=== PATIENT | female | born 1950 | race Caucasian/White ===

== ENCOUNTER 2017-09-22 09:17 | Outpatient (CLI) | payer MEDICARE, OTHER ==
--- NOTE | 2017-09-22 09:46 | RAD ---
CHEST TWO VIEWS: History: Dyspnea. FINDINGS: Cardiac silhouette is enlarged. Pulmonary vasculature is predominately obscured by extremely coarsene d interstitial thickening throughout each lung. Component of underlying airspace opacity could also b e present. Mediastinum is midline. No pneumothorax or pleural fluid are visible. Metallic clips overl ie the gallbladder fossa. IMPRESSION: 1. Extensive widespread interstitial thickening. 2. Cardiomegaly. POS: [facility]
== END 2017-09-22 09:18 | disposition home or self-care (01) ==
LOC: EDBD → RAD 09:17
PROVIDERS: ATTEND Internal Medicine Critical Care Medicine
DX: R06.00 Dyspnea, unspecified (principal); I51.7 Cardiomegaly; R91.8 Other nonspecific abnormal finding of lung field
CPT/HCPCS: 71046

== ENCOUNTER 2017-10-21 11:49 | Outpatient (CLI) | payer MEDICARE, MEDICAID ==
--- NOTE | 2017-10-21 14:46 | CT ---
NONCONTRAST AND HIGH RESOLUTION PROTOCOL CT CHEST: INDICATIONS: Interstitial lung disease. Idiopathic pulmonary fibrosis. COMPARISON: Reference is made to a 09/22/2017 chest radiograph. FINDINGS: There are diffuse, multifocal, nodular areas of consolidation throughout each lung, with associated b ronchiectasis and scattered ground glass alveolar opacities. There is associated interstitial septal thickening and multifocal areas of pleural based irregularity. Incidental note of moderate pericardial effusion. There is an enlarged, heterogeneous right thyroid lobe, partially visualized. There are prominent sized cysts of the lungs bilaterally, predominantly at the apices, which may be related to associated pneumatocele formation. Regional soft tissue limit s assessment by the technique of the exam. Nonspecific, mildly enlarged mediastinal lymph nodes are present. IMPRESSION: 1. Multifocal nodular parenchymal opacities throughout each lung, favoring an atypical infectious pr ocess. 2. There is diffuse bilateral bronchiectasis, at least a portion of which is favored to reflect trac tion bronchiectasis. In addition, there are prominent sized cysts of each lung, likely related to as sociated pneumatoceles. 3. Incidental note of thyroid gland enlargement and heterogeneity. Followup may be obtained with th yroid ultrasound when clinically feasible. 4. Moderate pericardial effusion is partially visualized. 5. Nonspecific thoracic adenopathy, incompletely assessed by the technique of the exam. POS: [facility]
[2017-10-21 15:21] LABS: Bilirubin Small (Negative); Blood, Urine Trace (Negative); Clarity CLOUDY (Clear); Glucose, Urine (Dipstick) 100 mg/dL (Negative); Leukocyte Moderate (Negative); Nitrite Positive (Negative); Protein, Urine (Dipstick) 30 mg/dL (Neg-Trace); Specific Gravity, Urine 1.025 (1.002-1.036)
[2017-10-21 15:23] LABS: Bacteria/HPF 4+ HPF (None Seen); Pathc Cast-AUWi Flag 1.77 (0-2.49); RBC/HPF 0-3 HPF (0-3); Squamous Epithelial 0-3 HPF (0-3); WBC/HPF 21-50 HPF (0-3)
[2017-10-21 15:28] LABS: Hyaline Casts/LPF 0-3 HYALINE CAST LPF (0-3 Hyaline)
[2017-10-21 15:32] LABS: ALT (SGPT) 8 U/L (8-55); AST (SGOT) 15 U/L (5-34); Albumin 4.4 g/dL (3.4-4.8); Alkaline Phosphatase 96 U/L (40-150); Anion Gap 13 mmol/L (10-20); BUN (Urea Nitrogen) 13 mg/dL (9.8-20.1); Bilirubin, Total 0.6 mg/dL (0.2-1.2); Calc. Creatinine Clearance 0 mL/min (70-130); Calcium 9.7 mg/dL (7.8-10.44); Carbon Dioxide 27 mmol/L (23-31); Chloride 103 mmol/L (98-107); Estimated GFR-MDRD 78; Globulin 3.6 g/dL (2.4-3.5); Glucose 140 mg/dL (80-115); Potassium 3.9 mmol/L (3.5-5.1); Sodium 139 mmol/L (136-145)
[2017-10-21 15:35] LABS: #Eosinphils 0.1 thou/uL (0.0-0.7); #Lymphocytes 1.4 thou/uL (1.20-3.40); #Monocytes 0.8 thou/uL (0.11-0.59); #Neutrophils 7.2 thou/uL (1.40-6.50); %Basophils 0.3 % (0.0-1.0); %Eosinophils 1.5 % (0.0-10.0); %Lymphocytes 14.5 % (21.0-51.0); %Monocytes 8.6 % (0.0-10.0); %Neutrophils 75.1 % (42.0-75.0); Anisocytosis SLIGHT = 6-15 cells (100X) (0-5/hpf); Hemoglobin 13.7 g/dL (12.0-16.0); MDiff Complete? YES; Mean Corpuscular HGB CONC 31.1 g/dL (32.0-36.0); Mean Corpuscular Hemoglobin 22.6 pg (27.0-31.0); Mean Corpuscular Volume 72.8 fl (81.0-99.0); Mean Platelet Volume 8.1 fL (7.4-10.4); Ovalocytes SLIGHT = 2-5 cells (100X) (0-1/hpf); PLT Morphology Comment Appears Adequate; Platelet Count 286 thou/uL (130-400); RBC Distribution Width 15.1 % (11.5-14.5); Red Blood Cell (RBC) Count 6.04 mill/uL (4.20-5.40); White Blood Cell (WBC) Count 9.6 thou/uL (4.8-10.8)
--- NOTE | 2017-10-22 10:20 | PFT ---
PATIENT HISTORY: HEIGHT: 66 IN WEIGHT:148 SMOKER: NO QUIT 3 YRS AGO HOW LON YEARS PACKS PER DAY: 1 PRODUCTIVE COUGH: LUNG DISEASE: PHYSICIAN INTERPRETATION FINAL REPORT: Generator Switchboard Operator comments: patient perform these studies on 1 liter nasal cannula. PFT data: FVC 1.39 (42%), FEV1 1.03 (43%), FEV1/FVC 0.74. Total expiratory time 6.1 seconds. TLC 2.10 (38%), FRC 1.28 (39%), RV 1.10 (49%). Diffusion 5.77 (30%) There is were severe reduction in both the FEV1 and the FVC. The ratio was suggestive of a restrictive profile. Volume are severe volume restriction is confirmed on lung volumes. Diffusion capacity is severely impaired. There is no significant improvement following administration of bronchodilator. IMPRESSION: Overall, these pulmonary function studies are consistent with severe restrictive lung disease with severe reduction in gas exchange. Clinical correlation for interstitial process is suggested. Generator Switchboard Operator: CODY Marketing Consultant: CODY SANTANA
[2017-10-23 16:16] LABS: Anti-Striation AB Negative (Neg:<1:40); Antinuclear AB Negative (Negative); Antiparietal Cell Ab 68.8 Units (0.0-20.0); Complement C4 46 mg/dL (14-44); DSDNA AutoAb Less than 1 IU/mL (0-9); SCL-70 IgG AutoAb <0.2 AI (0.0-0.9); Smith IgG AutoAb <0.2 AI (0.0-0.9); Smooth Muscle AB 37 Units (0-19); Thyroid Peroxidase Abs 415 IU/mL (0-34); U1 RNP/SNRNP IgG AutoAb <0.2 AI (0.0-0.9)
== END 2017-10-21 11:50 | disposition home or self-care (01) ==
LOC: CT 11:49 → EDBD 12:30
PROVIDERS: ATTEND Internal Medicine Critical Care Medicine
DX: J84.9 Interstitial pulmonary disease, unspecified (principal); J47.9 Bronchiectasis, uncomplicated; R91.8 Other nonspecific abnormal finding of lung field; E04.9 Nontoxic goiter, unspecified; I31.3 Pericardial effusion (noninflammatory); R59.0 Localized enlarged lymph nodes
CPT/HCPCS: 71250; 80053; 81001; 83516; 85025; 86160; 86225; 86235; 86256; 86376; 86431; 86480; 86606; 86612; 86635; 86698; 94060; 94727; 94729

== ENCOUNTER 2017-11-12 06:34 | Inpatient (IN) | payer MEDICARE, MEDICAID ==
[2017-11-12] MEDS ORDERED: Fentanyl 250 MCG/5 ML VIAL ONE (07:00)
[2017-11-12] MEDS ORDERED: Glycopyrrolate 0.2 MG/ML 5 ML SYRINGE ONE (08:13)
[2017-11-12] MEDS ORDERED: PHENYLEPHRINE-NS 100 MCG/ML 10 ML SYRINGE ONE (08:13)
[2017-11-12] MEDS ORDERED: Lidocaine 1% PF 5 ML VIAL ONE (08:13)
[2017-11-12] MEDS ORDERED: Propofol 200 MG/20 ML VIAL ONE (08:13)
[2017-11-12] MEDS ORDERED: Sodium Chloride 0.9% 1,000 ML IV SCH (08:15)
[2017-11-12] MEDS ORDERED: LIDOCAINE HCL 4% Topical Sol (4 ML SOLN.PK.G.) TP SCH (08:15)
[2017-11-12] MEDS ORDERED: Lidocaine 2% PF 5 ML VIAL ONE (08:31)
--- NOTE | 2017-11-12 09:05 | HP ---
11/11/2017 HISTORY OF PRESENT ILLNESS: Ms. Diego is a very pleasant woman referred for "pneumonia." She was seen by me at the end of August with a history of being told she had COPD and being placed on oxygen. She has been seen in the [place] emergency room, given a diagnosis of pneumonia and then sent home. She had no old radiographs for me to compare to. She did have a history of being told by [place] physician 3-4 years prior that she had COPD. A year ago, she said she was fine, but the past 6 months, she has been having progressive shortness of breath. She has had no weight loss or hemoptysis with just mainly dyspnea on exertion. Serological workup has not revealed anything but a positive QuantiFERON. The duration of this abnormality is unknown. Her vasculitis workup was negative. Her hypersensitivity pneumonitis panel was negative. Her fungal antibody panel was negative. Her antineutrophil cytoplasmic antibody panel was negative. Her lupus panel was negative with the exception of a thyroid peroxidase auto- antibody which is noncontributory. Her exam has been nonrevealing. She had normal complement levels. Her electrolytes were normal. She was not hypercalcemic. She did have an elevated globulin fraction. Her urinalysis showed some white cells, but no microhematuria. She is tentatively scheduled for bronchial washings and possible transbronchial biopsies. PAST MEDICAL HISTORY: Remarkable for hypertension, osteoporosis, lipid disorder and diabetes. SOCIAL HISTORY: She is nonsmoker for the last year. She is not a daily drinker. She does not use drugs. FAMILY HISTORY: Negative for lung disease in early age. She has history of vascular disease. REVIEW OF SYSTEMS: Ten points otherwise negative. PHYSICAL EXAMINATION: VITAL SIGNS: Blood pressure in the office is 138/80, pulse 96, respiratory rate is 18, oximetry is 96% on 2 liters. HEENT: Pupils are equal. Sclerae anicteric. NECK: Supple. She has no lymphadenopathy. LUNGS: Remarkable for crackles at both lung bases. HEART: Regular rhythm. S1 and S2 are normal. ABDOMEN: Soft and nontender. EXTREMITIES: Without clubbing, cyanosis, or edema. IMPRESSION AND PLAN: My first impression was that she had pulmonary fibrosis, but CT scanning by high resolution protocol was not suggestive of that. There is no way around trying to get some tissue and some specimens for culture. I doubt this is a disseminated fungal process, but it is in the differential. This has been atypical presentation for malignant process, but it is also in the differential. Bronchoscopy was explained to the patient, the daughter. Risks of bleeding, infection, lung collapse, and least likely were explained. This will need to be done with anesthesia assistance. MAX
--- NOTE | 2017-11-12 11:55 | RAD ---
PORTABLE CHEST: HISTORY: Dyspnea. COMPARISON: 09/22/2017 FINDINGS: Heart size is markedly enlarged. Interstitial fibrotic lung changes, which have a confluent appearan ce in some of the areas, is again noted. It is fairly similar to the previous examination. Some of the right upper lobe parenchymal changes appear more confluent, toward the right suprahilar region, a s do some of the changes in the right base. I cannot exclude the possibility that there is some coex istent infiltrative change. IMPRESSION: Cardiomegaly with interstitial fibrotic lung change. Slightly more confluent change of the right upp er and lower lung glover than on the prior study. POS: [facility]
--- NOTE | 2017-11-12 13:31 | RAD ---
PORTABLE AP CHEST X-RAY: 11/12/2017 HISTORY: Post bronchoscopy. COMPARISON: 11/12/2017 at 1024 hours. FINDINGS: Again noted are diffuse increased interstitial and patchy parenchymal opacities seen throughout the l ungs bilaterally. There has been interval development of a moderate sized right pneumothorax. No pl eural effusion is seen. There is osteopenia. The cardiac silhouette does appear enlarged and stable in size. No other interval change. IMPRESSION: 1. Moderate size right pneumothorax occupying greater than 15% of the volume of the right hemithorax . 2. Persistent increased interstitial and alveolar opacities throughout the lungs bilaterally. The above findings were discussed with Dr. Jones in the PACU on 10/23/2017 at 1121 hours, in regards t o the right-sided pneumothorax. CODE CR POS: [facility]
--- NOTE | 2017-11-12 14:20 | RAD ---
AP VIEW CHEST: 11/12/2017 HISTORY: Status post pneumothorax valve placement. COMPARISON: Exam done earlier in the day on 11/12/2017. FINDINGS: An AP view chest demonstrates placement of a right-sided pneumothorax catheter, in the right pleural space. The previously visualized pneumothorax has significantly decreased in size. Diffuse interstitial air space opacity is again seen throughout the lung parenchyma. Surgical clips are seen in the gallbladder fossa. IMPRESSION: Placement of a right-sided pneumothorax catheter in the right-sided pneumothorax POS: [facility]
[2017-11-12] MEDS ORDERED: Lidocaine 1% (PF) 30 ML VIAL ONE (14:52)
[2017-11-12 14:53] LABS: BF Color Pink; Body Fluid Source Bronchial Washings; Clarity Cloudy/Turbid (Clear); RBC Background Count 0.004; Tube # EDTA; WBC/NonHematic-Auto 2390 /cumm
[2017-11-12 14:54] LABS: RBC Count-Automated 27000 /cumm
--- NOTE | 2017-11-12 15:35 | CON ---
DATE OF CONSULTATION: 11/12/2017 HISTORY OF PRESENT ILLNESS: Ms. Diego is a 67-year-old woman she is post- chest biopsy with resultant pneumothorax, which has been resistant to small bore catheter placement reexpansion. I have been asked to see her to place a larger bore chest tube. PAST MEDICAL HISTORY: 1. Hypertension. 2. Osteoporosis. 3. Lipid disorder. 4. Diabetes mellitus. 5. Malignant pulmonary process vs interstitial disease SOCIAL HISTORY: She quit smoking about a year ago. REVIEW OF SYSTEMS: Not performed due to acuity of the situation. PHYSICAL EXAMINATION: VITAL SIGNS: Heart rate is 80 and regular, blood pressure is 95/76. LUNGS: Have depressed breath sounds bilaterally, but more so on the right. There is a small bore catheter in the anterior mid clavicular line approximately the second interspace. Oxygen saturations are 90% on 4 liters nasal cannula. ABDOMEN: Soft and nontender. EXTREMITIES: No edema. Chest x-ray series has been reviewed. ASSESSMENT AND PLAN: Status post percutaneous biopsy at the right chest with resultant pneumothorax for chest tube placement. MIND
--- NOTE | 2017-11-12 15:38 | OP ---
PREOPERATIVE DIAGNOSIS: Right pneumothorax. POSTOPERATIVE DIAGNOSIS: Right pneumothorax. PROCEDURE PERFORMED: Right chest tube placement. SURGEON: Aayush Santiago M.D. ANESTHESIA: 1% lidocaine for local. DESCRIPTION OF PROCEDURE: Right chest wall was prepped and draped in usual sterile fashion. Skin wa s anesthetized with 1% lidocaine. The subcutaneous tissue and pericostal tissue was anesthetized wit h 1% lidocaine. The chest was entered percutaneously. This was all infiltrated with 1% lidocaine. Skin incision was made. Sharp dissection was used to enter the chest. A 28 Tajik chest tube was pl aced to 12 cm and secured to skin with silk suture. There was a good burst of air on entering the ch est. Chest tube was connected to the atrium and initially had an air leak, which resolved with cough . Chest x-ray on followup shows complete reexpansion of the right lung.
--- NOTE | 2017-11-12 15:45 | RAD ---
PORTABLE UPRIGHT FRONTAL CHEST RADIOGRAPH 11/12/17 at 1:52 p.m. COMPARISON: 11/12/17, 10:50 a.m. HISTORY: Evaluate pneumothorax. FINDINGS: There is a small caliber chest tube overlying the right upper hemithorax. The tubing may be kinked ov erlying the region of the right 7th rib. The right sided pneumothorax is moderate/large on this exam, increased in size when compared to the most recent prior examination. There is extensive abnormal interstitial opacity seen throughout both lungs, right greater than left, not well assessed on this examination. The pulmonary parenchymal opacity throughout the right lung h as worsened secondary to volume loss from the enlarging right sided pneumothorax. There is some shift of the mediastinal structures to the left suggesting a degree of tension. There is small volume subc utaneous gas in the right chest wall. IMPRESSION: Enlarging right pneumothorax. There is some shift of the mediastinal structures to the left suggestin g a tension component. Results were called to Dr. Teixeira at 2:50 p.m., 11/12/17. POS: [facility]
[2017-11-12] MEDS: traMADol HCl 50 MG TAB PO PRN (15:47)
[2017-11-12 15:48] LABS: Cell Count Non Hematic 23 %; Eosinophils 1 %
[2017-11-12 15:50] LABS: BF Segmented Neutrophils 75 %
--- NOTE | 2017-11-12 16:16 | RAD ---
CHEST ONE VIEW: 11/12/17 HISTORY: 67-year-old female with history of post 28 Indonesian chest tube insertion. COMPARISON: 11/12/17. There has been considerable improvement in the previously noted moderate sized right sided pneumothor ax. There is some minimal subcutaneous emphysema. Extensive alveolar and interstitial parenchymal easton nges are noted throughout both lungs as well as cardiomegaly. IMPRESSION: Very small residual right sided pneumothorax following right chest tube placement. Stable extensive b ilateral pulmonary parenchymal changes. Continued short term followup. POS: [facility]
[2017-11-12] MEDS ORDERED: Morphine 10 MG/ML VIAL SLOW IVP PRN (18:14)
[2017-11-12] MEDS ORDERED: Dextrose 5% in Water 1,000 ML IV PRN (19:51)
[2017-11-12] MEDS ORDERED: Dextrose 50% Abboject 50 ML SYRINGE IVP PRN (19:51)
[2017-11-12] MEDS: Sodium Chloride 0.45% 1,000 ML IV SCH (20:31)
[2017-11-12] MEDS: Gabapentin 300 MG CAP PO SCH (20:32)
[2017-11-12] MEDS: Atorvastatin Calcium 20 MG TAB PO SCH (20:32)
[2017-11-12] MEDS: Insulin Regular 300 UNITS/3 ML VIAL SC PRN (21:42)
--- NOTE | 2017-11-12 22:54 | OP ---
Ms. Francoords scheduled for bronchoscopy today. She was taken to the endoscopy suite. She was intubate d by Anesthesia. She was sedated, bronchoscope was introduced via endotracheal tube. Her main mike a was sharp. The left lower lobe, left upper lobe were remarkable for no endobronchial lesions. Her right upper lobe, right lower lobe, right middle lobe were inspected. Her right middle lobe bronchu s was anatomic variant and was in the 9 o'clock position is opposed to 12 o'clock position when enter ing the bronchus intermedius. I was able to enter the right middle lobe bronchus and lavage, the rig ht middle lobe with 30 mL of saline 20 mL was returned. There were some lumpy granulomas looking mucosal lesions in her right lower lobe bronchus, one of the se was biopsied twice. Four transbronchial biopsies were obtained in different segments of the right lower lobe. After the procedure, fluoroscopy showed no pneumothorax. She was taken to the PACU and extubated.
--- NOTE | 2017-11-12 23:14 | OP ---
11/12/2017 POSTPROCEDURE BRONCHOSCOPY INDICATION: Chest radiograph showed no obvious pneumothorax, although there was a density at the apex suggestive of maybe an early pneumothorax. After this film was done, she started developing progressive shortness of breath. A repeat radiograph clearly showed a pneumothorax. I obtained verbal consent for placement of a Heimlich valve, 8-Persian pneumothorax catheter. She agreed. Her right anterior chest was prepped with Betadine followed by chlorhexidine. A small incision was made with an 11 blade after 10 mL of 1% lidocaine anesthesia. The catheter was easily inserted and sewn in place x1 and connected to a Heimlich valve. Within 5 minutes, respiratory status was back to normal. We then connected this to a Pleur-evac. She is scheduled to transfer to the Critical Care Unit. After arrival in the Critical Care Unit, she became short of breath again. A repeat radiograph was remarkable for a recurrence of her pneumothorax. I recommend placement of a larger chest tube. Dr. Santiago was gracious enough to place a chest tube. She had immediate relief of her recurring dyspnea. Chest radiograph showed inflation of her right lung. I met with the daughter multiple times today and answered all of her questions. Her preliminary acid fast smears are positive. At this point in time, based on her radiographic presentation and her clinical presentation, my index of suspicion is more towards a non-tuberculous mycobacterium than tuberculosis, but in the morning, we will probably start her antituberculous therapy until we have the preliminary culture results in the PCR. MAX
[2017-11-13] MEDS: Insulin Regular 300 UNITS/3 ML VIAL SC PRN ×4 (05:55→20:58)
--- NOTE | 2017-11-13 08:19 | RAD ---
UPRIGHT PORTABLE CHEST ONE VIEW: History: 67-year-old female with respiratory insufficiency. Comparison: 11-12-17 FINDINGS: Right chest tube remains in place with some residual subcutaneous emphysema on the right side. Stable cardiomegaly and extensive alveolar nodular and interstitial and reticular parenchymal changes throu ghout both lungs, also stable. Probable very tiny residual pneumothorax on the right. IMPRESSION: Right chest tube in place with probable very tiny residual right sided pneumothorax as well as some p ersistent subcutaneous emphysema. Stable cardiomegaly and extensive bilateral pulmonary opacities. POS: [facility]
[2017-11-13] MEDS: traMADol HCl 50 MG TAB PO PRN ×2 (09:23→16:46)
[2017-11-13] MEDS: Sodium Chloride 0.45% 1,000 ML IV SCH ×2 (09:23→21:19)
[2017-11-13] MEDS: Gabapentin 300 MG CAP PO SCH ×3 (09:23→20:58)
[2017-11-13] MEDS: Amlodipine 10 MG TAB PO SCH (09:25)
[2017-11-13] MEDS ORDERED: Cosyntropin 250 MCG VIAL SLOW IVP SCH (11:45)
--- NOTE | 2017-11-13 11:53 | PRG ---
DATE OF SERVICE: 11/13/2017 SUBJECTIVE: Ms. Diego says she feels better. She has no air leak looking at her chest tube. OBJECTIVE: VITAL SIGNS: Heart rate 104, respiratory 20, oximetry is 99, and blood pressure 114/70. LUNGS: Her lungs are remarkable for crackles bilaterally as before. HEART: Regular rhythm. ABDOMEN: Soft. Chest radiograph reviewed by me shows a very tiny pneumothorax on the right. There is no lab today other than Accu-Cheks. IMPRESSION: 1. Iatrogenic pneumothorax as a result transbronchial biopsies. 2. 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 Biopsies are pending. Acid fast bacilli were is olated. The radiograph in the clinical picture is not consistent with Mycobacterium tuberculosis. 3. History of a positive QuantiFERON. At this time, I believe, it is old. We will continue daily c hest radiographs. She will probably need to be started on anti-tuberculosis therapy until we have sp eciation of the acid fast bacilli. I have discussed the case with Dr. Boyer, we will check a CBC and Chem-7 in the morning. She should probably stay in the ICU for at least another day until her chest tubes to water seal.
[2017-11-13] MEDS: Atorvastatin Calcium 20 MG TAB PO SCH (20:58)
--- NOTE | 2017-11-14 00:48 | CON ---
DATE OF CONSULTATION: 11/13/2017 REASON FOR CONSULTATION: Pulmonary findings and sputum results. HISTORY OF PRESENT ILLNESS: A 67-year-old with a history of COPD given elsewhere about 6 years prior to admission was in her usual state until about 4-6 months before admission when she developed cough with sputum production. She was seen at a hospital in [place], [place] given diagnosed with pneumon ia and discharged on antimicrobial therapy. Despite treatment, she progressed with worsening dyspnea . She denied any headaches. No visual symptoms, sore throat, odynophagia, dysphagia. No back pain. No abdominal pain or diarrhea. No genitourinary symptoms. No joint symptoms. No skin disorder. She was eventually referred to Dr. Teixeira and he completed an extensive workup. The only positive fin dings included a positive QuantiFERON and some autoimmune antibody panel for certain glands and certa in in the gastric area with thyroid peroxidase oral antibody positivity and parietal cell autoantibod y. She had a CT scan with high-resolution protocol, which was not suggestive of pulmonary fibrosis. She was then recommended bronchoscopy and she was admitted for that to do with anesthesia assistance . She developed pneumothorax on the right side and was admitted to the ICU with a chest tube placeme nt. The chest tube had to be replaced by Dr. Das I believe. Currently, she is in the ICU. She is awake, oriented. Ten-point review of systems is only positive for dyspnea, some chest pain at the chest tube site. PAST MEDICAL HISTORY: COPD. Reportedly, she had pulmonary function test done on 10/21/2017, which s howed severe restrictive lung disease with possible interstitial process. CT of chest done the same date with multifocal nodular parenchymal opacities favoring an atypical infectious process; diffuse b ilateral bronchiectasis; cysts in each lung, likely related to pneumatoceles; thyroid enlargement and heterogeneity; moderate pericardial effusion, partially visualized; nonspecific thoracic adenopathy. ALLERGIES: Negative. CURRENT MEDICATIONS: DuoNeb, Norvasc, Lipitor, Cortrosyn, dextrose, Neurontin, glucagon, insulin, mo rphine, Ultram. FAMILY HISTORY: Noncontributory. SOCIAL HISTORY: She is a former smoker. She lived in another city in [place]. PHYSICAL EXAMINATION: GENERAL: She is voiding spontaneously. She has a chest tube. VITAL SIGNS: T-max 98.6, blood pressure 97/66, pulse 97, respirations 18, O2 sat 95%. SKIN: No areas of skin breakdown. Peripheral IV access. HEENT: Ocular movements conjugate. Conjunctivae normal. Oral cavity unremarkable. NECK: Supple. No jugular vein distention. LUNGS: With diminished breath sounds in the right side. HEART: S1, S2 regular rate. No crackles noted. ABDOMEN: Soft. Not distended or tender. No ascites. No bladder distention. EXTREMITIES: No joint inflammatory activity. Pulses are 1+ in dorsalis pedis. Moves all extremitie s equally. NEUROLOGIC: Cognitive function appears to be intact. LABORATORY DATA: White cell count ranging from 9.6, hemoglobin 13.7, platelets 286, MCV 72, 75% neut rophils, 0.1 eosinophils. Sodium 139, creatinine 0.74, glucose 140. Liver profile is normal. Globu alon 3.6 and she had a cortisol response, which is felt to be normal. Immunology studies included aty pical ANCA negative, antinuclear antibody negative, and a number of autoimmune antibodies negative. Anti-smooth muscle antibody is 37. Thyroid peroxidase antibody is 415, antiparietal cell antibody is 68. She had a number of antibodies against fungi negative and QuantiFERON was positive. Microbiolo gy with positive acid fast 1+, pending identification. Pathology of the lung biopsy with benign bron chial and peribronchial tissue, no malignancy, no granulomata, and no significant inflammatory infilt rates identified. The cytology showed benign respiratory columnar epithelial cells, no acid fast chiquita illi or fungal organism identified. ASSESSMENT: History of chronic obstructive pulmonary disease, now with progression of pulmonary infi ltrates, predominantly interstitial but also alveolar with cystic changes and bronchiectasis with AFB positivity from the bronchoscopy. 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 DISCUSSION: The differential diagnosis includes atypical infection including atypical mycobacterial versus Mycobacterium tuberculosis infection, fungal organisms. Vasculitis appears to be less likely in process with negative serology related to autoimmune glandular syndrome is another possibility, al though less likely. We will wait for the identification of the organism and then decide on treatment , cryptogenic organizing pneumonia appears to be less likely in view of the findings in the pathology from the bronchoscopy specimen. She may have a noncystic fibrosis bronchiectasis, which was not harley ntified until recently due to progression. In that case, the diagnosis of COPD given 4-6 years ago jefferson mckeon was not accurate.
[2017-11-14 04:42] LABS: Anion Gap 11 mmol/L (10-20); BUN (Urea Nitrogen) 11 mg/dL (9.8-20.1); Calc. Creatinine Clearance 93 mL/min (70-130); Carbon Dioxide 25 mmol/L (23-31); Chloride 99 mmol/L (98-107); Estimated GFR-MDRD Greater than 90; Glucose 148 mg/dL (80-115); Sodium 131 mmol/L (136-145)
[2017-11-14 05:14] LABS: Band 8 % (5-11); Hemoglobin 11.5 g/dL (12.0-16.0); Lymphocytes 11 % (21-51); MDiff Complete? YES; Mean Corpuscular HGB CONC 30.5 g/dL (32.0-36.0); Mean Corpuscular Hemoglobin 22.5 pg (27.0-31.0); Mean Corpuscular Volume 73.8 fl (81.0-99.0); Monocytes 18 % (0-10); Neutrophil 63 % (42-75); PLT Morphology Comment Appears Adequate; Platelet Count 182 thou/uL (130-400); RBC Distribution Width 15.4 % (11.5-14.5); Red Blood Cell (RBC) Count 5.11 mill/uL (4.20-5.40); White Blood Cell (WBC) Count 6.5 thou/uL (4.8-10.8)
[2017-11-14] MEDS: Gabapentin 300 MG CAP PO SCH ×3 (08:30→19:32)
[2017-11-14] MEDS: traMADol HCl 50 MG TAB PO PRN ×2 (08:30→14:41)
[2017-11-14] MEDS: Amlodipine 10 MG TAB PO SCH (08:31)
--- NOTE | 2017-11-14 08:43 | PRG ---
DATE OF SERVICE: 11/14/2017 SUBJECTIVE: She is complaining of cough, but otherwise says she is doing okay. PHYSICAL EXAMINATION: VITAL SIGNS: On exam, temperature is 100.0, pulse 108, blood pressure 133/74, O2 sat 92%, 24-hour in take 2628 and output 1605. HEENT EXAM: Unremarkable. NECK: No JVD, no bruits. LUNGS: Coarse breath sounds. CARDIOVASCULAR: S1 and S2, regular. ABDOMEN: Soft and nontender. EXTREMITIES: No clubbing, cyanosis, or edema. IMAGING: Her chest x-ray shows resolved pneumothorax. Chest tube did not demonstrate any air leak t tawana. LABORATORY DATA: White blood cell count 6.5, hematocrit 37.7, platelet count 182. Sodium 131, potas sium 4, chloride 99, CO2 of 25, BUN 11, creatinine 0.6, glucose 148. ASSESSMENT: 1. Diffuse bilateral pulmonary changes with positive AFB. This could be either Mycobacterium avium complex or mycobacterium tuberculosis. 2. Post-procedure pneumothorax with resolved air leak. PLAN: 1. Chest tube to water seal. 2. Up in a chair. 3. Add Lovenox for DVT prophylaxis. 4. Awaiting further results regarding the AFB.
[2017-11-14] MEDS: guaiFENesin/Dextromethorphan 10 ML UDCUP PO PRN ×2 (08:45→14:43)
[2017-11-14] MEDS: Enoxaparin Sodium 40 MG/0.4 ML SYRINGE SC SCH (08:56)
--- NOTE | 2017-11-14 09:32 | RAD ---
PORTABLE CHEST: Date: 11/14/17 PROVIDED CLINICAL HISTORY: Respiratory insufficiency. FINDINGS: Comparison with 11/13/17. Significant interval change with respect to the prior examination is not apparent. IMPRESSION: As above. POS: [facility]
[2017-11-14] MEDS: Insulin Regular 300 UNITS/3 ML VIAL SC PRN ×3 (12:03→20:16)
--- NOTE | 2017-11-14 18:27 | EKG ---
Test Reason : PREOP Blood Pressure : / mmHG Vent. Rate : 100 BPM Atrial Rate : 100 BPM P-R Int : 166 ms QRS Dur : 066 ms QT Int : 352 ms P-R-T Axes : 047 -33 030 degrees QTc Int : 454 ms Normal sinus rhythm Left axis deviation Inferior infarct , age undetermined Abnormal ECG No previous ECGs available Confirmed by DR. Clarissa ALLEN MD ([id number]) on 11/14/2017 6:26:54 PM Referred By: SHIVANI Confirmed By:DR. Clarissa ALLEN MD
[2017-11-14] MEDS: Atorvastatin Calcium 20 MG TAB PO SCH (19:36)
[2017-11-14] MEDS: Guaifenesin DM 100-10/5 ML UDCUP PO PRN (22:11)
[2017-11-15 04:34] LABS: Anion Gap 11 mmol/L (10-20); BUN (Urea Nitrogen) 12 mg/dL (9.8-20.1); Calc. Creatinine Clearance 90 mL/min (70-130); Calcium 8.8 mg/dL (7.8-10.44); Carbon Dioxide 29 mmol/L (23-31); Chloride 96 mmol/L (98-107); Estimated GFR-MDRD 86; Glucose 136 mg/dL (80-115); Potassium 3.9 mmol/L (3.5-5.1); Sodium 132 mmol/L (136-145)
[2017-11-15 04:37] LABS: Band 1 % (5-11); Eosinophils 2 % (0-10); Hemoglobin 11.2 g/dL (12.0-16.0); Lymphocytes 19 % (21-51); MDiff Complete? YES; Mean Corpuscular Hemoglobin 22.7 pg (27.0-31.0); Mean Corpuscular Volume 73.3 fl (81.0-99.0); Monocytes 13 % (0-10); Neutrophil 65 % (42-75); PLT Morphology Comment Appears Adequate; Platelet Count 178 thou/uL (130-400); RBC Distribution Width 15.3 % (11.5-14.5); Red Blood Cell (RBC) Count 4.91 mill/uL (4.20-5.40); White Blood Cell (WBC) Count 6.4 thou/uL (4.8-10.8)
[2017-11-15] MEDS: Sodium Chloride 0.45% 1,000 ML IV SCH (06:48)
--- NOTE | 2017-11-15 07:41 | PRG ---
DATE OF SERVICE: 11/15/2017 SUBJECTIVE: The patient is doing reasonably well today, had no complaints. PHYSICAL EXAMINATION: VITAL SIGNS: Temperature is 98.3, pulse 102, blood pressure 106/63, O2 sat 92%. HEENT: Unremarkable. NECK: No adenopathy or JVD. LUNGS: Coarse rhonchi bilaterally. CARDIOVASCULAR: S1 and S2 regular. ABDOMEN: Soft, nontender. EXTREMITIES: No edema. LABORATORY DATA: White blood count is 6.4, hemoglobin 11.2, hematocrit 36, platelet count 178. Sodi um 132, potassium 3.9, chloride 96, CO2 of 29, BUN 12, creatinine 0.6, glucose 136. Chest x-ray show s what appears to be a very small right apical pneumothorax. A chest tube is currently on waterseal. The Pleur-Evac was almost impossible to decipher because it looks like it to being kicked over duri ng the night and I am currently having it changed out to a different unit. ASSESSMENT: 1. Positive AFB on bronchoscopy -- not defined as atypical Mycobacterium or Mycobacterium tuberculos is as of yet. 2. Post-procedure pneumothorax which seems to have resolved. PLAN: 1. She can probably be transferred to the floor just as long as we can find a negative pressure room . Pleur-Evac has been changed out. 2. Deferring on antimicrobial therapy at this time until further test results come back.
[2017-11-15] MEDS: traMADol HCl 50 MG TAB PO PRN ×2 (07:50→18:01)
[2017-11-15] MEDS: Gabapentin 300 MG CAP PO SCH ×3 (07:51→19:58)
[2017-11-15] MEDS: Enoxaparin Sodium 40 MG/0.4 ML SYRINGE SC SCH (07:52)
--- NOTE | 2017-11-15 09:21 | RAD ---
PORTABLE CHEST: Date: 11/15/17 PROVIDED CLINICAL HISTORY: Respiratory insufficiency. FINDINGS: Comparison with 11/14/17. Significant interval change with respect to the prior examination is not apparent. IMPRESSION: As above. POS: [facility]
[2017-11-15] MEDS: Insulin Regular 300 UNITS/3 ML VIAL SC PRN ×3 (12:28→20:44)
[2017-11-15] MEDS: Amlodipine 10 MG TAB PO SCH (13:04)
[2017-11-15] MEDS: Guaifenesin DM 100-10/5 ML UDCUP PO PRN (19:58)
[2017-11-15] MEDS: Atorvastatin Calcium 20 MG TAB PO SCH (19:58)
--- NOTE | 2017-11-16 07:55 | RAD ---
PORTABLE SEMIUPRIGHT FRONTAL CHEST RADIOGRAPH: 11/16/2017 HISTORY: Respiratory insufficiency. COMPARISON: 11/15/2017 FINDINGS: There is a stable right-sided chest tube in place. Heart and mediastinal contours are stable. There is coarse interstitial and alveolar opacity, right greater than left, with a perihilar and upper lob e predominance, similar when compared to the prior examination. No discrete pneumothorax is noted. IMPRESSION: Stable appearance of the chest. POS: [facility]
[2017-11-16] MEDS: Amlodipine 10 MG TAB PO SCH (08:59)
[2017-11-16] MEDS: Gabapentin 300 MG CAP PO SCH ×3 (08:59→20:41)
[2017-11-16] MEDS: Enoxaparin Sodium 40 MG/0.4 ML SYRINGE SC SCH (09:00)
[2017-11-16] MEDS: Guaifenesin DM 100-10/5 ML UDCUP PO PRN (09:56)
[2017-11-16] MEDS: Insulin Regular 300 UNITS/3 ML VIAL SC PRN ×3 (11:57→20:44)
--- NOTE | 2017-11-16 14:50 | PRG ---
DATE OF SERVICE: 11/16/2017 SUBJECTIVE: Christine Diego has no air leak. It is anticipated her chest tube will be removed this afte rnoon. Given the isolation of acid fast bacilli, I would prefer to wait for a surgical lung biopsy. I suppose there is a possibility that this is non-tuberculous Mycobacterium on top of an underlying lung process, it is a completely different diagnosis, but it is also possible that this is all infect ion related on top of some structural bronchiectasis and COPD that was preexisting. OBJECTIVE: LUNGS: Clear. She is not wheezing. HEART: Regular rhythm. ABDOMEN: Soft. LABORATORY DATA: Glucoses have been for the most part less than 200. IMPRESSION: Pneumothorax, iatrogenic. Chest tubes removed and if she looks good in the morning, we may discharge her home. She can be isolated at home until we have a diagnosis of a pathogen hopefull y this week., but I would think definitely within 2 weeks.
[2017-11-16 15:21] LABS: Fungus Stain Final report (.)
[2017-11-16] MEDS: Atorvastatin Calcium 20 MG TAB PO SCH (20:41)
[2017-11-17] MEDS: Insulin Regular 300 UNITS/3 ML VIAL SC PRN ×4 (05:31→21:03)
--- NOTE | 2017-11-17 07:12 | PRG ---
DATE OF SERVICE: DATE 11/16/2017 HISTORY: Ms. Diego is awake. She is oriented, denies any headaches, a little bit of cough, less dy spnea, no chest pain, no abdominal pain. PHYSICAL EXAMINATION: VITAL SIGNS: Temperature max 99.7, blood pressure 109/63, pulse 101, respirations 26 with 94%. GENERAL: Awake, alert, oriented. LUNGS: With scattered inspiratory crackles. HEART: S1, S2, regular rate. ABDOMEN: Soft. EXTREMITIES: Moves all extremities equally. LABORATORY DATA: White cell count 6.4, hemoglobin 11, platelets 178. Sodium 132, creatinine 0.68. The identification of the mycobacterial pathogen is pending at this time. ASSESSMENT AND DISCUSSION: Chronic obstructive pulmonary disease, progression of pulmonary infiltrat es predominantly interstitial but some alveolar component and cystic changes, bronchiectasis with AFB positivity pending identification. She does have some autoimmune endocrine findings noticeable. Th e identification of the organism will be pursued and then define a treatment regimen.
--- NOTE | 2017-11-17 08:42 | RAD ---
CHEST ONE VIEW: History: Dyspnea. Intubated. Follow up. Comparison: 11-16-17 FINDINGS: Cardiac silhouette is magnified by projection. Pulmonary vasculature remains engorged. Multifocal mix ed interstitial and alveolar infiltrate throughout each lung is similar in appearance to the previous exam. Right thoracostomy tube remains in place. At the right lung apex, irregular linear densities o f uncertain origin extends beyond what appears to be the pleural surface of the right lung apex. This is similar in appearance to the prior study. Small right residual apical pneumothorax is favored. Th e electronic device monitor leads overlie the chest. IMPRESSION: 1. Stable radiographic appearance of the chest, with probable small residual right apical pneumothora x. Continued radiographic follow up is suggested. 2. Multifocal airspace/interstitial infiltrates are stable. POS: [facility]
[2017-11-17] MEDS: Enoxaparin Sodium 40 MG/0.4 ML SYRINGE SC SCH (08:51)
[2017-11-17] MEDS: Gabapentin 300 MG CAP PO SCH ×3 (08:51→21:01)
[2017-11-17] MEDS: Amlodipine 10 MG TAB PO SCH (08:51)
[2017-11-17 08:52] VITALS: BP 115/74
[2017-11-17] MEDS: traMADol HCl 50 MG TAB PO PRN ×3 (11:11→23:47)
[2017-11-17] MEDS ORDERED: pyridOXINE 50 MG (B6) TAB PO SCH (12:30)
[2017-11-17] MEDS ORDERED: Pyrazinamide 500 MG TAB PO SCH (12:30)
[2017-11-17] MEDS ORDERED: Rifampin 300 MG CAP PO SCH (12:30)
[2017-11-17] MEDS ORDERED: Ethambutol HCl 400 MG TAB PO SCH (12:30)
[2017-11-17] MEDS ORDERED: Isoniazid 100 MG TAB PO SCH (14:00)
--- NOTE | 2017-11-17 16:40 | PRG ---
DATE OF SERVICE: 11/17/2017 Doing clinically well. She has had a tiny apical pneumothorax. Her bronchial lavage showed Mycobacterium tuberculosis DNA. She has been started on 4 drugs today. I met with the family, answered all their questions. She will stay in the ICU for chest tube managem ent for now. There are no new problems.
[2017-11-17] MEDS: Atorvastatin Calcium 20 MG TAB PO SCH (21:01)
[2017-11-18] MEDS: Insulin Regular 300 UNITS/3 ML VIAL SC PRN ×3 (06:10→21:46)
[2017-11-18] MEDS: Enoxaparin Sodium 40 MG/0.4 ML SYRINGE SC SCH (08:47)
[2017-11-18] MEDS: Ethambutol HCl 400 MG TAB PO SCH (08:47)
[2017-11-18] MEDS: Rifampin 300 MG CAP PO SCH (08:48)
[2017-11-18] MEDS: Pyrazinamide 500 MG TAB PO SCH (08:48)
[2017-11-18] MEDS: pyridOXINE 50 MG (B6) TAB PO SCH (08:48)
[2017-11-18] MEDS: Gabapentin 300 MG CAP PO SCH ×3 (08:49→19:54)
[2017-11-18] MEDS: Amlodipine 10 MG TAB PO SCH (08:49)
[2017-11-18] MEDS: Isoniazid 100 MG TAB PO SCH (08:49)
--- NOTE | 2017-11-18 09:28 | RAD ---
CHEST ONE VIEW: History: Ventilated patient. CCU. Comparison: Chest radiograph prior day. FINDINGS: There is scarring in both upper lobes. Opacities throughout the lungs are similar. Volume loss in the right lung. Thoracostomy tube is place. No pneumothorax is appreciated. IMPRESSION: 1. No significant apical pneumothorax is appreciated. 2. No significant change in numerous airspace opacities throughout both lungs. POS: [facility]
[2017-11-18] MEDS: Atorvastatin Calcium 20 MG TAB PO SCH (19:53)
[2017-11-18] MEDS: traMADol HCl 50 MG TAB PO PRN (19:54)
--- NOTE | 2017-11-19 00:43 | PRG ---
DATE OF SERVICE: 11/18/2017 SUBJECTIVE: Ms. Diego remains in the ICU. She still has small air leak. She is still on suction. OBJECTIVE: She is in no distress. She is resting comfortably. Her vital signs remained stable. Th e remainder of her exam is unremarkable. She is tolerating her therapy so far. We will continue with chest tube management. Hopefully, this will all heal up shortly.
[2017-11-19] MEDS: Insulin Regular 300 UNITS/3 ML VIAL SC PRN ×3 (06:07→20:53)
[2017-11-19] MEDS: Enoxaparin Sodium 40 MG/0.4 ML SYRINGE SC SCH (08:37)
[2017-11-19] MEDS: Amlodipine 10 MG TAB PO SCH (08:37)
[2017-11-19] MEDS: Gabapentin 300 MG CAP PO SCH ×3 (08:37→20:50)
[2017-11-19] MEDS: Rifampin 300 MG CAP PO SCH (08:37)
[2017-11-19] MEDS: Ethambutol HCl 400 MG TAB PO SCH (08:38)
[2017-11-19] MEDS: Pyrazinamide 500 MG TAB PO SCH (08:38)
[2017-11-19] MEDS: Isoniazid 100 MG TAB PO SCH (08:38)
[2017-11-19] MEDS: pyridOXINE 50 MG (B6) TAB PO SCH (08:38)
--- NOTE | 2017-11-19 08:46 | RAD ---
AP CHEST: Indication: Daily CCU evaluation. Intubation. Comparison: 11-18-17 IMPRESSION: Dense parenchymal opacities are stable. Right sided thoracostomy tube is unchanged. Small right apica l pneumothorax is stable. Osseous structures are similar. POS: [facility]
[2017-11-19 09:36] VITALS: BMI 25.2
--- NOTE | 2017-11-19 14:26 | RAD ---
AP CHEST: Indication: Follow up chest tube. Comparison: 11-19-17 FINDINGS: Right sided thoracostomy tube is unchanged in position. There has been no appreciable change in the s mall right apical pneumothorax. Diffuse parenchymal opacities are stable. Chronic osseous change are similar. IMPRESSION: 1. Stable right apical pneumothorax. 2. Stable diffuse parenchymal opacities suspicious for pneumonia. 3. Right thoracotomy tube is not appreciably changed. POS: [facility]
--- NOTE | 2017-11-19 18:42 | PRG ---
DATE OF SERVICE: 11/19/2017 SUBJECTIVE: Ms. Diego is in no distress. Chest tube was removed today. She has a tiny apical pneu mothorax. OBJECTIVE: LUNGS: Clear anteriorly. She has crackles in both lung bases. HEART: Regular rhythm. ABDOMEN: Soft. IMPRESSION AND PLAN: Mycobacterium tuberculosis, pneumonia. She is a candidate to go home hopefully tomorrow if the chest radiograph remains stable. It was also told to set up in a tuberculous therapy until she can get plugged in with a local [facility] in a tuberculous therapy.
[2017-11-19] MEDS: traMADol HCl 50 MG TAB PO PRN (20:50)
[2017-11-19] MEDS: Atorvastatin Calcium 20 MG TAB PO SCH (20:51)
[2017-11-20 04:13] LABS: ALT (SGPT) 11 U/L (8-55); AST (SGOT) 18 U/L (5-34); Albumin 3.2 g/dL (3.4-4.8); Alkaline Phosphatase 100 U/L (40-150); Bilirubin, Direct 0.6 mg/dL (0.1-0.3); Bilirubin, Total 0.8 mg/dL (0.2-1.2); Protein, Total 6.4 g/dL (6.0-8.3)
[2017-11-20 04:19] LABS: Band 10 % (5-11); Hemoglobin 11.9 g/dL (12.0-16.0); Lymphocytes 21 % (21-51); MDiff Complete? YES; Mean Corpuscular HGB CONC 31.4 g/dL (32.0-36.0); Mean Corpuscular Hemoglobin 22.9 pg (27.0-31.0); Mean Corpuscular Volume 72.8 fl (81.0-99.0); Mean Platelet Volume 8.2 fL (7.4-10.4); Neutrophil 58 % (42-75); Platelet Count 234 thou/uL (130-400); RBC Distribution Width 15.9 % (11.5-14.5); White Blood Cell (WBC) Count 7.3 thou/uL (4.8-10.8)
[2017-11-20 04:20] LABS: Monocytes 9 % (0-10)
[2017-11-20 07:22] VITALS: TEMP 98
--- NOTE | 2017-11-20 07:31 | PRG ---
DATE OF SERVICE: 11/19/2017 Ms. Diego is awake, alert, oriented, coughing intermittently, less dyspneic. No headaches, no chest pain, no abdominal pain. Voiding without difficulty. PHYSICAL EXAMINATION: VITAL SIGNS: T-max 98, blood pressure 103/65, pulse 96, O2 sat 96%. SKIN: Unremarkable. Patient has peripheral IV access. No lymphadenopathy. HEENT: Ocular movements are conjugate. LUNGS: Lungs with symmetric air entry with scattered inspiratory crackles, a little bit of wheezing on the right side. CARDIOVASCULAR: S1, S2, regular rate. No S3, S4. ABDOMEN: Soft and not distended or tender. No ascites. No bladder distention. EXTREMITIES: Moves extremities equally. LABORATORY DATA: White cell count 7.3, hemoglobin 11, platelets 234 and the last chemistries from with creatinine 0.68. The microbiology remarkable for identification of the acid fast organis m as Mycobacterium tuberculosis. Last chest x-ray demonstrates stable right apical pneumothorax, diffuse parenchymal opacities. The c hest tube has been removed. No apparent leak remains. ASSESSMENT AND DISCUSSION: Chronic obstructive pulmonary disease with progression of pulmonary infil trates for the past 6 months, previous admissions for treatment of pneumonia without improvement and evidence of cystic changes, infiltrates and bronchiectasis with AFB positivity, now identified as Myc obacterium tuberculosis. Proper epidemiological investigation will be carried out by the Health Department to manage the expos ures. She will continue with 4-drug regimen plus pyridoxine for the usual treatment course assuming leal susceptibility to the drugs which is likely. Sometimes patients with parenchymal lung involvemen t or tuberculosis and pleural involvement may develop bronchopleural fistulas, which may be hard to m anage because of persistence of leakage, but hopefully, this case is not going to tube turner to be that kind of situation.
[2017-11-20] MEDS: Pyrazinamide 500 MG TAB PO SCH (08:17)
[2017-11-20] MEDS: Rifampin 300 MG CAP PO SCH (08:17)
[2017-11-20] MEDS: pyridOXINE 50 MG (B6) TAB PO SCH (08:18)
[2017-11-20] MEDS: Ethambutol HCl 400 MG TAB PO SCH (08:18)
[2017-11-20] MEDS: Gabapentin 300 MG CAP PO SCH (08:18)
[2017-11-20] MEDS: Isoniazid 100 MG TAB PO SCH (08:18)
[2017-11-20] MEDS: Enoxaparin Sodium 40 MG/0.4 ML SYRINGE SC SCH (08:18)
[2017-11-20] MEDS: Amlodipine 10 MG TAB PO SCH (08:19)
--- NOTE | 2017-11-20 09:26 | RAD ---
PORTABLE CHEST 1 VIEW: Date: 11/20/17 Time: 0506 hours HISTORY: Respiratory distress. FINDINGS/IMPRESSION: There has been interval removal of the right-sided chest tube. A tiny pneumothorax is present. Diffus e bilateral parenchymal opacities are unchanged. POS: [facility]
[2017-11-20] MEDS ORDERED: Pyrazinamide 500 MG TAB PO SCH (09:45)
--- NOTE | 2017-11-20 10:06 | PRG ---
DATE OF SERVICE: 11/20/2017 SERVICE: Pulmonary Medicine. INTERVAL HISTORY: The patient feels like she is doing fantastic this morning. She has no dyspnea. She is on 2 liters nasal cannula. She feels that her breathing is actually much improved. She had a chest x-ray this morning demonstrating a stable, very small apical pneumothorax. Outside of this, t here has been no interval change to her condition. She really wants to go home today. If we can charmaine e that happen it is safe from a public health perspective, we will do so. We called around multiple pharmacies. Nobody has the PZA. As such, we talked to the Health Department about giving her 3 time s a dose this evening and sending her home. They will take custody of her on Thursday and get her star mayra on appropriate medications. PHYSICAL EXAMINATION: VITAL SIGNS: Afebrile, pulse 95, blood pressure 141/92, respirations 22, saturation 91% on 2 liters nasal cannula. GENERAL: The patient is awake, alert, no apparent distress. LUNGS: Crackles are present bilaterally. No rhonchi are present. There is a prolonged expiratory p hase with a little bit of wheezing. HEART: Normal rate, regular. ABDOMEN: Soft, nontender, nondistended. Bowel sounds are positive. MUSCULOSKELETAL: No cyanosis or clubbing. No pitting in the bilateral lower extremities. NEUROLOGIC: Grossly nonfocal. LABORATORY DATA: WBC 7.3, hemoglobin 11.9, platelets 234,000. Liver function studies are essentiall y unremarkable with normal AST and ALT. Microbacterium tuberculosis is growing. ASSESSMENT: 1. Acute on chronic hypoxic respiratory failure, improving. 2. Mycobacterium tuberculosis infection. 3. Pneumothorax, iatrogenic, resolved. PLAN: At this point, we are going to transition the patient out of the hospital. She will go home o n 3 antibiotic drugs. She will get an additional dose of the [employer] today. She will be met by [facility] at her house on Thursday so that they can get her back on the PZA moving forward. If she rem ains inhouse for any reason, I will continue to follow, but hopefully will be able to get her out of the hospital today.
[2017-11-20] MEDS ORDERED: Isoniazid 100 MG TAB PO SCH (10:30)
[2017-11-20] MEDS ORDERED: Ethambutol HCl 400 MG TAB PO SCH (10:30)
[2017-11-20] MEDS ORDERED: Rifampin 300 MG CAP PO SCH (10:30)
--- NOTE | 2017-11-20 11:04 | DIS ---
DATE OF ADMISSION: 11/12/2017 DATE OF DISCHARGE: 11/20/2017 CONSULTS: 1. Infectious Disease. 2. Pulmonary Medicine. PROCEDURES: 1. Bronchoscopy. 2. Chest tube placement with subsequent removal. BRIEF SUMMARY: The patient had multiple recurrent episodes of pneumonia and/or chronic obstructive p ulmonary disease exacerbation. This time, she underwent bronchoscopy. Interestingly, she ended up h aving Mycobacterium tuberculosis. She was placed in isolation, and started on a 3-drug therapy. She has been here for a total of 8 days. She had a complication of an iatrogenic pneumothorax associate d with transbronchial biopsies. Chest tube was placed and subsequently discontinued. She had multip le chest x-rays throughout the hospital stay. She has a very small pneumothorax that is still left i n the right apex. On the date of discharge; however, she had no shortness of breath and was on 1.5 l iters nasal cannula (she is on home O2 at home). Originally, we are having trouble setting her up wi th antibiotics at home. She is going to see the Health Department first thing on Thursday. We were ab le to talk to our pharmacy and she got a 72 hours supply of all 5 medications including 4 antibiotics , and her vitamin B6. All other home medications are going to be resumed on discharge from the [facility]. DISCHARGE INSTRUCTIONS: 1. The patient has been asked to return to the emergency department with any increase in shortness o f breath. 2. She is to avoid going out in public for the next 72 hours until cleared by the Health Department. 3. She is to wear a mask whenever she is around other people as she is infectious and can spread thi s disease to those individuals. FOLLOWUP: The patient will follow up with Dr. Teixeira in 3-4 weeks with a pre-clinic chest x-ray. She will also follow up with her primary care physician in 3-4 weeks. DISPOSITION: Home. ACTIVITY: As tolerated. DISCHARGE DIET: Diabetic diet. DISCHARGE CONDITION: Stable.
[2017-11-21] MEDS ORDERED: Pyrazinamide 500 MG TAB PO SCH ×2 (09:00)
== END 2017-11-20 11:53 | disposition home or self-care (01) | DRG 166 ==
LOC: SDC 06:34 → CCU 11:53
PROVIDERS: ADMIT Internal Medicine Critical Care Medicine; ATTEND Internal Medicine Critical Care Medicine
PROC: 0W9930Z Drainage of Right Pleural Cavity with Drainage Device, Percutaneous Approach (ICD-10-PCS; principal; 2017-11-12)
PROC: 0B9D8ZX Drainage of Right Middle Lung Lobe, Via Natural or Artificial Opening Endoscopic, Diagnostic (ICD-10-PCS; 2017-11-12)
PROC: 0BB68ZX Excision of Right Lower Lobe Bronchus, Via Natural or Artificial Opening Endoscopic, Diagnostic (ICD-10-PCS; 2017-11-12)
PROC: 0W9930Z Drainage of Right Pleural Cavity with Drainage Device, Percutaneous Approach (ICD-10-PCS; 2017-11-12)
DX: A15.0 Tuberculosis of lung (principal); J96.21 Acute and chronic respiratory failure with hypoxia; J95.811 Postprocedural pneumothorax; J44.0 Chronic obstructive pulmonary disease with (acute) lower respiratory infection; E11.9 Type 2 diabetes mellitus without complications; E78.5 Hyperlipidemia, unspecified; J18.9 Pneumonia, unspecified organism; I10 Essential (primary) hypertension; M81.0 Age-related osteoporosis without current pathological fracture; Z87.891 Personal history of nicotine dependence
CPT/HCPCS: 36415; 36416; 71045; 80048; 80076; 80400; 82607; 85007; 85027; 85060; 87070; 87102; 87116; 87205; 87206; 88112; 88305; 88312; 88313; 89051; 93005; 93010; 93306; 94640; J0834; J1650; J1815; J2001; J2270; J2704; J3010; J7620

== ENCOUNTER 2017-12-01 11:40 | Inpatient (IN) | payer MEDICARE, MEDICAID ==
[~2017-12-01 11:40] MED LIST: ISOVUE-370 76%-LOCM 1 ML ONE
[2017-12-01 12:41] LABS: Hemoglobin 16.6 g/dL (12.0-16.0); Mean Corpuscular HGB CONC 30.1 g/dL (32.0-36.0); Mean Corpuscular Hemoglobin 22.2 pg (27.0-31.0); Mean Corpuscular Volume 73.8 fl (81.0-99.0); Mean Platelet Volume 10.5 fL (7.4-10.4); Platelet Count 165 thou/uL (130-400); RBC Distribution Width 17.7 % (11.5-14.5); Red Blood Cell (RBC) Count 7.46 mill/uL (4.20-5.40); White Blood Cell (WBC) Count 6.2 thou/uL (4.8-10.8)
[2017-12-01 12:55] LABS: Platelet Count 165 thou/uL (130-400)
[2017-12-01 12:58] LABS: Band 30 % (5-11); Hypochromia SLIGHT = 6-15 cells (100X) (0-5/hpf); Lymphocytes 1 % (21-51); MDiff Complete? YES; Microcytosis SLIGHT = 6-15 cells (100X) (0-5/hpf); Monocytes 4 % (0-10); Neutrophil 65 % (42-75); PLT Morphology Comment Appears Adequate; Polychromasia SLIGHT = 2-3 cells (100X) (0-2/hpf); Vacuoles SLIGHT
[2017-12-01 13:00] LABS: ALT (SGPT) 628 U/L (8-55); AST (SGOT) 1092 U/L (5-34); Albumin 3.8 g/dL (3.4-4.8); Alkaline Phosphatase 163 U/L (40-150); Anion Gap 18 mmol/L (10-20); BUN (Urea Nitrogen) 23 mg/dL (9.8-20.1); Bilirubin, Total 2.8 mg/dL (0.2-1.2); Calc. Creatinine Clearance 0 mL/min (70-130); Calcium 9.2 mg/dL (7.8-10.44); Carbon Dioxide 22 mmol/L (23-31); Chloride 96 mmol/L (98-107); Estimated GFR-MDRD 71; Globulin 3.7 g/dL (2.4-3.5); Glucose 173 mg/dL (80-115); Potassium 4.7 mmol/L (3.5-5.1); Protein, Total 7.5 g/dL (6.0-8.3); Sodium 131 mmol/L (136-145)
[2017-12-01 13:02] LABS: Fibrinogen 330 mg/dL (253-463); INR-International Normal Ratio 1.6; PTT 41.7 SEC (22.9-36.1)
--- NOTE | 2017-12-01 13:14 | RAD ---
PORTABLE CHEST 1 VIEW: DATE: 12/01/17. TIME: 12:51 p.m. HISTORY: Cough. FINDINGS: Comparison is made with the exam of 11/20/17. The heart size is stable. The aorta is tortuous. Bilateral parenchymal opacities are again seen. A tiny apical pneumothorax is redemonstrated. POS: [facility]
[2017-12-01 13:17] LABS: D-Dimer Test 10.06 *mcg/mL (0.27-0.43)
[2017-12-01] MEDS ORDERED: Ibuprofen 200 MG TAB ONE (13:27)
[2017-12-01] MEDS ORDERED: Promethazine HCl 25 MG/ML VIAL ONE (13:31)
[2017-12-01 13:36] LABS: FSP-Qualitative ABNORMAL (Normal); FSP-Semiquantitative >=20 & <40 mcg/mL (Less than 5)
--- NOTE | 2017-12-01 15:11 | CT ---
CT ABDOMEN AND PELVIS WITH CONTRAST: COMPARISON: None. HISTORY: Nausea and vomiting and possible urinary tract infection. Abdominal pain. TECHNIQUE: Multiple contiguous axial images were obtained in a CT of the abdomen and pelvis with contrast. Paul nal reformats were performed. FINDINGS: The patient is status post cholecystectomy and hysterectomy. The liver, kidneys, adrenal glands, spl een, and pancreas are unremarkable. No free air, free fluid, or stranding changes are seen in the ab domen or pelvis. There are a few scattered diverticula in the colon. The small bowel is unremarkable. No abdominal o r pelvic lymphadenopathy are seen. Atherosclerotic calcifications are seen in the aorta. Degenerative changes are seen in the spine. There is pleural thickening anteriorly in the right thor ax with multifocal areas of airspace opacity bilaterally. There is also air adjacent to the heart wh ich may be in the pleural space. IMPRESSION: 1. No evidence of acute intraabdominal/pelvic abnormality. 2. Bilateral lower lobe infiltrates. 3. A small amount of air adjacent to the heart which likely resides in the right pleural space. POS: [facility]
[2017-12-01] MEDS ORDERED: Sodium Chloride 0.9% 1,000 ML IV SCH (15:30)
[2017-12-01] MEDS ORDERED: Ondansetron HCl/PF 4 MG/2 ML Vial IVP PRN ×2 (15:31→17:20)
[2017-12-01 16:23] LABS: Bilirubin Moderate (Negative); Blood, Urine Small (Negative); Clarity CLOUDY (Clear); Glucose, Urine (Dipstick) Negative (Negative); Protein, Urine (Dipstick) Trace mg/dL (Neg-Trace)
[2017-12-01 16:25] LABS: Bacteria/HPF 4+ HPF (None Seen); RBC/HPF 0-3 HPF (0-3); Squamous Epithelial 0-3 HPF (0-3)
[2017-12-01 16:26] LABS: Leukocyte Moderate (Negative); Nitrite Negative (Negative); Pathc Cast-AUWi Flag 2.76 (0-2.49); Yeast-AUWi Flag 29.5 (0-25.0)
[2017-12-01 16:36] LABS: Hyaline Casts/LPF 7-10 HYALINE CAST LPF (0-3 Hyaline); Other Casts/LPF None Seen LPF (0-3 Hyaline); Yeast-All Forms None Seen HPF (None Seen)
[2017-12-01] MEDS ORDERED: Dextrose 5% in Water 1,000 ML IV PRN (17:20)
[2017-12-01] MEDS ORDERED: Dextrose 50% Abboject 50 ML SYRINGE SLOW IVP PRN (17:20)
[2017-12-01 17:48] LABS: Lactic Acid 2.5 mmol/L (0.5-2.2)
[2017-12-01] MEDS ORDERED: Vasopressin 40 UNIT, Admixture Fee 1 EACH in Sodium Chloride 0.9% 100 ML IV PRN (17:48)
[2017-12-01] MEDS: Sodium Chloride 0.9% 1,000 ML IV SCH ×3 (17:54→22:02)
--- NOTE | 2017-12-01 18:13 | NM ---
EXAM: NUCLEAR MEDICINE LUNG VQ SCAN 12/01/17 HISTORY: Pulmonary embolism. Nausea and vomiting. Elevated D-dimer. TB medication. COMPARISON: None. TECHNIQUE: The patient was administered 16 millicuries of Xenon gas for ventilation imaging and 6.2 millicuries of technetium 99m MAA for perfusion imaging. FINDINGS: There is decreased ventilation in both upper lobes. There is matched decreased perfusion. There is no evidence of a VQ mismatch. Correlation made with chest radiograph demonstrates fibrotic changes in both upper lobes. IMPRESSION: No evidence of a ventilation perfusion mismatch. The perfusion defects are nonsegmental. The radiogra phic findings extend beyond the degree of perfusion mismatch. Therefore, there is a low probability. POS: [facility]
[2017-12-01] MEDS ORDERED: Norepinephrine 8 MG/250 ML BAG IVPB PRN (18:35)
--- NOTE | 2017-12-01 18:43 | CON ---
DATE OF CONSULTATION: 12/01/2017 CONSULTING PHYSICIAN: Dr. Zaamrripa. REASON FOR CONSULTATION: INH or rifampin induced hepatitis. HISTORY OF PRESENT ILLNESS: This patient is a 67-year-old female who is a patient of Dr. Teixeira. She was admitted to the hospital on 11/13/2017 with the diagnosis of bilateral atypical infiltrates. She underwent bronchoscopy with findings of positive AFB. Eventually, the rapid TB PCR test demonstrated material consistent with diagnosed tuberculosis. She was started on a 4-drug therapy including INH, rifampin, pyrazinamide, and ethambutol. She has been taking the medication without interruption. Over the last 48 hours, she has developed nausea and vomiting. She is unable to take any type of food or liquid secondary to the nausea or vomiting. Her LFTs are profoundly elevated. PAST MEDICAL HISTORY: 1. COPD. 2. Tuberculosis. 3. Pneumatocele. 4. Recent pneumothorax after the transbronchial biopsy. 5. Thyroid enlargement. 6. Moderate pericardial effusion. ALLERGIES: None. FAMILY MEDICAL HISTORY: Unremarkable. SOCIAL HISTORY: Former smoker, does not consume alcohol. REVIEW OF SYSTEMS: Remarkable for nausea, vomiting. She denies any pain. She is short of breath. PHYSICAL EXAMINATION: VITAL SIGNS: Heart rate 131, temperature 97, blood pressure 97/67, O2 sat 92% on 2 liters, respiratory rate in the mid 20s. GENERAL: The patient is awake and alert, appears to be ill. HEENT: I do not see icteric sclerae. Pupils reactive. Oropharynx dry. NECK: No JVD. LUNGS: Clear without wheezing or rhonchi. CARDIOVASCULAR: S1, S2 tachycardic. No murmur. ABDOMEN: Soft, nontender. No palpable liver. EXTREMITIES: No clubbing, cyanosis, or edema. NEUROLOGIC: Grossly intact throughout. LABORATORY DATA: White blood cell count 6.2, hematocrit 55.1, platelet count 165. INR 1.6, PTT 41.7. D-dimer 10.0. Sodium 131, potassium 4.7, chloride 96 , CO2 of 22, BUN 23, creatinine 0.8, glucose 173. Lactate 4.9, AST 1092, ALT 628, total bilirubin 2.8. Abdominal CT does not show any acute abdominal abnormality. Chest x-ray demonstrates bilateral upper lobe infiltrates, right greater than left, very small residual right pneumothorax present. D-dimer is greater than 10. ASSESSMENT: 1. Nausea and vomiting which are likely from INH induced hepatitis. 2. Tuberculosis. 3. Underlying chronic obstructive pulmonary disease. 4. Grossly elevated D-dimer -- this may be secondary to hepatitis, but given her recent bedbound state. She is also at risk for pulmonary emboli. RECOMMENDATIONS: 1. She has already had a CT with contrast today. Therefore, we will proceed with a ventilation perfusion scanning and start her on anticoagulation if that is abnormal. The anticoagulation will have to be judicious given that her INR is also partially elevated at 1.6 at this time. 2. Discussed with Dr. Zamarripa. We will withhold TB medications until her LFTs are reduced. 3. Nebulization treatments for her chronic obstructive pulmonary disease. 4. I appreciate help from Dr. Zamarripa. I will notify Dr. Teixeira of the patient' s admission. 70 min time was spent on this consult. Of that time, >50% was spent with the patient and/or on the patients unit. MAX
[2017-12-01 19:19] LABS: Anion Gap 10 mmol/L (10-20); BUN (Urea Nitrogen) 21 mg/dL (9.8-20.1); Calc. Creatinine Clearance 81 mL/min (70-130); Carbon Dioxide 18 mmol/L (23-31); Chloride 106 mmol/L (98-107); Estimated GFR-MDRD 82; Glucose 171 mg/dL (80-115); Potassium 3.9 mmol/L (3.5-5.1); Sodium 130 mmol/L (136-145)
[2017-12-01] MEDS ORDERED: Famotidine/PF 20 mg/2ml Vial SLOW IVP SCH (21:00)
[2017-12-01] MEDS: Hydrocortisone Sod Succ/PF 100 mg/2 ml Vial IVP SCH ×2 (21:15→23:14)
[2017-12-01] MEDS: Pantoprazole 40 MG VIAL IVP SCH (21:15)
[2017-12-01] MEDS: HumaLOG 300 UNITS/3 ML VIAL SC PRN (21:59)
[2017-12-02 04:37] LABS: #Lymphocytes 0.3 thou/uL (1.20-3.40); #Monocytes 0.3 thou/uL (0.11-0.59); #Neutrophils 4.2 thou/uL (1.40-6.50); %Eosinophils 0.3 % (0.0-10.0); %Monocytes 5.7 % (0.0-10.0); Hemoglobin 12.6 g/dL (12.0-16.0); Mean Corpuscular HGB CONC 30.7 g/dL (32.0-36.0); Mean Corpuscular Volume 74.9 fl (81.0-99.0); Mean Platelet Volume 10.5 fL (7.4-10.4); Platelet Count 109 thou/uL (130-400); RBC Distribution Width 17.6 % (11.5-14.5); Red Blood Cell (RBC) Count 5.47 mill/uL (4.20-5.40); White Blood Cell (WBC) Count 4.8 thou/uL (4.8-10.8)
[2017-12-02 05:12] LABS: ALT (SGPT) 419 U/L (8-55); AST (SGOT) 403 U/L (5-34); Albumin 2.7 g/dL (3.4-4.8); Alkaline Phosphatase 119 U/L (40-150); Anion Gap 14 mmol/L (10-20); BUN (Urea Nitrogen) 15 mg/dL (9.8-20.1); Calc. Creatinine Clearance 87 mL/min (70-130); Calcium 7.2 mg/dL (7.8-10.44); Carbon Dioxide 17 mmol/L (23-31); Chloride 105 mmol/L (98-107); Estimated GFR-MDRD 87; Globulin 2.6 g/dL (2.4-3.5); Glucose 273 mg/dL (80-115); Potassium 4.1 mmol/L (3.5-5.1); Protein, Total 5.3 g/dL (6.0-8.3); Sodium 132 mmol/L (136-145)
[2017-12-02] MEDS: Hydrocortisone Sod Succ/PF 100 mg/2 ml Vial IVP SCH ×3 (05:36→21:04)
[2017-12-02] MEDS: Sodium Chloride 0.9% 1,000 ML IV SCH ×5 (05:37→21:04)
[2017-12-02] MEDS: HumaLOG 300 UNITS/3 ML VIAL SC PRN ×5 (05:38→21:05)
--- NOTE | 2017-12-02 10:52 | PQF ---
CLINICAL DOCUMENTATION IMPROVEMENT CLARIFICATION FORM: ICD-10 Updated PLEASE DO AN ADDENDUM TO THE PROGRESS NOTE WITH ANY DOCUMENTATION UPDATES OR ADDITIONS AND CARRY THROUGH TO DC SUMMARY. THANK YOU. DATE: 12/02/17 ATTN: DR. RIGGINS Please exercise your independent, professional judgment in responding to the clarification form. Clinical indicators are provided on the bottom of this form for your review Please check appropriate box(es): [ ] Sepsis due to: (Pna, UTI, gangrenous gall bladder, etc.) Due to: [ ] Device (please specify) [ ] Implant [ ] Graft [ ] Infusion [ x ] SIRS due to non-infectious process (please specify etiology) __ hypersensitivity reaction to Anti-TB drug [ ] with organ dysfunction [ ] without organ dysfunction [ ] Severe sepsis with acute organ dysfunction of: (Examples: respiratory failure, encephalopathy, acute kidney failure, other) [ ] Septic Shock [ ] Localized infection without sepsis [ ] Other diagnosis [ ] Unable to determine In addition, please specify: Present on Admission (POA): [ x ] Yes [ ] No [ ] Unable to determine For continuity of documentation, please document condition throughout progress notes and discharge summary. Thank You. CLINICAL INDICATORS - SIGNS / SYMPTOMS / LABS ER NOTE: "SEPSIS" RISKS: HEPATITIS TUBERCULOSIS BP 78/57 PULSE 149 RR 38 BANDS 30 LACTIC ACID 4.9 TREATMENT: IV FLUIDS NOREPINEPHRINE (12/01-PRESENT) VASOPRESSIN (10-PRESENT) IV VANCOMYCIN (ER) IV LEVAQUIN (12/01-PRESENT) CRITICAL CARE MONITORING (This form is maintained as a part of the permanent medical record) 2014 [employer]. All Rights Reserved [email or web address] Office: [phone] [facility] HOSPITALAngel[facility]
[2017-12-02 14:14] VITALS: BMI 24.7
--- NOTE | 2017-12-02 17:50 | PRG ---
DATE OF SERVICE: 12/02/2017 SUBJECTIVE: Ms. Diego is afebrile, heart rate is 97, respiratory rate 25, oximetry is 99% on 2 lite rs. She very quickly told me she was tired of being quarantined. I suspect she is no longer infectious, but CDC guidelines suggest until she is culture negative, she is isolated. OBJECTIVE: LUNGS: Remarkable for crackles. HEART: Regular rhythm. ABDOMEN: Soft. Her exam is essentially unchanged compared to last time I saw her. She does have a gram negative in her urine. She is treated with a quinolone. She is no longer hypotensive and I suspect this is all intravascular volume depletion. LABORATORY DATA: White count is 4.8, hemoglobin 12.6, platelets 109,000. Sodium 132, potassium 4.1, chloride 105, bicarbonate 17, BUN 15, creatinine 0.6. AST is down to 403, ALT is down to 413, alkaline phosphatase is normal. Albumin is 2.7. IMPRESSION AND PLAN: 1. ?hepatotoxicity associated with treatment of tuberculosis. 2. Pulmonary tuberculosis, status post several weeks of treatment. 3. Cystitis, which is an incidental finding. I do not believe that she is septic from urinary tract infections. Her blood cultures are negative. But the nausea and vomiting is most likely all just i ntravascular volume depletion. Her daughter told me that she had been throwing up for many days, valeri ost continuously, although she is still trying to take her antituberculous therapy. She is stable to move out of the Critical Care Unit to a medical bed.
[2017-12-02] MEDS: Pantoprazole 40 MG VIAL IVP SCH (21:04)
[2017-12-03] MEDS: Sodium Chloride 0.9% 1,000 ML IV SCH (05:00)
[2017-12-03] MEDS: HumaLOG 300 UNITS/3 ML VIAL SC PRN ×3 (05:58→16:33)
[2017-12-03] MEDS: Hydrocortisone Sod Succ/PF 100 mg/2 ml Vial IVP SCH ×2 (08:37→20:58)
[2017-12-03 09:31] LABS: #Eosinphils 0.1 thou/uL (0.0-0.7); #Lymphocytes 1.4 thou/uL (1.20-3.40); #Monocytes 0.7 thou/uL (0.11-0.59); #Neutrophils 3.9 thou/uL (1.40-6.50); %Basophils 0.1 % (0.0-1.0); %Eosinophils 1.3 % (0.0-10.0); %Lymphocytes 22.7 % (21.0-51.0); %Monocytes 10.9 % (0.0-10.0); Hemoglobin 12.3 g/dL (12.0-16.0); Mean Corpuscular HGB CONC 30.1 g/dL (32.0-36.0); Mean Corpuscular Hemoglobin 22.7 pg (27.0-31.0); Mean Corpuscular Volume 75.6 fl (81.0-99.0); Mean Platelet Volume 10.7 fL (7.4-10.4); Platelet Count 106 thou/uL (130-400); RBC Distribution Width 17.7 % (11.5-14.5); Red Blood Cell (RBC) Count 5.41 mill/uL (4.20-5.40)
[2017-12-03 09:49] LABS: ALT (SGPT) 354 U/L (8-55); AST (SGOT) 147 U/L (5-34); Albumin 2.8 g/dL (3.4-4.8); Alkaline Phosphatase 154 U/L (40-150); Anion Gap 13 mmol/L (10-20); BUN (Urea Nitrogen) 11 mg/dL (9.8-20.1); Calc. Creatinine Clearance 90 mL/min (70-130); Calcium 7.8 mg/dL (7.8-10.44); Carbon Dioxide 21 mmol/L (23-31); Chloride 105 mmol/L (98-107); Estimated GFR-MDRD 90; Globulin 2.5 g/dL (2.4-3.5); Glucose 255 mg/dL (80-115); Potassium 3.7 mmol/L (3.5-5.1); Protein, Total 5.3 g/dL (6.0-8.3); Sodium 135 mmol/L (136-145)
--- NOTE | 2017-12-03 10:50 | PRG ---
DATE OF SERVICE: 12/03/2017 Ms. Diego says she is feeling better. She has not had any vomiting. She denies shortness of breath or cough. LUNGS: Her lungs are unchanged. Her crackles are improved compared to when I met her. HEART: Regu lar rhythm. ABDOMEN: Abdomen is soft. LABORATORY DATA: White count 6, hemoglobin 12.3, platelets 106. Sodium 135, potassium 3.7, chloride 105, bicarbonate 21, BUN 11, creatinine 0.65. IMPRESSION: 1. Tuberculosis unlikely to still be contagious after 2 weeks of therapy. 2. Hepatitis likely drug related. 3. Intravascular volume depletion on admission. Blood cultures remain negative. She was treated empirically for cystitis. She does have a Klebsiell a cystitis. Her current antimicrobial therapy should be more than adequate. She can be switched to p.o. Levaquin. We will continue to follow with the other physicians caring for her. Dr. Zamarripa's in put is appreciated.
--- NOTE | 2017-12-03 16:07 | PDOC.PN ---
- Subjective Encounter Start Date: 12/03/17 Encounter Start Time: 08:30 Pt feeling much better, no nausea, june po. No fevers or chills, no n/v/D/c. 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 Induced sputum ordered. No jaundice or icterus, no f/C, noCP or SOb 10 point ROS performed and neg for all systems except as above. Case discussed with Dr Teixeira face to face - Objective Resuscitation Status: Resuscitation Status FULL:Full Resuscitation MAR Reviewed: Yes Vital Signs & Weight: Vital Signs (12 hours) Temp Pulse Resp BP Pulse Ox 12/03/17 10:50 94 20 100 12/03/17 08:00 98.1 F 94 20 12/03/17 07:44 98.1 F 94 18 137/86 100 12/03/17 07:24 92 22 H 98 12/03/17 04:41 97.6 F 88 20 135/87 97 Weight Admit Weight 153 lb Weight 153 lb 7.068 oz Most Recent Monitor Data Heart Rate from ECG 101 NIBP 108/69 NIBP BP-Mean 86 Respiration from ECG 27 SpO2 99 I&O: 12/02/17 12/03/17 12/04/17 06:59 06:59 06:59 Intake Total 2380 3221 Output Total 1140 2060 450 Balance 1240 1161 -450 Result Diagrams: 12/03/17 09:19 12/03/17 09:19 Additional Labs: Accuchecks 12/03/17 12/03/17 12/02/17 11:17 04:47 20:29 POC Glucose 251 H 306 H 281 H 12/02/17 17:28 POC Glucose 281 H Radiology Reviewed by me: Yes EKG Reviewed by me: Yes Phys Exam - Physical Examination Constitutional: NAD HEENT: PERRLA, moist MMs, sclera anicteric, oral pharynx no lesions Neck: no nodes, no JVD, supple, full ROM Respiratory: no wheezing, no rales, no rhonchi coarse BS bilaterally, good air movement Cardiovascular: RRR, no significant murmur, no rub Gastrointestinal: soft, non-tender, no distention, positive bowel sounds Musculoskeletal: no edema, pulses present Neurological: non-focal, normal sensation, moves all 4 limbs Lymphatic: no nodes Psychiatric: normal affect, A&O x 3 Skin: no rash, normal turgor, cap refill <2 seconds Dx/Plan (1) Drug-induced liver injury Code(s): K71.9 - TOXIC LIVER DISEASE, UNSPECIFIED Status: Acute Comment: AST and ALt and AlkPhos better. feeling much better. Repeat in Am, restart TB meds, INH then RFP, then PZa and monitor LFTs (2) Active tuberculosis Code(s): A15.9 - RESPIRATORY TUBERCULOSIS UNSPECIFIED Status: Acute Comment : Dx on Bronch wash stain 11/12, NAAT positive on culture 11/17, started on RIPE+ B6. took 5 days per week plus weekends from 11/17 until 11/30, unable to keep down on DOA. Was clincially improving prior to this. minimal to no cough. isolate per [facility] demands until we have 3 neg induced sputums (3) Septic shock Code(s): A41.9 - SEPSIS, UNSPECIFIED ORGANISM; R65.21 - SEVERE SEPSIS WITH SEPTIC SHOCK Status: Resolved Comment: WBC normal, hypotension resolved off of pressors. (4) Severe dehydration Code(s): E86.0 - DEHYDRATION Status: Resolved Comment: S/P 7-8 liters of fluids (5) Intractable nausea and vomiting Code(s): R11.2 - NAUSEA WITH VOMITING, UNSPECIFIED Status: Resolved Comment : due to acute liver injury (6) DIC (disseminated intravascular coagulation) Code(s): D65 - DISSEMINATED INTRAVASCULAR COAGULATION Status: Acute (7) DM2 (diabetes mellitus, type 2) Status: Chronic Qualifiers: Diabetes mellitus senior care insulin use: unspecified terminal superintendent insulin use status Diabetes mellitus complication status: with unspecified complications Qualified Code(s): E11.8 - Type 2 diabetes mellitus with unspecified complications (8) HTN (hypertension) Code(s): I10 - ESSENTIAL (PRIMARY) HYPERTENSION Status: Acute Qualifiers: Hypertension type: essential hypertension Qualified Code(s): I10 - Essential (primary) hypertension (9) HLD (hyperlipidemia) Code(s): E78.5 - HYPERLIPIDEMIA, UNSPECIFIED Status: Acute Qualifiers: Hyperlipidemia type: unspecified Qualified Code(s): E78.5 - Hyperlipidemia , unspecified - Plan cont current plan of care, PT/OT, social service coordinator, out of bed/ambulate * .
--- NOTE | 2017-12-03 16:16 | PDOC.PN ---
- Subjective Encounter Start Date: 12/02/17 Encounter Start Time: 09:00 Pt feeling better, weaned off of vasopressin and levophed afer getting more fluis. No F/C, no N/V/D/C, no CP or SOB, no other complaints 10 point rOS performed and neg for all systems except as per HPI - Objective Resuscitation Status: Resuscitation Status FULL:Full Resuscitation MAR Reviewed: Yes Vital Signs & Weight: Vital Signs (12 hours) Temp Pulse Resp BP Pulse Ox 12/03/17 10:50 94 20 100 12/03/17 08:00 98.1 F 94 20 12/03/17 07:44 98.1 F 94 18 137/86 100 12/03/17 07:24 92 22 H 98 12/03/17 04:41 97.6 F 88 20 135/87 97 Weight Admit Weight 153 lb Weight 153 lb 7.068 oz Most Recent Monitor Data Heart Rate from ECG 101 NIBP 108/69 NIBP BP-Mean 86 Respiration from ECG 27 SpO2 99 I&O: 12/02/17 12/03/17 12/04/17 06:59 06:59 06:59 Intake Total 2380 3221 Output Total 1140 2060 450 Balance 1240 1161 -450 Result Diagrams: 12/03/17 09:19 12/03/17 09:19 Additional Labs: Accuchecks 12/03/17 12/03/17 12/02/17 11:17 04:47 20:29 POC Glucose 251 H 306 H 281 H 12/02/17 17:28 POC Glucose 281 H Radiology Reviewed by me: Yes EKG Reviewed by me: Yes Phys Exam - Physical Examination Constitutional: NAD HEENT: PERRLA, moist MMs, oral pharynx no lesions mild icterus Neck: no nodes, no JVD, supple, full ROM Respiratory: no wheezing, no rales, no rhonchi coarse bilateral breath sounds Cardiovascular: RRR, no significant murmur, no rub Gastrointestinal: soft, no distention, positive bowel sounds mild RUQ tenderness Musculoskeletal: no edema, pulses present Neurological: non-focal, normal sensation, moves all 4 limbs Lymphatic: no nodes Psychiatric: normal affect, A&O x 3 Skin: no rash, normal turgor, cap refill <2 seconds Dx/Plan (1) Drug-induced liver injury Code(s): K71.9 - TOXIC LIVER DISEASE, UNSPECIFIED Status: Acute Comment: AST and ALt and AlkPhos better. feeling better. Repeat in Am, restart TB meds , INH then RFP, then PZa and monitor LFTs (2) Active tuberculosis Code(s): A15.9 - RESPIRATORY TUBERCULOSIS UNSPECIFIED Status: Acute Comment : Dx on Bronch wash stain 11/12, NAAT positive on culture 11/17, started on RIPE+ B6. took 5 days per week plus weekends from 11/17 until 11/30, unable to keep down on DOA. Was clincially improving prior to this. minimal to no cough. (3) Septic shock Code(s): A41.9 - SEPSIS, UNSPECIFIED ORGANISM; R65.21 - SEVERE SEPSIS WITH SEPTIC SHOCK Status: Resolved Comment: WBC normal, hypotension resolved off of pressors. (4) Severe dehydration Code(s): E86.0 - DEHYDRATION Status: Resolved Comment: S/P 7-8 liters of fluids (5) Intractable nausea and vomiting Code(s): R11.2 - NAUSEA WITH VOMITING, UNSPECIFIED Status: Resolved Comment : due to acute liver injury (6) DIC (disseminated intravascular coagulation) Code(s): D65 - DISSEMINATED INTRAVASCULAR COAGULATION Status: Acute (7) DM2 (diabetes mellitus, type 2) Status: Chronic Qualifiers: Diabetes mellitus mcc insulin use: unspecified dedicated intermodal truck driver insulin use status Diabetes mellitus complication status: with unspecified complications Qualified Code(s): E11.8 - Type 2 diabetes mellitus with unspecified complications (8) HTN (hypertension) Code(s): I10 - ESSENTIAL (PRIMARY) HYPERTENSION Status: Acute Qualifiers: Hypertension type: essential hypertension Qualified Code(s): I10 - Essential (primary) hypertension (9) HLD (hyperlipidemia) Code(s): E78.5 - HYPERLIPIDEMIA, UNSPECIFIED Status: Acute Qualifiers: Hyperlipidemia type: unspecified Qualified Code(s): E78.5 - Hyperlipidemia , unspecified - Plan * .
[2017-12-03] MEDS: Pantoprazole 40 MG VIAL IVP SCH (20:58)
[2017-12-04 05:45] LABS: ALT (SGPT) 307 U/L (8-55); AST (SGOT) 134 U/L (5-34); Albumin 2.9 g/dL (3.4-4.8); Alkaline Phosphatase 148 U/L (40-150); Anion Gap 9 mmol/L (10-20); BUN (Urea Nitrogen) 9 mg/dL (9.8-20.1); Bilirubin, Total 1.1 mg/dL (0.2-1.2); Calc. Creatinine Clearance 96 mL/min (70-130); Carbon Dioxide 28 mmol/L (23-31); Chloride 101 mmol/L (98-107); Estimated GFR-MDRD Greater than 90; Globulin 2.4 g/dL (2.4-3.5); Glucose 254 mg/dL (80-115); Protein, Total 5.3 g/dL (6.0-8.3); Sodium 135 mmol/L (136-145)
[2017-12-04 05:50] LABS: Potassium 2.9 mmol/L (3.5-5.1)
[2017-12-04 06:31] LABS: Band 4 % (5-11); Eosinophils 1 % (0-10); Hemoglobin 11.9 g/dL (12.0-16.0); Hypochromia SLIGHT = 6-15 cells (100X) (0-5/hpf); Lymphocytes 14 % (21-51); MDiff Complete? YES; Mean Corpuscular HGB CONC 31.1 g/dL (32.0-36.0); Mean Corpuscular Hemoglobin 22.8 pg (27.0-31.0); Mean Corpuscular Volume 73.2 fl (81.0-99.0); Mean Platelet Volume 10.7 fL (7.4-10.4); Microcytosis SLIGHT = 6-15 cells (100X) (0-5/hpf); Monocytes 2 % (0-10); Neutrophil 79 % (42-75); PLT Morphology Comment Appears Decreased; Platelet Count 118 thou/uL (130-400); RBC Distribution Width 17.6 % (11.5-14.5); Red Blood Cell (RBC) Count 5.21 mill/uL (4.20-5.40); White Blood Cell (WBC) Count 5.6 thou/uL (4.8-10.8)
[2017-12-04] MEDS ORDERED: Potassium Chloride 20 MEQ TAB PO SCH ×2 (06:45→12:00)
[2017-12-04] MEDS: HumaLOG 300 UNITS/3 ML VIAL SC PRN ×4 (06:57→22:17)
[2017-12-04] MEDS: Hydrocortisone Sod Succ/PF 100 mg/2 ml Vial IVP SCH ×2 (09:53→22:04)
[2017-12-04] MEDS ORDERED: Sodium Chloride 3% (15 ML) NEB NEB SCH (12:00)
--- NOTE | 2017-12-04 12:36 | PDOC.PN ---
- Subjective Encounter Start Date: 12/04/17 Encounter Start Time: 11:30 Pt gettign cabin fever. remains in resp isolation. induced sputum x 3 q AM ordered yesterday. First not done, apparently hypertonic saline needs o be ordered, but i was not contacted to correct. I have ordere done stat now and QAM for two more mornings. Pt DID have na induced sputum on 11/27 via [facility] and 6 days later on 12/03 reported as POSITIVE. no f/C, no N/V/D/C, abd muscles sore, but no belly ain, very hungry. LFTS markedly imrpoved 10 point ROS peformed and neg for all systems except as per HPI - Objective Resuscitation Status: Resuscitation Status FULL:Full Resuscitation MAR Reviewed: Yes Vital Signs & Weight: Vital Signs (12 hours) Temp Pulse Resp BP Pulse Ox Pulse Ox Pulse Ox 12/04/17 10:52 103 H 18 100 12/04/17 09:18 98 90 L 12/04/17 07:37 97.5 F L 99 18 158/97 H 99 12/04/17 07:33 102 H 16 100 12/04/17 02:38 96 16 Weight Admit Weight 153 lb Weight 153 lb 7.068 oz Most Recent Monitor Data Heart Rate from ECG 101 NIBP 108/69 NIBP BP-Mean 86 Respiration from ECG 27 SpO2 99 I&O: 12/03/17 12/04/17 12/05/17 06:59 06:59 06:59 Intake Total 3221 Output Total 2060 450 Balance 1161 -450 Result Diagrams: 12/04/17 04:31 12/04/17 04:31 Additional Labs: Accuchecks 12/04/17 12/04/17 12/03/17 11:02 04:30 19:52 POC Glucose 208 H 218 H 164 H 12/03/17 16:16 POC Glucose 261 H Phys Exam - Physical Examination Constitutional: NAD HEENT: PERRLA, moist MMs, sclera anicteric, oral pharynx no lesions Neck: no nodes, no JVD, supple, full ROM Respiratory: no wheezing, no rales, no rhonchi, clear to auscultation bilateral Cardiovascular: RRR, no significant murmur, no rub Gastrointestinal: soft, non-tender, no distention, positive bowel sounds Musculoskeletal: no edema, pulses present Neurological: non-focal, normal sensation, moves all 4 limbs Lymphatic: no nodes Psychiatric: normal affect, A&O x 3 Skin: no rash, normal turgor, cap refill <2 seconds Dx/Plan (1) Drug-induced liver injury Code(s): K71.9 - TOXIC LIVER DISEASE, UNSPECIFIED Status: Acute Comment: AST and ALt better, AlkPhos normal. feeling better. Repeat in Am, restart TB meds, INH then RFP, then PZa and monitor LFTs. start if ASt and LFT further improved tomorrow (2) Active tuberculosis Code(s): A15.9 - RESPIRATORY TUBERCULOSIS UNSPECIFIED Status: Acute Comment : Dx on Bronch wash stain 11/12, NAAT positive on culture 11/17, started on RIPE+ B6. took 5 days per week plus weekends from 11/17 until 11/30, unable to keep down on DOA. Was clincially improving prior to this. minimal to no cough. Pt had positive induced sputum on 11/27, but this wasonly 10-11 days into rx. repeat sputum x 3 pending (3) Septic shock Code(s): A41.9 - SEPSIS, UNSPECIFIED ORGANISM; R65.21 - SEVERE SEPSIS WITH SEPTIC SHOCK Status: Resolved Comment: WBC normal, hypotension resolved off of pressors. (4) Severe dehydration Code(s): E86.0 - DEHYDRATION Status: Resolved Comment: S/P 7-8 liters of fluids (5) Intractable nausea and vomiting Code(s): R11.2 - NAUSEA WITH VOMITING, UNSPECIFIED Status: Resolved Comment : due to acute liver injury (6) DIC (disseminated intravascular coagulation) Code(s): D65 - DISSEMINATED INTRAVASCULAR COAGULATION Status: Acute (7) DM2 (diabetes mellitus, type 2) Status: Chronic Qualifiers: Diabetes mellitus alf insulin use: unspecified oysterman insulin use status Diabetes mellitus complication status: with unspecified complications Qualified Code(s): E11.8 - Type 2 diabetes mellitus with unspecified complications (8) HTN (hypertension) Code(s): I10 - ESSENTIAL (PRIMARY) HYPERTENSION Status: Acute Qualifiers: Hypertension type: essential hypertension Qualified Code(s): I10 - Essential (primary) hypertension (9) HLD (hyperlipidemia) Code(s): E78.5 - HYPERLIPIDEMIA, UNSPECIFIED Status: Acute Qualifiers: Hyperlipidemia type: unspecified Qualified Code(s): E78.5 - Hyperlipidemia , unspecified - Plan * .
[2017-12-04] MEDS: Ondansetron ODT 4 MG TAB PO PRN (13:16)
--- NOTE | 2017-12-04 17:31 | HP ---
DATE OF ADMISSION: 12/01/2017. PRIMARY CARE PHYSICIAN: Dr. Adam. PRIMARY DOOR TRIMMER: Dr. Jake Teixeira. TIME OF SERVICE: 1500. CHIEF COMPLAINT: Nausea and vomiting, recent tuberculosis diagnosed. HISTORY OF PRESENT ILLNESS: Ms. Diego is a pleasant 67-year-old female with a history of diabetes, hypertension, hyperlipidemia, who was diagnosed with pulmonary TB back in October. Patient had a 6-7 months prodromal history of respiratory issues and abnormal imaging. She had ranulfo p for pulmonary fibrosis, etc and was subsequently negative, so she was referred to Dr. Teixeira. He set her up for a bronchoscopy and she developed a post-procedure pneumothorax and was subsequently admitted on 11/11/2017. On 11/12, while she was inpatient, her initial smear came back positive for AFB. Due to her chronic l mary issues, it was felt that this might be atypical microbacteria and thus she continued to be watche d. She remained in the hospital dealing with the pneumothorax with subsequent issues and on 11/17/2017, culture positive and nucleic acid amplification test positive for Mycobacterium tuberculosis. At [facility] t point, she was started on a 4-drug therapy with rifampin, isoniazid, pyrazinamide, ethambutol and v itamin B6 and DOT was arranged. She was stable for discharge and was sent home from the hospital on 11/20/2017 with DOT. Per the patient, she received DOT 5 days a week witnessed and took her medicine on the weekend as pre scribed. About 3-4 days prior to admission, she started having some nausea and vomiting and really h ad not been bowel movement in several days. She did have some abdominal pain associated with that an d ultimately presented to her primary care physician on 11/30. After that point, she had been taking and keeping down her TB medications. She had labs drawn and was notified on 12/01/2017. She was unable to keep her TB medications down on 12/01/2017, so presented to the emergency department. There, her AST was noted to be 1092, ALT of 628, DIC panel positive and lactic acid of 4.9. She rece ived 2 liters of IV fluids and we are consulted. On my evaluation, she was still hypotensive and tachycardic. She was placed in inpatient status in t he IMCU in order to get 2 more liters of fluids and then continuous fluids at 200 mL per hour. Her T B medicines were held. On arrival to the ICU this evening, she is hypotensive and tachycardic. She was moved from [facility] to [facility], started on Levophed, vasopressin by Pulmonary Critical Care and continuing on fluids. PAST MEDICAL HISTORY: 1. Diabetes mellitus type 2. 2. Hyperlipidemia. 3. Hypertension. 4. Pulmonary tuberculosis, lung cavitary. 5. Osteoporosis. PAST SURGICAL HISTORY: 1. Cholecystectomy. 2. Hysterectomy. HOME MEDICATIONS: 1. RIPE plus B6, starting on 11/17/2017. 2. Blood pressure medications, she cannot recall. 4. Diabetes medications, she cannot recall. 5. Cholesterol medication, she cannot recall. ALLERGIES: No known drug allergies. FAMILY HISTORY: Negative for clotting or bleeding disorder, no immune dysfunction. SOCIAL HISTORY: Significant for past tobacco, but quit some 10+ years ago. Negative for habits x3 c urrently. REVIEW OF SYSTEMS: A 10-point review of systems was performed and was negative for all systems excep t stated as per HPI. PHYSICAL EXAMINATION: VITAL SIGNS: Temperature is 99.7, pulse 139, blood pressure 103/78, respiratory rate 22, satting 97% on 2 liters. GENERAL: She is awake. She is alert. She is oriented x3. She is an acutely ill-appearing female. She is not in any acute distress, but certainly looks like she does not feel well. HEENT: Normocephalic, atraumatic. Pupils equal, round and reactive to light bilaterally. Mucous me mbranes are dry. No visible lesions or thrush. NECK: Supple. There is no lymphadenopathy, no JVD or thyromegaly. She has normal carotid upstrokes . I did not appreciated bruits, but she is suddenly very tachycardic. LUNGS: Clear. She has good air movement. Symmetric chest excursion. She is not tachypneic. She h as good breath sounds bilaterally. CARDIOVASCULAR: She is tachycardic, but regular. I do not appreciate murmurs. ABDOMEN: Soft, it is diffusely tender primarily in the right upper quadrant, but there is no rebound , rigidity or guarding. She has normoactive bowel sounds in all 4 quadrants. EXTREMITIES: Reveal no cyanosis, no clubbing, and no edema. She does have some mild scleral icterus . SKIN: Otherwise warm, moist and well perfused. She has no rashes or lesion. No jaundice. MUSCULOSKELETAL: Normal to inspection. Her large joints appear uninflamed. There is a good range o f motion. NEUROLOGIC: Cranial nerves II through XII are grossly intact. She has no focal neurologic deficits. She has a 5/5 strength. She has normal speech pattern. LABORATORY DATA AND IMAGING: Sodium 131, potassium 4.7, chloride 96, bicarbonate 22, BUN 23, creatin ine 0.80, glucose 173, and calcium 9.2. Alkaline phosphatase is 163, AST 1092, ALT 628, total protei n is 7.5, albumin 3.8. CBC showed a white count of 6.2, hemoglobin 16.6, hematocrit 55.1, platelet c ount 165,000. She has 65% granulocytes and 30% bands. Lactic acid 4.9. INR is 1.6. D-dimer was 10 .06, DIC panel certainly abnormal. Chest x-ray was stable with bilateral opacities. CT scan of the abdomen and pelvis showed no acute intra-abdominal disease. ASSESSMENT AND PLAN: 1. Drug-induced liver injury, secondary to TB therapy. We will hold her drugs at present. We will let her liver functions trend down and restart her medicines one at a time. We will likely start wit h rifampin, then isoniazid, and then PZA. Historically, INH has been associated most often with a dr ug-induced liver injury, and recent studies suggest that a PZA may be more intermittently involved du e to increased drug levels in the blood stream. She does have a risk factor of hypoalbuminemia or sl ight decreased albumin from the normal. 2. Septic shock: Patient received now 4 liters of fluid, still in the systolic 60s. We will go ahe ad and start her on Levophed to titrate to MAP of 60. We will give her 2 more liters of fluids and t hen continue at 200 mL per hour. 3. Intractable nausea and vomiting, secondary to acute drug-induced hepatitis. We will hydrate, ant iemetics, and muttering when she is feeling. 4. Hypertension, I will hold her medications as she does not know what they are and she is currently hypotensive. 5. History of pulmonary TB, she has had about 15 days of therapy now. Clinically, she was getting b perry until she developed this syndrome. At this point, I do not feel like she needs to be in isolat ion. We will leave her out of isolation as she has completed 2 weeks of therapy and is improving. 6. Osteoporosis, not active at present.
--- NOTE | 2017-12-04 21:42 | PRG ---
DATE OF SERVICE: 12/04/2017 SUBJECTIVE: Silvia Diego continues to improve. She actually is comfortable, now the idea being in [facility] longer. Liver enzymes are down to 134 AST and 307 ALT. LABORATORY DATA: White count 5.6, hemoglobin 11.9, and platelets 118,000. There is no clinical change in her exam. IMPRESSION: 1. Pulmonary tuberculosis. 2. Hepatotoxicity most likely related to her medicines probably be restarted on some of her antitube rculous medications in the morning.
[2017-12-04] MEDS: Pantoprazole 40 MG VIAL IVP SCH (22:10)
[2017-12-04] MEDS: Milk Of Magnesia 30 ML UDCUP PO PRN (23:59)
[2017-12-05 05:02] LABS: Fibrinogen 221 mg/dL (253-463); INR-International Normal Ratio 1.2; PTT 34.7 SEC (22.9-36.1); Prothrombin Time 15.1 SEC (12.0-14.7)
[2017-12-05 05:03] LABS: D-Dimer Test 1.93 *mcg/mL (0.27-0.43)
[2017-12-05 05:19] LABS: ALT (SGPT) 276 U/L (8-55); AST (SGOT) 74 U/L (5-34); Albumin 3.2 g/dL (3.4-4.8); Alkaline Phosphatase 154 U/L (40-150); Anion Gap 11 mmol/L (10-20); BUN (Urea Nitrogen) 8 mg/dL (9.8-20.1); Bilirubin, Total 1.3 mg/dL (0.2-1.2); Calc. Creatinine Clearance 99 mL/min (70-130); Calcium 8.1 mg/dL (7.8-10.44); Carbon Dioxide 34 mmol/L (23-31); Chloride 96 mmol/L (98-107); Estimated GFR-MDRD Greater than 90; Globulin 2.9 g/dL (2.4-3.5); Glucose 223 mg/dL (80-115); Potassium 3.6 mmol/L (3.5-5.1); Protein, Total 6.1 g/dL (6.0-8.3); Sodium 137 mmol/L (136-145)
[2017-12-05 06:44] LABS: FSP-Qualitative ABNORMAL (Normal); FSP-Semiquantitative >=5 & <20 mcg/mL (Less than 5)
[2017-12-05 06:49] LABS: Platelet Count 130 thou/uL (130-400)
[2017-12-05] MEDS: Docusate 100 MG CAP PO SCH ×2 (08:37→20:25)
[2017-12-05] MEDS: Ondansetron ODT 4 MG TAB PO PRN (08:37)
[2017-12-05] MEDS: Hydrocortisone Sod Succ/PF 100 mg/2 ml Vial IVP SCH ×2 (09:53→20:25)
[2017-12-05] MEDS: Rifampin 300 MG CAP PO SCH (10:54)
[2017-12-05] MEDS: Sodium Chloride 3% (15 ML) NEB NEB SCH (12:11)
--- NOTE | 2017-12-05 12:25 | PDOC.PN ---
- Subjective Encounter Start Date: 12/05/17 Encounter Start Time: 10:50 Pt continues to do well. refused hypertonic neb thsi AM because it makes her nauseated and cough. trying to produce enough, but discussed at length need to obtain via induced sputum today and in AM. Will proceed no F/C, no N/V/D/C, n CP or SOb, slight abdominal pain earlier to RLQ 10 point ROS performed and neg for all systems except as per HPI - Objective Resuscitation Status: Resuscitation Status FULL:Full Resuscitation MAR Reviewed: Yes Vital Signs & Weight: Vital Signs (12 hours) Temp Pulse Resp BP Pulse Ox 12/05/17 08:03 97.7 F 117 H 16 120/80 92 L 12/05/17 07:59 88 16 12/05/17 01:16 98 Weight Admit Weight 153 lb Weight 153 lb 0.013 oz Most Recent Monitor Data Heart Rate from ECG 101 NIBP 108/69 NIBP BP-Mean 86 Respiration from ECG 27 SpO2 99 I&O: 12/04/17 12/05/17 12/06/17 06:59 06:59 06:59 Output Total 450 Balance -450 Result Diagrams: 12/05/17 04:14 12/05/17 04:14 Additional Labs: Accuchecks 12/04/17 12/04/17 20:13 16:15 POC Glucose 232 H 350 H Phys Exam - Physical Examination Constitutional: NAD HEENT: PERRLA, moist MMs, sclera anicteric, oral pharynx no lesions Neck: no nodes, no JVD, supple, full ROM Respiratory: no wheezing, no rales, no rhonchi, clear to auscultation bilateral Cardiovascular: RRR, no significant murmur, no rub Gastrointestinal: soft, non-tender, no distention, positive bowel sounds Musculoskeletal: no edema, pulses present Neurological: non-focal, normal sensation, moves all 4 limbs Lymphatic: no nodes Psychiatric: normal affect, A&O x 3 Skin: no rash, normal turgor, cap refill <2 seconds Dx/Plan (1) Drug-induced liver injury Code(s): K71.9 - TOXIC LIVER DISEASE, UNSPECIFIED Status: Acute Comment: AST and ALt better, AlkPhos normal. feeling better. Repeat in Am, restart TB meds, RFP then INHm then PZA, and monitor LFTs. LFts better, Rifampin ordered to start today, AM labs (2) Active tuberculosis Code(s): A15.9 - RESPIRATORY TUBERCULOSIS UNSPECIFIED Status: Acute Comment : Dx on Bronch wash stain 11/12, NAAT positive on culture 11/17, started on RIPE+ B6. took 5 days per week plus weekends from 11/17 until 11/30, unable to keep down on DOA. Was clincially improving prior to this. minimal to no cough. Pt had positive induced sputum on 11/27, but this wasonly 10-11 days into rx. repeat sputum x 3 pending (3) Septic shock Code(s): A41.9 - SEPSIS, UNSPECIFIED ORGANISM; R65.21 - SEVERE SEPSIS WITH SEPTIC SHOCK Status: Resolved Comment: WBC normal, hypotension resolved off of pressors. 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
[2017-12-05] MEDS: HumaLOG 300 UNITS/3 ML VIAL SC PRN ×2 (18:33→20:32)
[2017-12-05] MEDS: Pantoprazole 40 MG VIAL IVP SCH (20:26)
--- NOTE | 2017-12-05 20:56 | PRG ---
DATE OF SERVICE: 12/05/2017 SUBJECTIVE: Ms. Diego has no new complaints. As the nurse put put a mask on her and let her roll o utside. Risk of being contagious with the mask on is close to zero especially if she is not coughing which she is not. She can sit outside when the weather is nice tomorrow with her daughter and get some fresh air. She is unable to produce any sputum even with saline induction. OBJECTIVE: VITAL SIGNS: She is afebrile, heart rate is 96 to 115, respiratory rates in the teens, oximetry is 9 6 on 2 liters, blood pressure 122/81. LUNGS: Unchanged. HEART: Unchanged. ABDOMEN: Unchanged. PLAN: Antituberculous therapy has been restarted with rifampin first. She has had several days of a ntimicrobial therapy for her cystitis. We will stop the Levaquin.
[2017-12-06 04:58] LABS: #Basophils 0.1 thou/uL (0.0-0.2); #Eosinphils 0.1 thou/uL (0.0-0.7); #Lymphocytes 1.3 thou/uL (1.20-3.40); #Monocytes 0.4 thou/uL (0.11-0.59); #Neutrophils 4.3 thou/uL (1.40-6.50); %Lymphocytes 20.9 % (21.0-51.0); %Monocytes 6.5 % (0.0-10.0); %Neutrophils 70.6 % (42.0-75.0); Hemoglobin 12.7 g/dL (12.0-16.0); Mean Corpuscular HGB CONC 31.2 g/dL (32.0-36.0); Mean Corpuscular Hemoglobin 23.2 pg (27.0-31.0); Mean Corpuscular Volume 74.4 fl (81.0-99.0); Mean Platelet Volume 10.1 fL (7.4-10.4); Platelet Count 145 thou/uL (130-400); Red Blood Cell (RBC) Count 5.47 mill/uL (4.20-5.40); White Blood Cell (WBC) Count 6.1 thou/uL (4.8-10.8)
[2017-12-06 05:22] LABS: ALT (SGPT) 200 U/L (8-55); AST (SGOT) 37 U/L (5-34); Albumin 3.2 g/dL (3.4-4.8); Alkaline Phosphatase 130 U/L (40-150); Anion Gap 10 mmol/L (10-20); BUN (Urea Nitrogen) 9 mg/dL (9.8-20.1); Bilirubin, Total 1.7 mg/dL (0.2-1.2); Calc. Creatinine Clearance 89 mL/min (70-130); Calcium 8.3 mg/dL (7.8-10.44); Carbon Dioxide 33 mmol/L (23-31); Chloride 98 mmol/L (98-107); Estimated GFR-MDRD 90; Globulin 2.8 g/dL (2.4-3.5); Glucose 206 mg/dL (80-115); Potassium 4.1 mmol/L (3.5-5.1); Sodium 137 mmol/L (136-145)
[2017-12-06] MEDS: HumaLOG 300 UNITS/3 ML VIAL SC PRN ×4 (06:27→20:43)
[2017-12-06] MEDS: Sodium Chloride 3% (15 ML) NEB NEB SCH (06:39)
[2017-12-06] MEDS: Rifampin 300 MG CAP PO SCH (08:57)
[2017-12-06] MEDS: Docusate 100 MG CAP PO SCH ×2 (08:57→20:34)
[2017-12-06] MEDS: Hydrocortisone Sod Succ/PF 100 mg/2 ml Vial IVP SCH ×2 (08:57→20:34)
[2017-12-06] MEDS ORDERED: hydrOXYzine 25 MG TAB PO PRN (11:37)
[2017-12-06] MEDS ORDERED: Polyethylene Glycol 3350 17 GM Packet PO PRN (11:38)
--- NOTE | 2017-12-06 12:57 | PDOC.PN ---
- Subjective Encounter Start Date: 12/06/17 Encounter Start Time: 08:40 Pt seen for followup re: active tuberculosis. Reports occ cough, no sputum. Denies fevers. No nausea or vomiting. Reports itching and rash on arms. Reports constipation. - Objective Resuscitation Status: Resuscitation Status FULL:Full Resuscitation MAR Reviewed: Yes Vital Signs & Weight: Vital Signs (12 hours) Temp Pulse Resp BP Pulse Ox 12/06/17 08:00 97.8 F 96 16 96 12/06/17 07:59 97.8 F 96 16 143/84 H 96 Weight Admit Weight 153 lb Weight 153 lb 0.013 oz Most Recent Monitor Data Heart Rate from ECG 101 NIBP 108/69 NIBP BP-Mean 86 Respiration from ECG 27 SpO2 99 I&O: 12/05/17 12/06/17 12/07/17 06:59 06:59 06:59 Intake Total 150 Balance 150 Result Diagrams: 12/10/17 05:14 12/10/17 05:14 Additional Labs: Accuchecks 12/06/17 12/06/17 12/05/17 11:09 05:26 20:08 POC Glucose 290 H 229 H 306 H 12/05/17 12/05/17 12/05/17 17:26 11:52 04:44 POC Glucose 391 H 187 H 220 H Phys Exam - Physical Examination Constitutional: NAD HEENT: moist MMs Neck: supple, full ROM Respiratory: clear to auscultation bilateral Cardiovascular: RRR Gastrointestinal: soft, non-tender Neurological: moves all 4 limbs Psychiatric: normal affect Deviation from normal: Rash over both upper arms and upper back Dx/Plan (1) Active tuberculosis Code(s): A15.9 - RESPIRATORY TUBERCULOSIS UNSPECIFIED Status: Acute Comment : On rifampin, ethambutol and pyrazinamide. Awaiting input from Dept of [facility]. (2) Drug-induced liver injury Code(s): K71.9 - TOXIC LIVER DISEASE, UNSPECIFIED Status: Acute Comment: LFTs improving today (3) HLD (hyperlipidemia) Code(s): E78.5 - HYPERLIPIDEMIA, UNSPECIFIED Status: Chronic Qualifiers: Hyperlipidemia type: unspecified Qualified Code(s): E78.5 - Hyperlipidemia , unspecified Comment: on statin, continue (4) HTN (hypertension) Code(s): I10 - ESSENTIAL (PRIMARY) HYPERTENSION Status: Chronic Qualifiers: Hypertension type: essential hypertension Qualified Code(s): I10 - Essential (primary) hypertension Comment: Stable (5) DM2 (diabetes mellitus, type 2) Status: Chronic Qualifiers: Diabetes mellitus marine oil terminal superintendent insulin use: unspecified care home insulin use status Diabetes mellitus complication status: with unspecified complications Qualified Code(s): E11.8 - Type 2 diabetes mellitus with unspecified complications Comment: accuchecks, insulin sliding scale (6) Septic shock Code(s): A41.9 - SEPSIS, UNSPECIFIED ORGANISM; R65.21 - SEVERE SEPSIS WITH SEPTIC SHOCK Status: Resolved - Plan * . Review of Systems - Review of Systems Constitutional: negative: fever, chills, sweats, weakness, malaise Respiratory: Cough, Dry. negative: Hemoptysis Cardiovascular: negative: chest pain, palpitations Gastrointestinal: Constipation Genitourinary: negative: Dysuria, Frequency, Incontinence Skin: Rash - Medications/Allergies Allergies/Adverse Reactions: Allergies Allergy/AdvReac Type Severity Reaction Status Date / Time No Known Allergies Allergy Unverified 12/08/17 17:41 Medications: Current Medications Albuterol/Ipratropium (Duoneb) 3 ml NEB QID PRN PRN Reason: SOB &/or Wheezing Dextrose/Water (Dextrose 50%) 25 gm SLOW IVP PRN PRN PRN Reason: Hypoglycemia Docusate Sodium (Colace) 100 mg PO BID [facility] Last Admin: 12/06/17 08:57 Dose: 100 mg Glucagon (Glucagon) 1 mg IM PRN PRN PRN Reason: Hypoglycemia Hydrocortisone Sodium Succinate (Solu-Cortef) 100 mg IVP Q12HR [facility] Last Admin: 12/06/17 08:57 Dose: 100 mg Hydroxyzine HCl (Atarax) 25 mg PO TIDPRN PRN PRN Reason: itching Last Admin: 12/06/17 12:43 Dose: 25 mg Dextrose/Water (D5w) 1,000 mls @ 0 mls/hr IV .Q0M PRN; As Directed PRN Reason: Hypoglycemia Insulin Human Lispro (Humalog) 0 units SC .MODERATE SLIDING SC PRN PRN Reason: Moderate Correctional Scale Last Admin: 12/06/17 12:38 Dose: 6 unit Magnesium Hydroxide (Milk Of Magnesium) 30 ml PO Q6H PRN PRN Reason: Constipation Last Admin: 12/04/17 23:59 Dose: 30 ml Ondansetron HCl (Zofran Odt) 4 mg PO Q6H PRN PRN Reason: Nausea/Vomiting Last Admin: 12/05/17 08:37 Dose: 4 mg Ondansetron HCl (Zofran) 4 mg IVP Q6H PRN PRN Reason: Nausea/Vomiting Pantoprazole Sodium (Protonix) 40 mg IVP 2100 NANCY Last Admin: 12/05/17 20:26 Dose: 40 mg Polyethylene Glycol (Miralax) 17 gm PO DAILYPRN PRN PRN Reason: Constipation Last Admin: 12/06/17 12:43 Dose: 17 gm Rifampin (Rifadin) 600 mg PO 1000 NANCY Last Admin: 12/06/17 08:57 Dose: 600 mg
[2017-12-06] MEDS: Pantoprazole 40 MG VIAL IVP SCH (20:35)
[2017-12-07 05:45] LABS: ALT (SGPT) 145 U/L (8-55); AST (SGOT) 38 U/L (5-34); Albumin 3.2 g/dL (3.4-4.8); Alkaline Phosphatase 118 U/L (40-150); Bilirubin, Direct 0.5 mg/dL (0.1-0.3); Protein, Total 6.2 g/dL (6.0-8.3)
[2017-12-07] MEDS: HumaLOG 300 UNITS/3 ML VIAL SC PRN ×3 (06:46→21:18)
[2017-12-07] MEDS: Hydrocortisone Sod Succ/PF 100 mg/2 ml Vial IVP SCH ×2 (08:27→21:17)
[2017-12-07] MEDS: Docusate 100 MG CAP PO SCH ×2 (08:28→21:17)
--- NOTE | 2017-12-07 08:30 | PRG ---
DATE OF SERVICE: 12/06/2017 SUBJECTIVE: She has had no nausea and vomiting since the rifampin was restarted. OBJECTIVE: VITAL SIGNS: Ms. Christine Diego is afebrile, heart rate is 96, respiratory rate is 16, oximetry is 96, blood pressure 143/84. LABORATORY DATA: White count 6.1, hemoglobin 12.7, platelets 145. Electrolytes are unremarkable. H er AST is down to 37, ALT is down to 200, bilirubin is 1.7, alkaline phosphatase is 130. IMPRESSION: 1. Tuberculosis. 2. ? Underlying obstructive lung disease. 3. Hepatic likely secondary to antituberculosis therapy. We are restarting drugs one at a pamela e. PLAN: Continue supportive care. She is unable to produce any sputum even with saline induction, so this can be discontinued.
[2017-12-07] MEDS: Rifampin 300 MG CAP PO SCH (09:46)
[2017-12-07] MEDS ORDERED: Isoniazid 100 MG TAB PO SCH (12:00)
--- NOTE | 2017-12-07 12:36 | PRG ---
DATE OF SERVICE: 12/07/2017 Ms. Diego did well overnight. She is having her isoniazid started today. She tolerated the rifampi n with no nausea or vomiting. So far today she has had no problems. Lungs, heart, and abdomen are unchanged. Vital signs remain stable. She is no longer on oxygen, which I have explained to her is a big plus. This is a strong argument d ue to the inflammatory process involving her lungs is improving. Given that when I met her, she was unable to ambulate and was oxygen dependent. We will continue to follow her on a daily basis. Hopefully, she will be a candidate for discharge in 24-48 hours. Hopefully, she will tolerate the isoniazid and the rifampin combination.
--- NOTE | 2017-12-07 13:13 | PDOC.PN ---
- Subjective Encounter Start Date: 12/07/17 Encounter Start Time: 08:20 Pt seen for followup re; active tuberculosis. Denies cough, fevers or chills. - Objective Resuscitation Status: Resuscitation Status FULL:Full Resuscitation MAR Reviewed: Yes Vital Signs & Weight: Vital Signs (12 hours) Temp Pulse Resp BP Pulse Ox 12/07/17 08:00 98.1 F 100 18 149/97 H 98 12/07/17 05:26 92 L Weight Admit Weight 153 lb Weight 153 lb 0.013 oz Most Recent Monitor Data Heart Rate from ECG 101 NIBP 108/69 NIBP BP-Mean 86 Respiration from ECG 27 SpO2 99 I&O: 12/06/17 12/07/17 12/08/17 06:59 06:59 06:59 Intake Total 150 Balance 150 Result Diagrams: 12/06/17 04:21 12/06/17 04:21 Additional Labs: Accuchecks 12/07/17 12/07/17 12/06/17 10:41 04:49 19:58 POC Glucose 376 H 180 H 285 H 12/06/17 16:09 POC Glucose 293 H Phys Exam - Physical Examination Constitutional: NAD HEENT: moist MMs Neck: supple Respiratory: clear to auscultation bilateral Cardiovascular: RRR Gastrointestinal: soft Neurological: moves all 4 limbs Psychiatric: normal affect Dx/Plan (1) Active tuberculosis Code(s): A15.9 - RESPIRATORY TUBERCULOSIS UNSPECIFIED Status: Acute Comment : Will add INH and pyridoxine today, pt already on rifampin (2) Drug-induced liver injury Code(s): K71.9 - TOXIC LIVER DISEASE, UNSPECIFIED Status: Acute Comment: LFTs improving, repeat lab tomorrow (3) HLD (hyperlipidemia) Code(s): E78.5 - HYPERLIPIDEMIA, UNSPECIFIED Status: Chronic Qualifiers: Hyperlipidemia type: unspecified Qualified Code(s): E78.5 - Hyperlipidemia , unspecified Comment: On statin (4) HTN (hypertension) Code(s): I10 - ESSENTIAL (PRIMARY) HYPERTENSION Status: Chronic Qualifiers: Hypertension type: essential hypertension Qualified Code(s): I10 - Essential (primary) hypertension Comment: titrate antihypertensives as needed (5) DM2 (diabetes mellitus, type 2) Status: Chronic Qualifiers: Diabetes mellitus detention insulin use: unspecified manager terminal insulin use status Diabetes mellitus complication status: with unspecified complications Qualified Code(s): E11.8 - Type 2 diabetes mellitus with unspecified complications Comment: accuchecks, insulin sliding scale (6) Septic shock Code(s): A41.9 - SEPSIS, UNSPECIFIED ORGANISM; R65.21 - SEVERE SEPSIS WITH SEPTIC SHOCK Status: Resolved - Plan * . Likely home 2-3 days. Review of Systems - Review of Systems Constitutional: negative: fever, chills, sweats, weakness, malaise Respiratory: negative: Cough, Shortness of Breath, SOB with Excertion, Pleuritic Pain, Wheezing - Medications/Allergies Allergies/Adverse Reactions: Allergies Allergy/AdvReac Type Severity Reaction Status Date / Time No Known Allergies Allergy Unverified 11/11/17 16:20 Medications: Current Medications Albuterol/Ipratropium (Duoneb) 3 ml NEB QID PRN PRN Reason: SOB &/or Wheezing Dextrose/Water (Dextrose 50%) 25 gm SLOW IVP PRN PRN PRN Reason: Hypoglycemia Docusate Sodium (Colace) 100 mg PO BID [facility] Last Admin: 12/07/17 08:28 Dose: 100 mg Glucagon (Glucagon) 1 mg IM PRN PRN PRN Reason: Hypoglycemia Hydrocortisone Sodium Succinate (Solu-Cortef) 100 mg IVP Q12HR [facility] Last Admin: 12/07/17 08:27 Dose: 100 mg Hydroxyzine HCl (Atarax) 25 mg PO TIDPRN PRN PRN Reason: itching Last Admin: 12/06/17 12:43 Dose: 25 mg Dextrose/Water (D5w) 1,000 mls @ 0 mls/hr IV .Q0M PRN; As Directed PRN Reason: Hypoglycemia Insulin Human Lispro (Humalog) 0 units SC .MODERATE SLIDING SC PRN PRN Reason: Moderate Correctional Scale Last Admin: 12/07/17 11:34 Dose: 10 unit Isoniazid (Isoniazid) 300 mg PO 1200 NANCY Stop: 12/07/17 14:00 Isoniazid (Isoniazid) 300 mg PO 1000 NANCY Magnesium Hydroxide (Milk Of Magnesium) 30 ml PO Q6H PRN PRN Reason: Constipation Last Admin: 12/04/17 23:59 Dose: 30 ml Ondansetron HCl (Zofran Odt) 4 mg PO Q6H PRN PRN Reason: Nausea/Vomiting Last Admin: 12/05/17 08:37 Dose: 4 mg Ondansetron HCl (Zofran) 4 mg IVP Q6H PRN PRN Reason: Nausea/Vomiting Pantoprazole Sodium (Protonix) 40 mg IVP 2100 NANCY Last Admin: 12/06/17 20:35 Dose: 40 mg Polyethylene Glycol (Miralax) 17 gm PO DAILYPRN PRN PRN Reason: Constipation Last Admin: 12/06/17 12:43 Dose: 17 gm Rifampin (Rifadin) 600 mg PO 1000 NANCY Last Admin: 12/07/17 09:46 Dose: 600 mg
[2017-12-07] MEDS ORDERED: pyridOXINE 50 MG (B6) TAB PO SCH (13:15)
--- NOTE | 2017-12-07 15:12 | RAD ---
CHEST: Date: 12/07/17 HISTORY: TB pneumonia. COMPARISON: 12/01/17 and 11/20/17. FINDINGS: There are increased interstitial opacities seen within the upper lobes bilaterally. The interstitial opacity appeared more confluent on the prior study with associated patchy densities, but this may anand ve been removed to a more shallow depth of inspiration on prior exam. There is elevation of the right hemidiaphragm with tenting of the mid portion of the left hemidiaphragm which may be related to scar ring at the left lung base. There is symmetric biapical pleural thickening noted. Right apical pneumo thorax previously seen on the prior exam is not seen on today's study. Cardiac silhouette is stable i n size. Degenerative changes of the spine. There is osteopenia. Surgical clips overlie the right uppe r quadrant. IMPRESSION: Persistent increased interstitial opacities throughout the lungs bilaterally, much greater in the upp er lung zones. Similar findings were seen on the prior study. Interstitial opacities were also seen o n the study of 09/22/17, and findings may be related to chronic interstitial lung changes. Superimpos ed more acute process or atypical pneumonia cannot be entirely excluded. POS: PAUL
[2017-12-07] MEDS ORDERED: EPINEPHrine 1 MG/ML AMP IM SCH (17:30)
--- NOTE | 2017-12-07 17:31 | PDOC.EVN ---
Event Note - Event Note Event Note: Pt had Code Green called due to hypotension. Neuro exam was normal. Pt shivering. Hypotensive, tachycardic. S1, S2, tachy Lungs CTA. Discussed with Dr Zamarripa, he thinks it is a hypersensitivity reaction to INH. Pt transferred to ICU for further management (no negative pressure rooms on IMCU ). Notified Dr. Das. Pt received one dose of 0.2 mg epinephrine IM, Dr. Das recommends phenylephrine or vasopressin instead due to tachycardia. Pt is being started on phenylephrine drip per protocol. Discontinue INH. Updated patient's daughter over telephone.
[2017-12-07] MEDS ORDERED: Acetaminophen 325 MG TAB PO PRN (19:26)
[2017-12-07] MEDS ORDERED: Sodium Chloride 0.9% 250 ML 250 ML IVPB SCH (19:30)
[2017-12-07] MEDS: Sodium Chloride 0.9% 1,000 ML IV SCH (19:52)
[2017-12-07] MEDS ORDERED: Sodium Chloride 0.9% 1,000 ML IV SCH (20:30)
[2017-12-07] MEDS ORDERED: Vasopressin 40 UNIT, Admixture Fee 1 EACH in Sodium Chloride 0.9% 100 ML IV SCH (20:30)
[2017-12-07] MEDS: Pantoprazole 40 MG VIAL IVP SCH (21:17)
[2017-12-08] MEDS: Sodium Chloride 0.9% 1,000 ML IV SCH ×3 (04:30→20:21)
[2017-12-08 05:30] LABS: ALT (SGPT) 103 U/L (8-55); AST (SGOT) 45 U/L (5-34); Albumin 2.8 g/dL (3.4-4.8); Alkaline Phosphatase 116 U/L (40-150); Bilirubin, Direct 2.7 mg/dL (0.1-0.3); Protein, Total 5.2 g/dL (6.0-8.3)
[2017-12-08] MEDS: HumaLOG 300 UNITS/3 ML VIAL SC PRN ×4 (07:45→20:36)
[2017-12-08] MEDS: Hydrocortisone Sod Succ/PF 100 mg/2 ml Vial IVP SCH (08:42)
[2017-12-08] MEDS: Milk Of Magnesia 30 ML UDCUP PO PRN (08:42)
[2017-12-08] MEDS: Docusate 100 MG CAP PO SCH ×2 (08:42→20:20)
[2017-12-08] MEDS ORDERED: pyridOXINE 50 MG (B6) TAB PO SCH (09:00)
[2017-12-08] MEDS ORDERED: Isoniazid 100 MG TAB PO SCH (10:00)
[2017-12-08] MEDS: Rifampin 300 MG CAP PO SCH (11:18)
--- NOTE | 2017-12-08 14:39 | PDOC.PN ---
- Subjective Encounter Start Date: 12/08/17 Encounter Start Time: 08:00 Pt seen for followup re: hypotension. Reports feeling better. No chills. No nausea or vomiting. No fevers. No chest pain or shortness of breath. - Objective Resuscitation Status: Resuscitation Status FULL:Full Resuscitation MAR Reviewed: Yes Vital Signs & Weight: Vital Signs (12 hours) Temp Pulse Resp Pulse Ox 12/08/17 12:00 97.9 F 12/08/17 08:00 98 F 88 21 H 100 12/08/17 07:00 98 F 12/08/17 05:08 93 L 12/08/17 04:00 97.8 F Weight Admit Weight 153 lb Weight 153 lb 0.013 oz Most Recent Monitor Data Heart Rate from ECG 95 NIBP 94/68 NIBP BP-Mean 78 Respiration from ECG 23 SpO2 100 I&O: 12/07/17 12/08/17 12/09/17 06:59 06:59 06:59 Intake Total 5002.7 1560 Output Total 720 375 Balance 4282.7 1185 Result Diagrams: 12/06/17 04:21 12/06/17 04:21 Additional Labs: Accuchecks 12/08/17 12/08/17 12/07/17 11:44 06:01 20:12 POC Glucose 320 H 294 H 233 H 12/07/17 17:02 POC Glucose 282 H EKG Reviewed by me: Yes (Tele: NSR) Phys Exam - Physical Examination Constitutional: NAD HEENT: moist MMs Neck: supple Respiratory: clear to auscultation bilateral Cardiovascular: RRR Gastrointestinal: soft Neurological: moves all 4 limbs Psychiatric: normal affect Dx/Plan (1) Hypotension Status: Acute Comment: Etiology unclear. Dr. Zamarripa felt yesterday that it was likely a hypersensitivity reaction to INH. Pt is on phenylephrine drip now , weaned off of vasopressin. Consult ID service for help with managing anti-TB regimen. (2) Active tuberculosis Code(s): A15.9 - RESPIRATORY TUBERCULOSIS UNSPECIFIED Status: Acute Comment : Still on rifampin, INH discontinued (3) Drug-induced liver injury Code(s): K71.9 - TOXIC LIVER DISEASE, UNSPECIFIED Status: Acute Comment: LFTs worse today, INH discontinued, check LFTs tomorrow (4) HLD (hyperlipidemia) Code(s): E78.5 - HYPERLIPIDEMIA, UNSPECIFIED Status: Chronic Qualifiers: Hyperlipidemia type: unspecified Qualified Code(s): E78.5 - Hyperlipidemia , unspecified Comment: continue statin (5) HTN (hypertension) Code(s): I10 - ESSENTIAL (PRIMARY) HYPERTENSION Status: Chronic Qualifiers: Hypertension type: essential hypertension Qualified Code(s): I10 - Essential (primary) hypertension Comment: Pt was hypotensive, on phenylephrine drip (6) DM2 (diabetes mellitus, type 2) Status: Chronic Qualifiers: Diabetes mellitus nursing home insulin use: unspecified nursing home insulin use status Diabetes mellitus complication status: with unspecified complications Qualified Code(s): E11.8 - Type 2 diabetes mellitus with unspecified complications Comment: Continue accuchecks, insulin sliding scale (7) Septic shock Code(s): A41.9 - SEPSIS, UNSPECIFIED ORGANISM; R65.21 - SEVERE SEPSIS WITH SEPTIC SHOCK Status: Resolved - Plan * . Review of Systems - Review of Systems Constitutional: weakness. negative: fever, chills, sweats, malaise Respiratory: negative: Cough, Shortness of Breath, SOB with Excertion, Pleuritic Pain, Wheezing Cardiovascular: negative: chest pain, palpitations, edema, light headedness - Medications/Allergies Allergies/Adverse Reactions: Allergies Allergy/AdvReac Type Severity Reaction Status Date / Time No Known Allergies Allergy Unverified 11/11/17 16:20 Medications: Current Medications Acetaminophen (Tylenol) 650 mg PO Q4H PRN PRN Reason: Fever or Pain Last Admin: 12/07/17 20:01 Dose: 650 mg Albuterol/Ipratropium (Duoneb) 3 ml NEB QID PRN PRN Reason: SOB &/or Wheezing Dextrose/Water (Dextrose 50%) 25 gm SLOW IVP PRN PRN PRN Reason: Hypoglycemia Docusate Sodium (Colace) 100 mg PO BID [facility] Last Admin: 12/08/17 08:42 Dose: 100 mg Glucagon (Glucagon) 1 mg IM PRN PRN PRN Reason: Hypoglycemia Hydrocortisone Sodium Succinate (Solu-Cortef) 100 mg IVP Q12HR [facility] Last Admin: 12/08/17 08:42 Dose: 100 mg Hydroxyzine HCl (Atarax) 25 mg PO TIDPRN PRN PRN Reason: itching Last Admin: 12/06/17 12:43 Dose: 25 mg Dextrose/Water (D5w) 1,000 mls @ 0 mls/hr IV .Q0M PRN; As Directed PRN Reason: Hypoglycemia Sodium Chloride (Normal Saline 0.9%) 1,000 mls @ 100 mls/hr IV .Q10H [facility] Last Admin: 12/08/17 07:46 Dose: 1,000 mls Insulin Human Lispro (Humalog) 0 units SC .MODERATE SLIDING SC PRN PRN Reason: Moderate Correctional Scale Last Admin: 12/08/17 11:43 Dose: 8 unit Magnesium Hydroxide (Milk Of Magnesium) 30 ml PO Q6H PRN PRN Reason: Constipation Last Admin: 12/08/17 08:42 Dose: 30 ml Ondansetron HCl (Zofran Odt) 4 mg PO Q6H PRN PRN Reason: Nausea/Vomiting Last Admin: 12/05/17 08:37 Dose: 4 mg Ondansetron HCl (Zofran) 4 mg IVP Q6H PRN PRN Reason: Nausea/Vomiting Pantoprazole Sodium (Protonix) 40 mg IVP 2100 NANCY Last Admin: 12/07/17 21:17 Dose: 40 mg Polyethylene Glycol (Miralax) 17 gm PO DAILYPRN PRN PRN Reason: Constipation Last Admin: 12/06/17 12:43 Dose: 17 gm Rifampin (Rifadin) 600 mg PO 1000 NANCY Last Admin: 12/08/17 11:18 Dose: 600 mg
[2017-12-08] MEDS ORDERED: Pyrazinamide 500 MG TAB PO SCH ×2 (17:00)
--- NOTE | 2017-12-08 18:33 | PRG ---
DATE OF SERVICE: 12/08/2017 SUBJECTIVE: She got hypotensive yesterday. I am told it was several hours after receiving INH, it is felt that her liver reaction was a hypersen sitivity reaction and so I suppose it has to be assumed that this also was a reaction of INH. We camila l not rechallenge her. 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 She is in no distress now. She received a liter of saline this morning and then the pressors were we aned off. Her lungs are clear. Heart is regular rhythm. Abdomen is soft. LABORATORY DATA: Bilirubin is 2.7. Her AST is down to 45, ALT is down to 103, alkaline phosphatase is normal. No lab was done yesterday or today other than that did CBC in the morning and basic metab olic profile in the morning given her transient hypotension. Restart SECRET CODE EXPERT. She was on 1500 mg last dose and we will start her with 1000 mg, although we had already started with 1500 mg. If she tolerates today's dose, then increase the dose tomorrow. Hopefully, we can get her home soon, but obviously she is not going home today.
--- NOTE | 2017-12-08 19:58 | CON ---
DATE OF CONSULTATION: 12/08/2017 REASON FOR CONSULTATION: Hepatitis secondary to tuberculosis treatment. HISTORY OF PRESENT ILLNESS: A 67-year-old who has a history of recently diagnosed Mycobacterium tuberculosis and pneumonia associated with chronic obstructive pulmonary disease and had been started on anti-tuberculosis therapy with directly observed therapy for the past three and half weeks approximately when she developed abdominal pain in right upper quadrant, vomiting, and fever. The patient had been visited by the [facility] nurse the Thursday before the development of symptoms. She became ill during the weekend and still took her medications and then finally saw her personal physician because of persistence of symptoms on Thursday any he called her back on Thursday in view of normal findings and lab results and directed her to be admitted. She was admitted and the initial exam showed a temperature 99.7, pulse 139, BP 103/78, respiratory rate 22, O2 sat 97%. She was oriented, no acute distress. Pertinent findings in the physical exam included clear lungs. Abdomen was diffusely tender. Sodium 131, creatinine 0.8, glucose 173, alkaline phosphatase 163, AST 1092, ALT 628, and albumin 3.8. The patient quickly improved in her transaminases and looks like rifampin has been restarted. She had INH and PZA given back to her yesterday and she developed hypotension and was transferred to the unit. She is back to normal blood pressure ranges. She denies headaches. No visual symptoms, sore throat, odynophagia, or dysphagia. No cough. Mild pain in the right upper quadrant. No joint symptoms. The patient has Cardona catheter inserted. PAST MEDICAL HISTORY: Type 2 diabetes, hyperlipidemia, hypertension, COPD, pulmonary tuberculosis, restrictive lung disease, bronchiectasis. ALLERGIES: None. CURRENT MEDICATIONS: Inhalers, dextrose, Myambutol, insulin, rifampin, pyrazinamide. SOCIAL HISTORY: Former smoker. PHYSICAL EXAMINATION: VITAL SIGNS: T-max 102.7, blood pressure 97/54, pulse 136 and now 88. SKIN: Shows a peripheral IV access. She has a Cardona catheter in place. NECK: No jugular vein distention. No lymphadenopathy. Supple. HEENT: Ocular movements conjugate. Moist mucosa. LUNGS: Symmetric breath sounds. No crackles or wheezing. HEART: S1, S2, regular rate. ABDOMEN: Mildly distended and mildly tender right upper quadrant. No bladder distention. EXTREMITIES: No joint inflammatory activity. Moves extremities equally. LABORATORY DATA: White cell count 6.1, hemoglobin 12.7, platelets 147 with 20% lymphocytes, 70% neutrophils. The AST peaked at 10,092 and is down to 45. The ALT peaked at 628 and is down to 103, alkaline phosphatase was 163 and now is 116, and bilirubin was 2.8 and it was 3.0, bilirubin direct 0.5 and it was 2.7. Urinalysis greater than 50 wbc's. Microbiology with Klebsiella pneumo in urine. Repeat acid fast smear pending as well as cultures. Chest x-ray with increased interstitial opacities throughout the lungs bilaterally. ASSESSMENT: 1. Chronic obstructive pulmonary disease, diabetes mellitus type 2, and hypertension. 2. Pulmonary tuberculosis with treatment started about 3-1/2 weeks ago. 3. 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 DISCUSSION: The patient has fortunately rapidly improved after discontinuation of the TB meds. She had a relapse of symptoms after INH and pyrazinamide were restarted. She continues to receive rifampin though without problems. The rifampin, INH, and pyrazinamide are the most likely antimycobacterial drugs to be associated with hepatotoxicity of which INH by far most common association with liver disease. She does meet criteria for severe hepatotoxicity. In those cases usually withholding anti-mycobacterial therapy and then starting one drug at a time with rifampin being the first one in addition to the ethambutol. It looks like she is tolerating rifampin well and pyrazinamide has been restarted. She should be able to complete her treatment with ethambutol, pyrazinamide, and rifampin since this regimen has very similar success rates as the INH containing regimens, and she already got almost 1 month worth of INH. I have contacted the [facility] nurse and she will be taking over the directly observed therapy course. Since the patient interrupted for a brief period of time, it should be able to resume treatment. She may have to start all over since she had been more than 3 months from the end of therapy completion. MTDD
[2017-12-08] MEDS: Ethambutol HCl 400 MG TAB PO SCH (20:20)
[2017-12-08] MEDS: Pantoprazole 40 MG VIAL IVP SCH (20:21)
[2017-12-09 04:33] LABS: Anion Gap 9 mmol/L (10-20); BUN (Urea Nitrogen) 21 mg/dL (9.8-20.1); Calc. Creatinine Clearance 89 mL/min (70-130); Calcium 7.4 mg/dL (7.8-10.44); Carbon Dioxide 25 mmol/L (23-31); Chloride 105 mmol/L (98-107); Estimated GFR-MDRD 90; Glucose 148 mg/dL (80-115); Potassium 3.4 mmol/L (3.5-5.1); Sodium 136 mmol/L (136-145)
[2017-12-09 04:38] LABS: ALT (SGPT) 90 U/L (8-55); AST (SGOT) 47 U/L (5-34); Albumin 2.7 g/dL (3.4-4.8); Alkaline Phosphatase 98 U/L (40-150); Bilirubin, Direct 1.3 mg/dL (0.1-0.3); Bilirubin, Total 1.6 mg/dL (0.2-1.2)
[2017-12-09 04:45] LABS: Anisocytosis SLIGHT = 6-15 cells (100X) (0-5/hpf); Band 10 % (5-11); Elliptocytes SLIGHT = 2-5 cells (100X) (0-1/hpf); Eosinophils 2 % (0-10); Hemoglobin 11.4 g/dL (12.0-16.0); Lymphocytes 23 % (21-51); MDiff Complete? YES; Mean Corpuscular HGB CONC 30.4 g/dL (32.0-36.0); Mean Corpuscular Volume 75.8 fl (81.0-99.0); Mean Platelet Volume 10.5 fL (7.4-10.4); Monocytes 3 % (0-10); Neutrophil 62 % (42-75); PLT Morphology Comment Appears Decreased; Platelet Count 107 thou/uL (130-400); RBC Distribution Width 18.1 % (11.5-14.5); Red Blood Cell (RBC) Count 4.97 mill/uL (4.20-5.40); White Blood Cell (WBC) Count 7.9 thou/uL (4.8-10.8)
[2017-12-09] MEDS: Docusate 100 MG CAP PO SCH ×2 (08:45→20:36)
[2017-12-09] MEDS ORDERED: Pyrazinamide 500 MG TAB PO SCH ×2 (09:00→17:00)
[2017-12-09] MEDS: Sodium Chloride 0.9% 1,000 ML IV SCH ×3 (10:20→21:24)
[2017-12-09] MEDS ORDERED: Rifampin 300 MG CAP PO SCH ×2 (10:45→12:45)
--- NOTE | 2017-12-09 12:31 | PDOC.PN ---
- Subjective Encounter Start Date: 12/09/17 Encounter Start Time: 08:00 Pt seen for followup re: active tuberculosis. Denies chest pain, shortness of breath, fevers, chills or cough. - Objective Resuscitation Status: Resuscitation Status FULL:Full Resuscitation MAR Reviewed: Yes Vital Signs & Weight: Vital Signs (12 hours) Temp Pulse Resp BP Pulse Ox 12/09/17 11:16 98.8 F 93 16 121/83 97 12/09/17 08:00 98.1 F 95 16 97 12/09/17 07:29 98.1 F 95 16 118/78 97 Weight Admit Weight 153 lb Weight 167 lb 9.6 oz Most Recent Monitor Data Heart Rate from ECG 102 NIBP 129/86 NIBP BP-Mean 107 Respiration from ECG 29 SpO2 90 I&O: 12/08/17 12/09/17 12/10/17 06:59 06:59 06:59 Intake Total 5002.7 4271 Output Total 720 1400 Balance 4282.7 2871 Result Diagrams: 12/09/17 03:49 12/09/17 03:49 Additional Labs: Accuchecks 12/09/17 12/09/17 12/08/17 11:17 04:53 20:35 POC Glucose 221 H 139 H 235 H 12/08/17 17:29 POC Glucose 252 H Phys Exam - Physical Examination Constitutional: NAD HEENT: moist MMs Neck: supple Respiratory: clear to auscultation bilateral Cardiovascular: RRR Gastrointestinal: soft Neurological: moves all 4 limbs Psychiatric: normal affect Dx/Plan (1) Active tuberculosis Code(s): A15.9 - RESPIRATORY TUBERCULOSIS UNSPECIFIED Status: Acute Comment : On rifampin, ethambutol and pyrazinamide. Check LFTs, observe patient (2) Drug-induced liver injury Code(s): K71.9 - TOXIC LIVER DISEASE, UNSPECIFIED Status: Acute Comment: LFTs improving (3) HLD (hyperlipidemia) Code(s): E78.5 - HYPERLIPIDEMIA, UNSPECIFIED Status: Chronic Qualifiers: Hyperlipidemia type: unspecified Qualified Code(s): E78.5 - Hyperlipidemia , unspecified Comment: continue statin (4) HTN (hypertension) Code(s): I10 - ESSENTIAL (PRIMARY) HYPERTENSION Status: Chronic Qualifiers: Hypertension type: essential hypertension Qualified Code(s): I10 - Essential (primary) hypertension Comment: Monitor vital signs, titrate antihypertensives as needed. (5) DM2 (diabetes mellitus, type 2) Status: Chronic Qualifiers: Diabetes mellitus lobsterman insulin use: unspecified lobsterman insulin use status Diabetes mellitus complication status: with unspecified complications Qualified Code(s): E11.8 - Type 2 diabetes mellitus with unspecified complications Comment: accuchecks, insulin sliding scale (6) Septic shock Code(s): A41.9 - SEPSIS, UNSPECIFIED ORGANISM; R65.21 - SEVERE SEPSIS WITH SEPTIC SHOCK Status: Resolved (7) Hypotension Status: Resolved - Plan * . Review of Systems - Review of Systems Constitutional: negative: fever, chills, sweats, weakness, malaise Respiratory: negative: Cough, Shortness of Breath, SOB with Excertion, Pleuritic Pain, Wheezing - Medications/Allergies Allergies/Adverse Reactions: Allergies Allergy/AdvReac Type Severity Reaction Status Date / Time No Known Allergies Allergy Unverified 12/08/17 17:41 Medications: Current Medications Acetaminophen (Tylenol) 650 mg PO Q4H PRN PRN Reason: Fever or Pain Last Admin: 12/07/17 20:01 Dose: 650 mg Albuterol/Ipratropium (Duoneb) 3 ml NEB QID PRN PRN Reason: SOB &/or Wheezing Dextrose/Water (Dextrose 50%) 25 gm SLOW IVP PRN PRN PRN Reason: Hypoglycemia Docusate Sodium (Colace) 100 mg PO BID [facility] Last Admin: 12/09/17 08:45 Dose: 100 mg Ethambutol HCl (Myambutol) 1,200 mg PO 2100 [facility] Last Admin: 12/08/17 20:20 Dose: 1,200 mg Glucagon (Glucagon) 1 mg IM PRN PRN PRN Reason: Hypoglycemia Hydroxyzine HCl (Atarax) 25 mg PO TIDPRN PRN PRN Reason: itching Last Admin: 12/06/17 12:43 Dose: 25 mg Dextrose/Water (D5w) 1,000 mls @ 0 mls/hr IV .Q0M PRN; As Directed PRN Reason: Hypoglycemia Sodium Chloride (Normal Saline 0.9%) 1,000 mls @ 100 mls/hr IV .Q10H [facility] Last Admin: 12/09/17 10:20 Dose: Not Given Insulin Human Lispro (Humalog) 0 units SC .MODERATE SLIDING SC PRN PRN Reason: Moderate Correctional Scale Last Admin: 12/08/17 20:36 Dose: 4 unit Magnesium Hydroxide (Milk Of Magnesium) 30 ml PO Q6H PRN PRN Reason: Constipation Last Admin: 12/08/17 08:42 Dose: 30 ml Ondansetron HCl (Zofran Odt) 4 mg PO Q6H PRN PRN Reason: Nausea/Vomiting Last Admin: 12/05/17 08:37 Dose: 4 mg Ondansetron HCl (Zofran) 4 mg IVP Q6H PRN PRN Reason: Nausea/Vomiting Pantoprazole Sodium (Protonix) 40 mg IVP 2100 [facility] Last Admin: 12/08/17 20:21 Dose: 40 mg Polyethylene Glycol (Miralax) 17 gm PO DAILYPRN PRN PRN Reason: Constipation Last Admin: 12/06/17 12:43 Dose: 17 gm Pyrazinamide (Pyrazinamide) 1,500 mg PO 1700 [facility] Rifampin (Rifadin) 600 mg PO 1000 [facility] Rifampin (Rifadin) 600 mg PO ONE [facility] Sodium Chloride (Flush - Normal Saline) 10 ml IVF Q12HR [facility] Sodium Chloride (Flush - Normal Saline) 10 ml IVF PRN PRN PRN Reason: Saline Flush
[2017-12-09] MEDS: HumaLOG 300 UNITS/3 ML VIAL SC PRN ×2 (13:04→17:26)
[2017-12-09] MEDS ORDERED: Potassium Chloride 20 MEQ TAB PO SCH (13:15)
--- NOTE | 2017-12-09 18:57 | PRG ---
DATE OF SERVICE: 12/09/2017 SUBJECTIVE: Ms. Diego is in no distress. She is tolerating the addition of her pyrazinamide so far . PHYSICAL EXAMINATION: VITAL SIGNS: She is afebrile, heart rate 74, respiratory rate 16, oximetry 97% on 2 liter cannula. LUNGS: Unchanged. HEART: Unchanged. ABDOMEN: Unchanged. IMPRESSION: 1. Tuberculosis with gradually improving gas exchange with treatment. 2. Elevated liver enzymes, felt to be INH toxicity. 3. Status post hypotension felt also be INH reaction. PLAN: Continue antituberculous therapy. Hopefully, she will be a candidate for discharge in 24-48 h ours.
[2017-12-09] MEDS: Pantoprazole 40 MG VIAL IVP SCH (20:35)
[2017-12-09] MEDS: Ethambutol HCl 400 MG TAB PO SCH (20:35)
[2017-12-10 06:01] LABS: ALT (SGPT) 62 U/L (8-55); AST (SGOT) 20 U/L (5-34); Albumin 2.6 g/dL (3.4-4.8); Alkaline Phosphatase 93 U/L (40-150); Bilirubin, Direct 1.1 mg/dL (0.1-0.3); Bilirubin, Total 1.5 mg/dL (0.2-1.2); Protein, Total 4.8 g/dL (6.0-8.3)
[2017-12-10 06:02] LABS: Anion Gap 8 mmol/L (10-20); BUN (Urea Nitrogen) 12 mg/dL (9.8-20.1); Calc. Creatinine Clearance 116 mL/min (70-130); Calcium 7.6 mg/dL (7.8-10.44); Carbon Dioxide 24 mmol/L (23-31); Chloride 105 mmol/L (98-107); Estimated GFR-MDRD Greater than 90; Glucose 110 mg/dL (80-115); Potassium 3.7 mmol/L (3.5-5.1); Sodium 133 mmol/L (136-145)
[2017-12-10 06:07] LABS: Anisocytosis SLIGHT = 6-15 cells (100X) (0-5/hpf); Band 1 % (5-11); Hemoglobin 11.1 g/dL (12.0-16.0); Hypochromia SLIGHT = 6-15 cells (100X) (0-5/hpf); Lymphocytes 25 % (21-51); MDiff Complete? YES; Mean Corpuscular HGB CONC 31.1 g/dL (32.0-36.0); Mean Corpuscular Hemoglobin 23.4 pg (27.0-31.0); Mean Corpuscular Volume 75.2 fl (81.0-99.0); Mean Platelet Volume 11.1 fL (7.4-10.4); Monocytes 6 % (0-10); Neutrophil 63 % (42-75); Ovalocytes SLIGHT = 2-5 cells (100X) (0-1/hpf); PLT Morphology Comment Appears Decreased; Platelet Count 105 thou/uL (130-400); RBC Distribution Width 18.2 % (11.5-14.5); Reactive Lymphocytes 5 % (0-10); Red Blood Cell (RBC) Count 4.74 mill/uL (4.20-5.40); White Blood Cell (WBC) Count 7.2 thou/uL (4.8-10.8)
[2017-12-10] MEDS: Sodium Chloride 0.9% 1,000 ML IV SCH (07:30)
[2017-12-10] MEDS: Docusate 100 MG CAP PO SCH (08:47)
[2017-12-10 08:49] VITALS: BP 111/73; TEMP 98.2
[2017-12-10] MEDS ORDERED: Rifampin 300 MG CAP PO SCH (10:00)
--- NOTE | 2017-12-10 13:53 | PDOC.PN ---
- Subjective Encounter Start Date: 12/10/17 Encounter Start Time: 10:20 Pt seen for followup re: actve tuberculosis. Denies cough, chills, fever or shortness of breath. - Objective Resuscitation Status: Resuscitation Status FULL:Full Resuscitation MAR Reviewed: Yes Vital Signs & Weight: Vital Signs (12 hours) Temp Pulse Resp BP Pulse Ox 12/10/17 08:00 98.2 F 99 20 111/73 97 12/10/17 04:00 98.9 F 95 24 H 115/74 96 Weight Admit Weight 153 lb Weight 167 lb 9.6 oz Most Recent Monitor Data Heart Rate from ECG 102 NIBP 129/86 NIBP BP-Mean 107 Respiration from ECG 29 SpO2 90 I&O: 12/09/17 12/10/17 12/11/17 06:59 06:59 06:59 Intake Total 4271 1720 480 Output Total 1400 1000 Balance 2871 720 480 Result Diagrams: 12/10/17 05:14 12/10/17 05:14 Additional Labs: Accuchecks 12/10/17 12/10/17 12/09/17 11:21 05:17 21:04 POC Glucose 150 H 106 141 H 12/09/17 16:20 POC Glucose 174 H Phys Exam - Physical Examination Constitutional: NAD HEENT: moist MMs Neck: supple Respiratory: clear to auscultation bilateral Cardiovascular: RRR Gastrointestinal: soft Neurological: moves all 4 limbs Psychiatric: normal affect Dx/Plan (1) Active tuberculosis Code(s): A15.9 - RESPIRATORY TUBERCULOSIS UNSPECIFIED Status: Acute Comment : On rifampin, ethambutol and pyrazinamide. Awaiting input from [facility]. (2) Drug-induced liver injury Code(s): K71.9 - TOXIC LIVER DISEASE, UNSPECIFIED Status: Acute Comment: LFTs improving today (3) HLD (hyperlipidemia) Code(s): E78.5 - HYPERLIPIDEMIA, UNSPECIFIED Status: Chronic Qualifiers: Hyperlipidemia type: unspecified Qualified Code(s): E78.5 - Hyperlipidemia , unspecified Comment: on statin, continue (4) HTN (hypertension) Code(s): I10 - ESSENTIAL (PRIMARY) HYPERTENSION Status: Chronic Qualifiers: Hypertension type: essential hypertension Qualified Code(s): I10 - Essential (primary) hypertension Comment: Stable (5) DM2 (diabetes mellitus, type 2) Status: Chronic Qualifiers: Diabetes mellitus fci insulin use: unspecified terminal block assembler insulin use status Diabetes mellitus complication status: with unspecified complications Qualified Code(s): E11.8 - Type 2 diabetes mellitus with unspecified complications Comment: accuchecks, insulin sliding scale (6) Septic shock Code(s): A41.9 - SEPSIS, UNSPECIFIED ORGANISM; R65.21 - SEVERE SEPSIS WITH SEPTIC SHOCK Status: Resolved (7) Hypotension Status: Resolved - Plan * . Review of Systems - Review of Systems Constitutional: negative: fever, chills, sweats, weakness, malaise Respiratory: negative: Cough, Shortness of Breath, SOB with Excertion, Pleuritic Pain, Wheezing - Medications/Allergies Allergies/Adverse Reactions: Allergies Allergy/AdvReac Type Severity Reaction Status Date / Time No Known Allergies Allergy Unverified 12/08/17 17:41 Medications: Current Medications Acetaminophen (Tylenol) 650 mg PO Q4H PRN PRN Reason: Fever or Pain Last Admin: 12/07/17 20:01 Dose: 650 mg Albuterol/Ipratropium (Duoneb) 3 ml NEB QID PRN PRN Reason: SOB &/or Wheezing Dextrose/Water (Dextrose 50%) 25 gm SLOW IVP PRN PRN PRN Reason: Hypoglycemia Docusate Sodium (Colace) 100 mg PO BID [facility] Last Admin: 12/10/17 08:47 Dose: 100 mg Ethambutol HCl (Myambutol) 1,200 mg PO 2100 [facility] Last Admin: 12/09/17 20:35 Dose: 1,200 mg Glucagon (Glucagon) 1 mg IM PRN PRN PRN Reason: Hypoglycemia Hydroxyzine HCl (Atarax) 25 mg PO TIDPRN PRN PRN Reason: itching Last Admin: 12/06/17 12:43 Dose: 25 mg Dextrose/Water (D5w) 1,000 mls @ 0 mls/hr IV .Q0M PRN; As Directed PRN Reason: Hypoglycemia Sodium Chloride (Normal Saline 0.9%) 1,000 mls @ 100 mls/hr IV .Q10H [facility] Last Admin: 12/10/17 07:30 Dose: Not Given Insulin Human Lispro (Humalog) 0 units SC .MODERATE SLIDING SC PRN PRN Reason: Moderate Correctional Scale Last Admin: 12/09/17 17:26 Dose: 2 unit Magnesium Hydroxide (Milk Of Magnesium) 30 ml PO Q6H PRN PRN Reason: Constipation Last Admin: 12/08/17 08:42 Dose: 30 ml Ondansetron HCl (Zofran Odt) 4 mg PO Q6H PRN PRN Reason: Nausea/Vomiting Last Admin: 12/05/17 08:37 Dose: 4 mg Ondansetron HCl (Zofran) 4 mg IVP Q6H PRN PRN Reason: Nausea/Vomiting Pantoprazole Sodium (Protonix) 40 mg IVP 2100 [facility] Last Admin: 12/09/17 20:35 Dose: 40 mg Polyethylene Glycol (Miralax) 17 gm PO DAILYPRN PRN PRN Reason: Constipation Last Admin: 12/06/17 12:43 Dose: 17 gm Pyrazinamide (Pyrazinamide) 1,500 mg PO 1700 [facility] Last Admin: 12/09/17 17:25 Dose: 1,500 mg Rifampin (Rifadin) 600 mg PO 1000 [facility] Last Admin: 12/10/17 08:47 Dose: 600 mg Sodium Chloride (Flush - Normal Saline) 10 ml IVF Q12HR [facility] Last Admin: 12/10/17 08:47 Dose: Not Given Sodium Chloride (Flush - Normal Saline) 10 ml IVF PRN PRN PRN Reason: Saline Flush
--- NOTE | 2017-12-10 16:10 | PRG ---
DATE OF SERVICE: 12/10/2017 SUBJECTIVE: Ms. Diego has no complaints. She remains afebrile. She is now on rifampin, ethambutol and PZA. Her INH has been discontinued. In my opinion, she is stable for discharge. She will foll ow up with me in 3-4 weeks for awaiting cultures. She will continue to be followed by the health pro vidence for now. She probably needs to have weekly liver enzymes.
--- NOTE | 2017-12-11 00:30 | DIS ---
DATE OF ADMISSION: 12/01/2017 DATE OF DISCHARGE: 12/10/2017 PRIMARY CARE PHYSICIAN: Edi Adam MD ADMITTING DIAGNOSES: 1. Active tuberculosis. 2. Septic shock. 3. Drug-induced liver injury secondary to INH. 4. Disseminated intravascular coagulation. 5. Severe dehydration. CONDITION OF PATIENT ON THE DAY OF DISCHARGE: Stable. I assessed Ms. Diego on the day of discharg e. Please refer to my daily progress note for further information regarding this face to face-to-fac e encounter. CONSULTATIONS DURING THIS HOSPITALIZATION: Pulmonology, Dr. Niraj Das and Infectious Diseases, Angelita Boyer. HOSPITAL COURSE: Ms. Diego is a pleasant 67-year-old lady with a history of recently diagnosed acti ve tuberculosis, on RIPE therapy, who was admitted to [facility] on 12/01/2017 for septic shock as well as a liver injury, likely secondary to antituberculous medications. Her an ti-tuberculosis medications were stopped. She was initially treated in the Intensive Care Unit and s ubsequently transferred to the medical floor. Initial plan was to reintroduce antituberculous therap y one drug at a time. She was started on rifampin without any problems. When INH was reintroduced, within a few hours, she became hypotensive and had to be moved to the Coronary Care Unit for vasopres sor therapy. She was transferred back to the medical floor in a stable condition. Infectious Diseas e service was consulted and it was decided to not challenge her with INH again and instead continue h er on rifampin, ethambutol and pyrazinamide. She tolerated all 3 drugs well. Her liver numbers are also improving, she will need to have her liver function tests checked through her primary care physi jarrell's office in 5-7 days. On the day of discharge, she has a total bilirubin of 1.5, direct bilirubin 1.1, AST 20, ALT 62, and alkaline phosphatase is 93. Her creatinine on 12/10/2017 is 0.55. Potassium is 3.7. White count is 7200, hemoglobin is 11.1 and platelet count is 105,000. DISCHARGE MEDICATIONS: Amlodipine 10 mg daily, atorvastatin 20 mg daily, ethambutol 1200 mg daily, g abapentin 300 mg 3 times a day, Lantus insulin 57 units at bedtime, DuoNebs p.r.n., pyrazinamide 1500 mg daily, and rifampin 600 mg daily. Many thanks for allowing me to participate in your patient's care. Please feel free to contact me wi th any questions or concerns. DISCHARGE DESTINATION: Home. TOTAL AMOUNT OF TIME SPENT COORDINATING THIS DISCHARGE: Thirty two minutes.
== END 2017-12-10 16:38 | disposition home or self-care (01) | DRG 441 ==
LOC: ERS 11:40 → IMCU/EMU 14:50 → CCU 17:54 → T4-B 12-02 17:52 → CCU 12-07 17:11 → T4-B 12-08 19:05
PROVIDERS: ADMIT Internal Medicine Infectious Disease; ATTEND Internal Medicine Infectious Disease
DX: K71.2 Toxic liver disease with acute hepatitis (principal); D65 Disseminated intravascular coagulation [defibrination syndrome]; A15.0 Tuberculosis of lung; R65.10 Systemic inflammatory response syndrome (SIRS) of non-infectious origin without acute organ dysfunction; E11.9 Type 2 diabetes mellitus without complications; I10 Essential (primary) hypertension; E78.5 Hyperlipidemia, unspecified; M81.0 Age-related osteoporosis without current pathological fracture; E86.0 Dehydration; I95.2 Hypotension due to drugs; J44.9 Chronic obstructive pulmonary disease, unspecified; Z87.891 Personal history of nicotine dependence; T37.1X5A Adverse effect of antimycobacterial drugs, initial encounter; Y92.230 Patient room in hospital as the place of occurrence of the external cause; Z79.4 Long term (current) use of insulin; Z79.899 Other long term (current) drug therapy; N30.90 Cystitis, unspecified without hematuria; B96.1 Klebsiella pneumoniae [K. pneumoniae] as the cause of diseases classified elsewhere
CPT/HCPCS: 36415; 36416; 71045; 71046; 74177; 78582; 80048; 80053; 80076; 81003; 81015; 82533; 83605; 83735; 85007; 85025; 85027; 85049; 85300; 85362; 85379; 85384; 85610; 85730; 87040; 87077; 87086; 87116; 87186; 87206; 89220; 93005; 94640; 94760; 96360; 96361; 96365; A4216; A9540; A9558; C9113; G8978-GP-CK; G8979-GP-CI; G8987-GO-CJ; G8988-GO-CI; J0171; J1720; J1956; J2370; J2405; J2550; J3370; J7050; J7620; Q0162

== ENCOUNTER 2018-02-15 09:10 | Outpatient (CLI) | payer MEDICARE, MEDICAID ==
--- NOTE | 2018-02-15 10:23 | RAD ---
CHEST PA AND LATERAL: HISTORY: A 67-year-old female with a history of dyspnea. COMPARISON: 12/07/17. FINDINGS: There is cardiomegaly. There are severe bilateral interstitial and reticulonodular parenchymal brothers es and marked scarring and prominent volume loss primarily in the upper and mid lung zones, stable fr om prior study. IMPRESSION: Stable cardiomegaly and marked interstitial and reticulonodular parenchymal changes with volume loss in the upper lung zones bilaterally. Atherosclerosis of the aorta. No significant new process. Unc hanged from prior study. POS: [facility]
== END 2018-02-15 09:11 | disposition home or self-care (01) ==
LOC: RAD 09:10
PROVIDERS: ATTEND Internal Medicine Critical Care Medicine
DX: R06.00 Dyspnea, unspecified (principal); I51.7 Cardiomegaly; I70.0 Atherosclerosis of aorta
CPT/HCPCS: 71046

== ENCOUNTER 2018-07-26 09:04 | Outpatient (CLI) | payer MEDICARE, MEDICAID ==
--- NOTE | 2018-07-26 11:07 | RAD ---
SINGLE VIEW OF THE CHEST: Comparison: 02-15-18 History: Dyspnea. FINDINGS: Two views of the chest shows an enlarged cardiomediastinal silhouette. Increased interstitial marking s are present. There is no evidence of consolidation, pneumothorax, or pleural effusions. Degenerativ e changes are seen in the spine. There is a stable wedge compression fracture of the lower thoracic v ertebral body. IMPRESSION: Stable chronic interstitial lung disease. POS: [facility]
== END 2018-07-26 09:05 | disposition home or self-care (01) ==
LOC: RAD 09:04
PROVIDERS: ATTEND Internal Medicine Critical Care Medicine
DX: R06.00 Dyspnea, unspecified (principal); J84.9 Interstitial pulmonary disease, unspecified
CPT/HCPCS: 71046

== ENCOUNTER 2018-12-23 14:19 | Inpatient (IN) | payer MEDICARE, MEDICAID ==
[2018-12-23] MEDS ORDERED: Dextrose 5% in Water 1,000 ML IV PRN (14:57)
[2018-12-23] MEDS ORDERED: Dextrose 50% Abboject 50 ML SYRINGE IVP PRN (14:57)
[2018-12-23 15:41] LABS: #Eosinphils 0.2 thou/uL (0.0-0.7); #Lymphocytes 1.2 thou/uL (1.20-3.40); #Monocytes 0.8 thou/uL (0.11-0.59); #Neutrophils 4.6 thou/uL (1.40-6.50); %Basophils 0.2 % (0.0-1.0); %Eosinophils 3.5 % (0.0-10.0); %Lymphocytes 17.8 % (21.0-51.0); %Neutrophils 66.5 % (42.0-75.0); Mean Corpuscular HGB CONC 30.8 g/dL (32.0-36.0); Mean Corpuscular Hemoglobin 22.2 pg (27.0-31.0); Mean Platelet Volume 10.2 fL (7.4-10.4); Platelet Count 159 thou/uL (130-400); RBC Distribution Width 16.2 % (11.5-14.5); Red Blood Cell (RBC) Count 4.95 mill/uL (4.20-5.40); White Blood Cell (WBC) Count 6.9 thou/uL (4.8-10.8)
[2018-12-23 15:59] LABS: Anion Gap 12 mmol/L (10-20); BUN (Urea Nitrogen) 48 mg/dL (9.8-20.1); Calc. Creatinine Clearance 0 mL/min (70-130); Carbon Dioxide 28 mmol/L (23-31); Chloride 102 mmol/L (98-107); Estimated GFR-MDRD 42; Glucose 105 mg/dL (80-115); Potassium 4.2 mmol/L (3.5-5.1); Sodium 138 mmol/L (136-145)
[2018-12-23 16:08] LABS: Anisocytosis SLIGHT = 6-15 cells (100X) (0-5/hpf); Elliptocytes SLIGHT = 2-5 cells (100X) (0-1/hpf); Hypochromia SLIGHT = 6-15 cells (100X) (0-5/hpf); Large Platelets SLIGHT; MDiff Complete? YES; Microcytosis SLIGHT = 6-15 cells (100X) (0-5/hpf); Ovalocytes SLIGHT = 2-5 cells (100X) (0-1/hpf); Platelet Morphology Comment Appears Adequate; Poikilocytosis SLIGHT = 6-15 cells (100X) (0-5/hpf); Polychromasia SLIGHT = 2-3 cells (100X) (0-2/hpf); Target Cells SLIGHT = 2-5 cells (100X) (0-1/hpf)
[2018-12-23] MEDS: Sodium Chloride 0.45% 1,000 ML IV SCH (16:41)
[2018-12-23] MEDS: cefTRIAXone\\ROCEPHIN 1 GM in Sodium Chloride 0.9% 100 ML IVPB SCH (16:42)
[2018-12-23] MEDS: methylPREDNISolone Sod Succ 40 MG VIAL IVP SCH ×2 (18:41→23:42)
[2018-12-23] MEDS: metFORMIN 500 MG TAB PO SCH (18:47)
[2018-12-23] MEDS: Atorvastatin Calcium 20 MG TAB PO SCH (19:49)
[2018-12-23] MEDS: guaiFENesin ER 600 MG TAB PO SCH (19:49)
[2018-12-23] MEDS: Montelukast Sodium 10 mg Tablet PO SCH (19:50)
[2018-12-23] MEDS: Pregabalin 50 MG CAP PO SCH (19:50)
[2018-12-24] MEDS: methylPREDNISolone Sod Succ 40 MG VIAL IVP SCH ×3 (05:33→17:30)
[2018-12-24] MEDS: Insulin Regular 300 UNITS/3 ML VIAL SC PRN ×3 (05:52→16:43)
--- NOTE | 2018-12-24 07:15 | HP ---
DATE OF SERVICE: 12/23/2018 HISTORY OF PRESENT ILLNESS: Ms. Diego is a 68-year-old female. She was seen by me beginning of 2017 with a referral for COPD. Surprisingly, I saw her as a new patient in the office and she was already on oxygen. She had not been on oxygen long. She also had surprisingly diffuse increase in interstitial markings. It was worse in the upper lobes. I ordered a CT of her chest which was done on October 21. She had multiple nodular parenchymal infiltrates, which was unexpected after reviewing her chest x-ray. She also had bilateral bronchiectasis. She had some pericardial fluid seen on a CAT scan as well. She had pulmonary function tests that showed severe mixed defect, but predominantly in my opinion a restrictive defect. She underwent fiberoptic bronchoscopy on November 12. In the recovery room, she developed tachypnea and shortness of breath. She had absent breath sounds on one side. I placed a Heimlich 8-Kazakh catheter with dramatic and rapid improvement in her clinical condition. She is admitted to the critical care unit. Preliminary acid-fast smears were positive. It is anticipated that she would have nontuberculous mycobacterium after reviewing her CT, but she turned out to have pulmonary tuberculosis. She was started on 4 drugs and then developed an INH reaction with liver injury that resolved with holding the INH. She was treated with pyrazinamide, ethambutol, and rifampin. She followed up with me the end of the year. Last year was off oxygen, feeling great. She presented to the office today with complaints of 1 month of progressive shortness of breath. She had seen a staff readiness officer over in [place], who called me today and told me that she had a normal left ventricle, but had a dilated right heart. He did a CT pulmonary angiogram on her yesterday that did not show thromboembolic disease because of a positive D-dimer. He was contemplating starting on something for pulmonary hypertension, but then found that she was coming here today so he deferred to us. When I saw her today in the office, she was tachypneic and distressed and actually said she was a little bit frightened the last night and thought about going to the emergency room. She has had no fever. She has had none of the symptoms that she had when she first came in with tuberculosis other than being hypoxic and back on oxygen. She does not have a cough, does not have any sputum production this time. She subsequently is being admitted to the hospital because of respiratory distress. PAST MEDICAL HISTORY: 1. Remarkable for diabetes. 2. Lipid disorder. 3. Hypertension. 4. Osteoporosis. 5. History of cholecystectomy. 6. Status post hysterectomy. SOCIAL HISTORY: She is not smoking, but has smoked for 40+ years. She is not a daily drinker. She has a drug allergy to isoniazid. FAMILY HISTORY: Negative for lung disease in early age. REVIEW OF SYSTEMS: 10 point review of systems completed, otherwise negative. PHYSICAL EXAMINATION: VITAL SIGNS: Blood pressure 130/76, pulse is 96, respiratory rate is 18, oximetry is 94% on 2 L a minute. EYES: Pupils are equal. Sclerae are anicteric. NECK: Supple. No lymphadenopathy. LUNGS: Clear. HEART: Regular rhythm. S1 and S2 are normal. ABDOMEN: Soft and nontender. LUNGS: Remarkable for crackles at both bases. HEART: Regular rhythm. S1 and S2 are normal. No murmur or gallop. ABDOMEN: Soft and nontender. EXTREMITIES: Without clubbing, cyanosis, or edema. IMPRESSION: 1. Postinflammatory pulmonary fibrosis. 2. ?Pneumonia with haziness at the right base. That she has had a pneumonia for a month, but I would wonder if she does not have a component of that after reviewing her radiograph. I have ordered a high resolution CT to compare with her old CT without contrast. I have ordered a bedside spirometry to compare the old pulmonary function tests. She certainly had enough smoking history that a lot of her symptoms could be related to bronchospasm, reactive airways with chronic obstructive pulmonary disease and bronchiectasis. I doubt she has a recurrence of pulmonary tuberculosis. I do not feel that it is safe for her to go home and I would anticipate that she be in the hospital for more days just trying to get her tachypneic and dyspnea under control. I doubt she has developed a new pulmonary problem such as usual interstitial pneumonitis. Hopefully, with steroids, antibiotics, nebulizer treatments, she will turn around. I will withhold her diuretics for now. Continue with her Lipitor, her Norvasc, her Cymbalta. She is on an extended- release metformin. We will put her on his metformin twice a day. She will receive steroids. Continue with her Singulair and continue with her Lyrica. This is a History and Physical, with greater than 50% of time spent on unit coordinating care. Job ID: [id number] [email or web address]
--- NOTE | 2018-12-24 08:00 | CT ---
CT CHEST NONCONTRAST HIGH RESOLUTION: COMPARISON: 10/13/2017. INDICATION: COPD with history of pneumonia and pulmonary fibrosis. FINDINGS: There is interstitial septal thickening bilaterally, along with bronchiectasis, bilateral pulmonary b lebs and bullae and honeycombing. There is mild right pleural fluid. Redemonstration of prominence of thoracic lymph nodes, incompletely evaluated. There has been interval improvement with regard to numerous prior bilateral nodular parenchymal opaci ties, although several scattered areas of reticular nodularity remain throughout each lung. Consolidative opacification of each apex, more confluent on the right, redemonstrated. Incidental note of abdominal ascites. Nodular contour of the liver is noted. There is mild pericardia l fluid. Body wall edema is also present. The incidentally imaged partially visualized thyroid gland reveals asymmetric prominence on the right, with heterogeneity. There are diffuse osseous degen erative changes. IMPRESSION: 1. Redemonstration of findings of chronic interstitial lung disease with associated traction bronchie ctasis. There has been marked improvement with regard to reduced number of numerous nodular opacities throughout each lung, although there are persistent bilateral pulmonary parenchymal nodules remaining which may reflect either residua from long-standing atypical infection versus recurrence. 2. Interval development of findings indicative of diffuse third spacing of fluid/anasarca. Correlate clinically. Transcribed Date/Time: 12/24/2018 8:34 AM
[2018-12-24] MEDS: metFORMIN 500 MG TAB PO SCH ×2 (08:45→17:30)
[2018-12-24] MEDS: Amlodipine 10 MG TAB PO SCH (08:47)
[2018-12-24] MEDS: Pregabalin 50 MG CAP PO SCH ×2 (08:49→21:11)
[2018-12-24] MEDS: guaiFENesin ER 600 MG TAB PO SCH ×2 (08:52→21:11)
--- NOTE | 2018-12-24 11:30 | PRG ---
DATE OF SERVICE: 12/24/2018 SUBJECTIVE: Ms. Diego is doing better. She is not as tachypneic at rest than she was yesterday. Yesterday, she had a respiratory rate in the high 20s to low 30s in the office. OBJECTIVE: VITAL SIGNS: She is afebrile, heart rate 73, blood pressure 102/68, respiratory rate 16. LUNGS: Remarkable for faint wheezes. HEART: Regular rhythm. ABDOMEN: Soft. LABORATORY DATA: Labs reviewed from yesterday. Creatinine was 1.25. Baseline creatinine is 0.6. She is on 2 doses of Lasix and Aldactone, which I suspect is why her creatinine is up. Hemoglobin was 11 with an MCV of 72. This will be repeated tomorrow. IMAGING STUDIES: CT high-resolution was reviewed. She has scattered bullous disease. She has bronchiectasis. She has the nodules that were present in both lungs when last seen and it dramatically improved. She does have prominent pulmonary arteries. IMPRESSION: 1. Chronic obstructive pulmonary disease exacerbation with reactive airways with bronchiectasis and pre-existing bullous disease associated with longstanding tobacco use. 2. Acute on chronic respiratory failure with hypoxia. 3. Anemia with decreased mean corpuscular volume. It is unclear whether or not she has had her screening colonoscopy. 4. Acute on chronic kidney disease with a baseline creatinine of 0.6. Creatinine of 1.25 on admission secondary to diuretic use. 5. Treated pulmonary tuberculosis last year. On her followup in July, she was off oxygen, doing well. 6. Diabetes. It will be addressed with a sliding scale while she is on steroids. 7. Pulmonary hypertension, most likely secondary to her bullous lung disease combined with a lung destruction and the post inflammatory pulmonary fibrosis that she has as result of her tuberculosis. 8. Diastolic dysfunction. It is only a small clinical component at this time. We will continue with current supportive care measures. Job ID: [id number]
[2018-12-24] MEDS: Sodium Chloride 0.45% 1,000 ML IV SCH (13:16)
[2018-12-24] MEDS: cefTRIAXone\\ROCEPHIN 1 GM in Sodium Chloride 0.9% 100 ML IVPB SCH (16:41)
[2018-12-24] MEDS: Atorvastatin Calcium 20 MG TAB PO SCH (21:11)
[2018-12-24] MEDS: Montelukast Sodium 10 mg Tablet PO SCH (21:11)
[2018-12-25] MEDS: methylPREDNISolone Sod Succ 40 MG VIAL IVP SCH ×5 (00:12→23:43)
[2018-12-25] MEDS: Insulin Regular 300 UNITS/3 ML VIAL SC PRN ×4 (05:39→20:24)
[2018-12-25 06:02] LABS: Clarity Clear (Clear); Leukocyte Negative (Negative); Nitrite Negative (Negative); Specific Gravity, Urine 1.025 (1.005-1.030); pH, Urine 5.5 (5.0-9.0)
[2018-12-25 06:03] LABS: Bacteria/HPF None Seen HPF (None Seen); Bilirubin Negative (Negative); Blood, Urine Trace (Negative); Glucose, Urine (Dipstick) Negative (Negative); Pathc Cast-AUWi Flag 6.52 (0-2.49); Protein, Urine (Dipstick) 30 mg/dL (Neg-Trace); RBC/HPF 0-3 HPF (0-3); Urobilinogen 0.2 mg/dL (0.2-1.0)
[2018-12-25 06:13] LABS: Crystals/HPF None Seen HPF (Negative); Other Casts/LPF None Seen LPF (0-3 Hyaline)
[2018-12-25] MEDS: Sodium Chloride 0.45% 1,000 ML IV SCH (07:50)
[2018-12-25 07:58] LABS: Hemoglobin A1c 7.3 % (4.0-6.0)
[2018-12-25] MEDS: Pregabalin 50 MG CAP PO SCH ×2 (07:58→20:21)
[2018-12-25] MEDS: metFORMIN 500 MG TAB PO SCH ×2 (07:59→16:58)
[2018-12-25] MEDS: Amlodipine 10 MG TAB PO SCH (07:59)
[2018-12-25] MEDS: guaiFENesin ER 600 MG TAB PO SCH ×2 (07:59→20:21)
[2018-12-25 08:11] LABS: ALT (SGPT) 8 U/L (8-55); AST (SGOT) 19 U/L (5-34); Albumin 3.9 g/dL (3.4-4.8); Alkaline Phosphatase 52 U/L (40-150); Anion Gap 17 mmol/L (10-20); BUN (Urea Nitrogen) 63 mg/dL (9.8-20.1); Bilirubin, Direct 0.3 mg/dL (0.1-0.3); Bilirubin, Total 0.6 mg/dL (0.2-1.2); Calc. Creatinine Clearance 43 mL/min (70-130); Calcium 8.6 mg/dL (7.8-10.44); Carbon Dioxide 20 mmol/L (23-31); Chloride 99 mmol/L (98-107); Estimated GFR-MDRD 34; Glucose 247 mg/dL (80-115); Potassium 5.2 mmol/L (3.5-5.1); Protein, Total 6.5 g/dL (6.0-8.3); Sodium 131 mmol/L (136-145)
[2018-12-25 08:41] LABS: Hemoglobin 10.4 g/dL (12.0-16.0); Mean Corpuscular HGB CONC 29.1 g/dL (32.0-36.0); Mean Corpuscular Hemoglobin 21.4 pg (27.0-31.0); Mean Corpuscular Volume 73.6 fL (78.0-98.0); Mean Platelet Volume 11.2 fL (7.4-10.4); Platelet Count 171 thou/uL (130-400); Red Blood Cell (RBC) Count 4.87 mill/uL (4.20-5.40); White Blood Cell (WBC) Count 10.8 thou/uL (4.8-10.8)
[2018-12-25 10:17] LABS: Anisocytosis SLIGHT = 6-15 cells (100X) (0-5/hpf); Burr Cells SLIGHT = 2-5 cells (100X) (0-1/hpf); Elliptocytes SLIGHT = 2-5 cells (100X) (0-1/hpf); Giant Platelets SLIGHT; Hypochromia SLIGHT = 6-15 cells (100X) (0-5/hpf); Large Platelets SLIGHT; Lymphocytes 6 % (21-51); MDiff Complete? YES; Microcytosis SLIGHT = 6-15 cells (100X) (0-5/hpf); Neutrophil 94 % (42-75); Platelet Morphology Comment Appears Adequate
--- NOTE | 2018-12-25 12:38 | PRG ---
DATE OF SERVICE: 12/25/2018 SUBJECTIVE: This morning, she is awake, alert, responsive, less cough, less shortness of breath. OBJECTIVE: VITAL SIGNS: Saturations are 90% on 2 L, respirations are 16, temperature 97, and blood pressure 102/65. CHEST: Bilateral rhonchi and crackles. CARDIAC: Normal S1 and S2. No gallops. ABDOMEN: No masses. LABORATORY DATA: Lytes are normal. Sodium 131, creatinine is 1.51, and glucose is elevated. ASSESSMENT: Chronic obstructive pulmonary disease exacerbation, bronchitis, renal failure, underlying extensive fibrocavitary disease, emphysema seen on the CT. PLAN: Continue steroids. Continue neb treatment. Previous TB treatment year ago. Job ID: [id number]
[2018-12-25] MEDS: cefTRIAXone\\ROCEPHIN 1 GM in Sodium Chloride 0.9% 100 ML IVPB SCH (15:06)
[2018-12-25] MEDS: Mag-Al 1200 mg/1200 mg/30 ML UDCUP PO PRN (16:58)
[2018-12-25] MEDS: Ondansetron PF 4 MG/2 ML Vial SLOW IVP PRN (16:58)
[2018-12-25] MEDS: Atorvastatin Calcium 20 MG TAB PO SCH (20:21)
[2018-12-25] MEDS: Montelukast Sodium 10 mg Tablet PO SCH (20:21)
[2018-12-26] MEDS: Sodium Chloride 0.45% 1,000 ML IV SCH ×2 (02:38→23:49)
[2018-12-26] MEDS: methylPREDNISolone Sod Succ 40 MG VIAL IVP SCH ×4 (05:26→23:48)
[2018-12-26] MEDS: Insulin Regular 300 UNITS/3 ML VIAL SC PRN ×3 (05:27→17:16)
[2018-12-26] MEDS: Pregabalin 50 MG CAP PO SCH ×2 (07:43→20:33)
[2018-12-26] MEDS: guaiFENesin ER 600 MG TAB PO SCH ×2 (07:44→20:33)
[2018-12-26] MEDS: metFORMIN 500 MG TAB PO SCH ×2 (07:44→17:16)
[2018-12-26] MEDS: Amlodipine 10 MG TAB PO SCH (07:45)
--- NOTE | 2018-12-26 11:51 | PRG ---
DATE OF SERVICE: 12/26/2018 SUBJECTIVE: This morning, she is better. No further complaints of nausea, vomiting, or heartburn. OBJECTIVE: VITAL SIGNS: Temperature 97, pulse 111, sats are 93% on 2 L, and blood pressure 102/70. CHEST: Decreased breath sounds. No wheezing. CARDIAC: Normal S1 and S2. No gallops. ABDOMEN: No masses. IMPRESSION: Major anxiety, chronic obstructive pulmonary disease exacerbation, bronchitis, diabetes. PLAN: Continue steroids. Hopefully, switch over to oral antibiotics and neb treatments tomorrow. Job ID: [id number]
[2018-12-26] MEDS: Ondansetron PF 4 MG/2 ML Vial SLOW IVP PRN (14:34)
[2018-12-26] MEDS: cefTRIAXone\\ROCEPHIN 1 GM in Sodium Chloride 0.9% 100 ML IVPB SCH (16:25)
[2018-12-26] MEDS: Atorvastatin Calcium 20 MG TAB PO SCH (20:33)
[2018-12-26] MEDS: Montelukast Sodium 10 mg Tablet PO SCH (20:33)
[2018-12-27] MEDS: Insulin Regular 300 UNITS/3 ML VIAL SC PRN ×3 (00:23→11:35)
[2018-12-27] MEDS: methylPREDNISolone Sod Succ 40 MG VIAL IVP SCH ×3 (05:36→17:40)
[2018-12-27] MEDS: guaiFENesin ER 600 MG TAB PO SCH ×2 (08:26→21:03)
[2018-12-27] MEDS: metFORMIN 500 MG TAB PO SCH ×2 (08:26→17:55)
[2018-12-27] MEDS: Pregabalin 50 MG CAP PO SCH (08:29)
[2018-12-27] MEDS: Amlodipine 10 MG TAB PO SCH (08:33)
[2018-12-27 11:27] LABS: Actual Bicarbonate (HCO3a) 25.7 mEq/L (22-28); Base Excess (BEa) -2.9 mEq/L (-2.0 to +3.0); Calcium, Ionized 1.17 mmol/L (1.12-1.30); Hemoglobin (Hb) 12.1 g/dL (12.0-16.0); O2 Tension (PaO2) 68.4 mmHg (> 70.0); Potassium - ABG Lab 6.46 mmol/L (3.70-5.30)
[2018-12-27 11:32] LABS: CO2 Tension 63.6 mmHg (35.0-45.0); Puncture Site RRA; pH, Arterial 7.22 (7.35-7.45)
[2018-12-27 12:04] LABS: Anion Gap 18 mmol/L (10-20); BUN (Urea Nitrogen) 85 mg/dL (9.8-20.1); Calc. Creatinine Clearance 35 mL/min (70-130); Calcium 8.5 mg/dL (7.8-10.44); Carbon Dioxide 19 mmol/L (23-31); Chloride 95 mmol/L (98-107); Estimated GFR-MDRD 27; Glucose 187 mg/dL (80-115); Potassium 6.5 mmol/L (3.5-5.1); Sodium 125 mmol/L (136-145)
[2018-12-27] MEDS: Levalbuterol HCl 1.25 MG/0.5 ML NEB NEB SCH ×3 (13:23→23:19)
[2018-12-27] MEDS: Ipratropium Bromide 2.5 ml Neb NEB SCH ×3 (13:23→23:19)
[2018-12-27 13:43] LABS: Actual Bicarbonate (HCO3a) 25.4 mEq/L (22-28); Base Excess (BEa) -2.9 mEq/L (-2.0 to +3.0); Calcium, Ionized 1.18 mmol/L (1.12-1.30); Carboxyhemoglobin (COHb) 1.9 gm% (0.0-3.0); Hemoglobin (Hb) 12.1 g/dL (12.0-16.0); O2 Tension (PaO2) 67.7 mmHg (> 70.0); Potassium - ABG Lab 6.44 mmol/L (3.70-5.30)
[2018-12-27 13:44] LABS: ALV-art Gradient 140.875 (0-20); CO2 Tension 61.3 mmHg (35.0-45.0); Puncture Site LRA; pH, Arterial 7.24 (7.35-7.45)
[2018-12-27] MEDS ORDERED: Sodium Chloride 0.45% 500 ML IV SCH (14:00)
[2018-12-27] MEDS ORDERED: Sodium Bicarb 50 MEQ/50 ML VIAL ONE (14:03)
--- NOTE | 2018-12-27 14:28 | PRG ---
DATE OF SERVICE: 12/27/2018 SUBJECTIVE: Ms. Diego apparently did well over the weekend according to the daughter, but this morning was somnolent. She is arousable, but she was also hypoventilating. OBJECTIVE: LUNGS: Clear. HEART: Regular rhythm. ABDOMEN: Soft. LABORATORY DATA: White count Thursday was 10.8, hemoglobin was 10.4. Sodium is 125 today, potassium is 6.5, chloride 95, bicarb 19, BUN 85, creatinine 1.86. Blood gas showed pH of 7.22, CO2 of 63, pO2 of 68. It turns out I had written for the Lyrica as it was prescribed on the bottle, but the daughter said she figured out a few weeks back using Lyrica twice a day made her somnolent during the day. I suspect we are dealing with the effect of Lyrica and the somnolence is a side effect for her with that drug. She has been transferred to critical care unit for BiPAP and then switched to AVAPS. We are noninvasively ventilating with a tidal volume of 500, rate of 20. Repeat blood gas before we started AVAPS showed persistence of respiratory acidosis. I do not think this is related to her lung disease. She has no signs of distress. She is just somnolent. I am hopeful that we can noninvasively ventilate her until the morning and we will see gradually improving mental status. She is also complaining of jitteriness with the nebulizer treatments every 4 hours, so I will switch her to Xopenex. We will continue with steroids. I suspect she is intravascularly dry, so we will more aggressively hydrate her given her rising potassium. We will give her an amp of bicarb as well. Job ID: [id number]
[2018-12-27] MEDS ORDERED: Sodium Bicarb 50 MEQ/50 ML VIAL IVP SCH ×2 (14:30→17:30)
[2018-12-27 14:33] LABS: Actual Bicarbonate (HCO3a) 24.9 mEq/L (22-28); Base Excess (BEa) -2.3 mEq/L (-2.0 to +3.0); CO2 Tension 53.5 mmHg (35.0-45.0); Calcium, Ionized 1.14 mmol/L (1.12-1.30); Carboxyhemoglobin (COHb) 2.1 gm% (0.0-3.0); O2 Tension (PaO2) 60.1 mmHg (> 70.0); Potassium - ABG Lab 6.16 mmol/L (3.70-5.30); pH, Arterial 7.29 (7.35-7.45)
[2018-12-27 14:34] LABS: ALV-art Gradient 86.925 (0-20); Puncture Site RR
[2018-12-27] MEDS: Sodium Chloride 0.45% 1,000 ML IV SCH ×3 (14:44→21:19)
[2018-12-27 17:03] LABS: Actual Bicarbonate (HCO3a) 25.1 mEq/L (22-28); Base Excess (BEa) -2.3 mEq/L (-2.0 to +3.0); CO2 Tension 55.1 mmHg (35.0-45.0); Calcium, Ionized 1.17 mmol/L (1.12-1.30); Carboxyhemoglobin (COHb) 1.8 gm% (0.0-3.0); O2 Tension (PaO2) 65.6 mmHg (> 70.0); Potassium - ABG Lab 6.13 mmol/L (3.70-5.30); pH, Arterial 7.28 (7.35-7.45)
[2018-12-27 17:05] LABS: ALV-art Gradient 79.425 (0-20); Puncture Site RRA
[2018-12-27] MEDS: Atorvastatin Calcium 20 MG TAB PO SCH (21:03)
[2018-12-27] MEDS: Enoxaparin Sodium 40 MG/0.4 ML SYRINGE SC SCH (21:04)
[2018-12-27] MEDS: Montelukast Sodium 10 mg Tablet PO SCH (21:04)
[2018-12-27] MEDS: Doxycycline 100 MG CAP PO SCH (21:04)
[2018-12-28] MEDS: methylPREDNISolone Sod Succ 40 MG VIAL IVP SCH ×5 (00:19→23:15)
[2018-12-28] MEDS: Insulin Regular 300 UNITS/3 ML VIAL SC PRN ×5 (00:21→21:37)
[2018-12-28] MEDS: Sodium Chloride 0.45% 1,000 ML IV SCH ×2 (05:14→09:22)
[2018-12-28] MEDS: Levalbuterol HCl 1.25 MG/0.5 ML NEB NEB SCH ×4 (06:28→23:26)
[2018-12-28] MEDS: Ipratropium Bromide 2.5 ml Neb NEB SCH ×4 (06:29→23:26)
[2018-12-28] MEDS: guaiFENesin ER 600 MG TAB PO SCH ×2 (09:09→20:18)
[2018-12-28] MEDS: metFORMIN 500 MG TAB PO SCH ×2 (09:09→16:52)
[2018-12-28] MEDS: Amlodipine 10 MG TAB PO SCH (09:10)
[2018-12-28] MEDS: Doxycycline 100 MG CAP PO SCH ×2 (09:21→20:18)
[2018-12-28 10:00] LABS: Hemoglobin 11.6 g/dL (12.0-16.0); Mean Corpuscular HGB CONC 29.2 g/dL (32.0-36.0); Mean Corpuscular Hemoglobin 21.5 pg (27.0-31.0); Mean Corpuscular Volume 73.5 fL (78.0-98.0); Mean Platelet Volume 11.4 fL (7.4-10.4); Platelet Count 121 thou/uL (130-400); RBC Distribution Width 15.9 % (11.5-14.5)
[2018-12-28] MEDS: Sodium Chloride 0.9% 1,000 ML IV SCH ×2 (10:12→17:52)
[2018-12-28 10:21] LABS: Anion Gap 15 mmol/L (10-20); BUN (Urea Nitrogen) 90 mg/dL (9.8-20.1); Calc. Creatinine Clearance 40 mL/min (70-130); Calcium 8.6 mg/dL (7.8-10.44); Carbon Dioxide 24 mmol/L (23-31); Chloride 95 mmol/L (98-107); Estimated GFR-MDRD 31; Glucose 207 mg/dL (80-115); Potassium 6.3 mmol/L (3.5-5.1); Sodium 128 mmol/L (136-145)
[2018-12-28 10:27] LABS: Band 6 % (5-11); Elliptocytes SLIGHT = 2-5 cells (100X) (0-1/hpf); Hypochromia SLIGHT = 6-15 cells (100X) (0-5/hpf); Lymphocytes 7 % (21-51); MDiff Complete? YES; Microcytosis SLIGHT = 6-15 cells (100X) (0-5/hpf); Monocytes 3 % (0-10); Neutrophil 84 % (42-75); Ovalocytes MODERATE= 6-15 cells (100X) (0-1/hpf); Platelet Morphology Comment Appears Decreased
--- NOTE | 2018-12-28 13:40 | PRG ---
DATE OF SERVICE: Christine Diego is alert and oriented today. She is wide awake off BiPAP. She states she is feeling much better. She does not remember anything from the last few days. OBJECTIVE: VITAL SIGNS: She is afebrile. Oximetry is 94% on 3 L, respiratory rate is 20, blood pressure 107/69. LUNGS: Clear. HEART: Regular rhythm. ABDOMEN: Soft. EXTREMITIES: Without clubbing, cyanosis, or edema. LABORATORY DATA: White count 10, hemoglobin 11.6, platelets 121,000. Sodium 128, potassium 6.3, chloride 95, bicarb 90, creatinine 1.65. Her baseline creatinine from a year ago was 0.65. IMPRESSION: 1. Encephalopathy, brought on by [place], resolving. 2. Acute respiratory failure secondary to the Lyrica, status post noninvasive ventilation. 3. Chronic obstructive pulmonary disease exacerbation. 4. Bronchiectasis and interstitial lung disease secondary to treated tuberculosis. 5. Diabetes. 6. Lheft-lm-xwtqfst kidney disease. I suspect she has diabetic renal disease and given that she was short of breath for a month I suspect she was intravascularly dry when she was admitted. I doubt her rise in BUN is related to a gastrointestinal bleed. Full lab was ordered this morning. Hemoglobin is stable at 11.6. Intake and output was +1335. Continue with IV hydration. If she is stable throughout the day, she could probably move out of the Critical Care Unit back to her medical bed either this afternoon or first thing in the morning. Kayexalate was ordered for the elevated potassium again. Job ID: [id number] [facility]
[2018-12-28] MEDS: Montelukast Sodium 10 mg Tablet PO SCH (20:18)
[2018-12-28] MEDS: Atorvastatin Calcium 20 MG TAB PO SCH (20:18)
[2018-12-28] MEDS: Enoxaparin Sodium 40 MG/0.4 ML SYRINGE SC SCH (20:18)
[2018-12-29] MEDS: Sodium Chloride 0.9% 1,000 ML IV SCH ×3 (02:21→16:46)
[2018-12-29] MEDS: methylPREDNISolone Sod Succ 40 MG VIAL IVP SCH ×2 (05:14→11:36)
[2018-12-29] MEDS: Insulin Regular 300 UNITS/3 ML VIAL SC PRN ×3 (05:14→16:46)
[2018-12-29] MEDS: Levalbuterol HCl 1.25 MG/0.5 ML NEB NEB SCH ×3 (07:22→18:45)
[2018-12-29] MEDS: Ipratropium Bromide 2.5 ml Neb NEB SCH ×3 (07:24→18:43)
[2018-12-29] MEDS: Doxycycline 100 MG CAP PO SCH ×2 (08:46→20:07)
[2018-12-29] MEDS: guaiFENesin ER 600 MG TAB PO SCH ×2 (08:46→20:07)
[2018-12-29] MEDS: metFORMIN 500 MG TAB PO SCH ×2 (08:46→16:46)
[2018-12-29] MEDS: Amlodipine 10 MG TAB PO SCH (09:01)
[2018-12-29 10:41] LABS: Anion Gap 11 mmol/L (10-20); BUN (Urea Nitrogen) 79 mg/dL (9.8-20.1); Calc. Creatinine Clearance 57 mL/min (70-130); Calcium 8.4 mg/dL (7.8-10.44); Carbon Dioxide 27 mmol/L (23-31); Chloride 97 mmol/L (98-107); Estimated GFR-MDRD 39; Glucose 229 mg/dL (80-115); Sodium 130 mmol/L (136-145)
--- NOTE | 2018-12-29 16:17 | PRG ---
DATE OF SERVICE: 12/29/2018 SUBJECTIVE: Christine Diego did well overnight. She has not been out of bed yet. She has not ambulated. She is quite weak. OBJECTIVE: VITAL SIGNS: Heart rate is 106, respiratory rate is 22, oximetry is 99% on 3 L, blood pressure is 110/72. LUNGS: Free of wheezes. HEART: Regular rhythm. ABDOMEN: Soft. IMPRESSION: 1. Chronic obstructive pulmonary disease exacerbation, leading up to this admission. She is slowly recovering and is quite weak since her symptoms have been going on for over a month at the time she came to the office. 2. Anemia of chronic disease. She has had a colonoscopy in the recent past. Maybe a component of chronic gastrointestinal blood loss as well. 3. Lyrica-induced respiratory depression, resolved. She actually should be on the lowest dose of Lyrica that controls her symptoms which might be 25 mg to 50 mg at bedtime. 4. Acute on chronic kidney disease. Her creatinine is down to 1.33 today. A year ago, her creatinine was less than one. Continue with IV fluids, but decrease her rate. 5. Hyperkalemia. Potassium is 5 today. 6. Hyponatremia, improving. She is stable to move out of Critical Care and can move back up to a medical bed when they become available. Job ID: [id number]
[2018-12-29] MEDS: Enoxaparin Sodium 40 MG/0.4 ML SYRINGE SC SCH (20:07)
[2018-12-29] MEDS: Montelukast Sodium 10 mg Tablet PO SCH (20:07)
[2018-12-29] MEDS: Atorvastatin Calcium 20 MG TAB PO SCH (20:07)
[2018-12-29] MEDS: Mag-Al 1200 mg/1200 mg/30 ML UDCUP PO PRN (20:12)
[2018-12-30] MEDS: Ipratropium Bromide 2.5 ml Neb NEB SCH ×4 (01:14→19:35)
[2018-12-30] MEDS: Levalbuterol HCl 1.25 MG/0.5 ML NEB NEB SCH ×4 (01:18→19:35)
[2018-12-30] MEDS: Sodium Chloride 0.9% 1,000 ML IV SCH (06:14)
[2018-12-30 06:26] LABS: Anion Gap 13 mmol/L (10-20); BUN (Urea Nitrogen) 70 mg/dL (9.8-20.1); Calc. Creatinine Clearance 73 mL/min (70-130); Calcium 8.7 mg/dL (7.8-10.44); Carbon Dioxide 24 mmol/L (23-31); Chloride 99 mmol/L (98-107); Estimated GFR-MDRD 52; Glucose 185 mg/dL (80-115); Potassium 4.7 mmol/L (3.5-5.1); Sodium 131 mmol/L (136-145)
[2018-12-30] MEDS: metFORMIN 500 MG TAB PO SCH ×2 (08:18→16:22)
[2018-12-30] MEDS: Amlodipine 10 MG TAB PO SCH (08:18)
[2018-12-30] MEDS: predniSONE 20 MG TAB PO SCH (08:18)
[2018-12-30] MEDS: Doxycycline 100 MG CAP PO SCH ×2 (08:18→20:24)
[2018-12-30] MEDS: guaiFENesin ER 600 MG TAB PO SCH ×2 (08:18→20:24)
--- NOTE | 2018-12-30 11:18 | PRG ---
DATE OF SERVICE: 12/30/2018 SUBJECTIVE: Christine Diego is doing well. She is very weak. OBJECTIVE: GENERAL: She is in no distress. VITAL SIGNS: She is afebrile. Heart rate 106, blood pressure 136/88, respiratory rate 20. LUNGS: Distant, clear. HEART: Regular rhythm. ABDOMEN: Soft. IMPRESSION: 1. Chronic obstructive pulmonary disease exacerbation. 2. Hypersomnolence secondary to Lyrica. She remains off Lyrica. She is not complaining of foot pain. 3. History of diastolic dysfunction on recent echo with some lower extremity edema. 4. Acute on chronic kidney disease with improved renal function. Her creatinine today is 1.04, BUN 70, potassium is down to 4.7. She will probably need placement to skilled unit. We will get Physical Therapy working with her. Job ID: [id number]
[2018-12-30] MEDS: Mag-Al 1200 mg/1200 mg/30 ML UDCUP PO PRN (12:11)
[2018-12-30] MEDS: Insulin Regular 300 UNITS/3 ML VIAL SC PRN ×2 (12:11→16:25)
[2018-12-30] MEDS: Montelukast Sodium 10 mg Tablet PO SCH (20:24)
[2018-12-30] MEDS: Atorvastatin Calcium 20 MG TAB PO SCH (20:24)
[2018-12-30] MEDS: Enoxaparin Sodium 40 MG/0.4 ML SYRINGE SC SCH (20:27)
[2018-12-31] MEDS: Ipratropium Bromide 2.5 ml Neb NEB SCH ×4 (00:18→18:23)
[2018-12-31] MEDS: Levalbuterol HCl 1.25 MG/0.5 ML NEB NEB SCH ×4 (00:19→18:24)
[2018-12-31 07:27] LABS: Anion Gap 12 mmol/L (10-20); BUN (Urea Nitrogen) 63 mg/dL (9.8-20.1); Calc. Creatinine Clearance 79 mL/min (70-130); Calcium 8.7 mg/dL (7.8-10.44); Carbon Dioxide 23 mmol/L (23-31); Chloride 100 mmol/L (98-107); Estimated GFR-MDRD 57; Glucose 178 mg/dL (80-115); Potassium 5.3 mmol/L (3.5-5.1); Sodium 130 mmol/L (136-145)
[2018-12-31] MEDS: metFORMIN 500 MG TAB PO SCH ×2 (08:59→17:20)
[2018-12-31] MEDS: guaiFENesin ER 600 MG TAB PO SCH ×2 (08:59→21:27)
[2018-12-31] MEDS: Amlodipine 10 MG TAB PO SCH (08:59)
[2018-12-31] MEDS: Doxycycline 100 MG CAP PO SCH ×2 (09:00→21:27)
[2018-12-31] MEDS: predniSONE 20 MG TAB PO SCH (09:06)
[2018-12-31] MEDS: Insulin Regular 300 UNITS/3 ML VIAL SC PRN ×2 (12:30→17:20)
--- NOTE | 2018-12-31 15:07 | PRG ---
DATE OF SERVICE: 12/31/2018 SUBJECTIVE: Ms. Christine Diego is feeling better. She is still very weak. Her daughter thinks she can rehab her at home. Her daughter has actually worked at nursing homes and does not want her going to a group home. She will consent to rehab placement if she qualifies. OBJECTIVE: VITAL SIGNS: Heart rate is 102, respiratory rate is 18, oximetry is 95% on 2 L. HEAD AND NECK: Unremarkable. LUNGS: Distant, clear. HEART: Regular rhythm. ABDOMEN: Soft and nontender. LABORATORY DATA: Sodium 130, potassium 5.3, chloride 100, bicarb 23, BUN 63, creatinine 0.96. Her creatinine has come down from a high of 1.86 to 0.96, getting closer to her baseline creatinine. She will continue on her Cymbalta, atorvastatin, amlodipine, sliding scale insulin, and nebulizer treatments. She will continue on metformin twice a day and Singulair. Her prednisone will be decreased to 20 mg a day when she is discharged to rehab or home. I still do not see whether pulmonary function tests were done, so I put an order in again. Job ID: [id number]
[2018-12-31] MEDS ORDERED: traMADol HCl 50 MG TAB PO PRN (18:15)
[2018-12-31] MEDS: Atorvastatin Calcium 20 MG TAB PO SCH (21:26)
[2018-12-31] MEDS: Enoxaparin Sodium 40 MG/0.4 ML SYRINGE SC SCH (21:27)
[2018-12-31] MEDS: Montelukast Sodium 10 mg Tablet PO SCH (21:27)
[2018-12-31] MEDS: Acetaminophen 325 MG TAB PO PRN (21:28)
[2019-01-01] MEDS: Ipratropium Bromide 2.5 ml Neb NEB SCH ×4 (00:17→19:09)
[2019-01-01] MEDS: Levalbuterol HCl 1.25 MG/0.5 ML NEB NEB SCH ×4 (00:18→19:09)
[2019-01-01] MEDS: predniSONE 20 MG TAB PO SCH (07:43)
[2019-01-01] MEDS: Amlodipine 10 MG TAB PO SCH (07:43)
[2019-01-01] MEDS: Doxycycline 100 MG CAP PO SCH ×2 (07:43→20:59)
[2019-01-01] MEDS: guaiFENesin ER 600 MG TAB PO SCH ×2 (07:43→20:59)
[2019-01-01] MEDS: metFORMIN 500 MG TAB PO SCH ×2 (07:44→16:30)
[2019-01-01 08:12] LABS: Anion Gap 12 mmol/L (10-20); BUN (Urea Nitrogen) 58 mg/dL (9.8-20.1); Calc. Creatinine Clearance 85 mL/min (70-130); Calcium 8.9 mg/dL (7.8-10.44); Carbon Dioxide 25 mmol/L (23-31); Chloride 100 mmol/L (98-107); Estimated GFR-MDRD 63; Glucose 191 mg/dL (80-115); Potassium 5.3 mmol/L (3.5-5.1); Sodium 132 mmol/L (136-145)
[2019-01-01] MEDS: Insulin Regular 300 UNITS/3 ML VIAL SC PRN ×3 (11:56→21:00)
--- NOTE | 2019-01-01 15:55 | PRG ---
DATE OF SERVICE: 01/01/2019 OBJECTIVE: VITAL SIGNS: Afebrile. Heart rate is 110, respiratory rate is 20, oximetry is 99% on 2 L, blood pressure 133/77. LUNGS: Clear. HEART: Regular rhythm. ABDOMEN: Soft. MUSCULOSKELETAL: She stood today. IMPRESSION: 1. Chronic obstructive pulmonary disease exacerbation. 2. Hypoventilation with hypercarbia secondary to Lyrica, resolved. 3. Deconditioning. 4. Past history of treated tuberculosis. PLAN: Placement for rehab for deconditioning. She can get into rehab. Daughter wants to take her home. Job ID: [id number]
[2019-01-01] MEDS: Enoxaparin Sodium 40 MG/0.4 ML SYRINGE SC SCH (20:59)
[2019-01-01] MEDS: Montelukast Sodium 10 mg Tablet PO SCH (20:59)
[2019-01-01] MEDS: Atorvastatin Calcium 20 MG TAB PO SCH (20:59)
[2019-01-01] MEDS: Acetaminophen 325 MG TAB PO PRN (21:01)
[2019-01-02] MEDS: Ipratropium Bromide 2.5 ml Neb NEB SCH ×4 (00:31→18:52)
[2019-01-02] MEDS: Levalbuterol HCl 1.25 MG/0.5 ML NEB NEB SCH ×4 (00:33→18:53)
[2019-01-02 06:18] LABS: Anion Gap 9 mmol/L (10-20); BUN (Urea Nitrogen) 57 mg/dL (9.8-20.1); Calc. Creatinine Clearance 86 mL/min (70-130); Calcium 8.9 mg/dL (7.8-10.44); Carbon Dioxide 27 mmol/L (23-31); Chloride 101 mmol/L (98-107); Estimated GFR-MDRD 64; Glucose 186 mg/dL (80-115); Potassium 5.3 mmol/L (3.5-5.1); Sodium 132 mmol/L (136-145)
[2019-01-02] MEDS: Doxycycline 100 MG CAP PO SCH ×2 (07:48→20:41)
[2019-01-02] MEDS: metFORMIN 500 MG TAB PO SCH ×2 (07:48→17:06)
[2019-01-02] MEDS: guaiFENesin ER 600 MG TAB PO SCH ×2 (07:48→20:41)
[2019-01-02] MEDS: predniSONE 20 MG TAB PO SCH (07:48)
[2019-01-02] MEDS: Amlodipine 10 MG TAB PO SCH (07:49)
[2019-01-02] MEDS: Insulin Regular 300 UNITS/3 ML VIAL SC PRN ×2 (12:44→17:06)
--- NOTE | 2019-01-02 15:23 | PRG ---
DATE OF SERVICE: 01/02/2019 SUBJECTIVE: Christine Diego has not been out of bed this weekend. Her daughters said she wants to take her home and do physical therapy with a friend of her. OBJECTIVE: VITAL SIGNS: She is afebrile. Heart rate is 104 to 113, respiratory rate is 20, oximetry is 99% on 2 L, and blood pressure 115/75. LUNGS: Clear. HEART: Regular rhythm. ABDOMEN: Soft. IMPRESSION: 1. Chronic obstructive pulmonary disease exacerbation. 2. Transient respiratory failure secondary to Lyrica. 3. Postinflammatory pulmonary fibrosis, status post treated tuberculosis. 4. Deconditioning. PLAN: To discharge her in the morning. Job ID: [id number]
[2019-01-02] MEDS: Montelukast Sodium 10 mg Tablet PO SCH (20:41)
[2019-01-02] MEDS: Atorvastatin Calcium 20 MG TAB PO SCH (20:41)
[2019-01-02] MEDS: Enoxaparin Sodium 40 MG/0.4 ML SYRINGE SC SCH (20:41)
[2019-01-03] MEDS: Ipratropium Bromide 2.5 ml Neb NEB SCH ×4 (00:03→18:53)
[2019-01-03] MEDS: Levalbuterol HCl 1.25 MG/0.5 ML NEB NEB SCH ×4 (00:04→18:54)
[2019-01-03] MEDS: predniSONE 20 MG TAB PO SCH (08:09)
[2019-01-03] MEDS: Amlodipine 10 MG TAB PO SCH (08:09)
[2019-01-03] MEDS: Doxycycline 100 MG CAP PO SCH ×2 (08:09→21:27)
[2019-01-03] MEDS: guaiFENesin ER 600 MG TAB PO SCH ×2 (08:09→21:26)
[2019-01-03] MEDS: metFORMIN 500 MG TAB PO SCH ×2 (08:09→17:01)
[2019-01-03 08:36] LABS: Anion Gap 10 mmol/L (10-20); BUN (Urea Nitrogen) 49 mg/dL (9.8-20.1); Calc. Creatinine Clearance 97 mL/min (70-130); Calcium 8.9 mg/dL (7.8-10.44); Carbon Dioxide 27 mmol/L (23-31); Chloride 103 mmol/L (98-107); Estimated GFR-MDRD 73; Glucose 141 mg/dL (80-115); Potassium 5.1 mmol/L (3.5-5.1); Sodium 135 mmol/L (136-145)
[2019-01-03] MEDS ORDERED: predniSONE 20 MG TAB PO SCH (10:00)
--- NOTE | 2019-01-03 10:01 | PRG ---
DATE OF SERVICE: 01/03/2019 SUBJECTIVE: Ms. Diego now tells me her daughter does not want to take her home and wants her to go to rehab. She has no new complaints today. OBJECTIVE: VITAL SIGNS: She is afebrile. Heart rate is 84, blood pressure is 99/66, respiratory rate is 20. LUNGS: Clear. HEART: Regular rhythm. ABDOMEN: Soft. She is in negative fluid balance. LABORATORY DATA: BUN is 49, creatinine is 0.78 and she is near baseline. IMPRESSION: 1. Chronic obstructive pulmonary disease exacerbation. 2. Postinflammatory pulmonary fibrosis. 3. History of treated tuberculosis. 4. Extreme deconditioning. PLAN: Continue supportive care. She is stable to transfer to rehab when a bed becomes available. I will decrease her steroid dose today. She should have a slow taper off steroids. Job ID: [id number]
[2019-01-03 14:17] VITALS: BMI 30.7
[2019-01-03] MEDS: Insulin Regular 300 UNITS/3 ML VIAL SC PRN (17:01)
[2019-01-03] MEDS: Atorvastatin Calcium 20 MG TAB PO SCH (21:27)
[2019-01-03] MEDS: Enoxaparin Sodium 40 MG/0.4 ML SYRINGE SC SCH (21:27)
[2019-01-03] MEDS: Montelukast Sodium 10 mg Tablet PO SCH (21:27)
[2019-01-04] MEDS: Ipratropium Bromide 2.5 ml Neb NEB SCH ×4 (00:22→19:28)
[2019-01-04] MEDS: Levalbuterol HCl 1.25 MG/0.5 ML NEB NEB SCH ×4 (00:23→19:30)
[2019-01-04] MEDS: guaiFENesin ER 600 MG TAB PO SCH ×2 (08:09→21:11)
[2019-01-04] MEDS: predniSONE 20 MG TAB PO SCH (08:10)
[2019-01-04] MEDS: Doxycycline 100 MG CAP PO SCH ×2 (08:11→21:12)
[2019-01-04] MEDS: metFORMIN 500 MG TAB PO SCH ×2 (08:11→16:53)
[2019-01-04] MEDS: Amlodipine 10 MG TAB PO SCH (08:17)
[2019-01-04 08:21] LABS: Anion Gap 10 mmol/L (10-20); BUN (Urea Nitrogen) 43 mg/dL (9.8-20.1); Calc. Creatinine Clearance 98 mL/min (70-130); Carbon Dioxide 28 mmol/L (23-31); Chloride 101 mmol/L (98-107); Estimated GFR-MDRD 74; Glucose 151 mg/dL (80-115); Sodium 134 mmol/L (136-145)
[2019-01-04] MEDS: Insulin Regular 300 UNITS/3 ML VIAL SC PRN ×2 (12:21→17:06)
[2019-01-04] MEDS ORDERED: Docusate 100 MG CAP PO SCH (12:45)
[2019-01-04] MEDS ORDERED: Polyethylene Glycol 3350 17 GM Packet PO SCH (12:45)
--- NOTE | 2019-01-04 14:46 | PRG ---
DATE OF SERVICE: 01/04/2019 SUBJECTIVE: Christine Diego has no new complaints. She did cooperate with physical therapy. She is in bed, says she did not want to sit in the chair because she is weak. I have explained to her the importance of spending more and more time each day up in a chair and trying to ambulate more and more each day with physical therapy. Still awaiting rehab evaluation. OBJECTIVE: VITAL SIGNS: She is afebrile. Heart rate 93; respiratory rate 16; oximetry is 92% on room air, which is close to her baseline; blood pressure 120/56. LUNGS: Clear. HEART: Regular rhythm. ABDOMEN: Soft. EXTREMITIES: Without edema. LABORATORY DATA: Sodium 135, potassium 4.3, chloride 95, bicarb 33, BUN 17, creatinine 1, glucose 182. IMPRESSION: 1. Chronic obstructive pulmonary disease exacerbation. 2. Postinflammatory pulmonary fibrosis. 3. Status post completion of treatment course for Mycobacterium tuberculosis, documented to be culture negative. 4. Anemia of chronic disease. 5. Deconditioning. PLAN: Rehab evaluation and placement when bed becomes available. She is stable to be discharged whenever a bed is available. Job ID: [id number]
[2019-01-04] MEDS: Atorvastatin Calcium 20 MG TAB PO SCH (21:11)
[2019-01-04] MEDS: Docusate 100 MG CAP PO SCH (21:11)
[2019-01-04] MEDS: Montelukast Sodium 10 mg Tablet PO SCH (21:11)
[2019-01-04] MEDS: Enoxaparin Sodium 40 MG/0.4 ML SYRINGE SC SCH (21:12)
[2019-01-05] MEDS: Levalbuterol HCl 1.25 MG/0.5 ML NEB NEB SCH ×4 (00:14→18:51)
[2019-01-05] MEDS: Ipratropium Bromide 2.5 ml Neb NEB SCH ×4 (00:14→18:50)
[2019-01-05] MEDS: guaiFENesin ER 600 MG TAB PO SCH ×2 (08:02→22:07)
[2019-01-05] MEDS: Amlodipine 10 MG TAB PO SCH (08:07)
[2019-01-05] MEDS: predniSONE 20 MG TAB PO SCH (08:07)
[2019-01-05] MEDS: metFORMIN 500 MG TAB PO SCH ×2 (08:09→16:43)
[2019-01-05] MEDS: Doxycycline 100 MG CAP PO SCH ×2 (08:11→22:07)
[2019-01-05] MEDS: Docusate 100 MG CAP PO SCH ×2 (08:11→22:06)
[2019-01-05] MEDS: Polyethylene Glycol 3350 17 GM Packet PO SCH (08:12)
[2019-01-05 08:57] LABS: Anion Gap 10 mmol/L (10-20); BUN (Urea Nitrogen) 33 mg/dL (9.8-20.1); Calc. Creatinine Clearance 105 mL/min (70-130); Calcium 8.9 mg/dL (7.8-10.44); Carbon Dioxide 29 mmol/L (23-31); Chloride 101 mmol/L (98-107); Estimated GFR-MDRD 80; Glucose 138 mg/dL (80-115); Potassium 4.9 mmol/L (3.5-5.1); Sodium 135 mmol/L (136-145)
[2019-01-05] MEDS: Insulin Regular 300 UNITS/3 ML VIAL SC PRN (16:45)
--- NOTE | 2019-01-05 17:53 | PRG ---
DATE OF SERVICE: 01/05/2019 SUBJECTIVE: Christine Diego has not been out of bed today. I rounded on her about 3 o'clock, and she had had no physical therapy and had been up in a chair. OBJECTIVE: VITAL SIGNS: She is afebrile. Heart rate blood pressure 116/76, respiratory rate is 18, oximetry is 96% on 2 L. LUNGS: Distant, clear. HEART: Regular rhythm. ABDOMEN: Soft. IMPRESSION AND PLAN: 1. Chronic obstructive pulmonary disease exacerbation. 2. Postinflammatory pulmonary fibrosis. 3. Treated tuberculosis with no recurrence. 4. Deconditioning. Waiting for insurance approval for rehab. We will place an order to have her up in a chair for all meals. Job ID: [id number]
[2019-01-05] MEDS: Montelukast Sodium 10 mg Tablet PO SCH (22:06)
[2019-01-05] MEDS: Atorvastatin Calcium 20 MG TAB PO SCH (22:06)
[2019-01-05] MEDS: Enoxaparin Sodium 40 MG/0.4 ML SYRINGE SC SCH (22:07)
[2019-01-06] MEDS: Ipratropium Bromide 2.5 ml Neb NEB SCH ×4 (00:39→18:58)
[2019-01-06] MEDS: Levalbuterol HCl 1.25 MG/0.5 ML NEB NEB SCH ×4 (00:39→19:00)
[2019-01-06 07:16] LABS: Anion Gap 12 mmol/L (10-20); BUN (Urea Nitrogen) 29 mg/dL (9.8-20.1); Calc. Creatinine Clearance 110 mL/min (70-130); Calcium 8.9 mg/dL (7.8-10.44); Carbon Dioxide 26 mmol/L (23-31); Chloride 102 mmol/L (98-107); Estimated GFR-MDRD 84; Glucose 171 mg/dL (80-115); Potassium 5.2 mmol/L (3.5-5.1); Sodium 135 mmol/L (136-145)
[2019-01-06] MEDS: Polyethylene Glycol 3350 17 GM Packet PO SCH (08:23)
[2019-01-06] MEDS: Doxycycline 100 MG CAP PO SCH ×2 (08:24→20:49)
[2019-01-06] MEDS: predniSONE 20 MG TAB PO SCH (08:24)
[2019-01-06] MEDS: Docusate 100 MG CAP PO SCH ×2 (08:24→20:49)
[2019-01-06] MEDS: metFORMIN 500 MG TAB PO SCH ×2 (08:26→18:43)
[2019-01-06] MEDS: guaiFENesin ER 600 MG TAB PO SCH ×2 (08:26→20:50)
[2019-01-06] MEDS: Amlodipine 10 MG TAB PO SCH (10:02)
[2019-01-06] MEDS: Insulin Regular 300 UNITS/3 ML VIAL SC PRN ×2 (12:51→18:43)
--- NOTE | 2019-01-06 13:19 | PRG ---
DATE OF SERVICE: 01/06/2019 OBJECTIVE: VITAL SIGNS: Ms. Diego is afebrile, heart rate is 102, blood pressure 102/69, respiratory rate is 18, and oximetry is 96 on 2 L. LUNGS: Clear. HEART: Regular rhythm. ABDOMEN: Soft. LABORATORY DATA: Sodium 135, potassium 5.2, chloride 102, bicarb 26, BUN 29, creatinine 0.69. IMPRESSION: 1. Chronic obstructive pulmonary disease exacerbation. 2. Postinflammatory pulmonary fibrosis. 3. History of hypersomnolence with Lyrica in this admission leading to noninvasive ventilatory support. I would recommend against using Lyrica in the future. 4. History of treated tuberculosis with no active disease at this time. 5. Intravascular volume depletion on presentation. 6. Her prednisone can be tapered to 20 mg a day probably this weekend. 7. History of hypertension. 8. Still do not have bedside spirometry results. Job ID: [id number]
[2019-01-06] MEDS: Atorvastatin Calcium 20 MG TAB PO SCH (20:49)
[2019-01-06] MEDS: Montelukast Sodium 10 mg Tablet PO SCH (20:49)
[2019-01-06] MEDS: Enoxaparin Sodium 40 MG/0.4 ML SYRINGE SC SCH (20:50)
[2019-01-07] MEDS: Ipratropium Bromide 2.5 ml Neb NEB SCH ×4 (00:57→18:45)
[2019-01-07] MEDS: Levalbuterol HCl 1.25 MG/0.5 ML NEB NEB SCH ×4 (00:59→18:47)
[2019-01-07] MEDS: Insulin Regular 300 UNITS/3 ML VIAL SC PRN (06:41)
[2019-01-07] MEDS: predniSONE 20 MG TAB PO SCH (07:55)
[2019-01-07] MEDS: Polyethylene Glycol 3350 17 GM Packet PO SCH (07:55)
[2019-01-07] MEDS: guaiFENesin ER 600 MG TAB PO SCH ×2 (07:55→20:15)
[2019-01-07] MEDS: Docusate 100 MG CAP PO SCH ×2 (07:57→20:15)
[2019-01-07] MEDS: metFORMIN 500 MG TAB PO SCH ×2 (07:57→17:20)
[2019-01-07] MEDS: Amlodipine 10 MG TAB PO SCH (07:58)
[2019-01-07 08:05] LABS: Anion Gap 11 mmol/L (10-20); BUN (Urea Nitrogen) 21 mg/dL (9.8-20.1); Calc. Creatinine Clearance 113 mL/min (70-130); Calcium 8.9 mg/dL (7.8-10.44); Carbon Dioxide 30 mmol/L (23-31); Chloride 100 mmol/L (98-107); Estimated GFR-MDRD 87; Glucose 139 mg/dL (80-115); Potassium 4.6 mmol/L (3.5-5.1); Sodium 136 mmol/L (136-145)
--- NOTE | 2019-01-07 09:56 | PRG ---
DATE OF SERVICE: 01/07/2019 SUBJECTIVE: Ms. Diego has no new complaints. She is not very motivated to get up on her own or even ask for help, so she was still in bed, eating breakfast when I arrived. I asked her to get up in a chair to finish her breakfast. OBJECTIVE: VITAL SIGNS: She is afebrile. Heart rate 100, respiratory rate 18, oximetry is 97% on 2 L. LUNGS: Clear and distant. HEART: Regular rhythm. ABDOMEN: Soft, nontender. EXTREMITIES: Without edema. IMPRESSION: 1. Chronic obstructive pulmonary disease exacerbation, resolved. 2. Weakness and deconditioning, awaiting an answer on rehab. She cannot get into rehab, the daughter wants to take her home. 3. Diabetes, aggravated by her steroids. I will decrease her steroid dosing starting tomorrow. She is stable to be discharged once the bed is approved. Job ID: [id number]
[2019-01-07] MEDS: Enoxaparin Sodium 40 MG/0.4 ML SYRINGE SC SCH (20:14)
[2019-01-07] MEDS: Montelukast Sodium 10 mg Tablet PO SCH (20:15)
[2019-01-07] MEDS: Atorvastatin Calcium 20 MG TAB PO SCH (20:15)
[2019-01-08] MEDS: Ipratropium Bromide 2.5 ml Neb NEB SCH ×5 (00:52→23:50)
[2019-01-08] MEDS: Levalbuterol HCl 1.25 MG/0.5 ML NEB NEB SCH ×5 (00:55→23:50)
[2019-01-08 06:05] LABS: Anion Gap 11 mmol/L (10-20); BUN (Urea Nitrogen) 18 mg/dL (9.8-20.1); Calc. Creatinine Clearance 113 mL/min (70-130); Calcium 8.9 mg/dL (7.8-10.44); Carbon Dioxide 30 mmol/L (23-31); Chloride 100 mmol/L (98-107); Estimated GFR-MDRD 87; Glucose 166 mg/dL (80-115); Potassium 5.1 mmol/L (3.5-5.1); Sodium 136 mmol/L (136-145)
[2019-01-08] MEDS: guaiFENesin ER 600 MG TAB PO SCH ×2 (08:01→20:12)
[2019-01-08] MEDS: predniSONE 20 MG TAB PO SCH (08:02)
[2019-01-08] MEDS: metFORMIN 500 MG TAB PO SCH ×2 (08:02→16:36)
[2019-01-08] MEDS: Docusate 100 MG CAP PO SCH ×2 (08:02→20:13)
[2019-01-08] MEDS: Polyethylene Glycol 3350 17 GM Packet PO SCH (08:02)
[2019-01-08] MEDS: Amlodipine 10 MG TAB PO SCH (08:02)
[2019-01-08] MEDS: Acetaminophen 325 MG TAB PO PRN ×2 (09:44→20:17)
--- NOTE | 2019-01-08 12:06 | PRG ---
DATE OF SERVICE: 01/08/2019 SUBJECTIVE: The patient continues to be weak. She cannot transfer by herself. She was apparently denied rehab yesterday. OBJECTIVE: VITAL SIGNS: Temperature 98.9, pulse 112, blood pressure 134/82, and O2 saturation 92%. HEENT: Unremarkable. NECK: No JVD. LUNGS: Few inspiratory crackles at bases. CARDIAC: S1 and S2, regular. ABDOMEN: Soft. EXTREMITIES: 2+ edema from the knees downward. LABORATORY DATA: Sodium 136, potassium 5.1, BUN 18, creatinine 0.6, and glucose 166. ASSESSMENT: 1. Chronic obstructive pulmonary disease with exacerbation. 2. Peripheral edema. 3. Severe deconditioning with inability to transfer. PLAN: This patient would benefit from rehab for reconditioning to the point where she can transfer. I reviewed her medications. I think she is on appropriate therapy. Unfortunately, she will probably be stuck in the hospital until Thursday when Case Management can readdress placement issues. Job ID: [id number]
[2019-01-08] MEDS: Insulin Regular 300 UNITS/3 ML VIAL SC PRN ×3 (12:16→20:14)
[2019-01-08] MEDS: Montelukast Sodium 10 mg Tablet PO SCH (20:12)
[2019-01-08] MEDS: Atorvastatin Calcium 20 MG TAB PO SCH (20:12)
[2019-01-08] MEDS: Enoxaparin Sodium 40 MG/0.4 ML SYRINGE SC SCH (20:13)
[2019-01-09] MEDS: metFORMIN 500 MG TAB PO SCH ×2 (08:16→16:38)
[2019-01-09] MEDS: Docusate 100 MG CAP PO SCH ×2 (08:16→20:42)
[2019-01-09] MEDS: guaiFENesin ER 600 MG TAB PO SCH ×2 (08:16→20:41)
[2019-01-09] MEDS: Amlodipine 10 MG TAB PO SCH (08:17)
[2019-01-09] MEDS: predniSONE 20 MG TAB PO SCH (08:17)
[2019-01-09] MEDS: Polyethylene Glycol 3350 17 GM Packet PO SCH (08:19)
[2019-01-09] MEDS: Levalbuterol HCl 1.25 MG/0.5 ML NEB NEB SCH ×4 (09:46→23:22)
[2019-01-09] MEDS: Ipratropium Bromide 2.5 ml Neb NEB SCH ×4 (09:49→23:23)
--- NOTE | 2019-01-09 11:55 | PRG ---
DATE OF SERVICE: 01/09/2019 SUBJECTIVE: She remains in the hospital awaiting placement. OBJECTIVE: VITAL SIGNS: Temperature 98, pulse 102, respirations 24, and O2 saturation 95% on 2 L. HEENT: Unremarkable. CHEST: Clear. CARDIAC: S1 and S2, regular without murmur. ABDOMEN: Soft and nontender. EXTREMITIES: No edema. ASSESSMENT: 1. Chronic obstructive pulmonary disease with exacerbation. 2. Edema. 3. Severe deconditioning. PLAN: Awaiting placement. Otherwise, continuing current therapy. Job ID: [id number]
[2019-01-09] MEDS: Insulin Regular 300 UNITS/3 ML VIAL SC PRN ×2 (16:40→20:43)
[2019-01-09] MEDS: Atorvastatin Calcium 20 MG TAB PO SCH (20:41)
[2019-01-09] MEDS: Montelukast Sodium 10 mg Tablet PO SCH (20:41)
[2019-01-09] MEDS: Acetaminophen 325 MG TAB PO PRN (20:41)
[2019-01-09] MEDS: Enoxaparin Sodium 40 MG/0.4 ML SYRINGE SC SCH (20:42)
[2019-01-10] MEDS: Levalbuterol HCl 1.25 MG/0.5 ML NEB NEB SCH ×3 (06:59→18:36)
[2019-01-10] MEDS: Ipratropium Bromide 2.5 ml Neb NEB SCH ×3 (07:01→18:36)
[2019-01-10] MEDS: Polyethylene Glycol 3350 17 GM Packet PO SCH (09:03)
[2019-01-10] MEDS: Docusate 100 MG CAP PO SCH ×2 (09:03→19:39)
[2019-01-10] MEDS: metFORMIN 500 MG TAB PO SCH ×2 (09:04→16:15)
[2019-01-10] MEDS: guaiFENesin ER 600 MG TAB PO SCH ×2 (09:05→19:57)
[2019-01-10] MEDS: predniSONE 20 MG TAB PO SCH (09:05)
[2019-01-10] MEDS: Amlodipine 10 MG TAB PO SCH (09:05)
[2019-01-10] MEDS: Insulin Regular 300 UNITS/3 ML VIAL SC PRN ×3 (12:07→19:57)
--- NOTE | 2019-01-10 15:46 | PRG ---
DATE OF SERVICE: 01/10/2019 OBJECTIVE: VITAL SIGNS: Ms. Diego is afebrile, heart rate is 110, respiratory rate is 18, oximetry is 94% on 2 liters, and blood pressure 104/66. LUNGS: Clear. HEART: Regular rhythm. ABDOMEN: Soft. IMPRESSION: 1. Chronic obstructive pulmonary disease exacerbation. 2. Postinflammatory pulmonary fibrosis with bronchiectasis. 3. Status post treatment for tuberculosis. 4. Extreme deconditioning. PLAN: Her daughters now agree to get her into the [facility] bed, so she can get some physical therapy. She was turned down by her [employer] to go to rehab hospital. Hopefully, we can discharge her in the morning. Job ID: [id number]
[2019-01-10] MEDS: Acetaminophen 325 MG TAB PO PRN (19:56)
[2019-01-10] MEDS: Atorvastatin Calcium 20 MG TAB PO SCH (19:57)
[2019-01-10] MEDS: Montelukast Sodium 10 mg Tablet PO SCH (19:57)
[2019-01-10] MEDS: Enoxaparin Sodium 40 MG/0.4 ML SYRINGE SC SCH (20:01)
[2019-01-11] MEDS: Ipratropium Bromide 2.5 ml Neb NEB SCH ×3 (00:25→12:16)
[2019-01-11] MEDS: Levalbuterol HCl 1.25 MG/0.5 ML NEB NEB SCH ×3 (00:27→12:18)
[2019-01-11] MEDS: predniSONE 20 MG TAB PO SCH (08:32)
[2019-01-11] MEDS: metFORMIN 500 MG TAB PO SCH (08:32)
[2019-01-11] MEDS: guaiFENesin ER 600 MG TAB PO SCH (08:32)
[2019-01-11] MEDS: Amlodipine 10 MG TAB PO SCH (08:33)
[2019-01-11] MEDS: Docusate 100 MG CAP PO SCH (08:34)
[2019-01-11] MEDS: Polyethylene Glycol 3350 17 GM Packet PO SCH (08:34)
[2019-01-11] MEDS: Insulin Regular 300 UNITS/3 ML VIAL SC PRN (11:57)
[2019-01-11 14:08] VITALS: BP 116/77; TEMP 98.2
--- NOTE | 2019-01-12 04:38 | DIS ---
DATE OF ADMISSION: 12/23/2018 DATE OF DISCHARGE: 01/11/2019 SUBJECTIVE: Ms. Diego is feeling well today. She feels like her breathing is back to the way her breathing was at the end of last year. She is quite weak, however, is tentatively scheduled to go to skilled. DISCHARGE DIAGNOSES: 1. Acute on chronic respiratory failure with hypoxemia. 2. Status post Lyrica induced respiratory depression with hypercarbia leading to transient respiratory insufficiency requiring noninvasive ventilation. 3. Anemia with decreased mean corpuscular volume, likely a mixture of anemia of chronic disease and iron deficiency. This can be followed as an outpatient. 4. Chronic interstitial scarring secondary to past tuberculosis. 5. Bullous lung disease. 6. Acute on chronic renal dysfunction with a return of her renal function to normal. She was extremely volume contracted after a month of shortness of breath on admission. 7. Status post chest CT this admission that did not show any new abnormalities. 8. Status post treatment for pulmonary tuberculosis. When she was initially referred, I thought this was going to bottom turning lathe tender to be Mycobacterium avium, but it turned out to be Mycobacterium tuberculosis. There has been no clinical evidence for recurrence. 9. Status post fiberoptic bronchoscopy with a pneumothorax afterwards when she presented with tuberculosis. 10. Diastolic dysfunction worked up by extractor plant operator who comes over from I believe [place] to their area. 11. Diabetes. 12. Lipid disorder. 13. Hypertension. 14. Osteoporosis. 15. History of cholecystectomy. 16. Status post hysterectomy. 17. A 59-[id number] history of smoking, abstinent now. 18. History of isoniazid hepatitis. HOSPITAL COURSE: Briefly, Ms. Diego presented after not being seen in my office since the end of last year. Her daughter told me that she had been short of breath for a month and had been placed on oxygen. Her room air sats were in the 91 to 92% range the last time she had been seen by me. She was tachypneic at rest. She subsequently was admitted to the hospital anticipating that she had at least bronchitis and COPD exacerbation. CT scanning did not show anything new that was worrisome for recurrence of tuberculosis or pneumonia. With steroids antimicrobial therapy and frequent nebulizer treatments, she improved from a respiratory standpoint and then became hypersomnolent over weekend and had to be moved to the ICU on Thursday. She was noninvasively ventilated. We determined that the Lyrica that her daughter had given me to write for on the admitting orders was not being given the way it was prescribed at home because of sleepiness. She got several days of 100 mg twice a day and became progressively hypersomnolent after she had 5 to 6 doses of Lyrica. With time and noninvasive ventilatory support, the Lyrica wore off and she awakened in no distress. No neurological deficits. She has not been very motivated to get up and move and actually does not call to ask to be put in a chair or ask to be helped to get up at all in spite of my repeated instructions to try to build up her strength. I have explained to her that she will end up in a fdc if she does not. We initially attempted to get her into rehab, but her health care insurance would not approve transfer to a rehab facility, so she is going to a swing bed. Hopefully within a week, she can get strong enough to go home. DISCHARGE MEDICATIONS: Include Norvasc 10 mg a day, atorvastatin 20 mg at bedtime, Cymbalta 20 mg at bedtime, guaifenesin 1200 mg twice a day, sliding scale insulin, ipratropium mixed with Xopenex 1.25 mg in her nebulizer 4 times a day, metformin 500 mg twice a day, Singulair 10 mg a day Protonix 40 mg a day. She is given 17 g of MiraLAX a day. Her prednisone is currently at 20 mg a day and in a week I would taper to 10 mg a day and have her stay on that until she follows up with me in the office. I ordered bedside spirometry to quantitate lung function, but this was never entered into the computer as it usually is. I will see her back in followup 2 to 3 weeks after she gets out of rehab. Job ID: [id number]
--- NOTE | 2019-01-13 06:27 | PQF ---
MARKEL DEVRIES THOMAS MD [phone] [id number] CLINICAL DOCUMENTATION CLARIFICATION FORM: POST DISCHARGE Addendum to original discharge summary date: ____ Late entry note date: __ DATE: 01/13/19 ATTN: Dr. Teixeira Please exercise your independent, professional judgment in responding to the clarification form. Clinical indicators are provided on the bottom of this form for your review Please check appropriate box(s): [ ] Acute on Chronic Renal Failure please specify Stage of CKD (see below) [ ] Other diagnosis [ ] Unable to determine In addition, please specify: Present on Admission (POA): [ ] Yes [ ] No [ ] Unable to determine National Kidney Foundation Guidelines for CKD Staging Stage I Kidney damage with normal or increased GFR GFR > 90 Stage II Kidney damage with mildly decreased GFR GFR 60-89 Stage III Kidney damage with moderately decreased GFR GFR 30-59 Stage IV Kidney damage with severely decreased GFR GFR 16-29 Stage V Kidney failure GFR<15 ESRD End Stage Renal Disease On dialysis Acute Renal Failure/Acute Kidney Failure defined as: Increases in SCr by (>) 0.3 mg/dl within 48 hours OR- Increases in SCr by (>) 1.5 times baseline, known or presumed to have occurred within the prior 7 days OR- Urine volume < 0.5 ml/kg/hour for 6 hours (KDIGO supplement 2012 for RIFLE/ROCIO criteria) For continuity of documentation, please document condition throughout progress notes and discharge summary. Thank You. CLINICAL INDICATORS - SIGNS / SYMPTOMS / LABS Acute on Chronic Kidney disease---12/24 Progress note Creatinine of 1.25 on admission secondary to diuretic use--12/24 Progress note eGFR--42, 34, 27--12/23, 12/25 and 12/27 Labs RISK FACTORS Use of diuretics--12/24 Progress note Diabetes--12/24 Progress note Hypertension--12/23 H&P TREATMENTS: IV fluid hydration--12/24 Progress note Thank you, Nai Mace, [facility] 01/13/19 @ 6:25AM (This form is maintained as a part of the permanent medical record) 2014 [employer], [employer]. All Rights Reserved Nai [email or web address] [phone] [facility] [facility]ERS[facility] HOSPITALAngelita
== END 2019-01-11 14:12 | disposition swing bed (61) | DRG 190 ==
LOC: T4-B 14:19 → CCU 12-27 11:57 → T4-A 12-29 18:03
PROVIDERS: ADMIT Internal Medicine Critical Care Medicine; ATTEND Internal Medicine Critical Care Medicine
PROC: 5A09357 Assistance with Respiratory Ventilation, Less than 24 Consecutive Hours, Continuous Positive Airway Pressure (ICD-10-PCS; principal; 2018-12-28)
DX: J44.1 Chronic obstructive pulmonary disease with (acute) exacerbation (principal); J96.21 Acute and chronic respiratory failure with hypoxia; G92 Toxic encephalopathy; N17.9 Acute kidney failure, unspecified; E87.1 Hypo-osmolality and hyponatremia; E87.2 Acidosis; D64.9 Anemia, unspecified; E11.22 Type 2 diabetes mellitus with diabetic chronic kidney disease; F41.9 Anxiety disorder, unspecified; I12.9 Hypertensive chronic kidney disease with stage 1 through stage 4 chronic kidney disease, or unspecified chronic kidney disease; N18.9 Chronic kidney disease, unspecified; T42.6X5A Adverse effect of other antiepileptic and sedative-hypnotic drugs, initial encounter; Y92.230 Patient room in hospital as the place of occurrence of the external cause; D63.8 Anemia in other chronic diseases classified elsewhere; I51.9 Heart disease, unspecified; E87.5 Hyperkalemia; J84.10 Pulmonary fibrosis, unspecified; D50.9 Iron deficiency anemia, unspecified; R53.81 Other malaise; M81.0 Age-related osteoporosis without current pathological fracture; Z86.11 Personal history of tuberculosis; Z87.891 Personal history of nicotine dependence; Z86.19 Personal history of other infectious and parasitic diseases; Z79.899 Other long term (current) drug therapy; Z99.81 Dependence on supplemental oxygen; Z88.8 Allergy status to other drugs, medicaments and biological substances; Z79.84 Long term (current) use of oral hypoglycemic drugs
CPT/HCPCS: 36415; 36416; 71046; 71250; 80048; 80076; 81001; 82805; 83036; 85007; 85025; 85027; 94010; 94640; 94660; 94727; J0696; J1650; J1815; J2405; J2920; J3490; J7512; J7612; J7620

== ENCOUNTER 2019-03-02 07:25 | Outpatient (CLI) | payer MEDICARE, MEDICAID ==
--- NOTE | 2019-03-02 11:54 | CT ---
CT chest noncontrast high-resolution HISTORY: Pulmonary fibrosis. COPD. COMPARISON: 12/23/2018. FINDINGS: Cylindrical bronchiectasis remains most pronounced in each upper lobe, directed towards the respective lung apex. Appearance of traction component, as there is some volume loss in the left upper lobes. The partially confluent opacity in the areas of scarring and inflammation at each apex h as decreased slightly since the previous exam. The scattered noncalcified oval nodules involving each lung are stable. No new dominant mass is evident. Scattered calcified granulomata. Lungs overall remain somewhat hyperinflated. Lungs are otherwise hyperinflated. Emphysematous bullae involving primarily the right lower lobe and left upper lobe are unchanged. No pleural fluid or pneumothorax. Small amount of pericardial fluid. Free fluid is partially visualized within the upper abdomen. Lack of contrast limits evaluation of the soft tissues. No bulky mediastinal adenopathy. IMPRESSION: Very little change. Extensive interstitial fibrosis. Traction bronchiectasis of the upper lobes is stable, although there has been some improvement in the partially confluent peribronchial opacity. Emphysema. Noncalcified nodules are stable. No new dominant mass.
--- NOTE | 2019-03-03 16:02 | PFT ---
PATIENT HISTORY: HEIGHT: 68 IN WEIGHT: 164 SMOKER: no HOW LON yrs PACKS PER DAY: 1 PRODUCTIVE COUGH: LUNG DISEASE: PHYSICIAN INTERPRETATION FINAL REPORT: PATIENT OF DR. WEST. A serious reduction in Expiratory Flows and Vital Capacity. Moderate improvement following Bronchodilator Therapy. RV was normal, RV/TLC was increased, airway resistance was increased. gas transfer was severely reduced. IMPRESSION: Obstructive airway disease. Severely reduced Diffusion Capacity Commercial Real Estate Assistant: CODY Excel Specialist: CODY SANTANA
== END 2019-03-02 07:26 | disposition home or self-care (01) ==
LOC: CP 07:25 → CT 07:26
PROVIDERS: ATTEND Internal Medicine Critical Care Medicine
DX: J84.10 Pulmonary fibrosis, unspecified (principal); J18.9 Pneumonia, unspecified organism; J43.9 Emphysema, unspecified; R91.8 Other nonspecific abnormal finding of lung field
CPT/HCPCS: 71250; 94060; 94727; 94729

== ENCOUNTER 2019-10-20 11:24 | Inpatient (IN) | payer MEDICARE, MEDICAID ==
[~2019-10-20 11:24] MED LIST changes: +Heparin 10,000 UNITS/ 10 ML VIAL ONE; -ISOVUE-370 76%-LOCM 1 ML ONE
--- NOTE | 2019-10-20 11:46 | CT ---
CT Brain WO Con History: Stroke alert. Slurred speech Comparison: None. Findings: Slight technical limitations due to motion. No acute hemorrhage. No large volume territoria l infarction. Subtle hypodensity left basal ganglia. Calvarium is intact. Paranasal sinuses and mastoids are clear. Impression: 1. No acute hemorrhage. 2. Subtle hypodensity left basal ganglia age-indeterminate. Code CR: Dr. Finch notified of findings via telephone at 11:42 AM.
--- NOTE | 2019-10-20 11:53 | RAD ---
XR Chest 1 View Portable History: Slurred speech Comparison: CT examination examination for reference April 2019 Findings: Superior retraction of the boaz bilaterally with extensive scarring bronchiectasis. Nodular densities project over the upper lobes. Mild elevation right hemidiaphragm, similar. Cardiac silhouette is enlarged. No acute osseous abnorma lity. Impression: Slight increased confluent right upper lobe pulmonary nodules and consolidation. Nonemerg ent follow-up chest CT may be beneficial.
[2019-10-20 12:10] LABS: #Lymphocytes 1.4 thou/uL (1.20-3.40); #Monocytes 1.5 thou/uL (0.11-0.59); #Neutrophils 14.5 thou/uL (1.40-6.50); %Eosinophils 0.2 % (0.0-10.0); %Lymphocytes 7.7 % (21.0-51.0); %Monocytes 8.6 % (0.0-10.0); %Neutrophils 83.5 % (42.0-75.0); Hemoglobin 14.4 g/dL (12.0-16.0); Mean Corpuscular HGB CONC 30.3 g/dL (32.0-36.0); Mean Corpuscular Hemoglobin 26.6 pg (27.0-31.0); Mean Corpuscular Volume 87.8 fL (78.0-98.0); Mean Platelet Volume 9.5 fL (7.4-10.4); Platelet Count 237 thou/uL (130-400); RBC Distribution Width 19.3 % (11.5-14.5); Red Blood Cell (RBC) Count 5.42 mill/uL (4.20-5.40); White Blood Cell (WBC) Count 17.4 thou/uL (4.8-10.8)
--- NOTE | 2019-10-20 12:15 | CT ---
LUMBAR SPINE CT WITHOUT CONTRAST: HISTORY: Slurred speech. The patient fell a couple of days ago. Now having back pain. COMPARISON: None. FINDINGS: Diffuse bone demineralization. There are 5 lumbar-type vertebrae. No evidence of a lumbar spine yue tebral body fracture. Straightening of lumbar lordosis is noted. No spondylolisthesis. No spondylo lysis. Visualized abdomen and pelvis are grossly unremarkable. There does appear to be a small amount of pe rihepatic fluid. Gallbladder appears to be surgically absent. Additional fluid is noted in the abdo dmitry mesentery. Findings are nonspecific. There does not appear to be fluid in the pelvis. Based on the images provided, the visualized sacrum and bony pelvis do appear to be intact. There is along the superior aspect of S1, unchanged from a CT from 05/08/2019. There is a chronic Schmo rl's node along the superior end plate of T12, also unchanged. Limited evaluation of the contents of the central spinal canal and neural foramina due to technique. T12-L1: No high-grade central canal stenosis or high-grade foraminal narrowing. L1-L2: Broad-based disk bulge, ligamentum flavum thickening results in mild central canal stenosis. There is high-grade bilateral foraminal narrowing. L2-L3: Broad-based disk bulge, ligamentum flavum thickening, and facet hypertrophy result in moderat e central canal stenosis. Mild right and mild left neural foraminal narrowing. L4-L5: Broad-based disk bulge, ligamentum flavum thickening, and facet hypertrophy result in moderat e central canal stenosis. Mild to moderate bilateral neural foraminal narrowing. L5-S1: Mild loss of disk space height. Broad-based disk bulge, ligament flavum thickening, and face t hypertrophy result in mild stenosis of the thecal sac. There is mild narrowing of both subarticula r zones with partial obscuration of bilateral traversing S1 nerve roots due to disk material and post erior element hypertrophy. Mild bilateral foraminal narrowing. IMPRESSION: 1. Multilevel degenerative changes of the lumbar spine as described above. 2. No evidence of fracture. 3. Diffuse bone demineralization. 4. Nonspecific free fluid in the abdomen and pelvis. The patient does have a history of a previous paracentesis in 05/06/2019. POS: CET
[2019-10-20 12:20] LABS: PTT 37.9 SEC (22.9-36.1)
[2019-10-20 12:21] LABS: INR-International Normal Ratio 2.5; Prothrombin Time 27.2 SEC (12.0-14.7)
[2019-10-20 12:33] LABS: ALT (SGPT) 66 U/L (8-55); AST (SGOT) 111 U/L (5-34); Alkaline Phosphatase 128 U/L (40-110); Anion Gap 28 mmol/L (10-20); BUN (Urea Nitrogen) 109 mg/dL (9.8-20.1); Bilirubin, Total 2.4 mg/dL (0.2-1.2); CK (CPK) 225 U/L (29-168); Calc. Creatinine Clearance 0 mL/min (70-130); Calcium 8.7 mg/dL (7.8-10.44); Carbon Dioxide 16 mmol/L (23-31); Chloride 97 mmol/L (98-107); Estimated GFR-MDRD 9; Globulin 3.5 g/dL (2.4-3.5); Glucose 143 mg/dL (83-110); Magnesium 2.4 mg/dL (1.6-2.6); Protein, Total 7.5 g/dL (6.0-8.3); Sodium 133 mmol/L (136-145)
[2019-10-20 12:38] LABS: Bacteria/HPF 2+ HPF (None Seen); Bilirubin Negative (Negative); Blood, Urine Negative (Negative); Clarity Turbid (Clear); Glucose, Urine (Dipstick) Normal (Negative); Leukocyte Negative Leu/uL (Negative); Nitrite Negative (Negative); Protein, Urine (Dipstick) 50 mg/dL (Neg-Trace); RBC/HPF 0-3 HPF (0-3); Urobilinogen 3 mg/dL (Less than 2)
[2019-10-20 12:43] LABS: Amphetamine Not Detected (NotDetected); Barbiturates Screen Not Detected (NotDetected); Benzodiazepine Screen Not Detected (NotDetected); Cocaine Metabolite Screen Not Detected (NotDetected); Medtox Control Line Valid? VALID (VALID); Medtox Reader # READER 4; Methadone Not Detected (NotDetected); Methamphetamine Not Detected (NotDetected); Opiate Screen Not Detected (NotDetected); Oxycodone Screen Not Detected (NotDetected); Phencyclidine (PCP) Not Detected (NotDetected); THC/Cannabinoid Screen Not Detected (NotDetected); Tricyclic Screen Not Detected (NotDetected)
[2019-10-20 12:44] LABS: Potassium 7.6 mmol/L (3.5-5.1)
[2019-10-20] MEDS ORDERED: Sodium Bicarb 50 MEQ/50 ML VIAL ONE (12:48)
[2019-10-20] MEDS ORDERED: Insulin Regular 300 UNITS/3 ML VIAL ONE (12:48)
[2019-10-20] MEDS ORDERED: Dextrose 50% Abboject 50 ML SYRINGE ONE (12:48)
[2019-10-20] MEDS ORDERED: Calcium Chloride 1 GM/10 ML Abboject SYRINGE ONE (12:48)
[2019-10-20] MEDS ORDERED: Calcium Gluc 4.6 MEQ/10 ML (100 MG/ML) ONE (12:50)
[2019-10-20] MEDS ORDERED: Albuterol Sulfate 2.5 mg/3 ml Neb ONE (12:55)
[2019-10-20 13:14] LABS: Actual Bicarbonate (HCO3a) 17.5 mEq/L (22-28); Analyzer IN Cardio ER; Base Excess (BEa) -8.4 mEq/L (-2.0 to +3.0); CO2 Tension 37.3 mmHg (35.0-45.0); Calcium, Ionized 1.07 mmol/L (1.12-1.30); Carboxyhemoglobin (COHb) 1.1 gm% (0.0-3.0); Hemoglobin (Hb) 13.4 g/dL (12.0-16.0); Potassium - ABG Lab 6.73 mmol/L (3.70-5.30); pH, Arterial 7.29 (7.35-7.45)
[2019-10-20] MEDS ORDERED: Cefepime 1 GM VIAL ONE (13:15)
[2019-10-20] MEDS ORDERED: Cefepime 2 GM VIAL ONE (13:17)
[2019-10-20 13:19] LABS: ALV-art Gradient 24.015 (0-20); Puncture Site RRA
[2019-10-20] MEDS ORDERED: Fentanyl 100 MCG/2 ML VIAL ONE (13:43)
[2019-10-20 14:14] LABS: HBSAg Index 0.28 S/CO (0-0.99); Hep B Surf Ag Non-Reactive S/CO (NonReactive)
--- NOTE | 2019-10-20 14:48 | PDOC.FPRHP ---
- History of Present Illness Chief Complaint: altered mental status History of Present Illness: History obtained from daughter due to pt's mental status. Pt lives in [place], [place] w/ her brother. Reports pt was not making sense and slurring words which started yesterday. + increased fatigue and sleeping. + nausea, + vomiting x1 yesterday. Slurring of words continued this morning. Family called EMS this AM. Pt was air-lifted from her house to hospital. Last week she was admitted at [facility] for cellulitis of her feet bilaterally. She was discharged on Augmentin for 10 days and two days worth of this abx are left. Pt did have fall and hit her back earlier this week. Has bruise on her back. Denies LOC. Seemed to fully recover from this fall. Pt is rather independent at home and daughter helps her w/ cleaning. Pt sees Dr. Teixeira for her COPD and Dr. Martínez for her heart. PCP: at [facility] ED Course: in ED pt was a stroke alert, worked up for sepsis 2/2 pneumonia, given cefepime , vancomycin, fluids, insulin, dextrose, albuterol, bicarbonate, calcium gluconate. - Allergies/Adverse Reactions Allergies Allergy/AdvReac Type Severity Reaction Status Date / Time isoniazid Allergy Verified 01/11/19 11:05 pregabalin [From Lyrica] Allergy Verified 05/04/19 23:03 - Home Medications Medication Instructions Recorded Confirmed Type Atorvastatin Calcium 20 mg PO DAILY 11/11/17 05/04/19 History DULoxetine HCl [Cymbalta] 20 mg PO HS 12/23/18 05/04/19 History Montelukast Sodium 10 mg PO DAILY 12/23/18 05/04/19 History metFORMIN [Glucophage] 500 mg PO BID 12/23/18 05/04/19 History Amlodipine [Norvasc] 10 mg PO DAILY 05/04/19 05/04/19 History Budesonide-Formoterol [Symbicort 2 puff INH BID 05/04/19 05/04/19 History 160-4.5] Furosemide 2 tab PO DAILY 05/04/19 05/04/19 History Gabapentin [Neurontin] 100 mg PO HS 05/04/19 05/04/19 History Insulin Glargine,Hum.Rec.Anlog 57 unit SQ HS 05/04/19 05/04/19 History [Davian Roque] Nitroglycerin [Nitro-Bid] 1 applic TOP PRN PRN 05/04/19 05/05/19 History Omeprazole 40 mg PO DAILY 05/04/19 05/04/19 History Spironolactone [Aldactone] 25 mg PO DAILY 05/04/19 05/04/19 History Tiotropium [Spiriva Handihaler] 18 mcg INH DAILY 05/04/19 05/04/19 History - History PMHx: R-side heart failure and "leaky" valve, HTN which she does not take medicine for any more, chronic ascites, T2DM, past history of TB 11/2017, COPD on 2L of O2 at home continuously PSHx: - colonoscopy, normal FHx: not assessed Social: - previous smoker. Quit ~5 yrs ago. Previously heavy smoker. - Denies alcohol. - . Lives w/ her brother. - Review of Systems ROS unobtainable: due to mental status - Vital signs BP: 107/78 HR: 117 RR: 17 Tmax: 98.5 F Pox: 95% on 2.5 L Wt: 76 kg - Physical Exam Constitutional: NAD HEENT: normocephalic and atraumatic, PERRLA, conjunctiva clear, no scleral icterus, grossly normal hearing Neck: supple -Neck: cervical lymphadenopathy Heart: normal S1/S2, no murmurs/rubs/gallops, no edema -Heart: tachycardic Lungs: no rales/rhonchi, no wheezing, no retractions (on 2.5 L NC) Abdomen: soft, non-tender, no hernias -Abdomen: moderately distended, negative for fluid wave, -Musculoskeletal: feet appear dusky and cold bilaterally from toes to mid-d[place]. Toes are blue. -Neurological: limited in our assessment, pt can follow commands, R senior quality manager strength > L, moves all 4 extremities -Skin: appears dehydrated. Heme/Lymphatic: no petechia FMR H&P: Results - Labs Result Diagrams: 10/20/19 11:57 10/20/19 11:57 Lab results: WBC 17.4 thou/uL (4.8-10.8) H 10/20/19 11:57 Hgb 14.4 g/dL (12.0-16.0) 10/20/19 11:57 Hct 47.6 % (36.0-47.0) H 10/20/19 11:57 MCV 87.8 fL (78.0-98.0) 10/20/19 11:57 Plt Count 237 thou/uL (130-400) 10/20/19 11:57 Neutrophils % 83.5 % (42.0-75.0) H 10/20/19 11:57 ABG pH 7.29 (7.35-7.45) L 10/20/19 13:00 ABG pCO2 37.3 mmHg (35.0-45.0) 10/20/19 13:00 ABG pO2 129.0 mmHg (> 70.0) H 10/20/19 13:00 Sodium 133 mmol/L (136-145) L 10/20/19 11:57 Potassium 7.6 mmol/L (3.5-5.1) H* 10/20/19 11:57 Chloride 97 mmol/L (98-107) L 10/20/19 11:57 Carbon Dioxide 16 mmol/L (23-31) L 10/20/19 11:57 BUN 109 mg/dL (9.8-20.1) H 10/20/19 11:57 Creatinine 4.56 mg/dL (0.6-1.1) H 10/20/19 11:57 Glucose 143 mg/dL (83-110) H 10/20/19 11:57 Lactic Acid 3.9 mmol/L (0.5-2.2) H 10/20/19 11:57 Calcium 8.7 mg/dL (7.8-10.44) 10/20/19 11:57 Total Bilirubin 2.4 mg/dL (0.2-1.2) H 10/20/19 11:57 AST 111 U/L (5-34) H 10/20/19 11:57 ALT 66 U/L (8-55) H 10/20/19 11:57 Alkaline Phosphatase 128 U/L (40-110) H 10/20/19 11:57 Ammonia 28 umol/L (18-72) 10/20/19 11:57 Creatine Kinase 225 U/L (29-168) H 10/20/19 11:57 CK-MB (CK-2) 8.0 ng/mL (0-6.6) H* 10/20/19 11:57 Serum Total Protein 7.5 g/dL (6.0-8.3) 10/20/19 11:57 Albumin 4.0 g/dL (3.4-4.8) 10/20/19 11:57 Urine Ketones 10 mg/dL (Negative) A 10/20/19 12:10 Urine Blood Negative (Negative) 10/20/19 12:10 Urine Nitrite Negative (Negative) 10/20/19 12:10 Ur Leukocyte Esterase Negative Ruchi/uL (Negative) 10/20/19 12:10 Urine RBC 0-3 HPF (0-3) 10/20/19 12:10 Urine WBC 4-6 HPF (0-3) A 10/20/19 12:10 Ur Squamous Epith Cells 7-10 HPF (0-3) A 10/20/19 12:10 Urine Bacteria 2+ HPF (None Seen) A 10/20/19 12:10 - EKG Interpretation EKG: a-fib - Radiology Interpretation Chest x-ray Status: image reviewed by me, report reviewed by me (RUL infiltrate) CT scan - head Status: image reviewed by me, report reviewed by me (negative) FMR H&P: A/P - Problem List (1) Sepsis associated hypotension Current Visit: Yes Status: Acute Code(s): A41.9 - SEPSIS, UNSPECIFIED ORGANISM; I95.9 - HYPOTENSION, UNSPECIFIED (2) COPD (chronic obstructive pulmonary disease) Current Visit: No Status: Chronic Qualifiers: COPD type: unspecified COPD Qualified Code(s): J44.9 - Chronic obstructive pulmonary disease, unspecified (3) DM2 (diabetes mellitus, type 2) Current Visit: No Status: Chronic Qualifiers: Diabetes mellitus snf insulin use: unspecified snf insulin use status Diabetes mellitus complication status: with unspecified complications Comment: accuchecks, insulin sliding scale (4) HLD (hyperlipidemia) Current Visit: No Status: Chronic Code(s): E78.5 - HYPERLIPIDEMIA, UNSPECIFIED Qualifiers: Hyperlipidemia type: unspecified Qualified Code(s): E78.5 - Hyperlipidemia , unspecified Comment: on statin, continue (5) Acute tubular necrosis Current Visit: Yes Status: Acute Code(s): N17.0 - ACUTE KIDNEY FAILURE WITH TUBULAR NECROSIS (6) Acute renal failure (ARF) Current Visit: Yes Status: Acute (7) Hyperkalemia Current Visit: Yes Status: Acute Code(s): E87.5 - HYPERKALEMIA - Plan 69 F w/ PMHx of COPD, T2DM, and diastolic HF admitted for: Severe Sepsis possibly secondary to pneumonia versus UTI - Possibly secondary to pneumonia or UTI. Difficult to assess UTI in presence of ATN. - Continue cefepime and vancomycin at HD dosing - fluid resuscitate gently in setting of R sided CHF and fluid overload from liver disease Acute Tubular Necrosis w/ acute renal failure - secondary to septic shock vs medication induced vs prerenal from low cardiac output vs rhabdomyolysis (less likely) - Naproxen Rx in August: given 15 day supply. Other meds: spironolactone, lasix , recently on Augmentin for cellulitis bilateral of feet. - Fluid resuscitate and emergent HD. Hyperkalemia - Given multiple treatments in ER. - Nephro consulted by ED. Dr. Arthur to pursue emergent HD today Acute metabolic encephalopathy Lactic acidosis - possible vascular/stroke insult, infectious, electrolyte derangements - fall recently, denied LOC and injury to head - Head CT negative for acute process, small density seen in left basal ganglia of undetermined age - if no improvement, consider MRI in AM Acute hypoxic respiratory failure - requiring 3L O2 and nebs - baseline O2 is 2L at home continously - sees Dr. 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 - secondary to isoniazid use. - INR is 2.5, may be baseline COPD - previous heavy smoking. Has not smoked in 5 years. - albuterol nebs prn R-sided/diastolic heart failure Paroxysmal A-fib - normal magnesium. TSH normal - phosphorus pending - continuous cardiac monitoring on ICU - hold diuretics due to kidney function. Pt appeared hypovolemic. T2DM - hold metformin - moderate SSI - takes home lantus of 52 units nightly per daughter. Code: FULL VTE ppx: heparin GI ppx: pepcid Fluids: 75 mL/hr Abx: cefepime, vancomycin (HD dose) Lines: R and L femoral lines, Left to be used for dialysis Disposition/LOS: admit to ICU. LOS > 48H. FMR H&P: Upper Level - Pertinent history 73YOF with a PMH significant for end-stage COPD on 2L of O2 at home, HFrEF, IDDMII, a remote hx of TB s/p tx, and drug-induced liver injury who was brought in via air EMS from home due to 2 days of slurred speech, increased somnolence/ fatigue & decreased appetite. Of note, patient was in and out of consciousness and not following all commands on exam so history was obtained from patients daughter, Pamella who was present at bedside. Daughter reports she was in her normal state of health until yesterday when she started exhibiting the symptoms listed above and reports they persisted today with associated N/V as well so she had her brought to the ED for further evaluation. See sport intern's note for other pertinent history. - Pertinent findings Imaging: Lumbar CT: no acute fracture; nonspecific free fluid in abd & pelvis Head CT: Subtle hypodensity in left basal ganglia; no acute hemorrhage CXR: Slight increased confluent RUL nodules & consolidation w/ elevated R hemidiaphragm Labs: WBC 17.4 Na 133 K 7.6 BUN/Cr: 109/4.96 Lactate 3.9 AB.29/37.3/129 UA: turbid w/ granular casts, 2+ bacteria, 4-6 WBCs ROS: Unable to obtain 2/2 AMS PHYSICAL EXAMINATION: General: In mild distress on 2.5L NC, somnolent and would arouse occasionally and answer questions but not following all exams HEENT: PERRLA Heart/Cardiovascular System: tachycardic, regular rhythm, no rub, no murmur, no edema Lungs/Respiratory System: Mild increased work of breathing on 2.5L NC w/ coarse rhonchi on inspiration in B/L upper lungs glover Abdomen/Gastro-Intestinal System: no abdominal tenderness, normal bowel sounds, no masses, no organomegaly; moderate distension (baseline per daughter) Extremities: Cool extremities. No cyanosis or edema but B/L Les erythematous up to B/L knees w/ scattered healing scabs, bruises, & sores over all extremities. Neuro: Difficult to assess 2/2 mental status Skin: Scattered healing scabs & bruises over all extremities Musculoskeletal: moving all extremities but slight less ability noted in L compared to R but difficult to examine given mental status - Plan Date/Time: 10/20/19 1605 IPatti, have evaluated this patient and agree with findings/plan as outlined by sport intern resident. Pertinent changes/additions are listed here. This is a 69 yo F being admitted for severe sepsis 2/2 RUL PNA &/or UTI, ARF w/ ATN & hyperkalemia, acute metabolic encephalopathy and acute hypoxic respiratory failure. ATN w/ ARF: -BUN:Cr 109/4.96 on presentation with K of 7.6. Temporary access in L groin done in ER & nephro, Dr. Arthur, notified on presentation & recommended urgent HD. -Will renally dose all meds PRN & continue to trend renal function. Severe Sepsis 2/2 RUL PNA and/or UTI: -Hypotensive & tachycardic w/ elevated lactate of 3.9 & WBC count of 17.4 on presentation w/ multiple possible sources. CXR notable for RUL nodules & consolidation and UA dirty w/ bacteria, casts & WBCs. In addition, B/L LE erythema & daughter reports she was recently hospitalized for LE cellulitis and was still taking PO augmentin for this. -s/p 2Ls of NS in the ED & BS abx with vancomycin & cefepime started in the ED after blood & urine Cxs were obtained. -Procal pending & will continue BS abx pending Cxs results & sensitivities. -Continue gentle mIVFs w/ NS @ 125mL/hr. Acute metabolic encephalopathy: - Multiple possible etiologies including infection, electrolyte disturbances, possible ischemic CVA. NPO pending bedside swallow & speech eval & will treat following possible etiologies as noted below. - Will check a phosphorus level & continue to trend electrolytes QD. CCU electrolyte protocol. - Would consider an MRI in the AM, especially if speech still slurred after addressing electrolyte derangements and by the AM. In addition, head CT on admission showed left basal ganglia hypodensity, age undetermined. Acute hypoxic respiratory failure: - AB.29/37.3/129/17.5 on presentation on 2.5-3L NC to maintain sats compared to usual 2L at home. No wheezing or crackles noted on exam just coarse rhonchi on inspiration. - PRN Duonebs & BS abx for possible PNA as noted above. Repeat CXR in the AM & will wean O2 as tolerated to maintain sats between 88-92% given hx of end-stage COPD. Metabolic acidosis: -2/2 sepsis w/ elevated lactate of 3.9 on presentation. ABG as noted above. -s/p IVF resuscitation and will continue gentle mIVFs in setting of HFpEF per daughter. -Will continue to trend lactate. Hyperkalemia: -K 7.6 on presentation. Patient s/p IVFs, insulin w/ D5, albuterol, Calcium carbonate, Na bicarb, & albuterol & nephron consulted who recommended urgent HD. Temporary HD access obtained via left groin in ED. Nephro, Dr. Arthur, to follow, appreciate recs. Hyponatremia: -133 on presentation. Likely 2/2 decreased PO intake. Continue to trend. Paroxysmal atrial fibrillation: -EKG on presentation A fib with rate in the 80s but sinus tach noted on monitor on exam. -Likely exacerbated by infection & ARF w/ significant electrolyte disturbances. TSH WNLs. -Will continue continuous cardiac monitoring while in CCU & check a phos level & replace PRN. IDDMII: -NPO pending speech eval but hypoglycemia protocol w/ moderate SSI in place. Will resume NANCY home insulin once tolerating PO. Will hold metformin in setting of ARF. Drug-induced liver injury: -Per daughter this is a chronic issue since her TB tx. -Chronic elevated of LFTs noted per chart review but likely a small element of shock liver from sepsis & hypotension contributing to this. T bili also elevated at 2.4. Could consider abdominal imaging given lumbar CT comment on free fluid of no improvement w/ IVFs and BS abx. Remote Hx of TB: -s/p tx x 9 months with isoniazid per daughter. Suspected HFpEF: -daughter reported h/o R-sided heart failure for which she takes fluid pills. Will request records from her sanitary inspector for latest ECHO report or consider getting one during this admission to evaluate her EF. HLD: -Will resume home statin once tolerating PO. Lines/Tubes: R & L groin trialysis catheters placed in ED on 10/20/19 (only L side working) Code status: FULL CODE VTE PPx: Heparin GI PPX: famotidine Abx: Cefepime & vancomycin (day #1 on 10/20/19) IVFs: NS @ 110mL/hr Dispo: Admit to CCU for close monitoring & HD dialysis overnight.
[2019-10-20 15:09] LABS: Lactic Acid 3.3 mmol/L (0.5-2.2)
[2019-10-20] MEDS ORDERED: Acetaminophen 650 MG Suppository PR PRN (15:37)
[2019-10-20] MEDS ORDERED: Dextrose 5% in Water 1,000 ML IV PRN (15:37)
[2019-10-20] MEDS ORDERED: Albuterol Sulfate 2.5 mg/3 ml Neb NEB PRN (15:37)
[2019-10-20] MEDS ORDERED: Dextrose 50% Abboject 50 ML SYRINGE SLOW IVP PRN (15:37)
[2019-10-20] MEDS ORDERED: Acetaminophen 325 MG/10.15 ML UDCUP PO PRN (15:37)
[2019-10-20] MEDS ORDERED: CCU Electrolyte Replacement 1 EACH IVPB ONE (15:37)
[2019-10-20] MEDS ORDERED: HumaLOG 300 UNITS/3 ML VIAL SC PRN ×2 (15:37)
[2019-10-20] MEDS ORDERED: Ondansetron PF 4 MG/2 ML Vial IVP PRN (15:37)
[2019-10-20 15:44] LABS: Acetaminophen Less than 6.0 mcg/mL (10.0-30.0); Alcohol Less than 10 mg/dL (Less than 10); CK (CPK) 227 U/L (29-168); Salicylate Less than 8.0 mg/dL (15.0-30.0)
[2019-10-20] MEDS ORDERED: Sodium Chloride 0.9% 1,000 ML IV SCH (15:45)
[2019-10-20 16:15] LABS: Phosphorus 8.9 mg/dL (2.3-4.7)
[2019-10-20 16:35] LABS: Actual Bicarbonate (HCO3a) 14.9 mEq/L (22-28); Base Excess (BEa) -12.9 mEq/L (-2.0 to +3.0); Calcium, Ionized 1.06 mmol/L (1.12-1.30); Carboxyhemoglobin (COHb) 1.9 gm% (0.0-3.0); Hemoglobin (Hb) 13.2 g/dL (12.0-16.0); O2 Tension (PaO2) 85.9 mmHg (> 70.0); Potassium - ABG Lab 6.36 mmol/L (3.70-5.30); Puncture Site RB; pH, Arterial 7.18 (7.35-7.45)
[2019-10-20] MEDS ORDERED: Vancomycin HCl 1.25 GM in Sodium Chloride 0.9% 250 ML 250 ML IVPB SCH (17:00)
[2019-10-20] MEDS ORDERED: HOLD VANCOMYCIN FOR LEVEL >20 FS SCH (17:00)
[2019-10-20] MEDS ORDERED: Vancomycin HCl 750 MG in Sodium Chloride 0.9% 250 ML 250 ML IVPB SCH (17:00)
[2019-10-20] MEDS ORDERED: Vancomycin HCl 500 MG in Sodium Chloride 0.9% 100 ML IVPB SCH (17:00)
--- NOTE | 2019-10-20 17:13 | CON ---
DATE OF CONSULTATION: 10/20/2019 CONSULTING PHYSICIAN: [facility]. REASON FOR CONSULTATION: ICU stay. HISTORY OF PRESENT ILLNESS: This is a 69-year-old female, who has been seen multiple times in this facility in the past by our group. She was most recently hospitalized in [place] with cellulitis of her feet. She had been discharged home on Augmentin. She came in today with altered mental status and nausea. She was found to be profoundly hyperkalemic with acute renal failure. The emergency room physicians placed a dialysis catheter and she is to undergo emergent dialysis shortly. PAST MEDICAL HISTORY: 1. Tuberculosis. 2. COPD. 3. Pneumatocele. 4. Pneumothorax. 5. Thyroid enlargement. 6. Pericardial effusion. FAMILY HISTORY: Unremarkable. SOCIAL HISTORY: Former smoker. Does not consume alcohol. MEDICATIONS: Prior to admission, 1. Atorvastatin 20 mg daily. 2. Duloxetine 20 mg nightly. 3. Singulair 10 mg daily. 4. Metformin 500 mg b.i.d. 5. Amlodipine 10 mg daily. 6. Symbicort 2 puffs twice daily. 7. Furosemide 80 mg daily. 8. Gabapentin 100 mg daily. 9. Glargine insulin 57 units nightly. 10. Nitroglycerin topically as needed. 11. Omeprazole 40 mg daily. 12. Spironolactone 25 mg daily. 13. Tiotropium 18 mcg daily. REVIEW OF SYSTEMS: Cannot be obtained secondary to altered mental status. PHYSICAL EXAMINATION: VITAL SIGNS: Pulse 118, blood pressure 144/114, respiratory rate 24, and O2 sat 95% on 2.5 L. GENERAL: She is arousable, but cannot answer questions coherently. HEENT: Pupils reactive. Sclerae anicteric. Oropharynx clear. NECK: No adenopathy or JVD. LUNGS: Clear anteriorly. CARDIOVASCULAR: S1 and S2, slightly tachycardic without murmur. ABDOMEN: Soft and nontender. EXTREMITIES: She has right and left femoral dialysis catheters. Both of her feet are blue. She has necrotic toes, left foot, #3 and #4. LABORATORY DATA: Sodium 133, potassium 7.6, chloride 97, CO2 of 16, BUN 109, creatinine 4.5, and glucose 143. Lactate 3.3. CPK 227. TSH 2.6. White blood cell count 17.4, hematocrit 47.6, and platelet count 237. INR is 2.5. ABG; pH of 7.29, pCO2 of 37, and pO2 of 129. Tox screen negative. DIAGNOSTIC DATA: Chest x-ray shows chronic changes bilaterally. ASSESSMENT: 1. Acute renal failure. 2. Hyperkalemia. 3. Metabolic acidosis. 4. Encephalopathy. 5. Possible pneumonia/sepsis. 6. Ischemic lower extremities. PLAN: 1. She will undergo emergent dialysis shortly. 2. We would stop spironolactone, hold heparin until tomorrow. 3. Empiric IV antibiotics. 4. Consider general surgical consultation to look at legs. 5. Above encompassed 70 minutes of time, of that time greater than 50% spent with the patient and/or the patient's unit in the hospital. Job ID: [id number]
--- NOTE | 2019-10-20 17:18 | PDOC.FPRHP ---
- Allergies/Adverse Reactions Allergies Allergy/AdvReac Type Severity Reaction Status Date / Time isoniazid Allergy Verified 01/11/19 11:05 pregabalin [From Lyrica] Allergy Verified 05/04/19 23:03 - Home Medications Medication Instructions Recorded Confirmed Type Atorvastatin Calcium 20 mg PO DAILY 11/11/17 05/04/19 History DULoxetine HCl [Cymbalta] 20 mg PO HS 12/23/18 05/04/19 History Montelukast Sodium 10 mg PO DAILY 12/23/18 05/04/19 History metFORMIN [Glucophage] 500 mg PO BID 12/23/18 05/04/19 History Amlodipine [Norvasc] 10 mg PO DAILY 05/04/19 05/04/19 History Budesonide-Formoterol [Symbicort 2 puff INH BID 05/04/19 05/04/19 History 160-4.5] Furosemide 2 tab PO DAILY 05/04/19 05/04/19 History Gabapentin [Neurontin] 100 mg PO HS 05/04/19 05/04/19 History Insulin Glargine,Hum.Rec.Anlog 57 unit SQ HS 05/04/19 05/04/19 History [Toujeo Solostar] Nitroglycerin [Nitro-Bid] 1 applic TOP PRN PRN 05/04/19 05/05/19 History Omeprazole 40 mg PO DAILY 05/04/19 05/04/19 History Spironolactone [Aldactone] 25 mg PO DAILY 05/04/19 05/04/19 History Tiotropium [Spiriva Handihaler] 18 mcg INH DAILY 05/04/19 05/04/19 History - History PMHx: PSHx: FHx: Social: - Vital signs BP: [] HR: [] RR: [] Tmax: [] Pox: []% on [] Wt: [] FMR H&P: Results - Labs Result Diagrams: 10/20/19 11:57 10/20/19 11:57 Lab results: WBC 17.4 thou/uL (4.8-10.8) H 10/20/19 11:57 Hgb 14.4 g/dL (12.0-16.0) 10/20/19 11:57 Hct 47.6 % (36.0-47.0) H 10/20/19 11:57 MCV 87.8 fL (78.0-98.0) 10/20/19 11:57 Plt Count 237 thou/uL (130-400) 10/20/19 11:57 Neutrophils % 83.5 % (42.0-75.0) H 10/20/19 11:57 ABG pH 7.18 (7.35-7.45) L* 10/20/19 16:20 ABG pCO2 41.0 mmHg (35.0-45.0) 10/20/19 16:20 ABG pO2 85.9 mmHg (> 70.0) H 10/20/19 16:20 Sodium 133 mmol/L (136-145) L 10/20/19 11:57 Potassium 7.6 mmol/L (3.5-5.1) H* 10/20/19 11:57 Chloride 97 mmol/L (98-107) L 10/20/19 11:57 Carbon Dioxide 16 mmol/L (23-31) L 10/20/19 11:57 BUN 109 mg/dL (9.8-20.1) H 10/20/19 11:57 Creatinine 4.56 mg/dL (0.6-1.1) H 10/20/19 11:57 Glucose 143 mg/dL (83-110) H 10/20/19 11:57 Lactic Acid 3.3 mmol/L (0.5-2.2) H 10/20/19 14:43 Calcium 8.7 mg/dL (7.8-10.44) 10/20/19 11:57 Total Bilirubin 2.4 mg/dL (0.2-1.2) H 10/20/19 11:57 AST 111 U/L (5-34) H 10/20/19 11:57 ALT 66 U/L (8-55) H 10/20/19 11:57 Alkaline Phosphatase 128 U/L (40-110) H 10/20/19 11:57 Ammonia 28 umol/L (18-72) 10/20/19 11:57 Creatine Kinase 227 U/L (29-168) H 10/20/19 11:57 CK-MB (CK-2) 8.0 ng/mL (0-6.6) H* 10/20/19 11:57 Serum Total Protein 7.5 g/dL (6.0-8.3) 10/20/19 11:57 Albumin 4.0 g/dL (3.4-4.8) 10/20/19 11:57 Urine Ketones 10 mg/dL (Negative) A 10/20/19 12:10 Urine Blood Negative (Negative) 10/20/19 12:10 Urine Nitrite Negative (Negative) 10/20/19 12:10 Ur Leukocyte Esterase Negative Ruchi/uL (Negative) 10/20/19 12:10 Urine RBC 0-3 HPF (0-3) 10/20/19 12:10 Urine WBC 4-6 HPF (0-3) A 10/20/19 12:10 Ur Squamous Epith Cells 7-10 HPF (0-3) A 10/20/19 12:10 Urine Bacteria 2+ HPF (None Seen) A 10/20/19 12:10 FMR H&P: Upper Level - Plan Date/Time: 10/20/191715 I, [], have evaluated this patient and agree with findings/plan as outlined by music internship resident. Pertinent changes/additions are listed here. Addendum - Attending - Attending Attestation Date/Time: 10/20/191715 I personally evaluated the patient and discussed the management with Dr. Hernandez /Cortez. I agree with the History and Physical exam assessment and plan with any additional information noted below.Patient seen in ER with Residents 69 yo diabetic female with c/o garbled speech since yesterday air transferred with stroke alert. Patient Living at home with brother. Daughter called today and couldnt get response and eventually spoke over the phone with unintelligible speech and EMS summoned to home. Patient evaluated at ER with AMS acute toxic encephalopathy due to uremia /suspected sepsis ATN with ARF and hyperkalemia for emergent dialysis acute management initiated in ER. Patient history of recent hospitalization outside hospital for cellulitis of lower extremities sent home on augmentin day 04/02 completed. 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 Presumed sepsis will renal dose rx transport to ICU and Critical Care will be notified at present she appears capable of protecting airway and maintaining oxygen sat with supplemental O2. CODE STATUS full code
[2019-10-20] MEDS: Sodium Chloride 0.9% 1,000 ML IV SCH (17:40)
--- NOTE | 2019-10-20 18:03 | CON ---
DATE OF CONSULTATION: SUBJECTIVE: Ms. Diego is a 69-year-old white female, who was admitted for mental status change. She was found by her daughter to be confused at home. During the initial workup, she was found to have a suspicious pneumonia. The feeling is that she may have sepsis. Furthermore, during the initial lab work, she was found to be in acute kidney injury as well as hyperkalemic. She was felt that she was volume depleted. Review of the urinalysis suggests she has a superimposed acute tubular necrosis. For this reason, we will proceed with emergent hemodialysis due to the hyperkalemia. Please note, she is diuresing with empiric volume repletion. REVIEW OF SYSTEMS: Not obtainable since the patient is confused. PAST MEDICAL HISTORY: The patient has history of ? cirrhosis, right heart failure, pulmonary fibrosis, COPD, history of tuberculosis, peripheral neuropathy, history of type 2 diabetes mellitus, and hypertension. PAST SURGICAL HISTORY: Status post cholecystectomy and status post hysterectomy. ALLERGIES: LYRICA AND INH. TRAUMA: None. IMMUNIZATIONS: Up-to-date. HOSPITALIZATIONS: Please see past medical history. FAMILY HISTORY: No family history of ESRD. PHYSICAL EXAMINATION: VITAL SIGNS: Currently blood pressure is 140/70, heart rate 120, and respiratory rate 12. GENERAL: The patient is sedated, not in overt distress. SKIN: Adequate turgor. HEENT: She has a pinkish conjunctivae. Anicteric sclerae. No neck mass. No carotid bruits. No JVD. CHEST: No deformities. LUNGS: Decreased breath sounds. HEART: Normal sinus rhythm. No murmurs, gallops, or rubs. ABDOMEN: Globular, soft, and nontender. No masses. EXTREMITIES: No edema. No deformities. MEDICATIONS: Of October 20, 2019, showed the following; 1. Cefepime 0.5 g IV q.24 hours. 2. Famotidine 20 mg IV daily. 3. Heparin 5000 units subcu t.i.d. 4. Humalog sliding scale. LABORATORY DATA: Of October 20, 2019; white count 17.4, hemoglobin 14.4. Sodium 133, potassium 7.6, chloride 97, carbon dioxide 16, BUN 109, creatinine 4.56, calcium 8.7, magnesium 2.4, ALT 66, ammonia level 28, CK 225, and phosphorus is 8.9. Urinalysis shows specific gravity 1.021 with findings of granular casts, wbc's 46, rbc's [address] scan of the brain, no acute intracranial abnormality. Chest x-ray shows no CHF ? of infiltrates. ASSESSMENT AND PLAN: 1. Acute kidney injury-with findings of a pigmented granular casts in the urine sediment. Consider a superimposed acute tubular necrosis. Due to the hyperkalemia, we will do emergent hemodialysis with this patient. Please note, she was empirically volume repleted at the ER, which resulted an increase urine output with this patient. The plan is to do a 2-hour hemodialysis using a 1.0 potassium bath in the first hour and 2.0 potassium bath on the second hour. In a.m., we will do a second dialysis treatment for at least 3 hours. The diagnosis and prognosis explained to the patient's family, they do understand. They have also agreed to proceed with dialysis. 2. Sepsis/pneumonia on empiric IV antibiotics. Continue supportive care. 3. Overall prognosis remains guarded. Job ID: [id number]
[2019-10-20 18:19] LABS: Troponin I 0.101 ng/mL (< 0.028)
[2019-10-20] MEDS ORDERED: Heparin 5,000 UNITS/ML VIAL SC SCH (21:00)
[2019-10-20 21:05] LABS: Anion Gap 24 mmol/L (10-20); BUN (Urea Nitrogen) 72 mg/dL (9.8-20.1); Calc. Creatinine Clearance 19 mL/min (70-130); Calcium 8.1 mg/dL (7.8-10.44); Carbon Dioxide 18 mmol/L (23-31); Chloride 101 mmol/L (98-107); Estimated GFR-MDRD 14; Glucose 141 mg/dL (83-110); Potassium 5.8 mmol/L (3.5-5.1); Sodium 137 mmol/L (136-145)
[2019-10-20 21:12] LABS: Troponin I 0.097 ng/mL (< 0.028)
[2019-10-21] MEDS: Sodium Chloride 0.9% 1,000 ML IV SCH ×3 (01:29→16:59)
[2019-10-21 04:53] LABS: Lactic Acid 1.7 mmol/L (0.5-2.2)
[2019-10-21 04:59] LABS: ALT (SGPT) 90 U/L (8-55); AST (SGOT) 145 U/L (5-34); Albumin 3.5 g/dL (3.4-4.8); Alkaline Phosphatase 115 U/L (40-110); Anion Gap 21 mmol/L (10-20); BUN (Urea Nitrogen) 76 mg/dL (9.8-20.1); Bilirubin, Total 1.6 mg/dL (0.2-1.2); Calc. Creatinine Clearance 19 mL/min (70-130); Carbon Dioxide 22 mmol/L (23-31); Chloride 102 mmol/L (98-107); Estimated GFR-MDRD 14; Globulin 2.9 g/dL (2.4-3.5); Glucose 133 mg/dL (83-110); Potassium 5.5 mmol/L (3.5-5.1); Protein, Total 6.4 g/dL (6.0-8.3); Sodium 139 mmol/L (136-145)
[2019-10-21 05:39] LABS: Band 2 % (5-11); Lymphocytes 13 % (21-51); MDiff Complete? YES; Mean Corpuscular HGB CONC 30.8 g/dL (32.0-36.0); Mean Corpuscular Hemoglobin 26.9 pg (27.0-31.0); Mean Corpuscular Volume 87.4 fL (78.0-98.0); Mean Platelet Volume 9.5 fL (7.4-10.4); Monocytes 8 % (0-10); Neutrophil 77 % (42-75); Platelet Count 150 thou/uL (130-400); RBC Distribution Width 18.8 % (11.5-14.5); Red Blood Cell (RBC) Count 4.45 mill/uL (4.20-5.40); White Blood Cell (WBC) Count 13.3 thou/uL (4.8-10.8)
--- NOTE | 2019-10-21 06:06 | PDOC.FM ---
- Subjective Subjective: Patient had to be placed on ventimask overnight but otherwise, no acute events. Oriented to person and place and much more alert this AM. Answering questions appropriately and complaining of hunger. Denies any pain anywhere. - Objective MAR Reviewed: Yes Vital Signs & Weight: Vital Signs (12 hours) Temp Pulse Resp Pulse Ox 10/21/19 03:00 98.5 F 10/21/19 02:07 98 10/21/19 02:06 120 H 21 H 98 10/20/19 23:00 98.1 F 10/20/19 21:53 120 H 21 H 98 10/20/19 20:00 100 10/20/19 19:00 98.1 F Weight Weight 76.8 kg Most Recent Monitor Data Heart Rate from ECG 121 NIBP 110/75 NIBP BP-Mean 86 Respiration from ECG 15 SpO2 100 I&O: 10/19/19 10/20/19 10/21/19 06:59 06:59 06:59 Intake Total 1554 Output Total 365 Balance 1189 Result Diagrams: 10/21/19 04:00 10/21/19 04:00 Phys Exam - Physical Examination Constitutional: NAD HEENT: moist MMs, sclera anicteric Neck: supple, full ROM Respiratory: no wheezing, no rales, no rhonchi, clear to auscultation bilateral Cardiovascular: no significant murmur tachycardic with regular rhythm Gastrointestinal: positive bowel sounds moderate distension; non-TTP Musculoskeletal: no edema unable to palpate pedal pulses Neurological: non-focal, moves all 4 limbs Psychiatric: normal affect Skin: no rash Deviation from normal: erythematous, cool B/L LEs w/ scattered bruising & scabs over all -: extremities Dx/Plan (1) Sepsis associated hypotension Code(s): A41.9 - SEPSIS, UNSPECIFIED ORGANISM; I95.9 - HYPOTENSION, UNSPECIFIED Status: Acute (2) COPD (chronic obstructive pulmonary disease) Status: Chronic Qualifiers: COPD type: unspecified COPD Qualified Code(s): J44.9 - Chronic obstructive pulmonary disease, unspecified (3) DM2 (diabetes mellitus, type 2) Status: Chronic Qualifiers: Diabetes mellitus mcfp insulin use: unspecified mcfp insulin use status Diabetes mellitus complication status: with unspecified complications (4) HLD (hyperlipidemia) Code(s): E78.5 - HYPERLIPIDEMIA, UNSPECIFIED Status: Chronic Qualifiers: Hyperlipidemia type: unspecified Qualified Code(s): E78.5 - Hyperlipidemia , unspecified (5) Acute tubular necrosis Code(s): N17.0 - ACUTE KIDNEY FAILURE WITH TUBULAR NECROSIS Status: Acute (6) Acute renal failure (ARF) Status: Acute (7) Hyperkalemia Code(s): E87.5 - HYPERKALEMIA Status: Acute - Plan Plan: This is a 69 yo F being admitted for severe sepsis 2/2 RUL PNA &/or UTI, ARF w/ ATN & hyperkalemia, acute metabolic encephalopathy and acute hypoxic respiratory failure. ATN w/ ARF 2/2 #2: -BUN:Cr 109/4.96 on presentation with K of 7.6. Temporary access in L groin done in ER & per nephro pt underwent emergent HD. -BUN/Cr down to 76/3.31 this AM w/ eGFR of 14 & K 5.5. Continue IVFs & HD per nephro recs. -Will renally dose all meds PRN & continue to trend renal function. Severe Sepsis 2/2 RUL PNA and/or UTI: -Hypotensive & tachycardic w/ elevated lactate of 3.9 & WBC count of 17.4 on presentation w/ multiple possible sources. CXR notable for RUL nodules & consolidation and UA dirty w/ bacteria, casts & WBCs. In addition, B/L LE erythema & daughter reports she was recently hospitalized for LE cellulitis and was still taking PO augmentin for this. -Will continue vancomycin & cefepime pending blood & urine Cxs as procal was indeterminant but WBC down to 13.3. -Continue IVFs w/ NS @ 125mL/hr but will adjust PRN based on respiratory status. Acute metabolic encephalopathy: - Multiple possible etiologies including infection, electrolyte disturbances, possible ischemic CVA. NPO pending bedside swallow & speech eval & will treat following possible etiologies as noted below. - Continue CCU electrolyte protocol. - Would consider an MRI this AM given that head CT on admission showed left basal ganglia hypodensity, age undetermined. Acute hypoxic respiratory failure: - AB.29/37.3/129/17.5 on presentation on 2.5-3L NC to maintain sats compared to usual 2L at home. Patient now on ventimask at 40% FiO2 as she desatted to low 80s overnight. - Continue NANCY Duonebs & BS abx for possible PNA as noted above. Repeat CXR this AM showed worsening imfiltrates which could be IVFs given in ED & overnight vs. worsening PNA. CT recommended per radiology but will defer for now & see if respiratory status improves following HD again today. -Patient's outpatient post splitter, Dr. Teixeira, on board and to see today, appreciate recs. Metabolic acidosis: -2/2 sepsis w/ elevated lactate of 3.9 on presentation. ABG as noted above. Lactate down to 1.7 overnight s/p fluids & BS Abx. Will continue as noted above. Repeat ABG pending for this AM. Hyperkalemia: -K 7.6 on presentation but down to 5.5 this AM s/p emergent HD on admission. -Will continue NANCY Duonebs & continue to trend. -Nephro, Dr. Arthur, on board, appreciate recs. Hyponatremia, resolved: -133 on presentation but up to 139 this AM. Will continue to trend. Paroxysmal atrial fibrillation: -EKG on presentation A fib with rate in the 80s but sinus tach noted on monitor on exam. -Likely exacerbated by infection & ARF w/ significant electrolyte disturbances. In & out of a fib overnight. -Requesting outpatient cards records to see if a fib is new or chronic but if unable to obtain will consider cards consult today. IDDMII: -Still NPO pending speech eval but hypoglycemia protocol w/ moderate SSI in place. Will resume [facility] home insulin once tolerating PO. -Will hold metformin in setting of ARF. Drug-induced liver injury: -Per daughter this is a chronic issue since her TB tx. -Chronic elevated of LFTs noted per chart review but likely a small element of shock liver from sepsis & hypotension contributing to this. T bili also elevated at 2.4 on admission - All values slightly down this AM. Will continue to trend. Remote Hx of TB: -s/p tx x 9 months with isoniazid per daughter. Suspected HFpEF: -daughter reported h/o R-sided heart failure for which she takes fluid pills. Attempting to request records from her assistant press operator but patient & daughter unsure of name. - Per chart review ECHO done here in Apr 2019 showed severe TR w/ elevated pulmonary artery pressure but EF of 55-60%. Did not comment on diastolic dysfunction. HLD: -Will resume home statin once tolerating PO. Suspected PVD: -B/L LEs cool with non-palpable pedal pulses. Will consider a CV surgery consult while inpatient vs. outpatient follow-up to address this. Lines/Tubes: L groin trialysis catheter placed in ED on 10/20/19 (day #2) Code status: FULL CODE VTE PPx: Heparin GI PPX: famotidine Abx: Cefepime & vancomycin (day #2 on 10/20/19) IVFs: NS @ 125mL/hr Dispo: Continue close monitoring in CCU. Addendum - Attending - Attending Attestation Date/Time: 10/21/19 1039 I personally evaluated the patient and discussed the management with Dr. Toro I agree with the History, Examination, Assessment and Plan documented above with any addition or exceptions noted below - Patient felling better; still having some SOB. Mentation improved. Afebrile VSS. A/P: 1) Septic shock secondary to CAP- resolved; BP improved, now stable; off pressors. 2) ARF with ATN - Cr improved; Continue to monitor urine output. 3) Hyperkalemia secondary to #2- plan for repeat dialysis today. 4) CAP- continue current abx; blood cx negative to date.
[2019-10-21 07:00] LABS: Phosphorus 6.2 mg/dL (2.3-4.7)
--- NOTE | 2019-10-21 07:56 | RAD ---
CHEST 1 VIEW: INDICATION: Daily CCU examination. COMPARISON: Prior exam dated 10/20/2019. FINDINGS: There are worsening confluent airspace opacities within the perihilar regions. There is a worsening small right pleural effusion. Cardiomegaly persists. Osseous structures are unchanged. No pneumoth orax is evident. IMPRESSION: Worsening bilateral perihilar airspace opacities suspicious for worsening pneumonia. CT followup is recommended. POS: BH
[2019-10-21] MEDS ORDERED: Famotidine/PF 20 mg/2ml Vial SLOW IVP SCH (09:00)
[2019-10-21] MEDS ORDERED: Heparin 10,000 UNITS/ 10 ML VIAL ONE (09:43)
[2019-10-21] MEDS: Acetaminophen 650 MG/20.3 ML UDCUP PO PRN ×2 (10:40→18:43)
[2019-10-21] MEDS ORDERED: Cefepime 0.5 GM in Sodium Chloride 0.9% 100 ML IVPB SCH (13:00)
[2019-10-21] MEDS ORDERED: Cefepime 0.5 GM, Admixture Fee 1 EACH in Sodium Chloride 0.9% 100 ML IVPB SCH (13:00)
[2019-10-21 16:11] LABS: Vancomycin, Random 7.7 ug/mL (See Comment)
[2019-10-21] MEDS ORDERED: Albuterol Sulfate 2.5 mg/3 ml Neb NEB PRN (16:44)
--- NOTE | 2019-10-21 17:06 | PRG ---
DATE OF SERVICE: 10/21/2019 SUBJECTIVE: Ms. Diego is a 69-year-old white female, who was seen for an acute kidney injury secondary to a possible acute tubular necrosis. The patient underwent emergent hemodialysis due to hyperkalemia. Potassium is slightly improved with the most recent value of 5.5. The plan is for her to undergo another dialysis treatment-for 3 hours. The patient has been scheduled for dialysis. The patient has also worsening pneumonia and was initially admitted for possible sepsis. The patient is currently on empiric IV antibiotics. Please note she is extubated today. OBJECTIVE: VITAL SIGNS: Blood pressure is 103/68, heart rate 112, respiratory rate 16, and pulse ox 97%. GENERAL: The patient is awake, sitting comfortable, not in overt distress. SKIN: Adequate turgor. HEENT: Pinkish conjunctivae. Anicteric sclerae. NECK: No neck mass. No carotid bruits. No JVD. CHEST: No deformities. LUNGS: Decreased breath sounds. HEART: Normal sinus rhythm. No murmurs, gallops, or rubs. ABDOMEN: Globular, soft, and nontender. No masses. EXTREMITIES: No edema. No deformities. MEDICATIONS: Of October 21, 2019, reviewed. LABORATORY DATA: October 21, 2019; sodium 139, potassium 5.5, chloride 102, carbon dioxide 22, BUN 76, and creatinine 3.31. AST 145 and ALT 90. Hemoglobin 12, white count 10.3. Chest x-ray of October 21, 2019, shows worsening bilateral perihilar airspace opacities. ASSESSMENT AND PLAN: 1. Pneumonia, on empiric IV antibiotics. 2. Acute kidney injury secondary to acute tubular necrosis. Continue supportive dialysis. 3. Hyperkalemia, much improved. The patient received a 3-hour hemodialysis today. We will check basic metabolic profile in a.m. again. Agree with current management. Job ID: [id number]
[2019-10-21] MEDS: Vancomycin HCl 1 GM in Premix Bag 1 BAG IVPB SCH (18:02)
[2019-10-21] MEDS: Mometasone/Formoterol 120 PUFF INHALER INH SCH (19:05)
[2019-10-21] MEDS: Cefepime 0.5 GM, Admixture Fee 1 EACH in Sodium Chloride 0.9% 100 ML IVPB SCH (20:40)
[2019-10-21] MEDS: Heparin 5,000 UNITS/ML VIAL SC SCH (20:42)
[2019-10-22] MEDS: Acetaminophen 650 MG/20.3 ML UDCUP PO PRN ×3 (02:43→21:08)
[2019-10-22 05:01] LABS: ALT (SGPT) 82 U/L (8-55); AST (SGOT) 99 U/L (5-34); Albumin 3.3 g/dL (3.4-4.8); Alkaline Phosphatase 119 U/L (40-110); Anion Gap 20 mmol/L (10-20); BUN (Urea Nitrogen) 56 mg/dL (9.8-20.1); Bilirubin, Total 1.2 mg/dL (0.2-1.2); Calc. Creatinine Clearance 22 mL/min (70-130); Calcium 7.9 mg/dL (7.8-10.44); Carbon Dioxide 22 mmol/L (23-31); Chloride 100 mmol/L (98-107); Estimated GFR-MDRD 17; Globulin 2.8 g/dL (2.4-3.5); Glucose 174 mg/dL (83-110); Magnesium 1.9 mg/dL (1.6-2.6); Potassium 4.7 mmol/L (3.5-5.1); Protein, Total 6.1 g/dL (6.0-8.3); Sodium 137 mmol/L (136-145)
[2019-10-22 05:59] LABS: Band 2 % (5-11); Hemoglobin 11.1 g/dL (12.0-16.0); Lymphocytes 4 % (21-51); MDiff Complete? YES; Mean Corpuscular HGB CONC 31.3 g/dL (32.0-36.0); Mean Corpuscular Hemoglobin 27.1 pg (27.0-31.0); Mean Corpuscular Volume 86.7 fL (78.0-98.0); Monocytes 6 % (0-10); Neutrophil 88 % (42-75); Platelet Count 104 thou/uL (130-400); Platelet Morphology Comment Appears Decreased; RBC Distribution Width 18.7 % (11.5-14.5); RBC Morphology Normal; Red Blood Cell (RBC) Count 4.11 mill/uL (4.20-5.40); White Blood Cell (WBC) Count 12.8 thou/uL (4.8-10.8)
[2019-10-22] MEDS: Mometasone/Formoterol 120 PUFF INHALER INH SCH ×2 (06:56→18:40)
[2019-10-22] MEDS: Montelukast Sodium 10 mg Tablet PO SCH (07:59)
[2019-10-22] MEDS: Heparin 5,000 UNITS/ML VIAL SC SCH ×3 (07:59→21:08)
[2019-10-22] MEDS: Sodium Chloride 0.9% 1,000 ML IV SCH (08:00)
--- NOTE | 2019-10-22 08:08 | PDOC.FM ---
- Subjective Subjective: Pt reports overall improvement. Reports back pain lt sided paraspinal lumbar. - Objective Vital Signs & Weight: Vital Signs (12 hours) Temp Pulse Resp BP Pulse Ox 10/22/19 07:58 97.9 F 115 H 20 109/71 96 10/22/19 06:56 90 14 10/22/19 02:55 97.7 F 115 H 19 97/60 95 10/22/19 02:32 116 H 20 98 10/21/19 22:45 98.2 F 114 H 20 93/55 L 99 10/21/19 21:23 106 H 20 Weight Admit Weight 76.657 kg Weight 76.8 kg Most Recent Monitor Data Heart Rate from ECG 112 NIBP 93/57 NIBP BP-Mean 69 Respiration from ECG 22 SpO2 96 I&O: 10/21/19 10/22/19 10/23/19 06:59 06:59 06:59 Intake Total 1554 3308 Output Total 365 370 Balance 1189 2938 Result Diagrams: 10/22/19 03:48 10/22/19 03:48 Phys Exam - Physical Examination Constitutional: NAD HEENT: PERRLA, sclera anicteric Neck: no nodes Respiratory: no wheezing, no rales, no rhonchi, clear to auscultation bilateral Cardiovascular: RRR, no significant murmur, no rub Gastrointestinal: soft, non-tender, no distention, positive bowel sounds Musculoskeletal: no edema cool feet b/l LE ttp lt paralumbar region Neurological: non-focal, moves all 4 limbs Lymphatic: no nodes Psychiatric: normal affect Deviation from normal: senile purpura Dx/Plan (1) Acute renal failure (ARF) Status: Acute (2) Acute tubular necrosis Code(s): N17.0 - ACUTE KIDNEY FAILURE WITH TUBULAR NECROSIS Status: Acute (3) Hyperkalemia Code(s): E87.5 - HYPERKALEMIA Status: Acute (4) Sepsis associated hypotension Code(s): A41.9 - SEPSIS, UNSPECIFIED ORGANISM; I95.9 - HYPOTENSION, UNSPECIFIED Status: Acute (5) Drug-induced liver injury Code(s): K71.9 - TOXIC LIVER DISEASE, UNSPECIFIED Status: Acute (6) COPD (chronic obstructive pulmonary disease) Status: Chronic Qualifiers: COPD type: unspecified COPD Qualified Code(s): J44.9 - Chronic obstructive pulmonary disease, unspecified (7) Chronic anemia Code(s): D64.9 - ANEMIA, UNSPECIFIED Status: Chronic (8) DM2 (diabetes mellitus, type 2) Status: Chronic Qualifiers: Diabetes mellitus intermodal dispatcher insulin use: unspecified intermodal dispatcher insulin use status Diabetes mellitus complication status: with unspecified complications (9) HLD (hyperlipidemia) Code(s): E78.5 - HYPERLIPIDEMIA, UNSPECIFIED Status: Chronic Qualifiers: Hyperlipidemia type: unspecified Qualified Code(s): E78.5 - Hyperlipidemia , unspecified (10) HTN (hypertension) Code(s): I10 - ESSENTIAL (PRIMARY) HYPERTENSION Status: Chronic Qualifiers: Hypertension type: essential hypertension Qualified Code(s): I10 - Essential (primary) hypertension (11) Hypotension Status: Resolved (12) Septic shock Code(s): A41.9 - SEPSIS, UNSPECIFIED ORGANISM; R65.21 - SEVERE SEPSIS WITH SEPTIC SHOCK Status: Resolved (13) Severe dehydration Code(s): E86.0 - DEHYDRATION Status: Resolved - Plan Plan: This is a 69 yo F being admitted for severe sepsis 2/2 RUL PNA &/or UTI, ARF w/ ATN & hyperkalemia, acute metabolic encephalopathy and acute hypoxic respiratory failure. ATN w/ ARF 2/2 #2: -BUN:Cr 109/4.96 on presentation with K of 7.6. -cont to trend - dialysis per nephro - monitor IsOs Severe Sepsis 2/2 RUL PNA and/or UTI: -Hypotensive & tachycardic w/ elevated lactate of 3.9 & WBC count of 17.4 on presentation w/ multiple possible sources. CXR notable for RUL nodules & consolidation and UA dirty w/ bacteria, casts & WBCs. In addition, B/L LE erythema & daughter reports she was recently hospitalized for LE cellulitis and was still taking PO augmentin for this. -cont vanc and cefepime, pharm to dose Acute metabolic encephalopathy: - Multiple possible etiologies including infection, electrolyte disturbances, possible ischemic CVA. - improved, monitor Acute hypoxic respiratory failure: - AB.29/37.3/129/17.5 on presentation on 2.5-3L NC to maintain sats compared to usual 2L at home. Patient now on ventimask at 40% FiO2 as she desatted to low 80s overnight. - Continue NANCY Duonebs & BS abx for possible PNA as noted above. Repeat CXR this AM showed worsening imfiltrates which could be IVFs given in ED & overnight vs. worsening PNA. -Patient's outpatient recreation officer, Dr. Teixeira, on board and to see today, appreciate recs. - await pulm recs - cont prn meds and monitor, consider ct Metabolic acidosis: -2/2 sepsis - trend - dialysis today Hyperkalemia: -resolved - receiving dialysis Hyponatremia, resolved: -133 on presentation but up to 139 this AM. Will continue to trend. - stable Paroxysmal atrial fibrillation: -currently sinus tach - monitor IDDMII: -accuchecks achs - hold metformin Drug-induced liver injury: -trend Remote Hx of TB: -s/p tx x 9 months with isoniazid per daughter. Suspected HFpEF: -monitor volume status - prior showed elevated pulm pressures - no mention of diastolic dysfunction - ? Cor pulmonale from chronic lung disease HLD: -Will resume home statin once tolerating PO. Suspected PVD: -B/L LEs cool with non-palpable pedal pulses. Will consider a CV surgery consult while inpatient vs. outpatient follow-up to address this. -unchanged - consider cta runoff b/l LE Lines/Tubes: L groin trialysis catheter placed in ED on 10/20/19 (day #2) Code status: FULL CODE VTE PPx: Heparin GI PPX: famotidine Abx: Cefepime & vancomycin (day #2 on 10/20/19) IVFs: NS @ 125mL/hr Dispo: Continue close monitoring on telemetry. Addendum - Attending - Attending Attestation Date/Time: 10/22/19 5020 I personally evaluated the patient and discussed the management with Dr. Gibbons I agree with the History, Examination, Assessment and Plan documented above with any addition or exceptions noted below. Patient with significant PVD will eventually benefit from further study when condition more stable.
[2019-10-22] MEDS ORDERED: Heparin 10,000 UNITS/ 10 ML VIAL ONE (09:34)
--- NOTE | 2019-10-22 11:45 | PRG ---
DATE OF SERVICE: 10/22/2019 DISCUSSION: Ms. Diego is a 69-year-old white female, who was seen by the Renal Service for an acute kidney injury secondary to acute tubular necrosis. Due to the hyperkalemia, she underwent emergent hemodialysis. I am currently dialyzing her for 3.5 hours. Fluid removal only as tolerated. No acute events noted. She was also admitted for sepsis/pneumonia. OBJECTIVE: VITAL SIGNS: Blood pressure is 109/71, heart rate 115, respiratory rate 20, temperature 97.9, pulse ox 96%. GENERAL: Awake, alert, comfortable, not in distress. SKIN: Adequate turgor. HEENT: She has pinkish conjunctivae. Anicteric sclerae. No neck mass. No carotid bruits. No JVD. CHEST: No deformities. LUNGS: Clear breath sounds. HEART: Normal sinus rhythm. No murmur. No gallops. No rubs. ABDOMEN: Globular, soft, nontender. No masses. EXTREMITIES: Trace edema. MEDICATIONS: Medications of October 22, 2019, were reviewed. LABORATORY DATA: Laboratories of October 22, 2019; white count 12.8, hemoglobin 11.1. Sodium 137, potassium 4.7, chloride 100, carbon dioxide 22, BUN 56, creatinine 2.79, glucose 174, AST 99, ALT 82, albumin 3.3. ASSESSMENT AND PLAN: 1. Sepsis/pneumonia, on IV antibiotics. Continue current management. 2. Acute kidney injury secondary to acute tubular necrosis. Continue supportive care. She is receiving 3.5 hour hemodialysis today. 3. Continue ctzsk-pxrqn-d-week hemodialysis. 4. Hyperkalemia, resolved. 5. Recheck basic metabolic panel and CBC in a.m. Job ID: [id number]
[2019-10-22 13:24] LABS: Vancomycin, Random 8.6 ug/mL (See Comment)
[2019-10-22] MEDS: Vancomycin HCl 1 GM in Premix Bag 1 BAG IVPB SCH (14:13)
[2019-10-22] MEDS ORDERED: Sodium Chloride 0.9% 1,000 ML IV SCH (19:07)
--- NOTE | 2019-10-22 19:28 | PRG ---
DATE OF SERVICE: 10/22/2019 SERVICE: Pulmonary Medicine. INTERVAL HISTORY: The patient is doing okay from respiratory standpoint. She indicates having discomfort everywhere. She denies any current chest discomfort, nausea, or vomiting however. She is having increasing work of breathing, though she is back down to her home oxygen content of 2 L/minute. Otherwise, there has been no interval change to her condition. PHYSICAL EXAMINATION: VITAL SIGNS: Afebrile, pulse 117, blood pressure 105/66, respirations 20, and saturation 95% on 0.5 L nasal cannula. GENERAL: The patient is awake and alert, in no apparent distress. LUNGS: Good air entry. There is a prolonged expiratory phase with a little wheezing. Crackles however predominate. HEART: Normal rate and regular. ABDOMEN: Soft, nontender, nondistended. Bowel sounds are positive. MUSCULOSKELETAL: No cyanosis or clubbing. There is 2+ edema. NEUROLOGIC: Grossly nonfocal. LABORATORY DATA: WBC 12.8, hemoglobin 11.1, platelets 104,000. INR 2.5. Creatinine 2.79 and gently downtrending, BUN 56. Basic metabolic profile is otherwise unremarkable. AST, ALT, and alkaline phosphatase are all roughly stable if not downtrending. Blood cultures x2 and urine culture are unremarkable. IMAGING: Chest x-ray demonstrates bilateral hilar infiltrates. Right-sided pleural effusion. Cardiac silhouette is enlarged. ASSESSMENT: 1. Xehmf-wh-tmavanb hypoxic respiratory failure, returned to baseline. 2. Acute kidney injury on chronic kidney disease 3. 3. Metabolic encephalopathy, improving. 4. Volume overload. DISCUSSION AND PLAN: We will continue empiric antibiotics. The patient remains volume up, and demonstrates marginal blood pressure. We will continue working to remove fluid via dialysis three times weekly. Pulmonary/Critical Care will continue to follow along, intermittently during this hospital stay. Job ID: [id number]
[2019-10-22] MEDS: Cefepime 0.5 GM, Admixture Fee 1 EACH in Sodium Chloride 0.9% 100 ML IVPB SCH (21:21)
[2019-10-23 04:34] LABS: #Eosinphils 0.1 thou/uL (0.0-0.7); #Monocytes 1.3 thou/uL (0.11-0.59); #Neutrophils 8.6 thou/uL (1.40-6.50); %Lymphocytes 9.1 % (21.0-51.0); %Monocytes 11.3 % (0.0-10.0); %Neutrophils 78.6 % (42.0-75.0); Hemoglobin 11.2 g/dL (12.0-16.0); Mean Corpuscular Hemoglobin 26.9 pg (27.0-31.0); Mean Corpuscular Volume 87.1 fL (78.0-98.0); Platelet Count 93 thou/uL (130-400); RBC Distribution Width 18.8 % (11.5-14.5); Red Blood Cell (RBC) Count 4.14 mill/uL (4.20-5.40)
[2019-10-23 04:52] LABS: ALT (SGPT) 66 U/L (8-55); AST (SGOT) 64 U/L (5-34); Albumin 3.4 g/dL (3.4-4.8); Alkaline Phosphatase 110 U/L (40-110); Anion Gap 15 mmol/L (10-20); BUN (Urea Nitrogen) 31 mg/dL (9.8-20.1); Bilirubin, Total 1.5 mg/dL (0.2-1.2); Calc. Creatinine Clearance 31 mL/min (70-130); Calcium 8.1 mg/dL (7.8-10.44); Carbon Dioxide 24 mmol/L (23-31); Chloride 99 mmol/L (98-107); Estimated GFR-MDRD 24; Globulin 2.8 g/dL (2.4-3.5); Glucose 121 mg/dL (83-110); Magnesium 1.9 mg/dL (1.6-2.6); Protein, Total 6.2 g/dL (6.0-8.3); Sodium 134 mmol/L (136-145)
--- NOTE | 2019-10-23 06:30 | PDOC.FM ---
- Subjective Subjective: Pt reports she is feeling better today, no acute events overnight. Continuing HD 3x/week. Hopeful for fluid removal with dialysis. - Objective Vital Signs & Weight: Vital Signs (12 hours) Temp Pulse Resp BP Pulse Ox 10/23/19 03:00 97.6 F 108 H 18 112/74 96 10/22/19 22:10 106 H 24 H 96 10/22/19 21:02 98.3 F 109 H 20 101/72 98 10/22/19 18:37 101 H 24 H 95 Weight Admit Weight 76.657 kg Weight 72 kg Most Recent Monitor Data Heart Rate from ECG 112 NIBP 93/57 NIBP BP-Mean 69 Respiration from ECG 22 SpO2 96 I&O: 10/21/19 10/22/19 10/23/19 06:59 06:59 06:59 Intake Total 1554 3308 Output Total 365 370 Balance 1189 2938 Result Diagrams: 10/23/19 04:02 10/23/19 04:02 Phys Exam - Physical Examination Constitutional: NAD HEENT: PERRLA, moist MMs Neck: no JVD Respiratory: no wheezing, no rales, no rhonchi, clear to auscultation bilateral Cardiovascular: RRR, no significant murmur, no rub Gastrointestinal: soft, non-tender, positive bowel sounds Musculoskeletal: pulses present, edema present (1+) Neurological: non-focal, moves all 4 limbs Psychiatric: normal affect Deviation from normal: senile purpura Dx/Plan (1) Acute renal failure (ARF) Status: Acute (2) Acute tubular necrosis Code(s): N17.0 - ACUTE KIDNEY FAILURE WITH TUBULAR NECROSIS Status: Acute (3) Hyperkalemia Code(s): E87.5 - HYPERKALEMIA Status: Acute (4) Sepsis associated hypotension Code(s): A41.9 - SEPSIS, UNSPECIFIED ORGANISM; I95.9 - HYPOTENSION, UNSPECIFIED Status: Acute (5) Drug-induced liver injury Code(s): K71.9 - TOXIC LIVER DISEASE, UNSPECIFIED Status: Acute (6) COPD (chronic obstructive pulmonary disease) Status: Chronic Qualifiers: COPD type: unspecified COPD Qualified Code(s): J44.9 - Chronic obstructive pulmonary disease, unspecified (7) Chronic anemia Code(s): D64.9 - ANEMIA, UNSPECIFIED Status: Chronic (8) DM2 (diabetes mellitus, type 2) Status: Chronic Qualifiers: Diabetes mellitus terminal system operator insulin use: unspecified skilled nursing insulin use status Diabetes mellitus complication status: with unspecified complications (9) HLD (hyperlipidemia) Code(s): E78.5 - HYPERLIPIDEMIA, UNSPECIFIED Status: Chronic Qualifiers: Hyperlipidemia type: unspecified Qualified Code(s): E78.5 - Hyperlipidemia , unspecified (10) HTN (hypertension) Code(s): I10 - ESSENTIAL (PRIMARY) HYPERTENSION Status: Chronic Qualifiers: Hypertension type: essential hypertension Qualified Code(s): I10 - Essential (primary) hypertension (11) Hypotension Status: Resolved (12) Septic shock Code(s): A41.9 - SEPSIS, UNSPECIFIED ORGANISM; R65.21 - SEVERE SEPSIS WITH SEPTIC SHOCK Status: Resolved (13) Severe dehydration Code(s): E86.0 - DEHYDRATION Status: Resolved - Plan Plan: This is a 69 yo F being admitted for severe sepsis 2/2 RUL PNA &/or UTI, ARF w/ ATN & hyperkalemia, acute metabolic encephalopathy and acute hypoxic respiratory failure. ATN w/ ARF 2/2 #2: -BUN:Cr 109/4.96 on presentation with K of 7.6. - improving, monitor IsOs - dialysis 3x/week with fluid removal as pt is volume up currently Severe Sepsis 2/2 RUL PNA and/or UTI: -Hypotensive & tachycardic w/ elevated lactate of 3.9 & WBC count of 17.4 on presentation w/ multiple possible sources. CXR notable for RUL nodules & consolidation and UA dirty w/ bacteria, casts & WBCs. In addition, B/L LE erythema & daughter reports she was recently hospitalized for LE cellulitis and was still taking PO augmentin for this. -cont vanc and cefepime - improving with IV abx Acute metabolic encephalopathy: - resolved Acute hypoxic respiratory failure: - at baseline O2 requirement - cont cupportive care - monitor Metabolic acidosis: - resolved Hyperkalemia: -resolved - receiving dialysis Hyponatremia, resolved: -133 on presentation - monitor Paroxysmal atrial fibrillation: -currently sinus tach - monitor IDDMII: -accuchecks achs - hold metformin Drug-induced liver injury: -trend Remote Hx of TB: -s/p tx x 9 months with isoniazid per daughter. Suspected HFpEF: - fluid removal with dialysis 3x/week - monitor volume status HLD: -statin. Suspected PVD: - touch base with nephro consider cta with runoff b/l LE on dialysis day Lines/Tubes: L groin trialysis catheter placed in ED on 10/20/19 (day #2) Code status: FULL CODE VTE PPx: Heparin GI PPX: famotidine Abx: Cefepime & vancomycin (day #2 on 10/20/19) IVFs: NS @ 125mL/hr Dispo: Continue close monitoring on telemetry. Addendum - Attending - Attending Attestation Date/Time: 10/23/19 [id number] I personally evaluated the patient and discussed the management with Dr. Schaffer I agree with the History, Examination, Assessment and Plan documented above with any addition or exceptions noted below. Discussed skilled nursing care management and rehab for patient need CM to begin discussing short and skilled nursing placement options. Patient is currently living with sibling.
[2019-10-23] MEDS: Mometasone/Formoterol 120 PUFF INHALER INH SCH ×2 (06:49→18:21)
[2019-10-23] MEDS: Montelukast Sodium 10 mg Tablet PO SCH (09:48)
[2019-10-23 10:22] LABS: Troponin I 0.164 ng/mL (< 0.028)
--- NOTE | 2019-10-23 11:18 | PRG ---
DATE OF SERVICE: 10/23/2019 SUBJECTIVE: Ms. Diego is a 69-year-old white female, who was admitted for acute respiratory failure. She was diagnosed with pneumonia and sepsis. Currently, on IV antibiotics. We also consulted for acute kidney injury with hyperkalemia. Due for this reason, this patient underwent hemodialysis on a daily basis. She tolerated dialysis yesterday without any problem. No new complaints today. No chest pain or any worsening shortness of breath. OBJECTIVE: VITAL SIGNS: Blood pressure 102/67, heart rate 112, temperature 97.9, and respiratory rate 22. GENERAL: The patient is awake, sitting comfortable, not in distress. SKIN: Adequate turgor. HEENT: She has a pinkish conjunctivae. Anicteric sclerae. No neck mass. No carotid bruits. No JVD. CHEST: No deformities. LUNGS: Decreased breath sounds. HEART: Tachycardic. No murmur. No gallops. No rubs. ABDOMEN: Globular, soft, and nontender. No masses. EXTREMITIES: No edema. No deformities. MEDICATIONS: Medications of October 23, 2019, was reviewed. LABORATORY DATA: October 23, 2019; white count 11 and hemoglobin 11.2. Sodium 134, potassium 4, chloride 99, carbon dioxide 24, BUN 31, creatinine 2.02, glucose 121, AST 64, and ALT 66. ASSESSMENT AND PLAN: 1. Acute kidney injury-secondary to acute tubular necrosis. The patient received daily dialysis. No indication for any dialytic intervention today. She looks euvolemic and potassium was said to be acceptable. 2. Pneumonia, on IV antibiotics. Continue supportive care. Case was discussed at length with the patient's daughter. Recheck basic metabolic profile, CBC in a.m. Job ID: [id number]
[2019-10-23] MEDS: Acetaminophen 650 MG/20.3 ML UDCUP PO PRN ×2 (13:13→20:44)
[2019-10-23] MEDS: Heparin 5,000 UNITS/ML VIAL SC SCH (15:45)
[2019-10-23] MEDS: Cefepime 0.5 GM, Admixture Fee 1 EACH in Sodium Chloride 0.9% 100 ML IVPB SCH (20:44)
[2019-10-24] MEDS ORDERED: Gabapentin 100 MG CAP PO SCH (02:15)
[2019-10-24 04:59] LABS: ALT (SGPT) 51 U/L (8-55); AST (SGOT) 45 U/L (5-34); Albumin 3.4 g/dL (3.4-4.8); Alkaline Phosphatase 106 U/L (40-110); Anion Gap 16 mmol/L (10-20); BUN (Urea Nitrogen) 40 mg/dL (9.8-20.1); Bilirubin, Total 1.4 mg/dL (0.2-1.2); Calc. Creatinine Clearance 28 mL/min (70-130); Calcium 8.2 mg/dL (7.8-10.44); Carbon Dioxide 23 mmol/L (23-31); Chloride 101 mmol/L (98-107); Estimated GFR-MDRD 23; Glucose 114 mg/dL (83-110); Potassium 4.2 mmol/L (3.5-5.1); Protein, Total 6.4 g/dL (6.0-8.3); Sodium 136 mmol/L (136-145)
[2019-10-24 05:22] LABS: Band 12 % (5-11); Eosinophils 3 % (0-10); Hemoglobin 11.2 g/dL (12.0-16.0); Lymphocytes 14 % (21-51); MDiff Complete? YES; Mean Corpuscular Hemoglobin 27.1 pg (27.0-31.0); Mean Corpuscular Volume 87.6 fL (78.0-98.0); Mean Platelet Volume 10.3 fL (7.4-10.4); Monocytes 7 % (0-10); Neutrophil 64 % (42-75); Ovalocytes SLIGHT = 2-5 cells (100X) (0-1/hpf); Platelet Count 99 thou/uL (130-400); Platelet Morphology Comment Appears Decreased; RBC Distribution Width 18.6 % (11.5-14.5); Red Blood Cell (RBC) Count 4.12 mill/uL (4.20-5.40); White Blood Cell (WBC) Count 11.1 thou/uL (4.8-10.8)
--- NOTE | 2019-10-24 06:07 | PDOC.FM ---
- Subjective Subjective: Pt says she is feeling well this AM. Is on 2L NC, which is what she is on 24hrs/ day at home. Her back is sore sometimes where she fell in the bathtub last week. Otherwise, she feels well and wants some coffee. - Objective MAR Reviewed: Yes Vital Signs & Weight: Vital Signs (12 hours) Temp Pulse Resp BP Pulse Ox 10/24/19 03:00 97.4 F L 103 H 14 111/77 96 10/24/19 02:06 103 H 20 92 L 10/23/19 22:24 24 H 10/23/19 20:15 97 10/23/19 18:20 101 H 24 H 91 L Weight Admit Weight 76.657 kg Weight 72 kg Most Recent Monitor Data Heart Rate from ECG 112 NIBP 93/57 NIBP BP-Mean 69 Respiration from ECG 22 SpO2 96 I&O: 10/22/19 10/23/19 10/24/19 06:59 06:59 06:59 Intake Total 3308 790 1040 Output Total 370 325 300 Balance 2938 465 740 Result Diagrams: 10/24/19 04:08 10/24/19 04:08 Phys Exam - Physical Examination Constitutional: NAD Respiratory: wheezing present (diffusely and minimal wheezing) Cardiovascular: RRR Gastrointestinal: soft (moderately distended) Musculoskeletal: pulses present Neurological: moves all 4 limbs Psychiatric: normal affect, A&O x 3 Skin: no rash Dx/Plan (1) Sepsis associated hypotension Code(s): A41.9 - SEPSIS, UNSPECIFIED ORGANISM; I95.9 - HYPOTENSION, UNSPECIFIED Status: Acute (2) COPD (chronic obstructive pulmonary disease) Status: Chronic Qualifiers: COPD type: unspecified COPD Qualified Code(s): J44.9 - Chronic obstructive pulmonary disease, unspecified (3) DM2 (diabetes mellitus, type 2) Status: Chronic Qualifiers: Diabetes mellitus retirement insulin use: unspecified terminal press operator insulin use status Diabetes mellitus complication status: with unspecified complications (4) HLD (hyperlipidemia) Code(s): E78.5 - HYPERLIPIDEMIA, UNSPECIFIED Status: Chronic Qualifiers: Hyperlipidemia type: unspecified Qualified Code(s): E78.5 - Hyperlipidemia , unspecified (5) Acute tubular necrosis Code(s): N17.0 - ACUTE KIDNEY FAILURE WITH TUBULAR NECROSIS Status: Acute (6) Acute renal failure (ARF) Status: Acute (7) Hyperkalemia Code(s): E87.5 - HYPERKALEMIA Status: Acute - Plan Plan: This is a 69 yo F being admitted for severe sepsis 2/2 RUL PNA &/or UTI, ARF w/ ATN & hyperkalemia, acute metabolic encephalopathy and acute hypoxic respiratory failure: ATN w/ ARF 2/2 #2: - BUN:Cr 109/4.96 on presentation with K of 7.6. - improving, monitor IsOs - dialysis 3x/week was performed, no dialysis today per Dr. Arthur. Severe Sepsis 2/2 RUL PNA and/or UTI: -Hypotensive & tachycardic w/ elevated lactate of 3.9 & WBC count of 17.4 on presentation w/ multiple possible sources. CXR notable for RUL nodules & consolidation and UA dirty w/ bacteria, casts & WBCs. In addition, B/L LE erythema & daughter reports she was recently hospitalized for LE cellulitis and was still taking PO augmentin for this. -cont vanc and cefepime - improving with IV abx Thrombocytopenia - heparin held - consider reinitiating when platelets improve. Acute metabolic encephalopathy, resolved - AxO x3 Acute hypoxic respiratory failure, resolved - at baseline O2 requirement Metabolic acidosis, resolved Hyperkalemia: - resolved s/p dialysis Hyponatremia, resolved -133 on presentation Paroxysmal atrial fibrillation - currently sinus tach HR 110s on telemetry - monitor IDDMII: - accuchecks achs - hold metformin Drug-induced liver injury: - trend Remote Hx of TB: -s/p tx x 9 months with isoniazid per daughter. Suspected HFpEF: - fluid removal s/p dialysis - monitor volume status HLD -statin. Suspected PVD: - touch base with nephro consider cta with runoff b/l LE Lines/Tubes: L groin trialysis catheter placed in ED on 10/20/19 (day #2) Code status: FULL CODE VTE PPx: Heparin (held due to thrombocytopenia) GI PPX: famotidine Abx: Cefepime & vancomycin (day #2 on 10/20/19) IVFs: kvo Dispo: Continue close monitoring on telemetry. Will talk to family about placement in acute rehab facility before returning home and possibly getting some home health help at home in addition to paid provider.
[2019-10-24] MEDS: Acetaminophen 650 MG/20.3 ML UDCUP PO PRN ×2 (06:14→22:03)
[2019-10-24] MEDS: Mometasone/Formoterol 120 PUFF INHALER INH SCH ×2 (06:34→18:45)
[2019-10-24] MEDS: Montelukast Sodium 10 mg Tablet PO SCH (08:41)
--- NOTE | 2019-10-24 08:58 | PRG ---
DATE OF SERVICE: 10/24/2019 SUBJECTIVE: Ms. Diego is a 69-year-old white female, who was admitted for acute respiratory distress. She was intubated and subsequently extubated. She was found to have pneumonia. We saw the patient for her acute kidney injury as well as hyperkalemia. She underwent daily dialysis. She is much improved after consecutive dialysis of at least 3 days. No other complaints today. No chest pain or any worsening shortness of breath. OBJECTIVE: VITAL SIGNS: Blood pressure 113/72, heart rate 104, respiratory rate 20, temperature 97.9, and pulse ox 95%. GENERAL: Awake, sitting comfortable, not in distress. SKIN: Adequate turgor. HEENT: Pinkish conjunctivae. Anicteric sclerae. NECK: No neck mass. No carotid bruits. No JVD. CHEST: No deformities. LUNGS: Decreased breath sounds. HEART: Normal sinus rhythm. No murmur. No gallops. No rubs. ABDOMEN: Globular, soft, and nontender. No masses. EXTREMITIES: No edema. No deformities. MEDICATIONS: Medications of October 24, 2019, were reviewed. LABORATORY DATA: Laboratories of October 24, 2019; white count 11.1, hemoglobin 11.2. Sodium 136, potassium 4.2, chloride 101, carbon dioxide 23, BUN 40, creatinine 2.11, and glucose 114. AST 45, ALT 51, and albumin 3.4. ASSESSMENT AND PLAN: 1. Acute kidney injury secondary to acute tubular necrosis - we will continue to observe. Holding hemodialysis for the moment. She may be plateauing with regard to her renal dysfunction. 2. Pneumonia, currently on IV antibiotics. 3. Hyperkalemia, resolved. We will recheck basic metabolic panel and CBC a.m. Job ID: [id number]
--- NOTE | 2019-10-24 09:29 | PRG ---
DATE OF SERVICE: 10/21/2019 OBJECTIVE: VITAL SIGNS: Ms. Castellon heart rate is 120, blood pressure 108/74, respiratory rate 16, . LUNGS: Clear. HEART: Regular rhythm. ABDOMEN: Soft. Her oximeter does not pick up worker. LABORATORY DATA: White count 13.3, hemoglobin 12.0, platelets 150. Sodium 139, potassium 5.5, chloride 102, bicarb 22, BUN 76, creatinine 3.3, bilirubin is 1.6. AST is 145, ALT is 90. IMPRESSION: 1. Acute renal failure, status post emergent dialysis. 2. Status post treatment for tuberculosis, actually hospitalized here in the ICU. 3. Chronic obstructive pulmonary disease. 4. History of pneumothorax , peripheral vascular , smoking . Chest radiograph done today. Does have bilateral infiltrates that are worrisome for pneumonia. tachycardia. It is unlikely that she has a recurrence of her tuberculosis. I would agree with continuing broad coverage for now. We will follow. She needs to stay in the Critical Care Unit. Job ID: [id number]
--- NOTE | 2019-10-24 09:37 | PRG ---
DATE OF SERVICE: 10/24/2019 SUBJECTIVE: The patient is in fairly good spirits, has no acute complaints at current time. OBJECTIVE: VITAL SIGNS: Temperature 97.9, pulse 114, respirations 20, O2 sat 95% on 3 L, and blood pressure 113/72. HEENT: Unremarkable. NECK: No adenopathy or JVD. CHEST: Clear to auscultation. CARDIAC: S1 and S2 regular. ABDOMEN: Soft. EXTREMITIES: Edematous. LABORATORY DATA: Sodium 136, potassium 4.2, chloride 101, CO2 of 23, BUN 40, creatinine 2.1, and glucose 114. White count 11.1, hematocrit 36.1, and platelet count 99. ASSESSMENT: 1. Status post respiratory failure, requiring mechanical ventilation. 2. Status post hyperkalemia. 3. Acute kidney injury. 4. Improved encephalopathy. PLAN: She is nearing her baseline. We are awaiting for resolution of her renal situation. There are no active pulmonary issues. We will sign off the case. Please recall if further assistance needed. Job ID: [id number]
--- NOTE | 2019-10-24 12:19 | PRG ---
DATE OF SERVICE: 10/24/2019 Yesterday, noticed that Ms. Diego had cyanotic, cold feet. On exam today, she has what appears to be early necrosis and impending gangrene. We will consult CV surgery as soon as possible. We will discuss with Radiology what type studies we can perform to look at her circulation given that she has significant CKD. Her prognosis as far as limb recovery is probably dismal. We will await input from CV surgery and continue according to their recommendations. Job ID: [id number]
[2019-10-24] MEDS ORDERED: Heparin 5,000 UNITS/ML VIAL SC SCH (15:00)
--- NOTE | 2019-10-24 16:25 | ULT ---
Abdominal ultrasound: 10/24/2019 HISTORY: Evaluate ascites and evaluate abdominal aorta for aneurysm TECHNIQUE: Multiplanar grayscale sonographic imaging of the abdomen provided. FINDINGS: Imaged IVC and aorta appear grossly unremarkable. Of note, only the proximal aspect of the abdominal aorta is visualized. The mid and distal abdominal aorta obscured by bowel gas. The patient is status post cholecystectomy. The peripheral contour of the liver is slightly irregular. This is suspicious for cirrhosis. Note foc al liver lesion is seen. The spleen is enlarged, measuring 15.5 cm in greatest dimension. Left kidney measures 11.6 cm in cran iocaudal dimension and demonstrates no evidence for stone, hydronephrosis, or mass lesion. Right kidney measures 10.3 cm in craniocaudal dimension and demonstrates no evidence for stone, hydronephro sis, or mass lesion. There is small/moderate volume ascites within the right upper quadrant. The common bile duct measures 5-6 mm, within normal limits. There is prominent ascites within the right upper quadrant and right lower quadrant as well as within the left lower quadrant. Small volume ascites noted within the left upper quadrant/perisplenic region. IMPRESSION: Cirrhotic liver with enlarged spleen suggesting portal hypertension. Moderate volume asci miguel. The abdominal aorta is not well assessed on this examination.
--- NOTE | 2019-10-24 16:38 | ULT ---
Exam: Bilateral lower extremity arterial vascular duplex including color and spectral Doppler imaging: HISTORY: Edema, bilateral foot pain and redness Examination performed from the groin to ankle including visualized common femoral artery, profunda fe moral artery, superficial femoral artery, popliteal artery, anterior tibial artery, posterior tibial artery, and dorsalis pedis arteries. There is triphasic flow involving the entire right and left lower extremities, except for the dorsali s pedis arteries bilaterally. Dorsalis pedis artery was nonvisualized on the left side. IMPRESSION: No significant focal abnormal high velocities or abnormal waveforms involving either the right or lef t lower extremities that would suggest hemodynamic significant stenotic or occlusive changes.
[2019-10-24 18:00] LABS: Hemoglobin 11.4 g/dL (12.0-16.0); Platelet Count 96 thou/uL (130-400)
--- NOTE | 2019-10-24 18:12 | CON ---
DATE OF CONSULTATION: 10/24/2019 REASON FOR CONSULTATION: Evaluate patient for peripheral vascular disease. HISTORY OF PRESENT ILLNESS: Ms. Diego has been in the hospital since October 20. She was admitted with mental status changes and potential sepsis. She was found to be in acute renal failure, has undergone dialysis. Her creatinine has decreased from 4.56 at the time of admission down to 2.11 today. She still has significant anasarca. She has had longstanding problems with her feet. She is a very poor historian and hard to get good information from, but does state that she has had lower extremity and foot pain for a number of months, if not years. She does not walk enough apparently to claudicate. She has currently pain in both feet while supine. She also has numerous small areas of ulceration on her toes. I have been asked to see her for further evaluation. Most of this information is gleaned from the chart as the patient is an incredibly difficult historian. PAST MEDICAL HISTORY: 1. Dyslipidemia. 2. Diabetes mellitus. 3. Right-sided heart failure. 4. Hypertension. 5. Chronic ascites. 6. Diabetes mellitus. 7. Previous history of tuberculosis. 8. COPD. PAST SURGICAL HISTORY: Unknown. SOCIAL HISTORY: She quit smoking 5 years ago. She does not use alcohol. She is and lives with her brother. REVIEW OF SYSTEMS: Not obtainable due to the patient's inability to truly answer questions currently. PHYSICAL EXAMINATION: GENERAL: This is an elderly appearing woman, resting comfortably on the telemetry unit. VITAL SIGNS: Height 5 feet 7 inches, weight is 160 pounds, BSA is 1.86. HEENT: She has no carotid bruits. CHEST: Clear bilaterally. HEART: Rhythm is regular. ABDOMEN: Soft and nontender. EXTREMITIES: She has mild bilateral pitting edema. Both of her feet are cold from the midfoot to the toes with multiple ulcerations on her toes. VASCULAR: She has palpable femoral pulses bilaterally. She has excellent triphasic Doppler signals in the posterior tibial artery. I could not find dorsalis pedis Doppler signals. ASSESSMENT AND PLAN: This is an unfortunate situation in this lady, in that she probably has small vessel disease in both of her feet. With good Doppler signals and a normal arterial ultrasound down into the tibial arteries, she obviously has small vessel disease distally. I do not think there is anything that we can do to improve her situation. Due to her renal function, we really cannot do any further investigative work currently until she declares herself either back to a normal from her renal situation or on dialysis. If she were to get into a situation where she has skin breakdown and infection, then she would require a below-knee amputation. I do not think anything more distal would heal. Job ID: [id number]
[2019-10-24] MEDS ORDERED: Polyethylene Glycol 3350 17 GM Packet PO SCH (20:15)
[2019-10-24] MEDS: Cefepime 0.5 GM, Admixture Fee 1 EACH in Sodium Chloride 0.9% 100 ML IVPB SCH (21:16)
[2019-10-24] MEDS: Heparin 25,000 units/D5W 500 ML IVPB SCH (22:01)
[2019-10-24] MEDS: Heparin 10,000 UNITS/ 10 ML VIAL SLOW IVP SCH (22:02)
[2019-10-25] MEDS ORDERED: Morphine 2 MG/ML SYRINGE SLOW IVP SCH (00:15)
[2019-10-25 00:32] LABS: PTT 183.1 SEC (22.9-36.1)
[2019-10-25 03:35] LABS: ALT (SGPT) 40 U/L (8-55); AST (SGOT) 30 U/L (5-34); Albumin 3.5 g/dL (3.4-4.8); Alkaline Phosphatase 119 U/L (40-110); Anion Gap 19 mmol/L (10-20); BUN (Urea Nitrogen) 50 mg/dL (9.8-20.1); Bilirubin, Total 1.3 mg/dL (0.2-1.2); Calc. Creatinine Clearance 30 mL/min (70-130); Calcium 8.6 mg/dL (7.8-10.44); Carbon Dioxide 21 mmol/L (23-31); Chloride 102 mmol/L (98-107); Estimated GFR-MDRD 25; Globulin 3.1 g/dL (2.4-3.5); Glucose 142 mg/dL (83-110); Potassium 4.6 mmol/L (3.5-5.1); Protein, Total 6.6 g/dL (6.0-8.3); Sodium 137 mmol/L (136-145)
[2019-10-25 04:22] LABS: Anisocytosis SLIGHT = 6-15 cells (100X) (0-5/hpf); Band 1 % (5-11); Eosinophils 2 % (0-10); Hemoglobin 11.4 g/dL (12.0-16.0); Lymphocytes 4 % (21-51); MDiff Complete? YES; Mean Corpuscular HGB CONC 29.8 g/dL (32.0-36.0); Mean Corpuscular Hemoglobin 26.6 pg (27.0-31.0); Mean Corpuscular Volume 89.2 fL (78.0-98.0); Mean Platelet Volume 10.5 fL (7.4-10.4); Monocytes 5 % (0-10); Neutrophil 88 % (42-75); Platelet Count 106 thou/uL (130-400); Platelet Morphology Comment Appears Decreased; RBC Distribution Width 18.5 % (11.5-14.5); Red Blood Cell (RBC) Count 4.29 mill/uL (4.20-5.40); White Blood Cell (WBC) Count 10.4 thou/uL (4.8-10.8)
[2019-10-25] MEDS: Mometasone/Formoterol 120 PUFF INHALER INH SCH ×2 (06:47→19:22)
--- NOTE | 2019-10-25 08:42 | PDOC.FM ---
- Objective MAR Reviewed: Yes Vital Signs & Weight: Vital Signs (12 hours) Temp Pulse Resp BP BP Pulse Ox 10/25/19 07:53 97.3 F L 113 H 20 121/79 99 10/25/19 03:07 98.0 F 117 H 16 110/76 96 10/25/19 02:16 110 H 20 95 10/24/19 22:13 106 H 20 94 L Weight Admit Weight 76.657 kg Weight 73 kg Most Recent Monitor Data Heart Rate from ECG 112 NIBP 93/57 NIBP BP-Mean 69 Respiration from ECG 22 SpO2 96 I&O: 10/24/19 10/25/19 10/26/19 06:59 06:59 06:59 Intake Total 1040 1200 Output Total 300 450 Balance 740 750 Result Diagrams: 10/25/19 03:02 10/25/19 03:02 Dx/Plan (1) Sepsis associated hypotension Code(s): A41.9 - SEPSIS, UNSPECIFIED ORGANISM; I95.9 - HYPOTENSION, UNSPECIFIED Status: Acute (2) COPD (chronic obstructive pulmonary disease) Status: Chronic Qualifiers: COPD type: unspecified COPD Qualified Code(s): J44.9 - Chronic obstructive pulmonary disease, unspecified (3) DM2 (diabetes mellitus, type 2) Status: Chronic Qualifiers: Diabetes mellitus senior care insulin use: unspecified senior care insulin use status Diabetes mellitus complication status: with unspecified complications (4) HLD (hyperlipidemia) Code(s): E78.5 - HYPERLIPIDEMIA, UNSPECIFIED Status: Chronic Qualifiers: Hyperlipidemia type: unspecified Qualified Code(s): E78.5 - Hyperlipidemia , unspecified (5) Acute tubular necrosis Code(s): N17.0 - ACUTE KIDNEY FAILURE WITH TUBULAR NECROSIS Status: Acute (6) Acute renal failure (ARF) Status: Acute (7) Hyperkalemia Code(s): E87.5 - HYPERKALEMIA Status: Acute - Plan Plan: This is a 69 yo F being admitted for severe sepsis 2/2 RUL PNA &/or UTI, ARF w/ ATN & hyperkalemia, acute metabolic encephalopathy and acute hypoxic respiratory failure: ATN w/ ARF 2/2 severe sepsis, improved: - BUN:Cr 109/4.96 on presentation with K of 7.6. - improving, monitor IsOs - dialysis 3x/week was performed. Will be seen by Dr. Arthur for further dialysis if needed. Severe Sepsis 2/2 RUL PNA and/or UTI: -Hypotensive & tachycardic w/ elevated lactate of 3.9 & WBC count of 17.4 on presentation w/ multiple possible sources. CXR notable for RUL nodules & consolidation and UA dirty w/ bacteria, casts & WBCs. In addition, B/L LE erythema & daughter reports she was recently hospitalized for LE cellulitis and was still taking PO augmentin for this. -cont vanc and cefepime - improving with IV abx Thrombocytopenia - mildy low, heparin drip for anticoagulation. Held for MRI. Acute metabolic encephalopathy, resolved - AxO x3 - stroke rule out: MRI today. CT brain showed hypodensity in left basal ganglia. Acute hypoxic respiratory failure, resolved - at baseline O2 requirement Metabolic acidosis, resolved Hyperkalemia: - resolved s/p dialysis, monitor Hyponatremia, resolved -133 on presentation Paroxysmal atrial fibrillation - currently sinus tach HR 110s on telemetry - monitor - ECHO today. Will need to decide on anticoagulation in light of poor kidney function. IDDMII: - accuchecks achs - hold metformin Drug-induced liver injury: Cirrhosis - trend labs - Abdominal U/S showing cirrhosis and signs of portal HTN of liver. Chronic ascites. - AAA not able to be assessed Remote Hx of TB: -s/p tx x 9 months with isoniazid per daughter. Suspected HFpEF: - fluid removal s/p dialysis - monitor volume status HLD -statin. Suspected PVD: - feet appear purple and feel cold. Intermittent pain in both feet. - called radiology who suggested arterial duplex study of LE. Results showed restricted flow to dorsalis pedis of R foot and nonvisualized on L. - If dialysis, we may consider CTA of LE on a dialysis day. - CV surg consulted. Appreciate recs. Lines/Tubes: L groin trialysis catheter placed in ED on 10/20/19 Code status: FULL CODE VTE PPx: Heparin drip, hold when pt goes to MRI GI PPX: famotidine Abx: Cefepime & vancomycin (started on 10/20/19) IVFs: kvo Dispo: Continue close monitoring on telemetry. Will talk to family about placement in acute rehab facility in [place] before returning home and possibly getting some home health help at home in addition to paid provider.
--- NOTE | 2019-10-25 09:09 | PRG ---
DATE OF SERVICE: 10/25/2019 SERVICE: Renal Medicine. SUBJECTIVE: Ms. Diego is a 69-year-old white female, who was admitted for sepsis/pneumonia. At that time, she was also found to be in acute kidney injury with hyperkalemia. She underwent dialysis 3 consecutive days. Her renal function over the last few days has been noted to be improving and she is diuresing well. No other complaints. No chest pain or shortness of breath. OBJECTIVE: VITAL SIGNS: Blood pressure 121/79, heart rate 113, temperature 97.3, respiratory rate 20, and O2 saturations 99%. GENERAL: Awake, sitting comfortable, not in overt distress. SKIN: Adequate turgor. HEENT: She has pinkish conjunctivae. Anicteric sclerae. NECK: No neck mass. No carotid bruits. No JVD. CHEST: No deformities. LUNGS: Clear breath sounds. HEART: Normal sinus rhythm. No murmur. No gallops. No rubs. ABDOMEN: Globular, soft, and nontender. No masses. EXTREMITIES: No edema. No deformities. MEDICATIONS: Medications of October 25, 2019, were reviewed. LABORATORY DATA: Laboratories of October 25, 2019; white count 10.4, hemoglobin 11.4. Sodium 137, potassium 4.6, chloride 102, carbon dioxide 21, BUN 50, creatinine 1.96, glucose 142, calcium 8.6, AST 30, ALT 40, and albumin 3.5. INR is 2.5 on October 20, 2019. ASSESSMENT AND PLAN: 1. Acute kidney injury - secondary to acute tubular necrosis. The patient underwent hemodialysis for 3 consecutive days. There is evidence of renal recovery. Creatinine is now dropped down to 1.9 and she is diuresing well. We will have her femoral dialysis catheter pulled out. No indication for an emergent dialysis with this patient. 2. Pneumonia, on IV antibiotics. Agree with current management. Recheck basic metabolic panel and CBC in a.m. Job ID: [id number]
[2019-10-25 09:52] LABS: Hep C IgG Ab Non-Reactive (NonReactive); Hep C Index 0.09 S/CO (0-0.79)
[2019-10-25] MEDS: Montelukast Sodium 10 mg Tablet PO SCH (10:14)
[2019-10-25] MEDS: Polyethylene Glycol 3350 17 GM Packet PO SCH (10:14)
[2019-10-25] MEDS: Heparin 10,000 UNITS/ 10 ML VIAL SLOW IVP SCH ×2 (11:10→17:59)
--- NOTE | 2019-10-25 11:24 | PQF ---
MARKEL DEVRIES CATHERINE MD *r [id number] [facility]-251 [id number] CLINICAL DOCUMENTATION IMPROVEMENT CLARIFICATION FORM: ICD-10 Updated PLEASE DO AN ADDENDUM TO THE PROGRESS NOTE WITH ANY DOCUMENTATION UPDATES OR ADDITIONS AND CARRY THROUGH TO DC SUMMARY. THANK YOU. DATE: 10/25/2019 ATTN: DR. Ashley LUNA Please exercise your independent, professional judgment in responding to the clarification form. Clinical indicators are provided on the bottom of this form for your review. Please check appropriate box(s): [ x ] Acute Respiratory Failure: [x ] with Hypoxia[ ] with Hypercapnia [ ] Acute On Chronic Respiratory Failure: [ ] with Hypoxia [ ] with Hypercapnia [ ] Other diagnosis [ ] Unable to determine In addition, please specify: Present on Admission (POA): [ x] Yes [ ] No [ ] Unable to determine For continuity of documentation, please document condition throughout progress notes and discharge summary. Thank You. CLINICAL INDICATORS - SIGNS / SYMPTOMS / LABS / RESULTS AND LOCATION IN MR 10/20 ARTERIAL PH 7.29 > 7.18 10/20 H&P (JEREMY) HISTORY: COPD, ON 2L OF O2 AT HOME CONTINUOUSLY, PLAN: ACUTE HYPOXIC RESPIRATORY FAILURE: REQUIRING 3L O2 AND NEBS 10/23 PN( JEREMY) PT IS ON 2L/NC, WHICH SHE IS ON 24 HRS/DAY AT HOME. PLAN: ACUTE HYPOXIC RESP FAILURE-AT BASELINE O2 REQUIREMENT. RISK: HX CONTINUOUS O2 USE AT HOME, COPD, DX PNEUMONIA, SEPSIS ( H&P/JEREMY) 10/20 TREATMENTS: PULMONOLOGY CONSULT (MICKEY/10/20) SUPPLEMENTAL OXYGEN 10/20-PRESENT) Acute Respiratory Failure: ABG pH < 7.35 or > 7.45; Decreased oxygen saturation (<90% room air or < 95% on oxygen); PCO2 > 50 mm Hg; PO2 < 60 mm Hg; Labored or rapid respirations ARDS: Dx Criteria [Brunson ARDS]: Respiratory symptoms within one week of a known clinical insult (e.g. shock, infection, surgery, trauma) Bilateral opacities in CXR/Chest CT not due to CHF or fluid THANK YOU! VALERIE (This form is maintained as a part of the permanent medical record) 2014 [employer]. All Rights Reserved [email or web address] [phone] MTDD
--- NOTE | 2019-10-25 11:30 | PRG ---
DATE OF SERVICE: 10/25/2019 Ms. Diego is sitting quietly in a chair, in no distress. She has been seen in consultation by the Surgery Service and does not have a minimal vascular occlusion causing her foot problems. She has small vessel disease and we will manage this currently with anticoagulation given that she has a history of intermittent atrial fibrillation. We are also awaiting the results of an echocardiogram. Her platelet count had initially dropped, but is now coming back up. I doubt that she has HIT and that these changes started less than 2 days after she was admitted. We will continue to watch her platelet count closely and at some point, we will transition her to either Coumadin or Eliquis. We are also getting an MRI of the brain given that she initially presented with altered mental status. She is a complicated, but very interesting case. Job ID: [id number]
--- NOTE | 2019-10-25 16:24 | MRI ---
EXAM: Brain MRI Without contrast: HISTORY: Altered mental status, pain, injury from a fall one week ago COMPARISON: Brain CT 10/20/2019 FINDINGS: Multiplanar multisequence MRI examination of the brain is performed. The ventricles are within normal limits of size shape and position. No mass or midline shift. No evidence for intra or extra-axial hemorrhage. No evidence for abnormal restricted diffusion. No evidence for acute infarct. Normal-appearing flow voids are noted. The extracranial soft tissues and calvarial marrow signal appear within normal limits. Very minute sinus mucosal congestion IMPRESSION: No significant acute intracranial process. No mass or bleed. No acute infarct.
[2019-10-25] MEDS: Cefepime 0.5 GM, Admixture Fee 1 EACH in Sodium Chloride 0.9% 100 ML IVPB SCH (20:15)
[2019-10-25] MEDS: Acetaminophen 650 MG/20.3 ML UDCUP PO PRN (20:15)
[2019-10-26] MEDS: Heparin 25,000 units/D5W 500 ML IVPB SCH (03:40)
[2019-10-26 05:29] LABS: ALT (SGPT) 30 U/L (8-55); AST (SGOT) 24 U/L (5-34); Albumin 3.6 g/dL (3.4-4.8); Alkaline Phosphatase 113 U/L (40-110); Anion Gap 18 mmol/L (10-20); BUN (Urea Nitrogen) 53 mg/dL (9.8-20.1); Bilirubin, Total 1.5 mg/dL (0.2-1.2); Calc. Creatinine Clearance 36 mL/min (70-130); Carbon Dioxide 21 mmol/L (23-31); Chloride 102 mmol/L (98-107); Estimated GFR-MDRD 30; Glucose 117 mg/dL (83-110); Potassium 4.9 mmol/L (3.5-5.1); Protein, Total 6.6 g/dL (6.0-8.3); Sodium 136 mmol/L (136-145)
[2019-10-26 05:38] LABS: Hemoglobin 11.6 g/dL (12.0-16.0); Mean Corpuscular HGB CONC 30.4 g/dL (32.0-36.0); Mean Corpuscular Hemoglobin 26.8 pg (27.0-31.0); Mean Corpuscular Volume 88.2 fL (78.0-98.0); Mean Platelet Volume 10.1 fL (7.4-10.4); Platelet Count 91 thou/uL (130-400); RBC Distribution Width 18.1 % (11.5-14.5); Red Blood Cell (RBC) Count 4.34 mill/uL (4.20-5.40)
[2019-10-26] MEDS: Mometasone/Formoterol 120 PUFF INHALER INH SCH (06:41)
[2019-10-26 07:06] LABS: Anisocytosis SLIGHT = 6-15 cells (100X) (0-5/hpf); Band 6 % (5-11); Elliptocytes SLIGHT = 2-5 cells (100X) (0-1/hpf); Eosinophils 3 % (0-10); Lymphocytes 11 % (21-51); MDiff Complete? YES; Monocytes 9 % (0-10); Neutrophil 71 % (42-75); White Blood Cell (WBC) Count 8.6 thou/uL (4.8-10.8)
--- NOTE | 2019-10-26 08:48 | PDOC.FM ---
- Subjective Subjective: Pt is feeling well today. She would like something else to eat. She is not really worried about falling. She does not want to have a stroke either when discussing anticoagulation. Would like me to talk to her daughter about it. - Objective MAR Reviewed: Yes Vital Signs & Weight: Vital Signs (12 hours) Temp Pulse Resp BP Pulse Ox 10/26/19 06:45 95 10/26/19 06:44 119 H 20 95 10/26/19 06:41 119 H 20 95 10/26/19 03:03 98.4 F 117 H 18 108/65 99 10/26/19 02:29 106 H 16 95 10/25/19 22:22 108 H 16 95 Weight Admit Weight 76.657 kg Weight 73.7 kg Most Recent Monitor Data Heart Rate from ECG 112 NIBP 93/57 NIBP BP-Mean 69 Respiration from ECG 22 SpO2 96 I&O: 10/25/19 10/26/19 10/27/19 06:59 06:59 06:59 Intake Total 1200 408 Output Total 450 850 Balance 750 -442 Result Diagrams: 10/26/19 04:24 10/26/19 04:24 Phys Exam - Physical Examination Constitutional: NAD Respiratory: no wheezing, clear to auscultation bilateral Cardiovascular: RRR (sinus rhythm) Gastrointestinal: soft Psychiatric: normal affect Dx/Plan (1) Sepsis associated hypotension Code(s): A41.9 - SEPSIS, UNSPECIFIED ORGANISM; I95.9 - HYPOTENSION, UNSPECIFIED Status: Acute (2) COPD (chronic obstructive pulmonary disease) Status: Chronic Qualifiers: COPD type: unspecified COPD Qualified Code(s): J44.9 - Chronic obstructive pulmonary disease, unspecified (3) DM2 (diabetes mellitus, type 2) Status: Chronic Qualifiers: Diabetes mellitus detention insulin use: unspecified terminal press operator insulin use status Diabetes mellitus complication status: with unspecified complications (4) HLD (hyperlipidemia) Code(s): E78.5 - HYPERLIPIDEMIA, UNSPECIFIED Status: Chronic Qualifiers: Hyperlipidemia type: unspecified Qualified Code(s): E78.5 - Hyperlipidemia , unspecified (5) Acute tubular necrosis Code(s): N17.0 - ACUTE KIDNEY FAILURE WITH TUBULAR NECROSIS Status: Acute (6) Acute renal failure (ARF) Status: Acute (7) Hyperkalemia Code(s): E87.5 - HYPERKALEMIA Status: Acute - Plan Plan: This is a 69 yo F being admitted for severe sepsis 2/2 RUL PNA &/or UTI, ARF w/ ATN & hyperkalemia, acute metabolic encephalopathy and acute hypoxic respiratory failure: ATN w/ ARF 2/2 severe sepsis, improved: - BUN:Cr 109/4.96 on presentation with K of 7.6. - improving, monitor Is/Os - dialysis 3x/week was performed. Will be seen by Dr. Arthur for further dialysis if needed. Severe Sepsis 2/2 RUL PNA and/or UTI, improved: - Hypotensive & tachycardic w/ elevated lactate of 3.9 & WBC count of 17.4 on presentation w/ multiple possible sources. CXR notable for RUL nodules & consolidation and UA dirty w/ bacteria, casts & WBCs. In addition, B/L LE erythema & daughter reports she was recently hospitalized for LE cellulitis and was still taking PO augmentin for this. - discontinue vancomycin and cefepime. - improving with IV abx Thrombocytopenia - mildy low, heparin drip for anticoagulation. Held for MRI. Acute metabolic encephalopathy, resolved - AxO x3 - stroke rule out: MRI negative for acute stroke. CT brain showed hypodensity in left basal ganglia. Acute hypoxic respiratory failure, resolved - at baseline O2 requirement Metabolic acidosis, resolved Hyperkalemia: - resolved s/p dialysis, monitor Hyponatremia, resolved -133 on presentation Paroxysmal atrial fibrillation - currently sinus tach HR 110s on telemetry - monitor - ECHO showed EF of 55-60% w/ enlarged RV and paradoxical motion of RV. Enlarged RA and increased pulmonary arterial pressure. IDDMII: - accuchecks achs - hold metformin Drug-induced liver injury: Cirrhosis, Anna barth class B. - trend labs - Abdominal U/S showing cirrhosis and signs of portal HTN of liver. Chronic ascites. - AAA not able to be assessed - INR on admission was 2.5. Discuss detention anticoag w/ attending. Remote Hx of TB: -s/p tx x 9 months with isoniazid per daughter. Suspected HFpEF: - fluid removal s/p dialysis - monitor volume status HLD -statin. Suspected PVD: - feet appear purple and feel cold. Intermittent pain in both feet. - called radiology who suggested arterial duplex study of LE. Results showed restricted flow to dorsalis pedis of R foot and nonvisualized on L. - If dialysis, we may consider CTA of LE on a dialysis day. - CV surg consulted. Appreciate recs. Lines/Tubes: L groin trialysis catheter placed in ED on 10/20/19 Code status: FULL CODE VTE PPx: Heparin drip. GI PPX: famotidine Abx: Cefepime & vancomycin (started on 10/20/19) IVFs: kvo Dispo: Continue close monitoring on telemetry. Pt accepted to [facility]. Discharge once decision is made regarding anticoagulation w/ attending physician.
[2019-10-26] MEDS: Montelukast Sodium 10 mg Tablet PO SCH (08:59)
[2019-10-26] MEDS: Polyethylene Glycol 3350 17 GM Packet PO SCH (08:59)
--- NOTE | 2019-10-26 09:07 | PRG ---
DATE OF SERVICE: 10/26/2019 SUBJECTIVE: Ms. Diego is a 69-year-old white female, who was admitted for pneumonia/sepsis and was seen by the Renal Service for her acute kidney injury secondary to ATN. She did undergo three consecutive days of dialysis. Her dialysis has now been discontinued since we feel that she may have a recovery from her acute tubular necrosis. No new complaints today. She is feeling better. OBJECTIVE: VITAL SIGNS: Blood pressure is 108/65, heart rate 119, respiratory rate 20, O2 saturation 95%. GENERAL: Noted to be awake, alert, sitting comfortable, not in distress. SKIN: Adequate turgor. HEENT: She has pinkish conjunctivae. Anicteric sclerae. NECK: No neck mass. No carotid bruits. No JVD. CHEST: No deformities. LUNGS: Harsh breath sounds. HEART: Tachycardic. No murmur. No gallops or rubs. ABDOMEN: Globular. Soft. Nontender. No masses. EXTREMITIES: No edema. No deformities. MEDICATIONS: Medications of October 26, 2019, reviewed. Brain MRI of October 25, 2019; no acute intracranial finding. Cardiac echo shows normal EF of 55% to 60%. Finding of severe tricuspid regurgitation. IVC was noted to be dilated. No pericardial effusion noted. Chemistries of October 26, 2019, were reviewed. Her creatinine was noted to be 1.67 with a potassium 4.9. ASSESSMENT AND PLAN: 1. Acute kidney injury secondary to acute tubular necrosis, much improved renal function. We have discontinued hemodialysis. In addition, I have instructed nursing staff to pull out the femoral dialysis catheter. Continue supportive care for the moment. 2. Pneumonia, currently on IV antibiotics. 3. Overall agree with current management. Recheck basic metabolic profile and CBC in a.m. Job ID: [id number]
--- NOTE | 2019-10-26 11:37 | PRG ---
DATE OF SERVICE: 10/26/2019 Ms. Diego is resting quietly, in no distress. She is nearing time for discharge. She has numerous risk factors for bleeding including an elevation of her INR. We therefore elected not to anticoagulate her as her foot findings seem consistent with localized peripheral vascular disease. She will be kept on a statin and low-dose aspirin. Otherwise ready for discharge. Job ID: [id number]
[2019-10-26 11:42] VITALS: BMI 25.4
[2019-10-26 12:07] VITALS: BP 107/63; TEMP 97.4
== END 2019-10-26 15:47 | DRG 871 ==
LOC: ERS 11:24 → CCU 14:27 → 2NO 10-21 22:48
PROVIDERS: ADMIT Family Medicine; ATTEND Family Medicine
DX: A41.9 Sepsis, unspecified organism (principal); N17.0 Acute kidney failure with tubular necrosis; G93.41 Metabolic encephalopathy; J96.01 Acute respiratory failure with hypoxia; R65.21 Severe sepsis with septic shock; R18.8 Other ascites; I50.30 Unspecified diastolic (congestive) heart failure; E87.2 Acidosis; E87.1 Hypo-osmolality and hyponatremia; I13.0 Hypertensive heart and chronic kidney disease with heart failure and stage 1 through stage 4 chronic kidney disease, or unspecified chronic kidney disease; E11.9 Type 2 diabetes mellitus without complications; J44.9 Chronic obstructive pulmonary disease, unspecified; E78.5 Hyperlipidemia, unspecified; E87.5 Hyperkalemia; I48.0 Paroxysmal atrial fibrillation; K71.9 Toxic liver disease, unspecified; D64.9 Anemia, unspecified; E86.0 Dehydration; N18.3 Chronic kidney disease, stage 3 (moderate); D69.6 Thrombocytopenia, unspecified; K74.69 Other cirrhosis of liver; I73.9 Peripheral vascular disease, unspecified; Z87.891 Personal history of nicotine dependence; Z79.84 Long term (current) use of oral hypoglycemic drugs; Z79.899 Other long term (current) drug therapy; Z88.8 Allergy status to other drugs, medicaments and biological substances; Z90.49 Acquired absence of other specified parts of digestive tract; Z90.710 Acquired absence of both cervix and uterus
CPT/HCPCS: 36415; 36416; 36556; 51702; 70450; 70551; 71045; 72131; 80053; 80202; 80306; 80307; 81003; 81015; 82140; 82550; 82553; 82805; 83605; 83735; 84100; 84145; 84443; 84484; 85007; 85025; 85027; 85610; 85730; 86803; 87040; 87086; 87340; 93005; 93010; 93306; 93925; 93975; 94640; 94644; 96365; 96367; 96375; C1752; J0692; J1644; J1815; J2270; J3010; J3370; J3490; J7611; J7620; S0028

== ENCOUNTER 2020-01-15 16:01 | Inpatient (IN) | payer MEDICARE, MEDICAID, OTHER ==
[2020-01-15] MEDS ORDERED: Calcium Carbonate 500 MG ChewTAB PO PRN (20:34)
[2020-01-15] MEDS ORDERED: Ondansetron ODT 4 MG TAB PO PRN (20:34)
[2020-01-15] MEDS ORDERED: Ondansetron PF 4 MG/2 ML Vial IVP PRN (20:34)
[2020-01-15] MEDS ORDERED: Senokot S 8.6-50 MG TAB PO PRN (20:34)
[2020-01-15] MEDS ORDERED: Mometasone 200 MCG/Formoterol 5 MCG 120 PUFF INHALER INH PRN (20:42)
[2020-01-15] MEDS ORDERED: Vancomycin 1 GM in Premix Bag 1 BAG IVPB SCH (21:00)
[2020-01-15] MEDS: Sodium Chloride 0.9% 1,000 ML IV SCH (21:02)
[2020-01-15] MEDS: Cefepime 2 GM in Sodium Chloride 0.9% 100 ML IVPB SCH (21:02)
[2020-01-15] MEDS: HYDROcodone/Acetaminophen 5/325 mg Tablet PO PRN (21:03)
[2020-01-15] MEDS ORDERED: Dextrose 50% Abboject 50 ML SYRINGE SLOW IVP PRN (21:24)
[2020-01-15] MEDS ORDERED: Dextrose 5% in Water 1,000 ML IV PRN (21:24)
[2020-01-15] MEDS ORDERED: HumaLOG 300 UNITS/3 ML VIAL SC PRN ×2 (21:24)
--- NOTE | 2020-01-15 21:28 | PDOC.HHP ---
Hospitalist HPI - History of Present Illness cellulitis, concern OM right foot History of Present Illness: PCP: Zahra The patient is a poor historian, so the H&P was taken from contacting her daughter via telephone. The patient is a 69/F with PMH significant for DMII (on lantus) and psoriasis that presents as a transfer from [place] [facility] for the above complaint. The patient was discharged from our hospital recently for cellulitis to lower extremities, sent to rehab in [place]. She finished there and was discharged home with Home health. The patient reports that her Home Health Nurse recommend she go to the ER for worsening redness and pain to her bilateral lower extremities since yesterday. Also, she has open skin with drainage to her right second/third toe that developed this morning per the patient. Reports painful, describes as "needles stabbing me", constant, relieved by nothing. She denies any fever, chills or malaise. Denies any nausea or vomiting or diarrhea. ED Course: EKG sinus tachycardia with ST depression in V2 and T wave inversions in V1 and III K 6.3 BUN 54 Right toe xray shows soft tissue swelling, recommend MRI to rule out OM LA 1.7 CRP < 0.50 WBC 11.2 Given: IVF 30ml/kg D50 amp, Humilin R 10u, Calcium gluconate, morphine Allergies: Pregabalin and Isoniazid Home Medications: Unable to reconcile at bedside with patient Hospitalist ROS - Review of Systems Constitutional: denies: fever, chills, malaise Eyes: denies: pain, vision change, conjunctivae inflammation, eyelid inflammation, redness, other ENT: denies: ear pain, ear discharge, nose pain, nose discharge, nose congestion , mouth pain, mouth swelling, throat pain, throat swelling, other Respiratory: denies: cough, dry, shortness of breath, hemoptysis, SOB with excertion, pleuritic pain, sputum, wheezing, other Cardiovascular: denies: chest pain, palpitations, orthopnea, paroxysmal noc. dyspnea, edema, light headedness, other Gastrointestinal: denies: nausea, vomiting, abdominal pain, diarrhea, constipation, melena, hematochezia Genitourinary: denies: dysuria, frequency, incontinence, hematuria, retention, other Musculoskeletal: reports: foot pain (right foot pain) Skin: reports: rash, lesions Neurological: reports: numbness. denies: weakness, incoordination, change in speech, confusion - Medication Medications: Active Medications Generic Name Dose Route Start Last Admin Trade Name Domq PRN Reason Stop Dose Admin Hydrocodone Bitart/Acetaminophen 1 tab 01/15/20 20:42 01/15/20 21:03 Standish 5/325 PO 1 tab Q6H PRN Administration Moderate Pain (4-6) Sodium Chloride 1,000 mls @ 75 mls/hr 01/15/20 20:45 01/15/20 21:02 Normal Saline 0.9% IV 1,000 mls .[id number] NANCY Administration Cefepime HCl 2 gm/ Sodium 100 mls @ 200 mls/hr 01/15/20 21:00 01/15/20 21:02 Chloride IVPB 100 mls Q12HR NANCY Administration Hospitalist History - Past Medical History Source: patient Cardiac: reports: HTN, Hyperlipidemia Pulmonary: reports: COPD, Other (TB) Gastrointestinal: reports: GERD Hepatobiliary: reports: Cirrhosis Endocrine: reports: Diabetes (type II, insulin) Dermatology: reports: Psoriasis - Past Surgical History Past Surgical History: reports: Cholecystectomy, Hysterectomy - Family History Other Family History: non contributory to this case - Social History Smoking Status: Former smoker (quit 5 years ago) Alcohol: reports: Rare Drugs: reports: none Living Situation: With Family Occupation: Lives with brother in [place], retired Activity level: uses cane/walker - Exam General Appearance: NAD, awake alert Eye: anicteric sclera ENT: normocephalic atraumatic Neck: supple, no JVD Heart: RRR, no murmur, no gallops, no rubs, normal peripheral pulses Respiratory: CTAB, no wheezes, no rales, no ronchi, no tachypnea Respiratory - other findings: diminished BLL Gastrointestinal: soft, non-tender, no guarding, no rigidity Extremities - other findings: BLE redness; small open lesion dorsal aspect 2nd toe, soft tissue swelling Neurological: no focal deficits Psychiatric: normal affect, A&O x 3 Hospitalist Results - EKG Interpretation EKG: sinus tachycardia - Radiology Interpretation Other Status: report reviewed by me Additional Comment: XRay right toe Hospitalist H&P A/P - Problem (1) Cellulitis of both feet Code(s): L03.115 - CELLULITIS OF RIGHT LOWER LIMB; L03.116 - CELLULITIS OF LEFT LOWER LIMB Status: Acute Assessment and Plan: Admit to telemetry floor, inpatient status Expected length of stay at least 2 midnights Upon exam, stable VS, no acute distress WBC 11.2, LA 1.7, Blood CX pending XR right toe, soft tissue swelling, recommend MRI CRP < 0.50 patient received IVF resuscitation in ER Started broad spectrum abx and and light IV resuscitation Order MRI Consult ID and WCT (2) Hyperkalemia Code(s): E87.5 - HYPERKALEMIA Status: Acute Assessment and Plan: Asymptomatic, presented with potassium 6.[address] depression in V2, T wave inversions in III and V1 Given hyperkalemia D50, insulin R 10u, calcium gluconate w/ improvement to 6.0 Will order admission EKG Will hold spironolactone home med Will obtain another Potasium level Repeat in am (3) DMII (diabetes mellitus, type 2) Status: Chronic Assessment and Plan: Patient takes lantus 15u at bedtime home dose Will restart home dose Will add mild sliding scale AC/HS accuchecks (4) COPD (chronic obstructive pulmonary disease) Status: Chronic Assessment and Plan: Stable (5) Psoriasis Code(s): L40.9 - PSORIASIS, UNSPECIFIED Status: Chronic - Plan Plan: Consult PT and OT Protonix GI prophylaxis LMWH DVT prophylaxis Full Code MAGDALENO is daughter, Pamella Landon at [phone] Rodriguez
[2020-01-15] MEDS ORDERED: Vancomycin HCl 1.25 GM in Sodium Chloride 0.9% 250 ML 250 ML IVPB SCH (21:30)
[2020-01-15] MEDS: Insulin Glargine 15 UNITS in Pre-Filled Syringe 1 EACH SC SCH (21:54)
[2020-01-15 22:22] LABS: Anion Gap 13 mmol/L (10-20); BUN (Urea Nitrogen) 47 mg/dL (9.8-20.1); Calc. Creatinine Clearance 45 mL/min (70-130); Calcium 8.8 mg/dL (7.8-10.44); Carbon Dioxide 19 mmol/L (23-31); Chloride 109 mmol/L (98-107); Estimated GFR-MDRD 55; Glucose 171 mg/dL (83-110); Potassium 5.6 mmol/L (3.5-5.1); Sodium 135 mmol/L (136-145)
[2020-01-16 04:31] LABS: #Eosinphils 0.1 thou/uL (0.0-0.7); #Lymphocytes 1.9 thou/uL (1.20-3.40); #Monocytes 0.7 thou/uL (0.11-0.59); #Neutrophils 6.1 thou/uL (1.40-6.50); %Basophils 0.5 % (0.0-1.0); %Eosinophils 1.2 % (0.0-10.0); %Lymphocytes 21.1 % (21.0-51.0); %Monocytes 8.3 % (0.0-10.0); Hemoglobin 12.7 g/dL (12.0-16.0); Mean Corpuscular HGB CONC 31.7 g/dL (32.0-36.0); Mean Corpuscular Volume 88.2 fL (78.0-98.0); Mean Platelet Volume 8.4 fL (7.4-10.4); Platelet Count 144 thou/uL (130-400); RBC Distribution Width 17.1 % (11.5-14.5); Red Blood Cell (RBC) Count 4.55 mill/uL (4.20-5.40); White Blood Cell (WBC) Count 8.8 thou/uL (4.8-10.8)
[2020-01-16 04:53] LABS: Anion Gap 14 mmol/L (10-20); BUN (Urea Nitrogen) 43 mg/dL (9.8-20.1); Calc. Creatinine Clearance 45 mL/min (70-130); Calcium 9.2 mg/dL (7.8-10.44); Carbon Dioxide 21 mmol/L (23-31); Chloride 109 mmol/L (98-107); Estimated GFR-MDRD 55; Glucose 118 mg/dL (83-110); Potassium 6.1 mmol/L (3.5-5.1); Sodium 138 mmol/L (136-145)
[2020-01-16] MEDS ORDERED: Sodium Bicarb 50 MEQ/50 ML Abboject 8.4% SYRINGE IVP SCH (05:15)
[2020-01-16] MEDS ORDERED: Calcium Gluc 4.6 MEQ/10 ML (100 MG/ML) SLOW IVP SCH (05:15)
[2020-01-16] MEDS ORDERED: Insulin Regular 300 UNITS/3 ML VIAL IVP SCH (05:30)
[2020-01-16] MEDS ORDERED: Dextrose 50% Abboject 50 ML SYRINGE IVP SCH (05:30)
[2020-01-16] MEDS: Atorvastatin Calcium 20 MG TAB PO SCH (07:57)
[2020-01-16] MEDS: HYDROcodone/Acetaminophen 5/325 mg Tablet PO PRN ×3 (07:57→21:19)
[2020-01-16] MEDS: Cefepime 2 GM in Sodium Chloride 0.9% 100 ML IVPB SCH (07:58)
[2020-01-16] MEDS: Polyethylene Glycol 3350 17 GM Packet PO SCH (07:59)
[2020-01-16] MEDS: Enoxaparin Sodium 40 MG/0.4 ML SYRINGE SC SCH (07:59)
[2020-01-16] MEDS: Sodium Chloride 0.9% 1,000 ML IV SCH (08:48)
[2020-01-16 08:50] LABS: Anion Gap 10 mmol/L (10-20); BUN (Urea Nitrogen) 38 mg/dL (9.8-20.1); Calc. Creatinine Clearance 54 mL/min (70-130); Calcium 9.5 mg/dL (7.8-10.44); Carbon Dioxide 24 mmol/L (23-31); Chloride 109 mmol/L (98-107); Estimated GFR-MDRD 66; Glucose 86 mg/dL (83-110); Potassium 5.3 mmol/L (3.5-5.1); Sodium 138 mmol/L (136-145)
[2020-01-16] MEDS ORDERED: Metolazone 5 MG TAB PO SCH (09:00)
[2020-01-16] MEDS ORDERED: Prevnar 13-Val Conj/PF 0.5 ML SYRINGE IM ONE (09:00)
[2020-01-16] MEDS ORDERED: Furosemide 80 MG TAB PO SCH (09:00)
[2020-01-16] MEDS ORDERED: Albuterol Sulfate 1.25 MG/3 ML NEB NEB SCH (10:30)
[2020-01-16 14:13] LABS: Potassium 5.2 mmol/L (3.5-5.1)
--- NOTE | 2020-01-16 17:43 | CON ---
DATE OF CONSULTATION: 01/16/2020 REASON FOR CONSULTATION: Possible inflammatory process, lower extremities. HISTORY OF PRESENT ILLNESS: A 69-year-old whom I had seen in April last year when she presented with a history of pulmonary tuberculosis treated and cured as well as transient hepatitis due to drug related toxicity during the treatment for pulmonary tuberculosis. She presented in April last year, because of edema. She was given diuretics, but persisted with abdominal distention and at that time, my assessment was pulmonary fibrosis with bronchiectasis, pulmonary tuberculosis cured after protracted treatment, INH associated hepatotoxicity, which resolved and edema and ascites, which appeared to be exudative. The paracentesis fluid showed no malignant cells and predominantly benign cells. The volume overload and ascites were felt to be secondary to right-sided heart failure, maybe some element of pulmonary hypertension anyways. She in October [address] Santiago and there was evidence of peripheral vascular disease and this was due to her diabetes, prior smoking history. The vascular disease limited to the large vessels were not felt to be involved, so Dr. Santiago did not have any options for revascularization and now she presents with persistent pins and needles sensations in lower extremities, inability to ambulate because of that, so she was sent to the emergency room by home health nurse, there was some skin breakdown, redness, and some concern for some associated cellulitis as well. No headaches. No visual symptoms, sore throat, odynophagia, dysphagia. No dyspnea or chest pain. No abdominal pain or diarrhea, no genitourinary symptoms. She has not had a return of her ascites. PAST MEDICAL HISTORY: 1. Type 2 diabetes. 2. Cardiomyopathy. 3. Hyperlipidemia. 4. Hypertension. 5. Pulmonary tuberculosis, treated to completion. 6. COPD. 7. Bronchiectasis. 8. Pulmonary fibrosis. PAST SURGICAL HISTORY: 1. Cholecystectomy. 2. Hysterectomy. SOCIAL HISTORY: Former smoker, quit a few years ago and never drank alcoholic beverages. ALLERGIES: ISONIAZID IS NOT TRUE ALLERGY, MORE OF AN IDIOSYNCRATIC REACTION TO ISONIAZID WITH HEPATIC TOXICITY, PREGABALIN. FAMILY HISTORY: Noncontributory. CURRENT MEDICATIONS: 1. Tylenol. 2. [place]. 3. Lipitor. 4. Cefepime. 5. Cymbalta. 6. Glucagon. 7. Insulin. 8. Mometasone. 9. Zofran. 10. Protonix. 11. Myolax. 12. Senokot. 13. Vancomycin. PHYSICAL EXAMINATION: VITAL SIGNS: T-max 98.1. Other vital signs are fairly normal. She is slightly tachycardic. O2 saturations are 100 with nasal cannula. SKIN: Skin exam shows the distal extremity acral erythema, which is [id number], mostly on the left side. She has this ulcerated lesion in the second toe dorsal aspect right side, which appears to have a necrotic base. It is chronic. She has hammertoe toes, right and left side and no other skin lesions noted, peripheral IV access and she is voiding in the commode. No lymphadenopathy. HEENT: Ocular movements conjugate. Oral cavity showed no eklutna teeth remaining in place. Otherwise normal. NECK: Supple. No jugular vein distention. CARDIAC: S1-S2 regular rate. ABDOMEN: Soft. No ascites. No bladder distention or organomegaly. LUNGS: Symmetric air entry. No obvious crackles or wheezing. EXTREMITIES: Popliteals are 1+. I could not feel any dorsalis pedis or posterior tibialis pulses. Cap refill is delayed in all 10 toes in the lower extremities. She is able to move extremities with pain associated with movement, mostly neuropathic type of pain sensation. NEUROLOGIC: She is awake, oriented, follows commands, pretty sharp right now, good recollection. LABORATORY DATA: White cell count 8.8, hemoglobin 12.7, platelets 144 with normal differential. Sodium 138, creatinine 1.0, calcium 9.2. IMAGING: She had a toe x-ray on 01/14 with soft tissue swelling of 2nd and third toes with some plantar subluxation of the second toe, proximal interphalangeal joint. There is an arterial study from October with no significant evidence of hemodynamically significant occlusive changes, right and left lower extremity and she had a brain MRI in October, which was normal. ASSESSMENT: Peripheral vascular disease, reported, mostly small vessel disease with absent dorsalis pedis pulses, but no obvious large vessel obstruction on ultrasound. Now, she comes in with pain in the lower extremities, mostly in the feet. The pain description is consistent with neuropathic pain. She does have this ulcerated area in the second toe and in view of the x-ray changes MRI might be provide additional information in terms of the presence of osteomyelitis or not. May consider a transcutaneous oximetry since it might give us some idea what the tissue perfusion is in the feet and if the sensation that she has is more due to neuropathy or to vascular insufficiency. In terms of the cellulitis, I do not see evidence to suggest cellulitis at this point in time, I would consider discontinuing antimicrobial therapy. Job ID: [id number]
--- NOTE | 2020-01-16 20:27 | PDOC.HOSPP ---
- Subjective Encounter Date: 01/16/20 Encounter Time: 07:40 Subjective: Pt seen for followup re: celluitis. Feels slightly better. - Objective Vital Signs & Weight: Vital Signs (12 hours) Temp Pulse Resp BP BP BP Pulse Ox 01/16/20 15:22 97.7 F 109 H 24 H 109/78 99 01/16/20 11:08 97.7 F 100 20 114/61 100 01/16/20 10:56 108 H 22 H 100 01/16/20 10:30 120/73 122/75 Weight Admit Weight 120 lb 9.6 oz Weight 123 lb 3.2 oz I&O: 01/15/20 01/16/20 01/17/20 06:59 06:59 06:59 Intake Total 1000 1750 Output Total 300 Balance 700 1750 Result Diagrams: 01/16/20 03:58 01/16/20 13:50 Additional Labs: Accuchecks 01/16/20 01/16/20 01/16/20 17:19 10:56 05:47 POC Glucose 199 H 89 230 H 01/15/20 21:58 POC Glucose 189 H Labs and MARs reviewed by me EKG Reviewed by me: Yes (Tele: sinus tachycardia) Hospitalist ROS - Review of Systems Constitutional: reports: weakness. denies: fever, chills, sweats, malaise Cardiovascular: denies: chest pain, palpitations, orthopnea, paroxysmal noc. dyspnea, edema, light headedness Gastrointestinal: denies: nausea, vomiting, abdominal pain, diarrhea, constipation, melena, hematochezia Genitourinary: denies: dysuria, frequency, incontinence, hematuria, retention Musculoskeletal: reports: foot pain. denies: neck pain, shoulder pain, arm pain , back pain, hand pain, leg pain Skin: reports: lesions. denies: rash, loi, bruising - Medication Medications: Active Medications Generic Name Dose Route Start Last Admin Trade Name Freq PRN Reason Stop Dose Admin Hydrocodone Bitart/Acetaminophen 1 tab 01/15/20 20:42 01/16/20 14:33 [place] 5/325 PO 1 tab Q6H PRN Administration Moderate Pain (4-6) Atorvastatin Calcium 20 mg 01/16/20 09:00 01/16/20 07:57 Lipitor PO 20 mg DAILY NANCY Administration Duloxetine HCl 20 mg 01/16/20 09:00 01/16/20 07:56 Cymbalta PO 20 mg DAILY NANCY Administration Enoxaparin Sodium 40 mg 01/16/20 09:00 01/16/20 07:59 Lovenox SC 40 mg 0900 NANCY Administration Sodium Chloride 1,000 mls @ 75 mls/hr 01/15/20 20:45 01/16/20 08:48 Normal Saline 0.9% IV 1,000 mls .[id number] NANCY Administration Insulin Glargine 15 units/ 0.15 mls @ 0 mls/hr 01/15/20 21:00 01/15/20 21:54 Miscellaneous Medication SC 0.15 mls HS NANCY Administration Pantoprazole Sodium 40 mg 01/16/20 09:00 01/16/20 07:57 Protonix PO 40 mg DAILY NANCY Administration Polyethylene Glycol 17 gm 01/16/20 09:00 01/16/20 07:59 Miralax PO 17 gm DAILY NANCY Administration - Exam General Appearance: NAD, awake alert Eye: anicteric sclera ENT: normocephalic atraumatic, no oropharyngeal lesions Neck: supple, symmetric, no thyromegaly, no lymphadenopathy Heart: no gallops, no rubs, diminshed peripheral pulses Heart - other findings: S1, S2, tachy, reg Respiratory: CTAB, no wheezes, no rales, no ronchi Gastrointestinal: soft, non-tender, non-distended, normal bowel sounds Extremities: no cyanosis Psychiatric: normal affect, normal behavior, oriented to person, oriented to place Hosp A/P - Plan - Assessment (1) Cellulitis of both feet Code(s): L03.115 - CELLULITIS OF RIGHT LOWER LIMB; L03.116 - CELLULITIS OF LEFT LOWER LIMB Status: Acute Assessment and Plan: ID consulted, pt is on cefepime/vancomycin (2) Hyperkalemia Code(s): E87.5 - HYPERKALEMIA Status: Acute Assessment and Plan: Administer kayexalate and albuterl, recheck potassium (3) DMII (diabetes mellitus, type 2) Status: Chronic Assessment and Plan: Continue Lantus insulin, insulin sliding scale and accuchecks. (4) COPD (chronic obstructive pulmonary disease) Status: Chronic Assessment and Plan: Stable (5) Psoriasis Code(s): L40.9 - PSORIASIS, UNSPECIFIED Status: Chronic - Plan Plan: LMWH DVT prophylaxis Full Code Discussed with patient's daughter by bedside.
--- NOTE | 2020-01-16 20:34 | PDOC.HOSPP ---
- Subjective Encounter Date: 01/16/20 Encounter Time: 08:00 Subjective: Pt seen for followup re: pcemaker infection. States she feels fine. - Objective Vital Signs & Weight: Vital Signs (12 hours) Temp Pulse Resp BP BP BP Pulse Ox 01/16/20 15:22 97.7 F 109 H 24 H 109/78 99 01/16/20 11:08 97.7 F 100 20 114/61 100 01/16/20 10:56 108 H 22 H 100 01/16/20 10:30 120/73 122/75 Weight Admit Weight 120 lb 9.6 oz Weight 123 lb 3.2 oz I&O: 01/15/20 01/16/20 01/17/20 06:59 06:59 06:59 Intake Total 1000 1750 Output Total 300 Balance 700 1750 Result Diagrams: 01/16/20 03:58 01/16/20 13:50 Additional Labs: Accuchecks 01/16/20 01/16/20 01/16/20 17:19 10:56 05:47 POC Glucose 199 H 89 230 H 01/15/20 21:58 POC Glucose 189 H Labs and MARs reviewed by me EKG Reviewed by me: Yes (Tele: NSR) Hospitalist ROS - Review of Systems Constitutional: denies: fever, chills, sweats, weakness, malaise Cardiovascular: denies: chest pain, palpitations, orthopnea, paroxysmal noc. dyspnea, edema, light headedness - Medication Medications: Active Medications Generic Name Dose Route Start Last Admin Trade Name Freq PRN Reason Stop Dose Admin Hydrocodone Bitart/Acetaminophen 1 tab 01/15/20 20:42 01/16/20 14:33 [place] 5/325 PO 1 tab Q6H PRN Administration Moderate Pain (4-6) Atorvastatin Calcium 20 mg 01/16/20 09:00 01/16/20 07:57 Lipitor PO 20 mg DAILY NANCY Administration Duloxetine HCl 20 mg 01/16/20 09:00 01/16/20 07:56 Cymbalta PO 20 mg DAILY NANCY Administration Enoxaparin Sodium 40 mg 01/16/20 09:00 01/16/20 07:59 Lovenox SC 40 mg 0900 NANCY Administration Sodium Chloride 1,000 mls @ 75 mls/hr 01/15/20 20:45 01/16/20 08:48 Normal Saline 0.9% IV 1,000 mls .[id number] NANCY Administration Insulin Glargine 15 units/ 0.15 mls @ 0 mls/hr 01/15/20 21:00 01/15/20 21:54 Miscellaneous Medication SC 0.15 mls HS NANCY Administration Pantoprazole Sodium 40 mg 01/16/20 09:00 01/16/20 07:57 Protonix PO 40 mg DAILY NANCY Administration Polyethylene Glycol 17 gm 01/16/20 09:00 01/16/20 07:59 Miralax PO 17 gm DAILY NANCY Administration - Exam General Appearance: awake alert Eye: anicteric sclera ENT: moist mucosa Neck: supple, no thyromegaly Heart: RRR Respiratory: CTAB Gastrointestinal: soft, non-tender Hosp A/P - Plan - Assessment (1) Cellulitis of both feet Code(s): L03.115 - CELLULITIS OF RIGHT LOWER LIMB; L03.116 - CELLULITIS OF LEFT LOWER LIMB Status: Acute Assessment and Plan: ID consulted, pt is on cefepime/vancomycin (2) Hyperkalemia Code(s): E87.5 - HYPERKALEMIA Status: Acute Assessment and Plan: Administer kayexalate and albuterl, recheck potassium (3) DMII (diabetes mellitus, type 2) Status: Chronic Assessment and Plan: Continue Lantus insulin, insulin sliding scale and accuchecks. (4) COPD (chronic obstructive pulmonary disease) Status: Chronic Assessment and Plan: Stable (5) Psoriasis Code(s): L40.9 - PSORIASIS, UNSPECIFIED Status: Chronic - Plan Plan: LMWH DVT prophylaxis Full Code Discussed with patient's daughter by bedside.
[2020-01-16] MEDS ORDERED: Albuterol Sulfate 2.5 mg/3 ml Neb NEB SCH (20:45)
[2020-01-16] MEDS: Insulin Glargine 15 UNITS in Pre-Filled Syringe 1 EACH SC SCH (21:21)
[2020-01-16] MEDS ORDERED: Vancomycin 1 GM in Premix Bag 1 BAG IVPB SCH (22:00)
[2020-01-17] MEDS: Sodium Chloride 0.9% 1,000 ML IV SCH ×2 (03:58→13:03)
[2020-01-17] MEDS: HYDROcodone/Acetaminophen 5/325 mg Tablet PO PRN ×2 (05:37→15:05)
[2020-01-17] MEDS: Polyethylene Glycol 3350 17 GM Packet PO SCH ×2 (09:16→09:19)
[2020-01-17] MEDS: Atorvastatin Calcium 20 MG TAB PO SCH (09:16)
[2020-01-17] MEDS: Enoxaparin Sodium 40 MG/0.4 ML SYRINGE SC SCH (09:17)
[2020-01-17 09:18] LABS: Anion Gap 9 mmol/L (10-20); BUN (Urea Nitrogen) 21 mg/dL (9.8-20.1); Calc. Creatinine Clearance 57 mL/min (70-130); Calcium 8.4 mg/dL (7.8-10.44); Carbon Dioxide 25 mmol/L (23-31); Chloride 105 mmol/L (98-107); Estimated GFR-MDRD 66; Glucose 154 mg/dL (83-110); Potassium 4.1 mmol/L (3.5-5.1); Sodium 135 mmol/L (136-145)
[2020-01-17 09:52] LABS: #Eosinphils 0.1 thou/uL (0.0-0.7); #Lymphocytes 1.1 thou/uL (1.20-3.40); #Monocytes 0.5 thou/uL (0.11-0.59); #Neutrophils 5.3 thou/uL (1.40-6.50); %Basophils 0.4 % (0.0-1.0); %Eosinophils 1.4 % (0.0-10.0); %Lymphocytes 15.4 % (21.0-51.0); %Monocytes 7.5 % (0.0-10.0); %Neutrophils 75.4 % (42.0-75.0); Hemoglobin 11.1 g/dL (12.0-16.0); MDiff Complete? YES; Mean Corpuscular Hemoglobin 27.2 pg (27.0-31.0); Mean Corpuscular Volume 87.6 fL (78.0-98.0); Mean Platelet Volume 8.4 fL (7.4-10.4); Platelet Count 118 thou/uL (130-400); Platelet Morphology Comment Appears Decreased; Polychromasia SLIGHT = 2-3 cells (100X) (0-2/hpf); RBC Distribution Width 17.3 % (11.5-14.5); Red Blood Cell (RBC) Count 4.09 mill/uL (4.20-5.40); White Blood Cell (WBC) Count 7.1 thou/uL (4.8-10.8)
--- NOTE | 2020-01-17 14:40 | PDOC.HOSPP ---
- Subjective Encounter Date: 01/17/20 Encounter Time: 07:20 Subjective: Pt seen for followup re: foot pain. States she feels better. - Objective Vital Signs & Weight: Vital Signs (12 hours) Temp Pulse Pulse Resp BP BP BP 01/17/20 12:00 98.3 F 101 H 18 116/75 01/17/20 09:23 107 H 109/69 01/17/20 08:00 98.5 F 111 H 18 113/69 01/17/20 03:35 98.2 F 99 18 115/58 L Pulse Ox 01/17/20 12:00 99 01/17/20 09:23 01/17/20 08:00 99 01/17/20 03:35 99 Weight Admit Weight 120 lb 9.6 oz Weight 132 lb 1.6 oz I&O: 01/16/20 01/17/20 01/18/20 06:59 06:59 06:59 Intake Total 1000 3550 Output Total 300 400 Balance 700 3150 Result Diagrams: 01/17/20 08:49 01/17/20 08:49 Additional Labs: Accuchecks 01/17/20 01/17/20 01/16/20 10:49 05:30 20:33 POC Glucose 97 82 194 H 01/16/20 01/15/20 17:19 20:35 POC Glucose 199 H 208 H Labs and MARs reviewed by [place] Hospitalist ROS - Review of Systems Cardiovascular: denies: chest pain, palpitations, orthopnea, paroxysmal noc. dyspnea, edema, light headedness Genitourinary: denies: dysuria, frequency, incontinence, hematuria, retention Musculoskeletal: reports: foot pain - Medication Medications: Active Medications Generic Name Dose Route Start Last Admin Trade Name Freq PRN Reason Stop Dose Admin Hydrocodone Bitart/Acetaminophen 1 tab 01/15/20 20:42 01/17/20 05:37 [place] 5/325 PO 1 tab Q6H PRN Administration Moderate Pain (4-6) Atorvastatin Calcium 20 mg 01/16/20 09:00 01/17/20 09:16 Lipitor PO 20 mg DAILY NANCY Administration Duloxetine HCl 20 mg 01/16/20 09:00 01/17/20 09:16 Cymbalta PO 20 mg DAILY NANCY Administration Enoxaparin Sodium 40 mg 01/16/20 09:00 01/17/20 09:17 Lovenox SC 40 mg 0900 NANCY Administration Sodium Chloride 1,000 mls @ 75 mls/hr 01/15/20 20:45 01/17/20 13:03 Normal Saline 0.9% IV Not Given .[id number] NANCY Insulin Glargine 15 units/ 0.15 mls @ 0 mls/hr 01/15/20 21:00 01/16/20 21:21 Miscellaneous Medication SC 0.15 mls HS NANCY Administration Pantoprazole Sodium 40 mg 01/16/20 09:00 01/17/20 09:16 Protonix PO 40 mg DAILY NANCY Administration Polyethylene Glycol 17 gm 01/16/20 09:00 01/17/20 09:19 Miralax PO Not Given DAILY NANCY - Exam General Appearance: awake alert Eye: anicteric sclera ENT: moist mucosa Neck: supple Heart: RRR Respiratory: CTAB Gastrointestinal: soft, non-tender Skin - other findings: ulcer Psychiatric: normal affect, normal behavior Hosp A/P - Plan - Assessment/ Plan (1) Foot pain Status: Acute Pt is allergic to pregabalin. (2) DMII (diabetes mellitus, type 2) Status: Chronic Assessment and Plan: Reasonable sugar control (3) COPD (chronic obstructive pulmonary disease) Status: Chronic Assessment and Plan: Stable (4) Psoriasis Code(s): L40.9 - PSORIASIS, UNSPECIFIED Status: Chronic (5) Hyperkalemia Code(s): E87.5 - HYPERKALEMIA Status: Resolved LMWH DVT prophylaxis Full Code
--- NOTE | 2020-01-17 17:24 | MRI ---
EXAM: RIGHT LOWER EXTREMITY MRI WITH AND WITHOUT IV CONTRAST: 01/17/20 HISTORY: Pain and redness in both feet. Abnormal plain x-ray of the second toe. There is abnormal STIR and T2 hyperintensity involving the proximal, middle and distal phalanges of t he second toe with moderate T1 hypointensity, evidence for osteomyelitis. The proximal interphalangea l joint region has an irregular appearance raising concern for coexistent septic arthritis but no sig nificant abnormal joint effusion. No evidence for soft tissue abscess. Osteoarthrosis and degenerativ e changes of the foot. IMPRESSION: Evidence for osteomyelitis involving the proximal, middle and distal phalanges of the second toe. No evidence for associated abscess. Generalized degenerative and osteoarthrosis changes. POS: RRE
--- NOTE | 2020-01-17 18:22 | PRG ---
DATE OF SERVICE: 01/17/2020 SUBJECTIVE: Ms. Diego is about the same. She denies dyspnea. She has less pain in the foot for some reason, because she is not walking as much as before. No diarrhea. OBJECTIVE: VITAL SIGNS: She has been afebrile. Little bit tachycardic, O2 saturations 97. GENERAL: Awake, alert, and oriented, LUNGS: Clear. HEART: S1 and S2, regular rate. EXTREMITIES: Foot unchanged with an ulcerated area in the second toe of right foot. DIAGNOSTIC STUDIES: Reports; we have an MRI, which showed osteomyelitis of the proximal, middle, and distal phalanges of the second toe. White cell count 7.1, hemoglobin 11, platelets 118, and 75% neutrophils. Sodium 135, creatinine 0.85. TCOMs are pending. If the TCOMs are acceptable, then she would have to have an amputation of the second toe, sort of a gangrenous toe. If the TCOMs are bad, then I probably would not touch it and wait for it to dry up unless she developed inflammatory changes. Job ID: [id number]
[2020-01-17] MEDS: Insulin Glargine 15 UNITS in Pre-Filled Syringe 1 EACH SC SCH (20:17)
[2020-01-18] MEDS: HYDROcodone/Acetaminophen 5/325 mg Tablet PO PRN ×3 (04:33→20:28)
[2020-01-18 04:53] LABS: #Basophils 0.1 thou/uL (0.0-0.2); #Eosinphils 0.1 thou/uL (0.0-0.7); #Lymphocytes 1.7 thou/uL (1.20-3.40); #Monocytes 0.6 thou/uL (0.11-0.59); #Neutrophils 5.2 thou/uL (1.40-6.50); %Eosinophils 1.6 % (0.0-10.0); %Lymphocytes 21.6 % (21.0-51.0); %Monocytes 7.9 % (0.0-10.0); %Neutrophils 67.8 % (42.0-75.0); Hemoglobin 12.2 g/dL (12.0-16.0); Mean Corpuscular HGB CONC 31.7 g/dL (32.0-36.0); Mean Corpuscular Hemoglobin 28.1 pg (27.0-31.0); Mean Corpuscular Volume 88.7 fL (78.0-98.0); Mean Platelet Volume 8.2 fL (7.4-10.4); Platelet Count 118 thou/uL (130-400); RBC Distribution Width 17.2 % (11.5-14.5); Red Blood Cell (RBC) Count 4.35 mill/uL (4.20-5.40); White Blood Cell (WBC) Count 7.7 thou/uL (4.8-10.8)
[2020-01-18 05:05] LABS: Anion Gap 10 mmol/L (10-20); BUN (Urea Nitrogen) 20 mg/dL (9.8-20.1); Calc. Creatinine Clearance 56 mL/min (70-130); Carbon Dioxide 28 mmol/L (23-31); Chloride 106 mmol/L (98-107); Estimated GFR-MDRD 64; Glucose 84 mg/dL (83-110); Potassium 3.9 mmol/L (3.5-5.1); Sodium 140 mmol/L (136-145)
[2020-01-18] MEDS: Acetaminophen 325 MG TAB PO PRN (09:25)
[2020-01-18] MEDS: Atorvastatin Calcium 20 MG TAB PO SCH (09:25)
[2020-01-18] MEDS: Sodium Chloride 0.9% 1,000 ML IV SCH ×2 (09:25→16:36)
[2020-01-18] MEDS: Polyethylene Glycol 3350 17 GM Packet PO SCH (09:25)
[2020-01-18] MEDS: Enoxaparin Sodium 40 MG/0.4 ML SYRINGE SC SCH (09:26)
--- NOTE | 2020-01-18 13:58 | PDOC.HOSPP ---
- Subjective Encounter Date: 01/18/20 Encounter Time: 07:00 Subjective: Pt seen for followup re: osteomyelitis. Denies chest pain or shortness of breath. - Objective Vital Signs & Weight: Vital Signs (12 hours) Temp Pulse Resp BP BP Pulse Ox 01/18/20 11:42 97.5 F L 93 18 115/78 99 01/18/20 09:12 98.2 F 104 H 14 113/65 99 01/18/20 09:10 99 01/18/20 03:40 98.0 F 94 20 110/70 98 Weight Admit Weight 120 lb 9.6 oz Weight 126 lb 6.4 oz I&O: 01/17/20 01/18/20 01/19/20 06:59 06:59 06:59 Intake Total 3550 2470 680 Output Total 400 750 Balance 3150 1720 680 Result Diagrams: 01/18/20 04:32 01/18/20 04:32 Additional Labs: Accuchecks 01/18/20 01/18/20 01/17/20 11:10 05:59 20:21 POC Glucose 111 H 89 114 H 01/17/20 17:09 POC Glucose 139 H Labs and MARs reviewed by me EKG Reviewed by me: Yes (Tele: NSR) Hospitalist ROS - Review of Systems Constitutional: denies: fever, chills, sweats, weakness, malaise Genitourinary: denies: dysuria, frequency, incontinence, hematuria, retention Musculoskeletal: reports: foot pain - Medication Medications: Active Medications Generic Name Dose Route Start Last Admin Trade Name Freq PRN Reason Stop Dose Admin Acetaminophen 650 mg 01/15/20 20:34 01/18/20 09:25 Tylenol PO 650 mg Q4H PRN Administration Headache/Fever/Mild Pain (1-3) Hydrocodone Bitart/Acetaminophen 1 tab 01/15/20 20:42 01/18/20 12:39 [place] 5/325 PO 1 tab Q6H PRN Administration Moderate Pain (4-6) Atorvastatin Calcium 20 mg 01/16/20 09:00 01/18/20 09:25 Lipitor PO 20 mg DAILY NANCY Administration Duloxetine HCl 20 mg 01/16/20 09:00 01/18/20 09:25 Cymbalta PO 20 mg DAILY NANCY Administration Enoxaparin Sodium 40 mg 01/16/20 09:00 01/18/20 09:26 Lovenox SC 40 mg 0900 NANCY Administration Sodium Chloride 1,000 mls @ 75 mls/hr 01/15/20 20:45 01/18/20 09:25 Normal Saline 0.9% IV 1,000 mls .[id number] NANCY Administration Insulin Glargine 15 units/ 0.15 mls @ 0 mls/hr 01/15/20 21:00 01/17/20 20:17 Miscellaneous Medication SC 0.15 mls HS NANCY Administration Pantoprazole Sodium 40 mg 01/16/20 09:00 01/18/20 09:26 Protonix PO 40 mg DAILY NANCY Administration Polyethylene Glycol 17 gm 01/16/20 09:00 01/18/20 09:25 Miralax PO 17 gm DAILY NANCY Administration - Exam General Appearance: awake alert Eye: anicteric sclera ENT: no oropharyngeal lesions Neck: symmetric, no thyromegaly Heart: no gallops, no rubs Respiratory: CTAB Gastrointestinal: soft, non-tender Skin: normal turgor Skin - other findings: R 2nd toe lesion Psychiatric: normal affect, normal behavior Hosp A/P - Plan - Assessment/ Plan (1) R second toe osteomyelitis Status: Acute ID service following (2) DMII (diabetes mellitus, type 2) Status: Chronic Assessment and Plan: Sugars controlled (3) COPD (chronic obstructive pulmonary disease) Status: Chronic Assessment and Plan: Stable (4) Psoriasis Code(s): L40.9 - PSORIASIS, UNSPECIFIED Status: Chronic (5) Hyperkalemia Code(s): E87.5 - HYPERKALEMIA Status: Resolved Transfer to medical floor. LMWH DVT prophylaxis Full Code
[2020-01-18] MEDS: Insulin Glargine 15 UNITS in Pre-Filled Syringe 1 EACH SC SCH (20:28)
[2020-01-19] MEDS: Sodium Chloride 0.9% 1,000 ML IV SCH ×2 (02:30→14:54)
[2020-01-19 05:56] LABS: #Eosinphils 0.1 thou/uL (0.0-0.7); #Lymphocytes 1.4 thou/uL (1.20-3.40); #Monocytes 0.5 thou/uL (0.11-0.59); #Neutrophils 3.7 thou/uL (1.40-6.50); %Basophils 0.6 % (0.0-1.0); %Eosinophils 2.1 % (0.0-10.0); %Lymphocytes 23.8 % (21.0-51.0); %Neutrophils 64.6 % (42.0-75.0); Hemoglobin 11.5 g/dL (12.0-16.0); Mean Corpuscular HGB CONC 29.8 g/dL (32.0-36.0); Mean Corpuscular Hemoglobin 26.5 pg (27.0-31.0); Mean Platelet Volume 8.7 fL (7.4-10.4); Platelet Count 111 thou/uL (130-400); RBC Distribution Width 17.1 % (11.5-14.5); Red Blood Cell (RBC) Count 4.35 mill/uL (4.20-5.40); White Blood Cell (WBC) Count 5.7 thou/uL (4.8-10.8)
[2020-01-19 06:07] LABS: Anion Gap 11 mmol/L (10-20); BUN (Urea Nitrogen) 19 mg/dL (9.8-20.1); Calc. Creatinine Clearance 59 mL/min (70-130); Calcium 8.7 mg/dL (7.8-10.44); Carbon Dioxide 26 mmol/L (23-31); Chloride 106 mmol/L (98-107); Estimated GFR-MDRD 70; Glucose 77 mg/dL (83-110); Potassium 4.3 mmol/L (3.5-5.1); Sodium 139 mmol/L (136-145)
[2020-01-19] MEDS: Polyethylene Glycol 3350 17 GM Packet PO SCH (08:13)
[2020-01-19] MEDS: Enoxaparin Sodium 40 MG/0.4 ML SYRINGE SC SCH (08:13)
[2020-01-19] MEDS: Atorvastatin Calcium 20 MG TAB PO SCH (08:13)
[2020-01-19] MEDS: HYDROcodone/Acetaminophen 5/325 mg Tablet PO PRN ×2 (10:29→17:51)
[2020-01-19 13:47] VITALS: BMI 19.7
--- NOTE | 2020-01-19 16:57 | PRG ---
DATE OF SERVICE: 01/19/2020 SUBJECTIVE: Ms. Diego is still having those neuropathic pains in the lower extremities. No shortness of breath or chest pain. No cough. No abdominal pain or diarrhea. OBJECTIVE: VITAL SIGNS: T-max 97.9, BP 116/76, pulse 94 to 106, respiratory rate 16 to 20, O2 saturation 96%. SKIN: Shows the toe necrotic ulcer. LUNGS: Clear. HEART: S1 and S2. Regular rate. ABDOMEN: Soft. Not distended. LABORATORY DATA: White cell count 5.7, hemoglobin 11, platelets 111, normal differential. Chemistry, 0.81. Blood culture, negative 48 hours. MRI showed osteomyelitis of the second toe, right foot. The transcutaneous oximetry actually was not too bad. I think that would be consistent with healing. ASSESSMENT AND DISCUSSION: Peripheral vascular disease, mostly small vessel disease. No large vessel obstruction on ultrasound. Pain in the lower extremities that in the face of the transcutaneous oximetry is more likely to represent neuropathic pain rather than pain due to ischemia. She does have second toe osteomyelitis, and I would think she will be able to salvage that toe and may consider amputation in view of the TCOMs. Job ID: [id number]
--- NOTE | 2020-01-19 17:42 | PDOC.HOSPP ---
- Subjective Encounter Date: 01/19/20 Encounter Time: 09:40 Subjective: Pt seen for followup re: osteomyelitis. States foot pain is better. - Objective Vital Signs & Weight: Vital Signs (12 hours) Temp Pulse Resp BP Pulse Ox 01/19/20 07:27 97.8 F 106 H 20 116/76 98 Weight Admit Weight 120 lb 9.6 oz Weight 129 lb 8 oz I&O: 01/18/20 01/19/20 01/20/20 06:59 06:59 06:59 Intake Total 2470 2890 Output Total 750 Balance 1720 2890 Result Diagrams: 01/19/20 05:25 01/19/20 05:25 Additional Labs: Accuchecks 01/19/20 01/19/20 01/19/20 15:51 11:02 04:34 POC Glucose 89 98 73 01/18/20 20:27 POC Glucose 153 H Labs and MARs reviewed by ct Hospitalist ROS - Review of Systems Cardiovascular: denies: chest pain, palpitations, orthopnea, paroxysmal noc. dyspnea, edema, light headedness Gastrointestinal: denies: nausea, vomiting, abdominal pain, diarrhea, constipation, melena, hematochezia Musculoskeletal: reports: foot pain. denies: neck pain, shoulder pain, arm pain , back pain, hand pain, leg pain - Medication Medications: Active Medications Generic Name Dose Route Start Last Admin Trade Name Freq PRN Reason Stop Dose Admin Acetaminophen 650 mg 01/15/20 20:34 01/18/20 09:25 Tylenol PO 650 mg Q4H PRN Administration Headache/Fever/Mild Pain (1-3) Hydrocodone Bitart/Acetaminophen 1 tab 01/15/20 20:42 01/19/20 10:29 [place] 5/325 PO 1 tab Q6H PRN Administration Moderate Pain (4-6) Atorvastatin Calcium 20 mg 01/16/20 09:00 01/19/20 08:13 Lipitor PO 20 mg DAILY NANCY Administration Duloxetine HCl 20 mg 01/16/20 09:00 01/19/20 08:30 Cymbalta PO 20 mg DAILY NANCY Administration Enoxaparin Sodium 40 mg 01/16/20 09:00 01/19/20 08:13 Lovenox SC 40 mg 0900 NANCY Administration Sodium Chloride 1,000 mls @ 75 mls/hr 01/15/20 20:45 01/19/20 14:54 Normal Saline 0.9% IV 1,000 mls .[id number] NANCY Administration Insulin Glargine 15 units/ 0.15 mls @ 0 mls/hr 01/15/20 21:00 01/18/20 20:28 Miscellaneous Medication SC 0.15 mls HS NANCY Administration Pantoprazole Sodium 40 mg 01/16/20 09:00 01/19/20 08:13 Protonix PO 40 mg DAILY NANCY Administration Polyethylene Glycol 17 gm 01/16/20 09:00 01/19/20 08:13 Miralax PO 17 gm DAILY NANCY Administration - Exam General Appearance: NAD Eye: anicteric sclera ENT: normocephalic atraumatic, no oropharyngeal lesions, moist mucosa Neck: supple Heart: RRR Respiratory: CTAB Gastrointestinal: soft, non-tender Psychiatric: normal affect, normal behavior Hosp A/P - Plan out of bed/ambulate - Assessment/ Plan (1) R second toe osteomyelitis Status: Acute ID service following. (2) DMII (diabetes mellitus, type 2) Status: Chronic Assessment and Plan: controlled (3) Psoriasis Code(s): L40.9 - PSORIASIS, UNSPECIFIED Status: Chronic (4) COPD (chronic obstructive pulmonary disease) Status: Chronic Assessment and Plan: Stable (5) Hyperkalemia Code(s): E87.5 - HYPERKALEMIA Status: Resolved LMWH DVT prophylaxis Full Code
[2020-01-19] MEDS: Insulin Glargine 15 UNITS in Pre-Filled Syringe 1 EACH SC SCH (21:00)
[2020-01-20] MEDS: HYDROcodone/Acetaminophen 5/325 mg Tablet PO PRN ×2 (00:07→17:27)
[2020-01-20 05:39] LABS: #Eosinphils 0.1 thou/uL (0.0-0.7); #Lymphocytes 1.3 thou/uL (1.20-3.40); #Monocytes 0.4 thou/uL (0.11-0.59); #Neutrophils 3.6 thou/uL (1.40-6.50); %Basophils 0.5 % (0.0-1.0); %Lymphocytes 23.1 % (21.0-51.0); %Monocytes 7.9 % (0.0-10.0); %Neutrophils 66.4 % (42.0-75.0); Mean Corpuscular HGB CONC 30.2 g/dL (32.0-36.0); Mean Corpuscular Hemoglobin 27.1 pg (27.0-31.0); Mean Corpuscular Volume 89.8 fL (78.0-98.0); Mean Platelet Volume 8.2 fL (7.4-10.4); Platelet Count 98 thou/uL (130-400); RBC Distribution Width 17.1 % (11.5-14.5); Red Blood Cell (RBC) Count 4.06 mill/uL (4.20-5.40); White Blood Cell (WBC) Count 5.5 thou/uL (4.8-10.8)
[2020-01-20 05:54] LABS: Anion Gap 8 mmol/L (10-20); BUN (Urea Nitrogen) 15 mg/dL (9.8-20.1); Calc. Creatinine Clearance 61 mL/min (70-130); Calcium 8.4 mg/dL (7.8-10.44); Carbon Dioxide 26 mmol/L (23-31); Chloride 109 mmol/L (98-107); Estimated GFR-MDRD 73; Glucose 93 mg/dL (83-110); Sodium 139 mmol/L (136-145)
[2020-01-20] MEDS: Sodium Chloride 0.9% 1,000 ML IV SCH ×3 (09:12→20:56)
[2020-01-20] MEDS: Atorvastatin Calcium 20 MG TAB PO SCH (09:13)
[2020-01-20] MEDS: Polyethylene Glycol 3350 17 GM Packet PO SCH (09:14)
[2020-01-20] MEDS: Enoxaparin Sodium 40 MG/0.4 ML SYRINGE SC SCH (09:19)
--- NOTE | 2020-01-20 18:06 | PDOC.HOSPP ---
- Subjective Encounter Date: 01/20/20 Encounter Time: 09:40 Subjective: Pt seen for followup re: osteomyelitis. No complaints today. - Objective Vital Signs & Weight: Vital Signs (12 hours) Temp Pulse Resp BP Pulse Ox 01/20/20 16:20 98.0 F 96 18 122/77 96 01/20/20 11:28 98.3 F 101 H 18 117/82 96 01/20/20 09:18 98.1 F 97 18 106/70 96 Weight Admit Weight 120 lb 9.6 oz Weight 129 lb 8 oz I&O: 01/19/20 01/20/20 01/21/20 06:59 06:59 06:59 Intake Total 2890 2880 Balance 2890 2880 Result Diagrams: 01/20/20 05:25 01/20/20 05:25 Additional Labs: Accuchecks 01/20/20 01/20/20 01/20/20 16:40 11:01 04:21 POC Glucose 153 H 107 100 01/19/20 19:21 POC Glucose 138 H Labs and MARs reviewed by nd Hospitalist ROS - Review of Systems Gastrointestinal: denies: nausea, vomiting, abdominal pain, diarrhea, constipation, melena, hematochezia Musculoskeletal: reports: foot pain. denies: neck pain, shoulder pain, arm pain , back pain, hand pain, leg pain - Medication Medications: Active Medications Generic Name Dose Route Start Last Admin Trade Name Freq PRN Reason Stop Dose Admin Acetaminophen 650 mg 01/15/20 20:34 01/18/20 09:25 Tylenol PO 650 mg Q4H PRN Administration Headache/Fever/Mild Pain (1-3) Hydrocodone Bitart/Acetaminophen 1 tab 01/15/20 20:42 01/20/20 17:27 [place] 5/325 PO 1 tab Q6H PRN Administration Moderate Pain (4-6) Atorvastatin Calcium 20 mg 01/16/20 09:00 01/20/20 09:13 Lipitor PO 20 mg DAILY NANCY Administration Duloxetine HCl 20 mg 01/16/20 09:00 01/20/20 09:13 Cymbalta PO 20 mg DAILY NANCY Administration Enoxaparin Sodium 40 mg 01/16/20 09:00 01/20/20 09:19 Lovenox SC Not Given 0900 [facility] Sodium Chloride 1,000 mls @ 75 mls/hr 01/15/20 20:45 01/20/20 17:23 Normal Saline 0.9% IV 1,000 mls .[id number] NANCY Administration Insulin Glargine 15 units/ 0.15 mls @ 0 mls/hr 01/15/20 21:00 01/19/20 21:00 Miscellaneous Medication SC Not Given HS NANCY Insulin Human Lispro 0 units 01/15/20 21:24 01/20/20 17:22 Humalog SC 2 unit .MILD SLIDING SCALE PRN Administration Mild Correctional Scale Pantoprazole Sodium 40 mg 01/16/20 09:00 01/20/20 09:13 Protonix PO 40 mg DAILY NANCY Administration Polyethylene Glycol 17 gm 01/16/20 09:00 01/20/20 09:14 Miralax PO 17 gm DAILY NANCY Administration - Exam General Appearance: awake alert Eye: anicteric sclera ENT: normocephalic atraumatic Neck: supple Heart: RRR Respiratory: CTAB Gastrointestinal: soft, non-tender Extremities: no cyanosis Psychiatric: normal affect, normal behavior Hosp A/P - Plan - Assessment/ Plan (1) R second toe osteomyelitis Status: Acute ID service following. Will await recommendations. (2) Psoriasis Code(s): L40.9 - PSORIASIS, UNSPECIFIED Status: Chronic (3) DMII (diabetes mellitus, type 2) Status: Chronic Assessment and Plan: controlled (4) COPD (chronic obstructive pulmonary disease) Status: Chronic Assessment and Plan: Stable (5) Hyperkalemia Code(s): E87.5 - HYPERKALEMIA Status: Resolved LMWH DVT prophylaxis
--- NOTE | 2020-01-20 19:23 | PRG ---
DATE OF SERVICE: 01/20/2020 SUBJECTIVE: Pain in the right foot second toe, other than that, pain is not as much in the feet. OBJECTIVE: VITAL SIGNS: Temperature is normal. Other vital signs are normal. LUNGS: Clear. HEART: S1 and S2, regular rate. ABDOMEN: Soft. LABORATORY DATA: White cell count 5.5, hemoglobin 11, platelets 98, with normal differential. Creatinine 0.78. ASSESSMENT AND DISCUSSION: Peripheral vascular disease, small vessel disease, TCOMs are acceptable. Osteomyelitis of the second toe of right foot, which is probably causing a lot of symptoms of pain in that area. Amputation scheduled I believe for tomorrow. Job ID: [id number]
[2020-01-20] MEDS: Insulin Glargine 15 UNITS in Pre-Filled Syringe 1 EACH SC SCH (20:41)
[2020-01-21] MEDS: HYDROcodone/Acetaminophen 5/325 mg Tablet PO PRN ×2 (03:45→21:31)
[2020-01-21] MEDS: Sodium Chloride 0.9% 1,000 ML IV SCH (05:06)
[2020-01-21] MEDS: Atorvastatin Calcium 20 MG TAB PO SCH (08:35)
[2020-01-21] MEDS: Polyethylene Glycol 3350 17 GM Packet PO SCH (08:35)
[2020-01-21] MEDS: Enoxaparin Sodium 40 MG/0.4 ML SYRINGE SC SCH (08:35)
[2020-01-21] MEDS: Acetaminophen 325 MG TAB PO PRN (14:10)
--- NOTE | 2020-01-21 18:51 | PDOC.HOSPP ---
- Subjective Encounter Date: 01/21/20 Encounter Time: 09:40 Subjective: Pt seen for followup re: osteomyelitis. Denies any complaints at this time. - Objective Vital Signs & Weight: Vital Signs (12 hours) Temp Pulse Pulse Resp BP Pulse Ox Pulse Ox 01/21/20 15:20 133 H 01/21/20 09:59 96 01/21/20 08:55 96 01/21/20 07:41 98.2 F 98 20 114/78 96 Pulse Ox Pulse Ox 01/21/20 15:20 82 L 01/21/20 09:59 91 L 96 01/21/20 08:55 01/21/20 07:41 Weight Admit Weight 120 lb 9.6 oz Weight 129 lb 8 oz I&O: 01/20/20 01/21/20 01/22/20 06:59 06:59 06:59 Intake Total 2880 2480 Balance 2880 2480 Result Diagrams: 01/20/20 05:25 01/20/20 05:25 Additional Labs: Accuchecks 01/21/20 01/21/20 01/21/20 17:16 11:39 04:45 POC Glucose 117 H 111 H 96 01/20/20 19:40 POC Glucose 141 H Labs and MARs reviewed by mt Hospitalist ROS - Review of Systems Cardiovascular: denies: chest pain, palpitations, orthopnea, paroxysmal noc. dyspnea, edema, light headedness Genitourinary: denies: dysuria, frequency, incontinence, hematuria, retention Musculoskeletal: denies: neck pain, shoulder pain, arm pain, back pain, hand pain, leg pain, foot pain - Medication Medications: Active Medications Generic Name Dose Route Start Last Admin Trade Name Freq PRN Reason Stop Dose Admin Acetaminophen 650 mg 01/15/20 20:34 01/21/20 14:10 Tylenol PO 650 mg Q4H PRN Administration Headache/Fever/Mild Pain (1-3) Hydrocodone Bitart/Acetaminophen 1 tab 01/15/20 20:42 01/21/20 03:45 [place] 5/325 PO 1 tab Q6H PRN Administration Moderate Pain (4-6) Atorvastatin Calcium 20 mg 01/16/20 09:00 01/21/20 08:35 Lipitor PO 20 mg DAILY NANCY Administration Duloxetine HCl 20 mg 01/16/20 09:00 01/21/20 08:35 Cymbalta PO 20 mg DAILY NANCY Administration Enoxaparin Sodium 40 mg 01/16/20 09:00 01/21/20 08:35 Lovenox SC 40 mg 0900 NANCY Administration Sodium Chloride 1,000 mls @ 75 mls/hr 01/15/20 20:45 01/21/20 05:06 Normal Saline 0.9% IV 1,000 mls .[id number] NANCY Administration Insulin Glargine 15 units/ 0.15 mls @ 0 mls/hr 01/15/20 21:00 01/20/20 20:41 Miscellaneous Medication SC Not Given HS NANCY Insulin Human Lispro 0 units 01/15/20 21:24 01/20/20 17:22 Humalog SC 2 unit .MILD SLIDING SCALE PRN Administration Mild Correctional Scale Pantoprazole Sodium 40 mg 01/16/20 09:00 01/21/20 08:35 Protonix PO 40 mg DAILY NANCY Administration Polyethylene Glycol 17 gm 01/16/20 09:00 01/21/20 08:35 Miralax PO 17 gm DAILY NANCY Administration - Exam General Appearance: awake alert Eye: anicteric sclera ENT: moist mucosa Neck: supple, symmetric Heart: RRR Respiratory: CTAB Gastrointestinal: soft, non-tender Psychiatric: normal affect, normal behavior Hosp A/P - Plan - Assessment/ Plan (1) R second toe osteomyelitis Status: Acute For surgery tomorrow. (2) Psoriasis Code(s): L40.9 - PSORIASIS, UNSPECIFIED Status: Chronic (3) DMII (diabetes mellitus, type 2) Status: Chronic Assessment and Plan: controlled (4) COPD (chronic obstructive pulmonary disease) Status: Chronic Assessment and Plan: Controlled (5) Hyperkalemia Code(s): E87.5 - HYPERKALEMIA Status: Resolved LMWH for DVT prophylaxis
[2020-01-21] MEDS: Insulin Glargine 15 UNITS in Pre-Filled Syringe 1 EACH SC SCH (21:33)
[2020-01-22] MEDS: Atorvastatin Calcium 20 MG TAB PO SCH (08:27)
[2020-01-22] MEDS: Sodium Chloride 0.9% 1,000 ML IV SCH ×2 (08:27→23:47)
[2020-01-22] MEDS: Enoxaparin Sodium 40 MG/0.4 ML SYRINGE SC SCH (08:28)
[2020-01-22] MEDS: Polyethylene Glycol 3350 17 GM Packet PO SCH (08:28)
[2020-01-22] MEDS ORDERED: CEFAZOLIN 1 GM VIAL ONE (09:42)
[2020-01-22] MEDS ORDERED: Sodium Chloride 0.9% 100 ML ONE (09:42)
[2020-01-22] MEDS ORDERED: Bupivacaine PF 0.5% 30 ML VIAL ONE (09:45)
[2020-01-22] MEDS ORDERED: Midazolam HCl 2 mg/2 ml Vial ONE (09:53)
[2020-01-22] MEDS ORDERED: Propofol 1,000 MG/100 ML VIAL IV ONE ×2 (09:53→09:56)
[2020-01-22] MEDS ORDERED: Fentanyl 100 MCG/2 ML VIAL ONE (09:53)
[2020-01-22] MEDS ORDERED: Ketamine 50 MG/ML (10ML VIAL) ONE (10:10)
--- NOTE | 2020-01-22 13:42 | RAD ---
RIGHT FOOT TWO VIEWS: History: Right toe osteomyelitis. Amputation. FINDINGS/IMPRESSION: Interval post op changes of amputation of the right second toe seen since exam on 01-15-2020. POS: OFF
--- NOTE | 2020-01-22 15:50 | PDOC.HOSPP ---
- Subjective Encounter Date: 01/22/20 Encounter Time: 09:00 Subjective: Pt seen for followup re: toe osteomyelitis. Awaiting surgery, no complaints. - Objective Vital Signs & Weight: Vital Signs (12 hours) Temp Pulse Resp BP BP Pulse Ox 01/22/20 12:30 130/88 01/22/20 12:00 99 18 122/88 98 01/22/20 11:30 97.7 F 100 20 119/77 98 01/22/20 07:30 98 01/22/20 07:16 97.9 F 84 15 120/85 98 Weight Admit Weight 120 lb 9.6 oz Weight 129 lb 8 oz I&O: 01/21/20 01/22/20 01/23/20 06:59 06:59 06:59 Intake Total 2480 2380 Output Total 801 Balance 2480 1579 Result Diagrams: 01/20/20 05:25 01/20/20 05:25 Additional Labs: Accuchecks 01/22/20 01/22/20 01/21/20 11:50 04:18 19:25 POC Glucose 98 125 H 119 H 01/21/20 17:16 POC Glucose 117 H Labs and MARs reviewed by mn Hospitalist ROS - Review of Systems Cardiovascular: denies: chest pain, palpitations, orthopnea, paroxysmal noc. dyspnea, edema, light headedness Gastrointestinal: denies: nausea, vomiting, abdominal pain, diarrhea, constipation, melena, hematochezia Musculoskeletal: denies: neck pain, shoulder pain, arm pain, back pain, hand pain, leg pain, foot pain - Medication Medications: Active Medications Generic Name Dose Route Start Last Admin Trade Name Freq PRN Reason Stop Dose Admin Acetaminophen 650 mg 01/15/20 20:34 01/21/20 14:10 Tylenol PO 650 mg Q4H PRN Administration Headache/Fever/Mild Pain (1-3) Hydrocodone Bitart/Acetaminophen 1 tab 01/15/20 20:42 01/21/20 21:31 [place] 5/325 PO 1 tab Q6H PRN Administration Moderate Pain (4-6) Atorvastatin Calcium 20 mg 01/16/20 09:00 01/22/20 08:27 Lipitor PO 20 mg DAILY NANCY Administration Duloxetine HCl 20 mg 01/16/20 09:00 01/22/20 08:28 Cymbalta PO 20 mg DAILY NANCY Administration Enoxaparin Sodium 40 mg 01/16/20 09:00 01/22/20 08:28 Lovenox SC Not Given 0900 NANCY Sodium Chloride 1,000 mls @ 75 mls/hr 01/15/20 20:45 01/22/20 08:27 Normal Saline 0.9% IV 1,000 mls .[id number] NANCY Administration Insulin Glargine 15 units/ 0.15 mls @ 0 mls/hr 01/15/20 21:00 01/21/20 21:33 Miscellaneous Medication SC Not Given HS NANCY Insulin Human Lispro 0 units 01/15/20 21:24 01/20/20 17:22 Humalog SC 2 unit .MILD SLIDING SCALE PRN Administration Mild Correctional Scale Pantoprazole Sodium 40 mg 01/16/20 09:00 01/22/20 08:28 Protonix PO 40 mg DAILY NANCY Administration Polyethylene Glycol 17 gm 01/16/20 09:00 01/22/20 08:28 Miralax PO Not Given DAILY NANCY - Exam General Appearance: awake alert Eye: anicteric sclera ENT: moist mucosa Neck: supple Heart: RRR Respiratory: CTAB Gastrointestinal: soft, non-tender Psychiatric: normal affect, normal behavior Hosp A/P - Plan - Assessment/ Plan (1) R second toe osteomyelitis Status: Acute For surgery today. (2) DMII (diabetes mellitus, type 2) Status: Chronic Assessment and Plan: controlled (3) Psoriasis Code(s): L40.9 - PSORIASIS, UNSPECIFIED Status: Chronic (4) COPD (chronic obstructive pulmonary disease) Status: Chronic Assessment and Plan: Controlled (5) Hyperkalemia Code(s): E87.5 - HYPERKALEMIA Status: Resolved LMWH for DVT prophylaxis
[2020-01-22 17:16] LABS: SARS-CoV-2 MS2 Positive; SARS-CoV-2 N Gene Negative; SARS-CoV-2 S Gene Negative; SARS-CoV-2 orf1ab Negative
--- NOTE | 2020-01-22 17:43 | OP ---
DATE OF PROCEDURE: 01/22/2020 PREOPERATIVE DIAGNOSIS: Osteomyelitis, second digit, right foot. POSTOPERATIVE DIAGNOSIS: Osteomyelitis, second digit, right foot. PROCEDURE PERFORMED: Amputation, second digit, right foot. ANESTHESIA: TIVA with local foot block. HEMOSTASIS: Pneumatic ankle tourniquet at 250 mmHg. ESTIMATED BLOOD LOSS: Less than 5 mL. MATERIALS: 4-0 Vicryl and 3-0 Prolene. INJECTABLES: 10 mL of 0.5% Marcaine plain. DESCRIPTION OF PROCEDURE: The patient was brought to the operating room and placed on operating table in supine position. Well-padded pneumatic ankle tourniquet placed about the patient's right ankle. Following administration of IV anesthesia, local foot block was given utilizing 10 mL of 0.5% Marcaine plain. The foot was then scrubbed, prepped, and draped in usual aseptic manner. Esmarch bandage was used using with the patient's right foot and the pneumatic ankle tourniquet was then inflated to 250 mmHg to provide adequate hemostasis throughout the entire procedure. Next, attention was then directed to the patient's second digit where all necrotic tissue, ulcerations, and osteomyelitic bone were then carefully resected and passed from the operative field. The incisions were then prepped for closure. The wound was irrigated with copious amounts of sterile normal saline and vancomycin mixture. The deep tissues were then carefully reapproximated and coapted utilizing 4-0 Vicryl. The skin was closed utilizing 3-0 Prolene in a horizontal mattress suture pattern. Light compressive dressing was placed about the patient's right foot and the pneumatic ankle tourniquet was released with prompt hyperemic response noted to all digits of the right foot. DISCHARGE SUMMARY: The patient tolerated the procedure and anesthesia. She will be transferred to her room. She is able to be discharged once okayed by hospitalist. She will need to follow up with a doctor from [facility]. She noted that [place] would be the closest clinic that would be Dr. Arpit Bello. She will need to be seen within 2 weeks by Case Management. She will set up for home health for dry dressing changes twice a week. Job ID: [id number]
[2020-01-22] MEDS: HYDROcodone/Acetaminophen 5/325 mg Tablet PO PRN (18:33)
[2020-01-22] MEDS: Insulin Glargine 15 UNITS in Pre-Filled Syringe 1 EACH SC SCH (22:05)
[2020-01-23] MEDS: HYDROcodone/Acetaminophen 5/325 mg Tablet PO PRN ×3 (05:50→20:45)
--- NOTE | 2020-01-23 06:32 | CON ---
DATE OF CONSULTATION: 01/21/2020 HISTORY OF PRESENT ILLNESS: Osteomyelitis with cellulitis, second digit of right foot. The patient's PCP is Dr. Syed Sweeney in [place]. The patient is a poor historian; however, she said that she has had a sore on her second digit of right foot for an unknown period of time. The patient is 69 years old, the patient with significant diabetes mellitus type 2. She was transferred from the [facility]. The patient has allergies to pregabalin and isoniazid. REVIEW OF SYSTEMS: CONSTITUTIONAL: The patient denies fever, chills or malaise. CARDIOVASCULAR: Denies chest pain or palpitations. GASTROINTESTINAL: Denies nausea, vomiting or abdominal pain. MUSCULOSKELETAL: Reports pain and open wound to the second digit, right foot. SKIN: Multiple rashes, lesions, thin skin. NEUROLOGICAL: Decreased sensation to bilateral lower extremities. MEDICATIONS: Please see chart. PAST MEDICAL HISTORY: Cardiac: Hypertension. Pulmonary: COPD. Gastrointestinal: GERD. Endocrine: Diabetes type 2, requiring insulin. PAST SURGICAL HISTORY: Lap minerva and hysterectomy. SOCIAL HISTORY: Former smoker, quit 5 years ago. Rare for alcohol. Living situation, lives with family. Activity level, uses cane and walker. PHYSICAL EXAMINATION: GENERAL APPEARANCE: No apparent distress. Awake, alert, poor historian. NEUROVASCULAR: Lower extremity, decreased sensation to all digits and forefoot, bilateral feet. CARDIOVASCULAR: No edema noted. PULSES: 0/4 for dorsalis pedis, bilateral; 1/4 for posterior tibial pulses, bilateral. DERMATOLOGICAL: Lower extremity open wounds noted to dorsal second proximal interphalangeal joint with probing to bone noted. MUSCULOSKELETAL: Pain noted to second digit. Rest of the exam normal. ASSESSMENT: Osteomyelitis, second digit, right foot; diabetic neuropathy; foot pain, right foot; cellulitis, bilateral feet. PLAN: The patient is to be n.p.o. at midnight. Amputation of second digit will be performed tomorrow under anesthesia. The patient can be released once hospitalist okayed postoperatively. Case management consult for home health, recommend twice weekly dry bandage changes, follow up in 1 to 2 weeks post surgery with [facility]. The patient expressed she would like to be seen in because that is the closest clinic to her house, doctor will be Dr. Arpit Bello. Job ID: [id number]
[2020-01-23] MEDS: Polyethylene Glycol 3350 17 GM Packet PO SCH (07:51)
[2020-01-23] MEDS: Atorvastatin Calcium 20 MG TAB PO SCH (07:51)
[2020-01-23] MEDS: Enoxaparin Sodium 40 MG/0.4 ML SYRINGE SC SCH (07:51)
[2020-01-23] MEDS: Sodium Chloride 0.9% 1,000 ML IV SCH (14:14)
--- NOTE | 2020-01-23 14:45 | PDOC.HOSPP ---
- Subjective Encounter Date: 01/23/20 Encounter Time: 08:20 Subjective: Pt seen for followup re: osteomyelitis. Feels better. - Objective Vital Signs & Weight: Vital Signs (12 hours) Temp Pulse Resp BP BP Pulse Ox 01/23/20 08:00 97.6 F 97 18 116/78 97 01/23/20 03:25 98 F 97 16 120/82 96 Weight Admit Weight 120 lb 9.6 oz Weight 129 lb 8 oz I&O: 01/22/20 01/23/20 01/24/20 06:59 06:59 06:59 Intake Total 2380 2480 Output Total 801 Balance 1579 2480 Result Diagrams: 01/20/20 05:25 01/20/20 05:25 Additional Labs: Accuchecks 01/23/20 01/23/20 01/22/20 11:26 05:37 20:11 POC Glucose 141 H 95 131 H 01/22/20 15:33 POC Glucose 160 H Labs and MARs reviewed by tx Hospitalist ROS - Review of Systems Cardiovascular: denies: chest pain, palpitations, orthopnea, paroxysmal noc. dyspnea, edema, light headedness, other Musculoskeletal: reports: foot pain Skin: denies: rash, lesions, loi, bruising - Medication Medications: Active Medications Generic Name Dose Route Start Last Admin Trade Name Freq PRN Reason Stop Dose Admin Acetaminophen 650 mg 01/15/20 20:34 01/21/20 14:10 Tylenol PO 650 mg Q4H PRN Administration Headache/Fever/Mild Pain (1-3) Hydrocodone Bitart/Acetaminophen 1 tab 01/15/20 20:42 01/23/20 14:14 [place] 5/325 PO 1 tab Q6H PRN Administration Moderate Pain (4-6) Atorvastatin Calcium 20 mg 01/16/20 09:00 01/23/20 07:51 Lipitor PO 20 mg DAILY NANCY Administration Duloxetine HCl 20 mg 01/16/20 09:00 01/23/20 07:51 Cymbalta PO 20 mg DAILY NANCY Administration Enoxaparin Sodium 40 mg 01/16/20 09:00 01/23/20 07:51 Lovenox SC 40 mg 0900 NANCY Administration Sodium Chloride 1,000 mls @ 75 mls/hr 01/15/20 20:45 01/23/20 14:14 Normal Saline 0.9% IV 1,000 mls .[id number] NANCY Administration Insulin Glargine 15 units/ 0.15 mls @ 0 mls/hr 01/15/20 21:00 01/22/20 22:05 Miscellaneous Medication SC Not Given HS NANCY Insulin Human Lispro 0 units 01/15/20 21:24 01/20/20 17:22 Humalog SC 2 unit .MILD SLIDING SCALE PRN Administration Mild Correctional Scale Pantoprazole Sodium 40 mg 01/16/20 09:00 01/23/20 07:51 Protonix PO 40 mg DAILY NANCY Administration Polyethylene Glycol 17 gm 01/16/20 09:00 01/23/20 07:51 Miralax PO 17 gm DAILY NANCY Administration - Exam General Appearance: awake alert ENT: normocephalic atraumatic Neck: supple Heart: RRR, no gallops Respiratory: CTAB Gastrointestinal: soft, non-tender Extremities: no cyanosis Musculoskeletal - other findings: s/p R 2nd toe amputation Psychiatric: normal affect Hosp A/P - Plan - Assessment/ Plan (1) R second toe osteomyelitis Status: Acute s/p toe amputation (2) DMII (diabetes mellitus, type 2) Status: Chronic Assessment and Plan: controlled (3) Psoriasis Code(s): L40.9 - PSORIASIS, UNSPECIFIED Status: Chronic (4) COPD (chronic obstructive pulmonary disease) Status: Chronic Assessment and Plan: Controlled (5) Hyperkalemia Code(s): E87.5 - HYPERKALEMIA Status: Resolved LMWH for DVT prophylaxis
[2020-01-23] MEDS: Insulin Glargine 15 UNITS in Pre-Filled Syringe 1 EACH SC SCH (20:44)
[2020-01-24] MEDS: Sodium Chloride 0.9% 1,000 ML IV SCH (05:40)
[2020-01-24] MEDS: Atorvastatin Calcium 20 MG TAB PO SCH (07:53)
[2020-01-24] MEDS: Enoxaparin Sodium 40 MG/0.4 ML SYRINGE SC SCH (07:53)
[2020-01-24] MEDS: Polyethylene Glycol 3350 17 GM Packet PO SCH (07:53)
[2020-01-24] MEDS: HYDROcodone/Acetaminophen 5/325 mg Tablet PO PRN (07:59)
[2020-01-24] MEDS ORDERED: traMADol HCl 50 MG TAB PO PRN (11:14)
[2020-01-24 12:18] VITALS: BP 124/81; TEMP 98.4
--- NOTE | 2020-01-24 12:53 | DIS ---
DATE OF ADMISSION: 01/15/2020 DATE OF DISCHARGE: 01/24/2020 PRIMARY CARE PROVIDER: Syed Sweeney MD DISCHARGE DIAGNOSES: 1. Right second toe osteomyelitis. 2. Hyperkalemia. 3. COVID-19 ruled out. CONDITION: Condition of the patient on the day of discharge: Stable. I assessed Ms. Diego on the day of discharge. She denies any chest pain or shortness of breath. She denies any foot pain. Vital signs are stable. S1 and S2 are heard, regular. Lungs are clear to auscultation bilaterally. DISCHARGE MEDICATIONS: No change was made to her pre-admission home medications except for discontinuing [place]. HOSPITAL COURSE: Ms. Diego is a pleasant 69-year-old lady, who was admitted to [facility] on January 15, 2020, for suspected cellulitis of the right foot. She was initially treated with antibiotics. MRI of the foot showed evidence for osteomyelitis involving the proximal, middle, and distal phalanges of the 2nd toe. There was no evidence for associated abscess. She was seen by Infectious Diseases Service, Dr. Boyer and Podiatry Service, Dr. Godoy. On January 21, she underwent amputation of the right 2nd toe. She is being discharged home in a stable condition. Home health is being arranged for wound management. POST-ACUTE CARE FOLLOWUP: With primary care provider on February 01, 2020, at 1:15 p.m. and with Podiatry Service in 10 days. DIET: Heart healthy and diabetic. ACTIVITY: As tolerated. TIME SPENT: Total amount of time spent in coordinating this discharge: 31 minutes. Many thanks for allowing me to participate in your patient's care. Please feel free to contact me with any questions or concerns. DISCHARGE DESTINATION: Home. Job ID: [id number]
== END 2020-01-24 12:48 | disposition home health service (06) | DRG 617 ==
LOC: 2NO 17:18 → T4-A 01-18 14:45
PROVIDERS: ADMIT Family Medicine; ATTEND Family Medicine
PROC: 0Y6R0Z0 Detachment at Right 2nd Toe, Complete, Open Approach (ICD-10-PCS; principal; 2020-01-22)
DX: E11.69 Type 2 diabetes mellitus with other specified complication (principal); E11.52 Type 2 diabetes mellitus with diabetic peripheral angiopathy with gangrene; M86.171 Other acute osteomyelitis, right ankle and foot; I42.9 Cardiomyopathy, unspecified; I96 Gangrene, not elsewhere classified; Z11.59 Encounter for screening for other viral diseases; I10 Essential (primary) hypertension; E78.5 Hyperlipidemia, unspecified; K21.9 Gastro-esophageal reflux disease without esophagitis; K74.60 Unspecified cirrhosis of liver; L40.9 Psoriasis, unspecified; E87.5 Hyperkalemia; J44.9 Chronic obstructive pulmonary disease, unspecified; Z79.4 Long term (current) use of insulin; Z88.8 Allergy status to other drugs, medicaments and biological substances; Z86.11 Personal history of tuberculosis; Z90.49 Acquired absence of other specified parts of digestive tract; Z90.710 Acquired absence of both cervix and uterus; Z87.891 Personal history of nicotine dependence
CPT/HCPCS: 36415; 36416; 80048; 85025; 87635; 93005; 93010; 93923; 94640; J0690; J0692; J1650; J1815; J2250; J2704; J3010; J3370; J3490; J7050; S0020; U0003

== ENCOUNTER 2020-04-27 17:13 | Inpatient (IN) | payer MEDICARE, MEDICAID, OTHER ==
[2020-04-27 17:44] LABS: #Basophils 0.1 thou/uL (0.0-0.2); #Eosinphils 0.1 thou/uL (0.0-0.7); #Lymphocytes 2.1 thou/uL (1.20-3.40); #Monocytes 0.8 thou/uL (0.11-0.59); #Neutrophils 5.4 thou/uL (1.40-6.50); %Basophils 0.9 % (0.0-1.0); %Eosinophils 1.4 % (0.0-10.0); %Lymphocytes 24.8 % (21.0-51.0); %Monocytes 9.4 % (0.0-10.0); %Neutrophils 63.6 % (42.0-75.0); Hemoglobin 13.6 g/dL (12.0-16.0); Mean Corpuscular Hemoglobin 26.9 pg (27.0-31.0); Mean Corpuscular Volume 86.9 fL (78.0-98.0); Mean Platelet Volume 8.8 fL (7.4-10.4); Platelet Count 177 thou/uL (130-400); RBC Distribution Width 15.5 % (11.5-14.5); Red Blood Cell (RBC) Count 5.06 mill/uL (4.20-5.40); White Blood Cell (WBC) Count 8.5 thou/uL (4.8-10.8)
[2020-04-27 18:04] LABS: ALT (SGPT) 16 U/L (8-55); AST (SGOT) 26 U/L (5-34); Albumin 4.4 g/dL (3.4-4.8); Alkaline Phosphatase 115 U/L (40-110); Anion Gap 18 mmol/L (10-20); BUN (Urea Nitrogen) 77 mg/dL (9.8-20.1); Bilirubin, Total 0.6 mg/dL (0.2-1.2); Calc. Creatinine Clearance 0 mL/min (70-130); Calcium 9.6 mg/dL (7.8-10.44); Carbon Dioxide 20 mmol/L (23-31); Chloride 102 mmol/L (98-107); Estimated GFR-MDRD 28; Globulin 3.3 g/dL (2.4-3.5); Glucose 140 mg/dL (83-110); Potassium 5.9 mmol/L (3.5-5.1); Protein, Total 7.7 g/dL (6.0-8.3); Sodium 134 mmol/L (136-145)
[2020-04-27] MEDS ORDERED: Sodium Bicarb 50 MEQ/50 ML Abboject 8.4% SYRINGE ONE (19:23)
[2020-04-27] MEDS ORDERED: Albuterol 200 PUFF (6.7GM INHALER) ONE (19:28)
[2020-04-27] MEDS ORDERED: Acetaminophen 325 MG TAB PO PRN (19:28)
[2020-04-27] MEDS ORDERED: Ondansetron ODT 4 MG TAB PO PRN (19:28)
[2020-04-27] MEDS ORDERED: Calcium Gluconate 13.8 MEQ in Sodium Chloride 0.9% 100 ML IVPB SCH (19:30)
--- NOTE | 2020-04-27 20:04 | CON ---
DATE OF CONSULTATION: 04/27/2020 CONSULTING PHYSICIAN: ER physician. REASON FOR CONSULTATION: Hyperkalemia. REASON FOR ADMISSION: Abnormal labs. HISTORY OF PRESENT ILLNESS: This is a female with history of hypertension, hyperlipidemia, COPD, GERD, type 2 diabetes, came to the hospital with leg pains and was found to have hyperkalemia. The patient is getting admitted. The patient also was found to have acute kidney injury. No fever or chills. No nausea or vomiting. PAST MEDICAL HISTORY: Positive for CKD, hypertension, hyperlipidemia, COPD, GERD, cirrhosis. PAST SURGICAL HISTORY: Cholecystectomy, hysterectomy. HOME MEDICATIONS: Reviewed. ALLERGIES: ISONIAZID AND PREGABALIN. SOCIAL HISTORY: No smoking, alcohol, or illicit drug abuse. FAMILY HISTORY: No history of kidney disease. REVIEW OF SYSTEMS: CONSTITUTIONAL: Negative for weight loss or gain, ability to conduct usual activities. SKIN: Negative for rash, itching. EYES: Negative for double vision, pain. ENT/MOUTH: Negative for nose bleeding, neck stiffness, pain, tenderness. CARDIOVASCULAR: Negative for palpitations, dyspnea on exertion, orthopnea. RESPIRATORY: Negative for shortness of breath, wheezing, cough, hemoptysis, fever or night sweats. GASTROINTESTINAL: Negative for poor appetite, abdominal pain, heartburn, nausea, vomiting, constipation, or diarrhea. GENITOURINARY: Negative for urgency, frequency, dysuria, nocturia. MUSCULOSKELETAL: Negative for pain, swelling. NEUROLOGIC/PSYCHIATRIC: Negative for anxiety, depression. ALLERGY/IMMUNOLOGIC: Negative for skin rash, bleeding tendency. PHYSICAL EXAMINATION: GENERAL: This is a well-built female, in no apparent distress. VITAL SIGNS: Reviewed. HEENT: Atraumatic and normocephalic. Oral mucosa is moist. NECK: Supple. CV: S1 and S2. Rate and rhythm regular. RESPIRATORY: Clear. GI: Abdomen is soft. MUSCULOSKELETAL: No tenderness. No edema NEUROLOGIC: Alert and awake. PSYCHIATRIC: Mood and affect normal. LABORATORY DATA: Potassium 5.9, BUN is 77, creatinine is 1.7. ASSESSMENT AND PLAN: 1. Acute kidney injury. Avoid nephrotoxins. Recommend hydration, maybe 500 mL as tolerated. Hold diuretics. 2. Hyperkalemia, most likely from spironolactone. Hold spironolactone. Limit potassium intake. Nutrition consult for dietary counseling. 3. Mild hyponatremia. 4. History of hypertension. 5. Peripheral vascular disease. She has cold extremities. May need workup to rule out any ischemia. Thank you for the consult. We will follow. Job ID: [id number]
--- NOTE | 2020-04-27 20:32 | PDOC.EVN ---
Event Note - Event Note Event Note: [id number] HP
[2020-04-27 22:05] VITALS: BMI 20.5
--- NOTE | 2020-04-27 23:19 | HP ---
CHIEF COMPLAINT: Abnormal labs. HISTORY OF PRESENT ILLNESS: Ms. Diego is a 70-year-old female with past medical history of chronic kidney disease, diabetes mellitus type 2, hyperlipidemia, hypertension, COPD, pulmonary disease, ascites, liver disease, scleritis, among others, presents to the emergency room with abnormal labs. The patient's labs were done as an outpatient and she had a potassium of more than 6. The patient is feeling tired, weak, but denies fevers, chills, vomiting, or diarrhea. Workup in the emergency room, the patient had a potassium of 5.9, creatinine is 1.78. The patient is on Lasix and Aldactone. ED physician consulted with Renal, who advised to hold diuretics tonight and give gentle hydration. The patient is being admitted to the hospital for further management. PAST MEDICAL HISTORY: As mentioned above in the history of present illness. PAST SURGICAL HISTORY: 1. Cholecystectomy. 2. Hysterectomy. 3. Amputation, left second toe. SOCIAL HISTORY: Denies alcohol drinking. Quit smoking less than four years ago. FAMILY HISTORY: Reviewed and noncontributory. HOME MEDICATIONS: Please see home medication reconciliation form for updated medications. ALLERGIES: ALLERGIC TO ISONIAZID, LYRICA, PREGABALIN. REVIEW OF SYSTEMS: Review of 14 systems negative except what is mentioned in the history of present illness. PHYSICAL EXAMINATION: GENERAL: The patient is awake, alert, does not appear to be in acute distress. VITAL SIGNS: Blood pressure 104/73, pulse is 105, respiratory rate is 22, oxygen saturation 100%, and temperature is 97.7. HEAD AND NECK: Normocephalic, atraumatic. Neck is supple. No JVD. CHEST: Fair bilateral air entry. HEART: S1, S2. Regular. ABDOMEN: Soft, nontender. Bowel sounds present. NEUROLOGIC: Awake, alert, oriented x3. PSYCH: Normal mood. EXTREMITIES: No clubbing or cyanosis. LABORATORY DATA: Sodium 134, potassium 5.9, BUN is 77, creatinine 1.7, glucose 140. WBC is 8.5, hemoglobin 13.6, platelets 177. ASSESSMENT: 1. Acute hyperkalemia. 2. Acute on chronic kidney disease with acute kidney injury. 3. Drug-induced liver injury. 4. Lasix and Aldactone. 5. Diabetes mellitus, type 2. 6. Hypertension. 7. Hyperlipidemia. 8. Chronic obstructive pulmonary disease. 9. History of pulmonary tuberculosis. PLAN: 1. Admit. 2. Telemetry monitoring. 3. The patient was given calcium gluconate in the ED and sodium bicarb. 4. [employer] was consulted by the ED physician. 5. Hold diuretics tonight with gentle hydration. 6. Monitor kidney function and urine output. 7. Reconcile home medications. 8. Deep venous thrombosis prophylaxis as appropriate. 9. Expected length of stay, at least 1 midnight if patient is stable and further workup negative. Job ID: [id number]
[2020-04-27] MEDS ORDERED: Polyethylene Glycol 3350 17 GM Packet PO PRN (23:27)
[2020-04-27] MEDS ORDERED: Melatonin 3 MG TAB PO PRN (23:27)
[2020-04-27] MEDS ORDERED: HumaLOG 300 UNITS/3 ML VIAL SC PRN (23:30)
[2020-04-27] MEDS ORDERED: Dextrose 5% in Water 1,000 ML IV PRN (23:30)
[2020-04-27] MEDS ORDERED: Dextrose 50% Abboject 50 ML SYRINGE SLOW IVP PRN (23:30)
[2020-04-28] MEDS ORDERED: Sodium Chloride 0.9% 1,000 ML IV SCH (02:00)
[2020-04-28 05:32] LABS: Anion Gap 13 mmol/L (10-20); BUN (Urea Nitrogen) 68 mg/dL (9.8-20.1); Calc. Creatinine Clearance 32 mL/min (70-130); Calcium 9.3 mg/dL (7.8-10.44); Carbon Dioxide 23 mmol/L (23-31); Chloride 105 mmol/L (98-107); Estimated GFR-MDRD 33; Glucose 162 mg/dL (83-110); Potassium 5.3 mmol/L (3.5-5.1); Sodium 136 mmol/L (136-145)
[2020-04-28] MEDS: Mometasone 200 MCG/Formoterol 5 MCG 120 PUFF INHALER INH SCH ×2 (06:48→18:42)
[2020-04-28] MEDS: Atorvastatin Calcium 20 MG TAB PO SCH (08:38)
[2020-04-28] MEDS: Gabapentin 300 MG CAP PO SCH ×3 (08:38→20:10)
[2020-04-28] MEDS: Insulin Glargine 5 UNITS in Pre-Filled Syringe 1 EACH SC SCH (08:38)
[2020-04-28] MEDS ORDERED: Dextrose 5 %-0.45 % NaCl 1,000 ML IV SCH (11:00)
[2020-04-28] MEDS: Dextrose 5 %-0.45 % NaCl 1,000 ML IV SCH (11:35)
--- NOTE | 2020-04-28 11:38 | PDOC.HOSPP ---
- Subjective Encounter Date: 04/28/20 Encounter Time: 09:00 Subjective: no sob or palp feels better is amb in room - Objective Vital Signs & Weight: Vital Signs (12 hours) Temp Pulse Resp BP Pulse Ox 04/28/20 11:12 97.5 F L 93 12 131/81 96 04/28/20 07:10 97.7 F 100 20 109/65 96 04/28/20 02:19 98.0 F 95 18 111/71 95 Weight Weight 134 lb 14.4 oz I&O: 04/27/20 04/28/20 04/29/20 06:59 06:59 06:59 Intake Total 676 Output Total 925 Balance -249 Result Diagrams: 04/27/20 17:30 04/28/20 04:45 Additional Labs: Accuchecks 04/27/20 22:47 POC Glucose 125 H Hospitalist ROS - Medication Medications: Active Medications Generic Name Dose Route Start Last Admin Trade Name Freq PRN Reason Stop Dose Admin Atorvastatin Calcium 20 mg 04/28/20 09:00 04/28/20 08:38 Lipitor PO 20 mg DAILY NANCY Administration Duloxetine HCl 20 mg 04/28/20 09:00 04/28/20 08:38 Cymbalta PO 20 mg DAILY NANCY Administration Gabapentin 300 mg 04/28/20 09:00 04/28/20 08:38 Neurontin PO 300 mg TID NANCY Administration Insulin Glargine 5 units/ 0.05 mls @ 0 mls/hr 04/28/20 09:00 04/28/20 08:38 Miscellaneous Medication SC 0.05 mls QAM NANCY Administration Dextrose/Sodium Chloride 1,000 mls @ 50 mls/hr 04/28/20 11:24 04/28/20 11:35 D5 1/2 Ns IV 1,000 mls .Q20H NANCY Administration Mometasone Furoate/Formoterol Fumar 2 puff 04/28/20 06:30 04/28/20 06:48 Dulera 200 Mcg/5 Mcg Inhaler INH 2 puff BID-RT NANCY Administration - Exam General Appearance: awake alert Eye: PERRL, anicteric sclera ENT: no oropharyngeal lesions, dry oral mucosa Neck: supple, no JVD Heart: RRR, no murmur Respiratory: no wheezes, no rales Gastrointestinal: soft, non-tender, non-distended, normal bowel sounds Extremities: no cyanosis, no edema Neurological: cranial nerve grossly intact, no focal deficits Psychiatric: normal affect, A&O x 3 Hosp A/P (1) JOSE (acute kidney injury) Code(s): N17.9 - ACUTE KIDNEY FAILURE, UNSPECIFIED Status: Acute (2) Hyperkalemia Code(s): E87.5 - HYPERKALEMIA Status: Acute (3) COPD (chronic obstructive pulmonary disease) Status: Chronic Qualifiers: COPD type: unspecified COPD (4) Chronic anemia Code(s): D64.9 - ANEMIA, UNSPECIFIED Status: Chronic (5) DM2 (diabetes mellitus, type 2) Status: Chronic Qualifiers: Diabetes mellitus prison insulin use: with prison use (6) HLD (hyperlipidemia) Code(s): E78.5 - HYPERLIPIDEMIA, UNSPECIFIED Status: Chronic Qualifiers: (7) HTN (hypertension) Code(s): I10 - ESSENTIAL (PRIMARY) HYPERTENSION Status: Chronic Qualifiers: - Plan hyperkalemia and jose are slowly resolving potassium is at 5.3 from 6 earlier gentle iv fluids had severe anasarca with ascites before, clinically none of it now prior ef of 55% in october of this yr continue lipitor, neurontin, lantus, cymbalta, dulera inh and protonix hemostable will need another day for jose/hyperkalemia to stabilize a bit
[2020-04-28 12:34] LABS: SARS-CoV-2 MS2 Positive; SARS-CoV-2 N Gene Negative; SARS-CoV-2 S Gene Negative; SARS-CoV-2 by NAA Not Detected (NotDetected); SARS-CoV-2 orf1ab Negative
[2020-04-28] MEDS ORDERED: Loratadine 10 MG TAB PO PRN (13:08)
--- NOTE | 2020-04-28 14:34 | PRG ---
DATE OF SERVICE: 04/28/2020 SUBJECTIVE: Patient was seen and examined at bedside and overnight events noted. Patient denies any shortness of breath or chest pain or palpitation. No history of nausea or vomiting or diarrhea or fever or chills or cramps. OBJECTIVE: GENERAL: This is a well-built female, in no apparent distress. VITAL SIGNS: Temperature 97.5. Heart rate . Blood pressure 131/81. HEENT: Atraumatic, normocephalic. Oral mucosa is moist NECK: Supple. CARDIOVASCULAR: S1, S2 heard. Rate and rhythm regular. RESPIRATORY: Clear to auscultation. GASTROINTESTINAL: Abdomen is soft. MUSCULOSKELETAL: No tenderness. No edema. DERMATOLOGIC: No skin rash. NEUROLOGIC: Alert and awake and oriented X3. No focal neurologic deficits. Moving all the extremities. PSYCHIATRIC: Mood and affect normal. LABORATORY DATA: Potassium 5.3, BUN is 68, creatinine is 1.5. ASSESSMENT AND PLAN: 1. Acute kidney injury on chronic kidney disease stage 3, improvement. 2. Hyperkalemia. 3. Hypertension. 4. Peripheral vascular disease. 5. Labs are much better. Limit potassium intake. We will watch. Plan discussed with Dr. Andujar. Job ID: [id number]
[2020-04-28] MEDS: Acetaminophen 325 MG TAB PO PRN (15:25)
[2020-04-29] MEDS: Mometasone 200 MCG/Formoterol 5 MCG 120 PUFF INHALER INH SCH ×2 (07:27→18:51)
[2020-04-29 08:20] LABS: #Eosinphils 0.1 thou/uL (0.0-0.7); #Lymphocytes 1.3 thou/uL (1.20-3.40); #Monocytes 0.7 thou/uL (0.11-0.59); %Basophils 0.6 % (0.0-1.0); %Lymphocytes 17.6 % (21.0-51.0); %Monocytes 10.4 % (0.0-10.0); %Neutrophils 70.4 % (42.0-75.0); Hemoglobin 12.4 g/dL (12.0-16.0); Mean Corpuscular HGB CONC 31.7 g/dL (32.0-36.0); Mean Corpuscular Hemoglobin 28.4 pg (27.0-31.0); Mean Corpuscular Volume 89.7 fL (78.0-98.0); Mean Platelet Volume 8.3 fL (7.4-10.4); Platelet Count 128 thou/uL (130-400); RBC Distribution Width 15.2 % (11.5-14.5); Red Blood Cell (RBC) Count 4.35 mill/uL (4.20-5.40); White Blood Cell (WBC) Count 7.1 thou/uL (4.8-10.8)
[2020-04-29] MEDS: Gabapentin 300 MG CAP PO SCH ×3 (08:23→21:06)
[2020-04-29] MEDS: Atorvastatin Calcium 20 MG TAB PO SCH (08:23)
[2020-04-29] MEDS: Insulin Glargine 5 UNITS in Pre-Filled Syringe 1 EACH SC SCH (08:23)
[2020-04-29] MEDS: Dextrose 5 %-0.45 % NaCl 1,000 ML IV SCH (08:24)
[2020-04-29 08:30] LABS: Anion Gap 11 mmol/L (10-20); BUN (Urea Nitrogen) 48 mg/dL (9.8-20.1); Calc. Creatinine Clearance 41 mL/min (70-130); Calcium 8.9 mg/dL (7.8-10.44); Carbon Dioxide 25 mmol/L (23-31); Chloride 104 mmol/L (98-107); Estimated GFR-MDRD 45; Glucose 117 mg/dL (83-110); Potassium 5.7 mmol/L (3.5-5.1); Sodium 134 mmol/L (136-145)
[2020-04-29 10:23] LABS: Potassium 5.9 mmol/L (3.5-5.1)
--- NOTE | 2020-04-29 10:41 | PDOC.HOSPP ---
- Subjective Encounter Date: 04/29/20 Encounter Time: 09:35 Subjective: no sob or palp feels better, is amb in room - Objective Vital Signs & Weight: Vital Signs (12 hours) Temp Pulse Resp BP Pulse Ox 04/29/20 07:04 98.5 F 100 22 H 116/75 95 04/29/20 07:03 95 04/29/20 03:46 97.6 F 101 H 16 106/72 96 04/29/20 01:15 96 04/29/20 00:02 97.7 F 104 H 15 97/62 96 Weight Weight 132 lb 11.492 oz I&O: 04/28/20 04/29/20 04/30/20 06:59 06:59 06:59 Intake Total 676 0 Output Total 925 Balance -249 2069 Result Diagrams: 04/29/20 07:59 04/29/20 09:52 Additional Labs: Accuchecks 04/29/20 04/28/20 04/28/20 06:10 20:56 17:16 POC Glucose 107 169 H 133 H 04/28/20 11:30 POC Glucose 141 H Hospitalist ROS - Medication Medications: Active Medications Generic Name Dose Route Start Last Admin Trade Name Freq PRN Reason Stop Dose Admin Acetaminophen 650 mg 04/27/20 23:27 04/28/20 15:25 Tylenol PO 650 mg Q6H PRN Administration Pain Atorvastatin Calcium 20 mg 04/28/20 09:00 04/29/20 08:23 Lipitor PO 20 mg DAILY NANCY Administration Duloxetine HCl 20 mg 04/28/20 09:00 04/29/20 08:23 Cymbalta PO 20 mg DAILY NANCY Administration Gabapentin 300 mg 04/28/20 09:00 04/29/20 08:23 Neurontin PO 300 mg TID NANCY Administration Insulin Glargine 5 units/ 0.05 mls @ 0 mls/hr 04/28/20 09:00 04/29/20 08:23 Miscellaneous Medication SC 0.05 mls QAM NANCY Administration Dextrose/Sodium Chloride 1,000 mls @ 50 mls/hr 04/28/20 11:24 04/29/20 08:24 D5 1/2 Ns IV 1,000 mls .Q20H NANCY Administration Mometasone Furoate/Formoterol Fumar 2 puff 04/28/20 06:30 09/06/20 07:27 Dulera 200 Mcg/5 Mcg Inhaler INH 2 puff BID-RT NANCY Administration Pantoprazole Sodium 40 mg 04/28/20 21:00 04/28/20 20:09 Protonix PO 40 mg HS NANCY Administration - Exam General Appearance: awake alert Eye: PERRL, anicteric sclera ENT: no oropharyngeal lesions, moist mucosa Neck: supple, no JVD Heart: RRR, no murmur Respiratory: no wheezes, no rales Gastrointestinal: soft, non-tender, non-distended, normal bowel sounds Extremities: no cyanosis, no edema Neurological: cranial nerve grossly intact, no focal deficits Psychiatric: normal affect, A&O x 3 Hosp A/P (1) JOSE (acute kidney injury) Code(s): N17.9 - ACUTE KIDNEY FAILURE, UNSPECIFIED Status: Acute (2) Hyperkalemia Code(s): E87.5 - HYPERKALEMIA Status: Acute (3) COPD (chronic obstructive pulmonary disease) Status: Chronic Qualifiers: COPD type: unspecified COPD (4) Chronic anemia Code(s): D64.9 - ANEMIA, UNSPECIFIED Status: Chronic (5) DM2 (diabetes mellitus, type 2) Status: Chronic Qualifiers: Diabetes mellitus [employer] helper insulin use: with [employer] helper use (6) HLD (hyperlipidemia) Code(s): E78.5 - HYPERLIPIDEMIA, UNSPECIFIED Status: Chronic Qualifiers: (7) HTN (hypertension) Code(s): I10 - ESSENTIAL (PRIMARY) HYPERTENSION Status: Chronic Qualifiers: - Plan hyperkalemia has reappeared this am, unclear etiology, await nephrology adv, urine electrolytes jose is slowly resolving gentle iv fluids had severe anasarca with ascites before, clinically none of it now prior ef of 55% in october of this yr continue lipitor, neurontin, lantus, cymbalta, dulera inh and protonix hemostable dc plan per nephr adv
[2020-04-29 11:47] LABS: Potassium, Urine 37.7 mmol/L
--- NOTE | 2020-04-29 14:21 | PRG ---
DATE OF SERVICE: 04/29/2020 SUBJECTIVE: Patient was seen and examined at bedside and overnight events noted. Patient denies any shortness of breath or chest pain or palpitation. No history of nausea or vomiting or diarrhea or fever or chills or cramps. OBJECTIVE: GENERAL: This is a well-built female, in no apparent distress. VITAL SIGNS: Temperature 97.6. Heart rate 77. Respiratory rate 20. Blood pressure 111/64. HEENT: Atraumatic, normocephalic. Oral mucosa is moist NECK: Supple. CARDIOVASCULAR: S1, S2 heard. Rate and rhythm regular. RESPIRATORY: Clear to auscultation. GASTROINTESTINAL: Abdomen is soft. MUSCULOSKELETAL: No tenderness. No edema. DERMATOLOGIC: No skin rash. NEUROLOGIC: Alert and awake and oriented X3. No focal neurologic deficits. Moving all the extremities. PSYCHIATRIC: Mood and affect normal. LABORATORY DATA: Potassium 5.9, BUN is 48, creatinine is 1.18. ASSESSMENT AND PLAN: 1. Acute kidney injury. 2. Chronic kidney disease, stage 3. 3. Hyperkalemia. We will give a dose of Kayexalate today and limit potassium intake. 4. Hypertension. 5. Peripheral vascular disease. 6. limit potassium intake and we will give a dose of Kayexalate. Continue hydration as tolerated. Creatinine is better down to 1.18. Job ID: [id number]
[2020-04-29] MEDS: Acetaminophen 325 MG TAB PO PRN (21:07)
[2020-04-30 04:39] LABS: Anion Gap 12 mmol/L (10-20); BUN (Urea Nitrogen) 39 mg/dL (9.8-20.1); Calc. Creatinine Clearance 46 mL/min (70-130); Calcium 8.5 mg/dL (7.8-10.44); Carbon Dioxide 20 mmol/L (23-31); Chloride 105 mmol/L (98-107); Estimated GFR-MDRD 52; Glucose 107 mg/dL (83-110); Potassium 4.7 mmol/L (3.5-5.1); Sodium 132 mmol/L (136-145)
[2020-04-30] MEDS: Dextrose 5 %-0.45 % NaCl 1,000 ML IV SCH (06:23)
[2020-04-30] MEDS: Mometasone 200 MCG/Formoterol 5 MCG 120 PUFF INHALER INH SCH (07:23)
[2020-04-30] MEDS: Atorvastatin Calcium 20 MG TAB PO SCH (08:31)
[2020-04-30] MEDS: Insulin Glargine 5 UNITS in Pre-Filled Syringe 1 EACH SC SCH (08:31)
[2020-04-30] MEDS: Gabapentin 300 MG CAP PO SCH (08:31)
--- NOTE | 2020-04-30 11:24 | PRG ---
DATE OF SERVICE: 04/30/2020 SUBJECTIVE: This is a 70-year-old female being seen for acute kidney injury. The patient denied nausea, vomiting, or chest pain. OBJECTIVE: GENERAL: On examination, the patient is awake and alert. VITAL SIGNS: Afebrile, pulse 75, breathing at 16, and blood pressure 112/72. HEENT: Head normocephalic and atraumatic. Eyes intact, no ulcers. Nose intact, no ulcers. Ears intact, no ulcers. NECK: Supple. No JVD. CHEST: Symmetrical and clear. CARDIOVASCULAR: Shows S1 and S2, no rub, no murmur. GASTROINTESTINAL: Abdomen is soft, bowel sounds positive. EXTREMITIES: Show no edema or ulcers. SKIN: Shows no rash or petechiae. MUSCULOSKELETAL: Shows no joint swelling or stiffness. GENITOURINARY: Shows no Cardona or CVA tenderness. NEUROLOGIC: Motor intact. Cranial nerves intact. LABORATORY DATA: Hemoglobin 12.4. Sodium 132. ASSESSMENT AND PLAN: 1. Acute kidney injury, improved. 2. Hypertension, stable. 3. Hyponatremia, stable. I will sign off on this patient. The patient will follow up with Dr. Barajas. Job ID: [id number]
[2020-04-30 11:31] VITALS: BP 122/78; TEMP 97.4
--- NOTE | 2020-05-01 15:06 | DIS ---
DATE OF ADMISSION: 04/28/2020 DATE OF DISCHARGE: 04/30/2020 DISCHARGE DISPOSITION: To home. PRIMARY DISCHARGE DIAGNOSIS: Acute kidney injury with hyperkalemia, resolved. SECONDARY DISCHARGE DIAGNOSES: 1. Chronic obstructive pulmonary disease. 2. Chronic anemia. 3. Diabetes mellitus, type 2. 4. Dyslipidemia. 5. Hypertension. PROCEDURES DONE DURING HOSPITALIZATION: H and H 12 and 39, platelet count 128. BUN 39, creatinine 1.0. Discharge potassium is 4.7. Admitting BUN and creatinine was 85 and 1.9 with potassium of 6.6. Serum bicarb was 15 on the day of admission. COVID-19 PCR was not detected on 04/27/2020. DISCHARGE MEDICATIONS: 1. Atorvastatin 20 mg p.o. daily. 2. Symbicort inhaler 160/4.5 mcg 2 puffs twice daily. 3. Cymbalta 20 mg daily. 4. Gabapentin 300 mg p.o. 3 times daily. 5. Lantus 5 units subcu daily. 6. Melatonin 3 mg p.o. at bedtime p.r.n. for insomnia. 7. Omeprazole 40 mg p.o. at bedtime. 8. MiraLAX 17 g p.o. daily. 9. Lasix 40 mg p.o. daily. ALLERGIES: TO ISONIAZID AND LYRICA. DISCHARGE PLAN: The patient to follow up with Dr. Sweeney in [address] Barajas in 1 week. BRIEF COURSE DURING HOSPITALIZATION: The patient initially was hospitalized for severe hyperkalemia with potassium of 6.6 and acute kidney injury. She was on Lasix and spironolactone for her ascites and generalized anasarca in the past. Currently, the patient did not have any ascites or edema. Likely, her acute kidney injury with hyperkalemia was related to medication. She was severely dehydrated. The patient was gently hydrated during her stay with correction of electrolytes. The patient had a history of drug-induced liver injury in the past, but did not show any signs of any liver compromise in this admission. She remained hemodynamically stable, ambulating and eating well prior to discharge. She has been advised to continue Lasix at 40 mg daily with no potassium supplements. Her spironolactone has been discontinued. She needs a lab work and follow up with Dr. Sweeney, her primary care physician, in 1 week. Please note, I have seen and examined the patient on the day of discharge. Job ID: [id number]
== END 2020-04-30 13:35 | disposition home or self-care (01) | DRG 683 ==
LOC: ERS 17:13 → 2SW 19:29 → OBSVTOIN 04-28 10:48 → 2NO 04-28 13:11
PROVIDERS: ADMIT Internal Medicine; ATTEND Internal Medicine
DX: N17.9 Acute kidney failure, unspecified (principal); E87.1 Hypo-osmolality and hyponatremia; E87.5 Hyperkalemia; K71.9 Toxic liver disease, unspecified; Z20.828 Contact with and (suspected) exposure to other viral communicable diseases; J44.9 Chronic obstructive pulmonary disease, unspecified; E78.5 Hyperlipidemia, unspecified; E86.0 Dehydration; I12.9 Hypertensive chronic kidney disease with stage 1 through stage 4 chronic kidney disease, or unspecified chronic kidney disease; E11.22 Type 2 diabetes mellitus with diabetic chronic kidney disease; K21.9 Gastro-esophageal reflux disease without esophagitis; N18.3 Chronic kidney disease, stage 3 (moderate); E78.00 Pure hypercholesterolemia, unspecified; E11.51 Type 2 diabetes mellitus with diabetic peripheral angiopathy without gangrene; Z87.891 Personal history of nicotine dependence; Z90.710 Acquired absence of both cervix and uterus; Z88.8 Allergy status to other drugs, medicaments and biological substances; Z90.49 Acquired absence of other specified parts of digestive tract; Z86.11 Personal history of tuberculosis; Z79.4 Long term (current) use of insulin; Z79.899 Other long term (current) drug therapy
CPT/HCPCS: 36415; 36416; 80048; 80053; 82436; 82550; 84133; 84300; 85025; 87635; 93005; 94664; 96361; 96365; 96375; G0378; J1815; J3490; U0003

== ENCOUNTER 2020-11-09 20:04 | Inpatient (IN) | payer MEDICARE, MEDICAID ==
[2020-11-09] MEDS ORDERED: Dextrose 5% in Water 1,000 ML IV PRN (23:10)
[2020-11-09] MEDS ORDERED: HumaLOG 300 UNITS/3 ML VIAL SC PRN (23:10)
[2020-11-09] MEDS ORDERED: Dextrose 50% Abboject 50 ML SYRINGE SLOW IVP PRN (23:10)
[2020-11-09 23:16] VITALS: BMI 26.0
[2020-11-10 03:47] LABS: Bacteria/HPF 3+ HPF (None Seen); Bilirubin Negative (Negative); Blood, Urine 1+ (Negative); Clarity Turbid (Clear); Glucose, Urine (Dipstick) Normal (Negative); Ketone, Urine Negative (Negative); Leukocyte 500 Leu/uL (Negative); Nitrite Negative (Negative); Protein, Urine (Dipstick) 50 mg/dL (Neg-Trace); RBC/HPF 0-3 HPF (0-3); Renal Epithelial 0-3 HPF (None Seen); WBC/HPF Greater than 50 HPF (0-3); pH, Urine 5.5 (5.0-9.0)
[2020-11-10 03:48] LABS: Urine Culture Reflex No No
[2020-11-10 05:52] LABS: #Eosinphils 0.2 thou/uL (0.0-0.7); #Monocytes 0.7 thou/uL (0.11-0.59); #Neutrophils 4.5 thou/uL (1.40-6.50); %Basophils 0.5 % (0.0-1.0); %Eosinophils 2.4 % (0.0-10.0); %Lymphocytes 15.3 % (21.0-51.0); %Monocytes 10.8 % (0.0-10.0); Hemoglobin 10.9 g/dL (12.0-16.0); Mean Corpuscular HGB CONC 29.4 g/dL (32.0-36.0); Mean Corpuscular Hemoglobin 24.5 pg (27.0-31.0); Mean Corpuscular Volume 83.2 fL (78.0-98.0); Mean Platelet Volume 9.7 fL (7.4-10.4); Platelet Count 134 thou/uL (130-400); Red Blood Cell (RBC) Count 4.44 mill/uL (4.20-5.40); White Blood Cell (WBC) Count 6.4 thou/uL (4.8-10.8)
[2020-11-10 06:12] LABS: ALT (SGPT) Less than 7 U/L (8-55); AST (SGOT) 16 U/L (5-34); Albumin 3.6 g/dL (3.4-4.8); Alkaline Phosphatase 97 U/L (40-110); Anion Gap 14 mmol/L (10-20); BUN (Urea Nitrogen) 31 mg/dL (9.8-20.1); Bilirubin, Total 1.2 mg/dL (0.2-1.2); Calc. Creatinine Clearance 52 mL/min (70-130); Calcium 8.9 mg/dL (7.8-10.44); Carbon Dioxide 26 mmol/L (23-31); Chloride 105 mmol/L (98-107); Globulin 2.9 g/dL (2.4-3.5); Glucose 156 mg/dL (83-110); Magnesium 2.1 mg/dL (1.6-2.6); Potassium 4.3 mmol/L (3.5-5.1); Protein, Total 6.5 g/dL (5.8-8.1); Sodium 141 mmol/L (136-145)
[2020-11-10 06:55] LABS: Bacteria/HPF 3+ HPF (None Seen); Bilirubin Negative (Negative); Blood, Urine 2+ (Negative); Clarity Turbid (Clear); Glucose, Urine (Dipstick) Normal (Negative); Ketone, Urine Negative (Negative); Leukocyte 500 Leu/uL (Negative); Nitrite Negative (Negative); Protein, Urine (Dipstick) 50 mg/dL (Neg-Trace); RBC/HPF 0-3 HPF (0-3); Renal Epithelial 0-3 HPF (None Seen); Specific Gravity, Urine 1.021 (1.002-1.036); Squamous Epithelial 0-3 HPF (0-3); Urobilinogen 6 mg/dL (Less than 2); WBC/HPF Greater than 50 HPF (0-3); pH, Urine 5.5 (5.0-9.0)
[2020-11-10 06:56] LABS: Urine Culture Reflex Yes Yes
[2020-11-10 07:50] LABS: INR-International Normal Ratio 1.4; Prothrombin Time 17.2 sec (12.0-14.7)
[2020-11-10] MEDS ORDERED: Polyethylene Glycol 3350 17 GM Packet PO PRN (10:54)
[2020-11-10] MEDS ORDERED: Mometasone 200 MCG/Formoterol 5 MCG 120 PUFF INHALER INH PRN (10:57)
[2020-11-10] MEDS ORDERED: Spironolactone 25 MG TAB PO SCH (11:00)
[2020-11-10] MEDS ORDERED: Lidocaine 1% PF 5 ML VIAL ONE (11:12)
[2020-11-10 13:26] LABS: RBC Count-Automated (BF) 1063 /cu.mm; WBC/Nucleated-Auto (BF) 305 uL
[2020-11-10 13:40] LABS: Fluid, Protein 3.1 g/dL (Not Available)
[2020-11-10 13:53] LABS: BF Color Yellow; Body Fluid Source Ascites Body Fluid; Clarity Hazy (Clear); Tube # EDTA
[2020-11-10 13:55] LABS: BF Segmented Neutrophils 20 %; Cell Count Non Hematic 58 %; Eosinophils 1 %; Lymphocytes 21 %
[2020-11-10] MEDS: Gabapentin 300 MG CAP PO SCH ×2 (14:45→20:37)
[2020-11-10] MEDS: HumaLOG 300 UNITS/3 ML VIAL SC PRN (16:40)
[2020-11-10] MEDS: Melatonin 3 MG TAB PO PRN (23:06)
[2020-11-11 03:17] LABS: #Eosinphils 0.2 thou/uL (0.0-0.7); #Monocytes 0.7 thou/uL (0.11-0.59); #Neutrophils 4.1 thou/uL (1.40-6.50); %Basophils 0.7 % (0.0-1.0); %Eosinophils 2.7 % (0.0-10.0); %Lymphocytes 16.9 % (21.0-51.0); %Neutrophils 68.7 % (42.0-75.0); Hemoglobin 10.8 g/dL (12.0-16.0); Mean Corpuscular HGB CONC 29.5 g/dL (32.0-36.0); Mean Corpuscular Hemoglobin 24.7 pg (27.0-31.0); Mean Corpuscular Volume 83.7 fL (78.0-98.0); Mean Platelet Volume 9.7 fL (7.4-10.4); Platelet Count 125 thou/uL (130-400); Red Blood Cell (RBC) Count 4.37 mill/uL (4.20-5.40)
[2020-11-11 03:43] LABS: ALT (SGPT) Less than 7 U/L (8-55); AST (SGOT) 13 U/L (5-34); Albumin 3.2 g/dL (3.4-4.8); Alkaline Phosphatase 85 U/L (40-110); Anion Gap 12 mmol/L (10-20); BUN (Urea Nitrogen) 30 mg/dL (9.8-20.1); Calc. Creatinine Clearance 55 mL/min (70-130); Calcium 8.3 mg/dL (7.8-10.44); Carbon Dioxide 26 mmol/L (23-31); Chloride 103 mmol/L (98-107); Globulin 2.5 g/dL (2.4-3.5); Glucose 137 mg/dL (83-110); Potassium 4.3 mmol/L (3.5-5.1); Protein, Total 5.7 g/dL (5.8-8.1); Sodium 137 mmol/L (136-145)
[2020-11-11] MEDS: Spironolactone 25 MG TAB PO SCH (08:39)
[2020-11-11] MEDS: Gabapentin 300 MG CAP PO SCH ×3 (08:39→20:17)
[2020-11-11] MEDS: Furosemide 40 MG TAB PO SCH (08:39)
[2020-11-11] MEDS: HumaLOG 300 UNITS/3 ML VIAL SC PRN ×2 (11:52→17:03)
[2020-11-11] MEDS ORDERED: cefTRIAXone\\ROCEPHIN 1 GM in Sodium Chloride 0.9% 100 ML IVPB SCH (12:00)
[2020-11-11] MEDS ORDERED: traMADol HCl 50 MG TAB PO PRN (17:48)
[2020-11-11] MEDS: Melatonin 3 MG TAB PO PRN (20:18)
[2020-11-12] MEDS: Gabapentin 300 MG CAP PO SCH (08:25)
[2020-11-12] MEDS: Furosemide 40 MG TAB PO SCH (08:25)
[2020-11-12] MEDS: Spironolactone 25 MG TAB PO SCH (08:26)
[2020-11-12 11:20] VITALS: BP 117/80; TEMP 97.9
== END 2020-11-12 11:28 | disposition home or self-care (01) | DRG 292 ==
LOC: T4-A 20:04 → INTOOBSV 20:04 → OBSVTOIN 11-10 21:33
PROVIDERS: ADMIT Student in an Organized Health Care Education/Training Program; ATTEND Family Medicine
PROC: 0W9G3ZZ Drainage of Peritoneal Cavity, Percutaneous Approach (ICD-10-PCS; principal; 2020-11-10)
DX: I13.0 Hypertensive heart and chronic kidney disease with heart failure and stage 1 through stage 4 chronic kidney disease, or unspecified chronic kidney disease (principal); R18.8 Other ascites; N17.9 Acute kidney failure, unspecified; I50.32 Chronic diastolic (congestive) heart failure; N39.0 Urinary tract infection, site not specified; J96.11 Chronic respiratory failure with hypoxia; E87.5 Hyperkalemia; Z20.822 Contact with and (suspected) exposure to COVID-19; J44.9 Chronic obstructive pulmonary disease, unspecified; E11.22 Type 2 diabetes mellitus with diabetic chronic kidney disease; K71.9 Toxic liver disease, unspecified; N18.30 Chronic kidney disease, stage 3 unspecified; I27.20 Pulmonary hypertension, unspecified; I50.812 Chronic right heart failure; B96.20 Unspecified Escherichia coli [E. coli] as the cause of diseases classified elsewhere; K76.1 Chronic passive congestion of liver; I07.1 Rheumatic tricuspid insufficiency; E11.51 Type 2 diabetes mellitus with diabetic peripheral angiopathy without gangrene; Z99.81 Dependence on supplemental oxygen; Z88.8 Allergy status to other drugs, medicaments and biological substances; Z86.11 Personal history of tuberculosis; Z90.49 Acquired absence of other specified parts of digestive tract; Z90.710 Acquired absence of both cervix and uterus
CPT/HCPCS: 36415; 36416; 49083; 71046; 76705; 80053; 81001; 82105; 82140; 82150; 82945; 83615; 83735; 83880; 84157; 85025; 85060; 85610; 85730; 87070; 87077; 87086; 87186; 87205; 89051; 94640; G0378; J0696; J1815; J3490; J7620